=== PATIENT | female | born 1980 | race Caucasian/White ===

== ENCOUNTER 2016-07-06 12:19 | Emergency (ER) | payer MEDICAID ==
[2016-07-06] MEDS ORDERED: ALBUTEROL NEB 2.5 MG/3 ML INH STA (13:39)
[2016-07-06] MEDS ORDERED: DEXAMETHASONE 10 MG/ML VIAL PO STA (13:39)
[2016-07-06] MEDS ORDERED: oxyCOD/ACETAMIN 5 MG/325 MG TABLET PO STA (13:39)
[2016-07-06] MEDS ORDERED: ONDANSETRON ODT 4 MG TABLET TL STA (13:39)
[2016-07-06] MEDS ORDERED: ALBUTEROL NEB 2.5 MG/3 ML INH ONE (13:48)
[2016-07-06] MEDS ORDERED: oxyCOD/ACETAMIN 5 MG/325 MG TABLET PO ONE (13:49)
[2016-07-06] MEDS ORDERED: ONDANSETRON ODT 4 MG TABLET ONE (13:49)
[2016-07-06] MEDS ORDERED: CHERRY SYRUP 10 ML UDC PO ONE (13:49)
[2016-07-06] MEDS ORDERED: DEXAMETHASONE 10 MG/ML VIAL ONE (13:49)
[2016-07-06] MEDS ORDERED: CEPHALEXIN 250 MG CAPSULE PO STA (14:16)
[2016-07-06] MEDS ORDERED: CEPHALEXIN 250 MG CAPSULE PO ONE (14:26)
== END 2016-07-06 14:42 | disposition home or self-care (01) ==
DX: J03.90 Acute tonsillitis, unspecified (principal); J45.909 Unspecified asthma, uncomplicated; F17.200 Nicotine dependence, unspecified, uncomplicated
CPT/HCPCS: 87070; 87275; 87276; 87430; 94640; 99283; A9270; J7613; Q0162

== ENCOUNTER 2016-07-12 16:38 | Emergency (ER) | payer MEDICAID ==
[2016-07-12 16:44] VITALS: BP 140/89
--- NOTE | 2016-07-12 16:55 | ED Physician Documentation ---
History of Present Illness - Stated complaint Stated Complaint: COUGH - Chief complaint Chief Complaint: Resp - History of Present Illness Timing: Other (35-year-old woman with history of asthma and multiple episodes of pneumonia as a child presents with a 12 days of illness which started with URI symptoms and sore throat. She was seen here, strep and flu swabs were negative. She was placed on antibiotics, steroid. She was getting better but got worse again with a more productive cough with green sputum and shortness of breath but no fevers. No possibility of .) Review of Systems Constitutional: reports: Fatigue. denies: Fever, Chills Ears: denies: Loss of hearing, Ear pain Nose: reports: Rhinorrhea / runny nose Throat: reports: Sore throat (improved) Cardiac: denies: Chest pain / pressure, Palpitations, Pedal edema, Calf pain Respiratory: reports: Dyspnea, Cough, Wheezing. denies: Hemoptysis PD PAST MEDICAL HISTORY - Past Medical History Respiratory: Asthma - Past Surgical History Past Surgical History: Yes General: Appendectomy - Present Medications Home Medications: Ambulatory Orders Medication Instructions Recorded Confirmed Albuterol 2.5 mg INH Q4H PRN #30 neb 07/06/16 Albuterol Sulfate [Proair Hfa 2 puffs IH QID #1 hfa.aer.ad 07/06/16 Inhaler] Cephalexin [Keflex] 500 mg PO QID #20 capsule 07/06/16 Dexamethasone [Decadron] 4 mg PO DAILY #5 tablet 07/06/16 Ipratropium [Atrovent] 0.5 mg INH BID #30 neb 07/06/16 Oxycodone HCl/Acetaminophen 1 each PO Q6H PRN #15 tablet 07/06/16 [Percocet 5-325 mg Tablet] diphenhydrAMINE [Benadryl] 07/06/16 guaiFENesin/CODEINE [Robitussin AC] 5 - 10 ml PO Q6H PRN #120 ml 07/12/16 predniSONE [Deltasone] 20 mg PO [id number] #21 tab 07/12/16 - Allergies Allergies/Adverse Reactions: Allergies Allergy/AdvReac Type Severity Reaction Status Date / Time aspirin Allergy Unknown Verified 07/06/16 12:27 Penicillins Allergy Unknown Verified 07/12/16 16:43 - Social History Does the pt smoke?: Yes Smoking Status: Current every day smoker Does the pt have substance abuse?: No PD ED PE NORMAL - Vitals Vital signs reviewed: Yes - General General: Alert and oriented X 3, No acute distress - HEENT HEENT: PERRL, EOMI, Ears normal, Moist mucous membranes, Pharynx benign - Neck Neck: Supple, no meningeal sign, No bony TTP - Cardiac Cardiac: RRR, No murmur - Respiratory Respiratory: No respiratory distress, Other (mild rhonchi throughout, [place] bases) - Abdomen Abdomen: Soft, Non tender - Derm Derm: No rash - Neuro Neuro: Alert and oriented X 3, Normal speech - Psych Psych: Normal mood, Normal affect Results - Vitals Vitals: Vital Signs - 24 hr 07/12/16 16:41 Temperature 36.2 C L Heart Rate 61 Respiratory 16 Rate Blood Pressure 140/89 H O2 Saturation 99 Oxygen O2 Source Room air - Rads (name of study) 2v chest Radiology: EMP read contemporaneously (mild bronchitis) PD MEDICAL DECISION MAKING - ED course ED course: 35-year-old woman with viral bronchitis, has not improved on antibiotics. Added Robitussin and prednisone. She was concerned for pneumonia but there is no evidence of this on x-ray. Departure - Departure Disposition: 01 Home, Self Care Clinical Impression: Bronchitis Condition: Good Record reviewed to determine appropriate education?: Yes Instructions: ED Bronchitis Asthmatic Prescriptions: predniSONE [Deltasone] 20 mg PO [id number] #21 tab guaiFENesin/CODEINE [Robitussin AC] 5 - 10 ml PO Q6H PRN #120 ml PRN Reason: Cough Comments: Call your doctor to arrange a follow up appointment. Make the next available appointment. In the interim return anytime if worse or if new symptoms develop. Your blood pressure was elevated today on check in to the emergency department. This does not mean that you have hypertension, it is a common phenomenon to check into the emergency department and have elevated blood pressure. I recommend that you see your primary care physician within the week to have it rechecked when you're feeling better. Forms: Activity restrictions Discharge Date/Time: 07/12/16 17:58
--- NOTE | 2016-07-12 17:45 | XRAY Preliminary Report ---
Exam: XR Chest 2 View PA/LAT IMPRESSION: Mild bronchial wall thickening which can be seen in bronchitis or reactive airways diseas e. No focal consolidation. [facility] SITE ID: [id number]
--- NOTE | 2016-07-12 17:48 | XRAY Report ---
EXAM: CHEST RADIOGRAPHY EXAM DATE: 07/12/2016 05:28 PM. CLINICAL HISTORY: Cough. COMPARISON: Chest x-ray 11/01/2011. TECHNIQUE: 2 views. FINDINGS: Lungs/Pleura: No pleural effusion or pneumothorax. No focal consolidation. Mild bronchial wall thicke rm. Mediastinum: Heart and mediastinal contours are unremarkable. Other: None. IMPRESSION: Mild bronchial wall thickening which can be seen in bronchitis or reactive airways diseas e. No focal consolidation. [facility] Referring Provider Line: [phone] SITE ID: [id number]
== END 2016-07-12 17:58 | disposition home or self-care (01) ==
LOC: ED 16:38
DX: J40 Bronchitis, not specified as acute or chronic (principal); J45.909 Unspecified asthma, uncomplicated; Z87.01 Personal history of pneumonia (recurrent); F17.200 Nicotine dependence, unspecified, uncomplicated; Z88.0 Allergy status to penicillin; R03.0 Elevated blood-pressure reading, without diagnosis of hypertension
CPT/HCPCS: 71020; 99282; 99283

== ENCOUNTER 2016-07-31 10:34 | Emergency (ER) | payer MEDICAID ==
[2016-07-31] MEDS ORDERED: DEXAMETHASONE 10 MG/ML VIAL IVP STA (12:47)
[2016-07-31] MEDS ORDERED: KETOROLAC 60 MG/2 ML VIAL IVP STA (12:47)
[2016-07-31] MEDS ORDERED: PROCHLORPERAZINE 10 MG/2 ML VIAL IVP STA (12:47)
[2016-07-31] MEDS ORDERED: diphenhydrAMINE INJ 50 MG/ML VIAL IVP STA (12:47)
[2016-07-31] MEDS ORDERED: SODIUM CHLORIDE 0.9% 1,000 ML IV ONE (12:47)
[2016-07-31] MEDS ORDERED: PROCHLORPERAZINE 10 MG/2 ML VIAL ONE (12:49)
[2016-07-31] MEDS ORDERED: DEXAMETHASONE 10 MG/ML VIAL ONE (12:49)
[2016-07-31] MEDS ORDERED: KETOROLAC 30 MG/ML VIAL ONE (12:49)
[2016-07-31] MEDS ORDERED: diphenhydrAMINE INJ 50 MG/ML VIAL ONE (12:49)
== END 2016-07-31 14:14 | disposition home or self-care (01) ==
DX: G43.909 Migraine, unspecified, not intractable, without status migrainosus (principal); J45.909 Unspecified asthma, uncomplicated; F17.200 Nicotine dependence, unspecified, uncomplicated; R03.0 Elevated blood-pressure reading, without diagnosis of hypertension

== ENCOUNTER 2016-09-12 09:00 | Emergency (ER) | payer MEDICAID | END 2016-09-12 10:16 | disposition home or self-care (01) | DX: K04.7 Periapical abscess without sinus (principal); J45.909 Unspecified asthma, uncomplicated; F17.200 Nicotine dependence, unspecified, uncomplicated ==

== ENCOUNTER 2016-12-02 19:11 | Emergency (ER) | payer MEDICAID ==
[2016-12-02] MEDS ORDERED: HYDROcod/ACET 5/325 Prepack 6 PO STA (21:33)
--- NOTE | 2016-12-02 21:35 | ED Physician Documentation ---
History of Present Illness - Stated complaint Stated Complaint: L FOOT PAIN - Chief complaint Chief Complaint: Heent - History obtained from History obtained from: Patient - History of Present Illness Timing: Other (Stubbed L 3rd-5th toes on a door last night, a lot of pain despite tylenol/motrin. No poss pregn.) Review of Systems Constitutional: denies: Fever, Chills Nose: denies: Rhinorrhea / runny nose, Congestion Throat: denies: Sore throat Cardiac: denies: Chest pain / pressure, Palpitations Respiratory: denies: Dyspnea PD PAST MEDICAL HISTORY - Past Medical History Past Medical History: Yes Cardiovascular: None Respiratory: Asthma Neuro: None Endocrine/Autoimmune: None GI: None HEALTH ADVOCATE: None : None HEENT: None Psych: None Musculoskeletal: None Derm: None - Past Surgical History Past Surgical History: Yes General: Appendectomy - Present Medications Home Medications: Ambulatory Orders Medication Instructions Recorded Confirmed Albuterol 2.5 mg INH Q4H PRN #30 neb 07/06/16 08/06/16 Albuterol Sulfate [Proair Hfa 2 puffs IH QID #1 hfa.aer.ad 07/06/16 08/06/16 Inhaler] Ipratropium [Atrovent] 0.5 mg INH BID #30 neb 07/06/16 08/06/16 Azithromycin [Zithromax] 250 mg PO DAILY #6 tablet 08/06/16 Benzonatate [Tessalon] 100 mg PO TID PRN #20 capsule 08/06/16 Ibuprofen [Motrin] 400 mg PO Q6H PRN #30 tablet 08/06/16 guaiFENesin/CODEINE [Robitussin AC] 5 - 10 ml PO Q6H PRN #120 udc 08/06/16 Clindamycin [Cleocin] 300 mg PO Q6H 7 Days 09/12/16 Ibuprofen [Motrin] 400 mg PO Q6H PRN #30 tablet 09/12/16 HYDROcod/ACETAM 5/325 [[place] 5/325] 1 - 2 ea PO Q6H PRN #15 tablet 12/02/16 - Allergies Allergies/Adverse Reactions: Allergies Allergy/AdvReac Type Severity Reaction Status Date / Time Penicillins Allergy Severe Edema Verified 12/02/16 19:23 aspirin Allergy Unknown Verified 12/02/16 19:23 - Social History Does the pt smoke?: Yes Smoking Status: Current every day smoker Does the pt drink ETOH?: No Does the pt have substance abuse?: No - Immunizations Immunizations are current?: Yes - POLST Patient has POLST: No PD ED PE NORMAL - Vitals Vital signs reviewed: Yes - General General: Alert and oriented X 3, No acute distress - Extremities Extremities: Other (Left third fourth and fifth toes are tender proximally with some swelling and bruising.) - Neuro Neuro: Alert and oriented X 3, Normal speech - Psych Psych: Normal mood, Normal affect Results - Vitals Vitals: Vital Signs - 24 hr 12/02/16 19:14 Temperature 36.7 C Heart Rate 99 Respiratory 18 Rate Blood Pressure 143/89 H O2 Saturation 100 Oxygen O2 Source Room air - Rads (name of study) L foot Radiology: EMP read contemporaneously (Proximal fifth phalanx fracture) Departure - Departure Disposition: 01 Home, Self Care Clinical Impression: Toe fracture, left Condition: Good Record reviewed to determine appropriate education?: Yes Instructions: ED Fx Toe Closed Prescriptions: HYDROcod/ACETAM 5/325 [[place] 5/325] 1 - 2 ea PO Q6H PRN #15 tablet PRN Reason: Pain Comments: Recheck with your doctor in 2 weeks, sooner if worse. Your blood pressure was elevated today on check into the emergency department. This does not mean that you have hypertension, it is a common phenomenon to come to the emergency department and have elevated blood pressure. I recommend that she see her primary care physician within the week to have it rechecked when you are feeling better. Do not drink or drive while taking narcotic pain medication. Note that many narcotic pain relievers also contain Tylenol/acetaminophen. Please ensure that your total dose of acetaminophen from all sources does not exceed 3 g (3000 mg) per day. You may get constipated while on this medication. Take a stool softener such as Colace twice a day while you are on it. Also add an [id number]-[id number] laxative such as senna or MiraLAX on any day that you do not have a bowel movement. If you received a narcotic pain medication or sedative while in the emergency department, do not drive for the next 24 hours. Forms: Activity restrictions
[2016-12-02] MEDS ORDERED: HYDROcod/ACET 5/325 Prepack 6 PO ONE (21:37)
[2016-12-02 22:26] VITALS: BP 138/82
--- NOTE | 2016-12-02 22:28 | XRAY Preliminary Report ---
Exam: XR Foot 3 View LT IMPRESSION: 1. No dislocation. 2. Nondisplaced transverse fracture in the proximal portion of the left fifth proximal phalanx. 3. Soft tissue swelling in the left third through fifth toes. [facility] SITE ID: [id number]
--- NOTE | 2016-12-02 22:36 | XRAY Report ---
EXAM: LEFT FOOT RADIOGRAPHY EXAM DATE: 12/02/2016 09:58 PM. CLINICAL HISTORY: Left 3rd, 4th, and 5th toe injury. COMPARISON: None. TECHNIQUE: 3 views. FINDINGS: Bones: Nondisplaced transverse fracture at the base of the left fifth proximal phalanx without signif icant distraction or angulation. Joints: Normal. No subluxations. Soft Tissues: Swelling noted in the left third, fourth and fifth toes. IMPRESSION: 1. No dislocation. 2. Nondisplaced transverse fracture in the proximal portion of the left fifth proximal phalanx. 3. Soft tissue swelling in the left third through fifth toes. [facility] Referring Provider Line: [phone] SITE ID: [id number]
== END 2016-12-02 22:25 | disposition home or self-care (01) ==
LOC: ED 19:11
DX: S92.515A Nondisplaced fracture of proximal phalanx of left lesser toe(s), initial encounter for closed fracture (principal); W22.8XXA Striking against or struck by other objects, initial encounter; J45.909 Unspecified asthma, uncomplicated; F17.200 Nicotine dependence, unspecified, uncomplicated; R03.0 Elevated blood-pressure reading, without diagnosis of hypertension
CPT/HCPCS: 99283

== ENCOUNTER 2016-12-10 14:42 | Outpatient (CLI) | payer MEDICAID | END 2016-12-10 14:43 | disposition home or self-care (01) | DX: M60.9 Myositis, unspecified (principal) ==

== ENCOUNTER 2017-02-22 05:20 | Emergency (ER) | payer MEDICAID ==
[2017-02-22] MEDS ORDERED: IPRATROPIUM/ALBUTEROL 3 ML NEB INH STA (05:36)
[2017-02-22] MEDS ORDERED: ALBUTEROL NEB 2.5 MG/3 ML INH STA ×2 (05:39→06:49)
[2017-02-22] MEDS ORDERED: predniSONE 20 MG TABLET PO STA (05:39)
[2017-02-22] MEDS ORDERED: IPRATROPIUM/ALBUTEROL 3 ML NEB INH ONE (05:43)
[2017-02-22] MEDS ORDERED: predniSONE 20 MG TABLET ONE (05:53)
--- NOTE | 2017-02-22 05:59 | ED Physician Documentation ---
PD HPI URI - Stated complaint Stated Complaint: DIFF BREATHING - Chief complaint Chief Complaint: Resp - History obtained from History obtained from: Patient - History of Present Illness Timing - onset: How many days ago (2) Timing duration: Days (2) Timing details: Gradual onset Pain level max: 0 Pain level now: 0 Associated symptoms: Nasal congestion, Rhinorrhea, Dry cough, Dyspnea (wheezing) . No: Fever Contributing factors: Sick contact Improves by: Rest, MDI/nebulizer Worsened by: Activity, Breathing Similar symptoms before: Diagnosis (asthma, URI) Recently seen: Not recently seen Review of Systems Constitutional: denies: Fever, Chills Nose: reports: Rhinorrhea / runny nose, Congestion Throat: denies: Sore throat Cardiac: denies: Chest pain / pressure Respiratory: reports: Cough (dry), Wheezing. denies: Dyspnea, Hemoptysis GI: denies: Abdominal Pain, Nausea, Vomiting, Diarrhea Skin: denies: Rash Musculoskeletal: denies: Neck pain, Back pain Neurologic: denies: Headache PD PAST MEDICAL HISTORY - Past Medical History Cardiovascular: None Respiratory: Asthma Neuro: None Endocrine/Autoimmune: None GI: None SKATING CARHOP: None : None HEENT: None Psych: None Musculoskeletal: None Derm: None - Past Surgical History Past Surgical History: Yes General: Appendectomy - Present Medications Home Medications: Ambulatory Orders Medication Instructions Recorded Confirmed Albuterol 2.5 mg INH Q4H PRN #30 neb 07/06/16 02/22/17 Albuterol Sulfate [Proair Hfa 2 puffs IH QID #1 hfa.aer.ad 07/06/16 02/22/17 Inhaler] Albuterol 2.5 mg INH Q4H PRN #30 neb 02/22/17 Albuterol Sulf [Ventolin Hfa 1 - 2 puffs INH Q4HR PRN #1 inhaler 02/22/17 Inhaler] Benzonatate [Tessalon Perle] 100 - 200 mg PO TID PRN #30 capsule 02/22/17 Prednisone 40 mg PO DAILY #10 tablet 02/22/17 - Allergies Allergies/Adverse Reactions: Allergies Allergy/AdvReac Type Severity Reaction Status Date / Time Penicillins Allergy Severe Edema Verified 02/22/17 05:39 aspirin Allergy Unknown Verified 02/22/17 05:39 - Social History Does the pt smoke?: Yes Smoking Status: Current some day smoker Does the pt drink ETOH?: No Does the pt have substance abuse?: No - Immunizations Immunizations are current?: Yes - POLST Patient has POLST: No PD ED PE NORMAL - Vitals Vital signs reviewed: Yes - General General: Alert and oriented X 3, No acute distress - HEENT HEENT: Moist mucous membranes - Neck Neck: Supple, no meningeal sign - Cardiac Cardiac: RRR, Strong equal pulses - Respiratory Respiratory: No respiratory distress, Other (wheezing B, decreased breath sounds B) - Abdomen Abdomen: Soft, Non tender, Non distended - Derm Derm: Warm and dry, No rash - Extremities Extremities: No edema, No calf tenderness / cord - Neuro Neuro: Alert and oriented X 3 - Psych Psych: Normal mood, Normal affect Results - Vitals Vitals: Vital Signs - 24 hr 02/22/17 02/22/17 02/22/17 05:28 05:40 05:42 Temperature 36.5 C Heart Rate 102 H 85 85 Respiratory 22 17 17 Rate Blood Pressure 161/91 H 161/91 H O2 Saturation 100 97 02/22/17 02/22/17 02/22/17 05:55 06:07 06:19 Temperature Heart Rate 87 86 97 Respiratory 17 16 24 Rate Blood Pressure 125/82 H 124/82 H O2 Saturation 96 97 02/22/17 02/22/17 02/22/17 06:20 06:40 06:57 Temperature Heart Rate 99 86 82 Respiratory 24 17 20 Rate Blood Pressure 149/98 H O2 Saturation 96 02/22/17 02/22/17 07:11 07:13 Temperature Heart Rate 96 Respiratory 19 19 Rate Blood Pressure 127/86 H O2 Saturation 97 Oxygen O2 Source Room air PD MEDICAL DECISION MAKING - ED course Complexity details: re-evaluated patient, considered differential, d/w patient ED course: Patient is a 36-year-old female who presents to the emergency department with what appears to be a viral URI. No evidence of pneumonia clinically. No fever. No hypoxia. Given steroids and breathing treatments. Aeration in the bilateral lungs greatly improved. Minimal residual wheezing. Will refill her albuterol inhaler, nebulizer solution and placed on steroids as well as Tessalon. She is very well-appearing, nontoxic. Patient counseled regarding signs and symptoms for which I believe and urgent re-evaluation would be necessary. Patient with good understanding of and agreement to plan and is comfortable going home at this time This document was made in part using voice recognition software. While efforts are made to proofread this document, sound alike and grammatical errors may occur. Departure - Departure Disposition: 01 Home, Self Care Clinical Impression: Viral URI, Asthma attack Condition: Good Instructions: ED URI Viral W Wheezing Follow-Up: your,doctor in 1 week [Other] Prescriptions: Albuterol Sulf [Ventolin Hfa Inhaler] 1 - 2 puffs INH Q4HR PRN #1 inhaler PRN Reason: Shortness Of Air/Wheezing Albuterol 2.5 mg INH Q4H PRN #30 neb PRN Reason: Wheezing Prednisone 40 mg PO DAILY #10 tablet Benzonatate [Tessalon Perle] 100 - 200 mg PO TID PRN #30 capsule PRN Reason: Cough Comments: Return if you worsen. This should improve over the next few days.
[2017-02-22] MEDS ORDERED: ALBUTEROL NEB 2.5 MG/3 ML INH ONE ×4 (06:09→13:32)
[2017-02-22] MEDS ORDERED: SODIUM CHLORIDE INHALATION 3 ML NEB ONE (06:09)
[2017-02-22 07:14] VITALS: BP 127/86
== END 2017-02-22 07:42 | disposition home or self-care (01) ==
LOC: ED 05:20
DX: J06.9 Acute upper respiratory infection, unspecified (principal); B97.89 Other viral agents as the cause of diseases classified elsewhere; J45.998 Other asthma; F17.200 Nicotine dependence, unspecified, uncomplicated
CPT/HCPCS: 94640; 99284

== ENCOUNTER 2017-02-22 13:05 | Outpatient (CLI) | payer MEDICAID | END 2017-02-22 13:06 | disposition critical access hospital (66) | LOC: EMS 13:05 | PROVIDERS: ATTEND Surgery | DX: R06.00 Dyspnea, unspecified (principal) | CPT/HCPCS: A0425; A0427 ==

== ENCOUNTER 2017-02-22 13:19 | Inpatient (IN) | payer MEDICAID ==
[2017-02-22] MEDS ORDERED: ALBUTEROL NEB 2.5 MG/3 ML INH STA (13:27)
[2017-02-22] MEDS ORDERED: MAGNESIUM SULFATE 2 GRAM 50 ML IV ONE ×2 (13:28→13:36)
[2017-02-22] MEDS ORDERED: SODIUM CHLORIDE 0.9% 1,000 ML IV ONE (13:28)
--- NOTE | 2017-02-22 13:30 | ED Physician Documentation ---
PD HPI DYSPNEA - Stated complaint Stated Complaint: SOA - Chief complaint Chief Complaint: Resp - History obtained from History obtained from: Patient, EMS - History of Present Illness Timing - onset: Other (36-year-old woman with history of asthma exacerbated by URIs and allergies has had a URI with increasing shortness of breath and cough for several days now but without measured fevers. She was seen early this morning and given nebs and steroids with improvement but got worse shortly after discharge. She is severely short of breath now. She has been hospitalized in the past for her asthma, the last time was in 2011, never intensive care.) - Additional information Additional information: DuoNeb in route without much relief Review of Systems Ten Systems: 10 systems reviewed and negative Constitutional: reports: Fatigue. denies: Fever Eyes: denies: Loss of vision, Decreased vision Nose: reports: Rhinorrhea / runny nose, Congestion Cardiac: denies: Chest pain / pressure, Palpitations, Pedal edema, Calf pain Respiratory: reports: Dyspnea, Cough, Wheezing. denies: Hemoptysis PD PAST MEDICAL HISTORY - Past Medical History Cardiovascular: None Respiratory: Asthma Neuro: None Endocrine/Autoimmune: None GI: None GREASE MONKEY: None : None HEENT: None Psych: None Musculoskeletal: None Derm: None - Past Surgical History Past Surgical History: Yes General: Appendectomy - Present Medications Home Medications: Ambulatory Orders Medication Instructions Recorded Confirmed Albuterol Sulf [Ventolin Hfa 2 puffs INH Q4H PRN 02/22/17 02/22/17 Inhaler] Fluticasone Furoate [Arnuity 1 puffs INH RTDAILY 02/22/17 02/22/17 Ellipta] Levonorgestrel-Ethin Estradiol 1 tab PO DAILY 02/22/17 02/22/17 [Aviane-28 Tablet] - Allergies Allergies/Adverse Reactions: Allergies Allergy/AdvReac Type Severity Reaction Status Date / Time Penicillins Allergy Severe Edema Verified 02/22/17 05:39 aspirin Allergy Unknown Verified 02/22/17 05:39 bee venom protein (honey bee) Allergy Anaphylaxis Verified 02/22/17 13:25 - Social History Does the pt smoke?: Yes Smoking Status: Current some day smoker Does the pt drink ETOH?: No Does the pt have substance abuse?: No - Family History Family history: reports: Non contributory - Immunizations Immunizations are current?: Yes - POLST Patient has POLST: No PD ED PE NORMAL - Vitals Vital signs reviewed: Yes (Hypertensive, tachycardic, tachypneic) - General General: Alert and oriented X 3, Other (Speaking in short sentences, moderately labored) - HEENT HEENT: PERRL, EOMI, Pharynx benign - Neck Neck: Supple, no meningeal sign, No bony TTP - Cardiac Cardiac: RRR, No murmur - Respiratory Respiratory: Other (Tight wheezes throughout without focal findingsTight wheezes throughout without focal findings) - Abdomen Abdomen: Soft, Non tender - Back Back: No CVA TTP, No spinal TTP - Derm Derm: Normal color, Warm and dry - Extremities Extremities: No edema, No calf tenderness / cord - Neuro Neuro: Alert and oriented X 3, Normal speech - Psych Psych: Normal mood, Normal affect Results - Vitals Vitals: Vital Signs - 24 hr 02/22/17 02/22/17 02/22/17 13:21 13:35 13:56 Temperature 36.7 C Heart Rate 129 H 126 H 138 H Respiratory 24 20 33 H Rate Blood Pressure 154/76 H 159/71 H O2 Saturation 97 94 02/22/17 14:11 Temperature Heart Rate 137 H Respiratory 29 H Rate Blood Pressure 161/72 H O2 Saturation 93 Oxygen O2 Source Room air - Labs Labs: Laboratory Tests 02/22/17 02/22/17 02/22/17 13:47 13:47 13:47 WBC 18.8 H RBC 4.58 Hgb 14.0 Hct 42.3 MCV 92.4 MCH 30.5 MCHC 33.0 RDW 14.0 Plt Count 262 MPV 8.6 Neut # 17.4 H Lymph # 0.8 L [place] # 0.4 Eos # 0.0 Baso # 0.1 Absolute Nucleated RBC 0.00 Nucleated RBCs 0.0 Sodium 139 Potassium 3.4 L Chloride 103 Carbon Dioxide 25 Anion Gap 11.0 BUN 8 Creatinine 0.8 Estimated GFR (MDRD) 80 L Glucose 183 H Calcium 9.0 Magnesium Total Bilirubin 0.7 AST 22 ALT 24 Alkaline Phosphatase 78 Total Protein 7.8 Albumin 4.3 Globulin 3.5 Albumin/Globulin Ratio 1.2 Lipase 21 L Serum HCG, Qual NEGATIVE 02/22/17 13:47 WBC RBC Hgb Hct MCV MCH MCHC RDW Plt Count MPV Neut # Lymph # [place] # Eos # Baso # Absolute Nucleated RBC Nucleated RBCs Sodium Potassium Chloride Carbon Dioxide Anion Gap BUN Creatinine Estimated GFR (MDRD) Glucose Calcium Magnesium 1.7 Total Bilirubin AST ALT Alkaline Phosphatase Total Protein Albumin Globulin Albumin/Globulin Ratio Lipase Serum HCG, Qual PD MEDICAL DECISION MAKING - ED course ED course: 36-year-old woman with apparent asthma exacerbation bounces back with the same, she is tachycardic and tachypneic, after the administration of 3 [id number] albuterol as she is persistently wheezy and labored with a lot of coughing and also chest pain and headache from coughing which is treated with morphine. She was redosed with steroids and also given IV magnesium here. Given her persistent respiratory difficulty despite treatment here, the hospitalist was called for admission at 2:21 PM. - Critical Care Time(min): 42 Time Includes: Direct patient care, Review records, Reassess patient, Document care, Coordinate care, Medical consult, Family consult for tx dec Data interpretation: CXR Procedures included in critical care time: Peripheral IV Departure - Departure Disposition: ED Place in Observation Clinical Impression: Status asthmaticus Qualifiers: Asthma severity: moderate persistent Qualified Code(s): J45.42 - Moderate persistent asthma with status asthmaticus Condition: Serious Discharge Date/Time: 02/22/17 15:02
[2017-02-22] MEDS ORDERED: SODIUM CHLORIDE FLUSH 0.9% 10 ML SYRINGE IVP ONE ×2 (13:36→14:29)
[2017-02-22 13:53] LABS: BASOPHILS # (AUTO) 0.1 10^3/uL (0.0-0.1); BASOPHILS % (AUTO) 0.8 %; HCT - HEMATOCRIT 42.3 % (37.0-47.0); LYMPHOCYTES # (AUTO) 0.8 10^3/uL (1.5-3.5); LYMPHOCYTES % (AUTO) 4.4 %; MEAN CORPUSCULAR HEMOGLOBIN 30.5 pg (27.0-31.0); MEAN CORPUSCULAR VOLUME 92.4 fL (81.0-99.0); MEAN PLATELET VOLUME 8.6 fL (7.9-10.8); MONOCYTES # (AUTO) 0.4 10^3/uL (0.0-1.0); NEUTROPHILS # (AUTO) 17.4 10^3/uL (1.5-6.6); NEUTROPHILS % (AUTO) 92.8 %; RED BLOOD COUNT 4.58 10^6/uL (4.20-5.40); UNCORRECTED WHITE BLOOD COUNT 18.8 x10^3/uL; WHITE BLOOD COUNT 18.8 x10^3/uL (4.8-10.8)
[2017-02-22 14:05] LABS: ALBUMIN/GLOBULIN RATIO 1.2 (1.0-2.2); BILIRUBIN,TOTAL 0.7 mg/dL (0.2-1.0); CREATININE 0.8 mg/dL (0.4-1.0); POTASSIUM 3.4 mmol/L (3.5-5.0); TOTAL PROTEIN 7.8 g/dL (6.7-8.2)
[2017-02-22] MEDS ORDERED: MORPHINE 10 MG/ML VIAL IVP STA (14:20)
--- NOTE | 2017-02-22 14:25 | XRAY Preliminary Report ---
Exam: XR Chest 1 View IMPRESSION: 1. Hypoinflation. 2. Mild increased bronchovascular accentuation could be related to bronchitis or reactive airway dise ase but is likely accentuated by the hypoinflation. 3. No focal infiltrate. [facility] SITE ID: [id number]
--- NOTE | 2017-02-22 14:28 | XRAY Report ---
EXAM: CHEST RADIOGRAPHY EXAM DATE: 02/22/2017 01:57 PM. CLINICAL HISTORY: Dyspnea, asthma. COMPARISON: 2 views 07/12/2016. TECHNIQUE: 1 view. FINDINGS: Lungs/Pleura: Bilateral hypoinflation, decreased from the prior exam. Increased bronchovascular yasmin ngs could be related to bronchitis or reactive airway disease but is likely accentuated by hypoinflat ion. No focal consolidation. No pleural effusion or pneumothorax. Mediastinum: Within exam limitations, cardiomediastinal contour is normal. Other: None. IMPRESSION: 1. Hypoinflation. 2. Mild increased bronchovascular accentuation could be related to bronchitis or reactive airway dise ase but is likely accentuated by the hypoinflation. 3. No focal infiltrate. [facility] Referring Provider Line: [phone] SITE ID: [id number]
[2017-02-22] MEDS ORDERED: MORPHINE 10 MG/ML VIAL ONE (14:29)
[2017-02-22] MEDS: MORPHINE 2 MG/ML SYRINGE IVP PRN ×3 (15:46→22:29)
[2017-02-22] MEDS: SODIUM CHLORIDE FLUSH 0.9% 10 ML SYRINGE IVP PRN ×2 (15:47→19:50)
[2017-02-22] MEDS: IPRATROPIUM/ALBUTEROL 3 ML NEB INH SCH ×2 (16:30→20:00)
[2017-02-22] MEDS: SODIUM CHLORIDE 0.9% 1,000 ML IV SCH (16:48)
[2017-02-22] MEDS: ENOXAPARIN 40 MG/0.4 ML SYRINGE SUBQ SCH (17:26)
--- NOTE | 2017-02-22 17:31 | HISTORY & PHYSICAL EXAMINATION ---
DATE OF ADMISSION: 02/22/2017 CHIEF COMPLAINT: Shortness of breath with history of asthma. HISTORY OF PRESENT ILLNESS: The patient is a very pleasant, obese 36-year-old female who presented to the ED today with complaint of shortness of breath with asthma exacerbation and upper respiratory in fection symptoms. The patient states that approximately 3 days ago she started coming down with what she describes as an infection of the upper airway. The patient states that she had a productive cough . She stated she could not breathe, felt like she was having an asthma attack along with upper respir atory infection. The patient went to [facility] for evaluation, was given steroids, DuoNeb treat ments, and then sent home. As the patient was getting her prescriptions filled she again became short of breath with chest pain that radiated across the left side of her chest across to the right, so zita yee came back to the hospital this time to the ER at [facility]. The patient was worked up earlier in the morning for again asthma and upper respiratory infection and was discharged home with medications for asthma exacerbation. The patient got home, continued on nebulizer treatments took a p rescription for Marlon Go had her daughter fill that at the pharmacy and then took the medicati on after about 2 hours of being home. The patient stated that medication was not helping and she was still coughing and every time she was coughing she become more short of breath. At that time, the francis rabago decided to come back to the ER at [facility] and was again evaluated by the ER provider and given D uoNeb treatments and morphine IV for pain. The patient still continued to not improve, so decision wa s made for admission for asthma exacerbation. Upon presentation at bedside after admission, the patie rosita was found to still be having significant inspiratory and expiratory wheezes. She continued to have tight wheezing throughout without any focal findings. She was tachycardic, respirations were tachyca rdic at 24, however, her oxygenation stayed greater than 92% even on room air. With 2 liters of oxyge n supplementation nasal cannula she improved to 97%. The patient stated that she had had some sweatin g over the course of the last 2 or 3 days. She cannot recall having a fever nor had she had chills. S he has significant fatigue, runny nose, congestion. She denied chest pain or pressure. She had some m ild palpitations when she was using any inhalers. Otherwise, she had not had any other palpitations f rom them. She denies any calf pain, pedal edema. She was positive for shortness of breath, cough, and wheezing. She denies any hemoptysis. We will continue with DuoNeb treatments and steroids and furthe r evaluation diagnostics if necessary. The patient was admitted to inpatient stay. ALLERGIES: 1. PENICILLIN. 2. ASPIRIN. 3. BEE VENOM. HOME MEDICATIONS: 1. Albuterol 2.5 mg inhaler every 4 hours as needed. 2. Albuterol sulfate nebs. 3. Tessalon Perles 1-200 mg p.o. t.i.d. as needed. 4. Prednisone 40 mg p.o. daily. PAST MEDICAL HISTORY: 1. Asthma. 2. Obesity. 3. Tobacco abuse. 4. History of pneumonia. 5. Frequent upper respiratory infections. PAST SURGICAL HISTORY: Appendectomy. SOCIAL HISTORY: The patient states that she still is smoking; however, not as much with this exacerba tion. She denies alcohol or illicit drug abuse. FAMILY HISTORY: The patient states that her mom's family had diabetes. Her dad has CAD. Both mom and dad had cancer in the family, including lung cancer. The patient does state that she has been around a coworker recently that was sick with an upper respiratory infection. REVIEW OF SYSTEMS: Ten systems have been reviewed and is negative with the exceptions that were discu ssed in the HPI prior. PHYSICAL EXAMINATION: CONSTITUTIONAL: The patient is alert, in moderate distress. Obese and in a pleasant mood. VITAL SIGNS: Vital signs: Temperature is 36.7, heart rate 129, respirations 24, blood pressure 154/76 , oxygen saturation was 97% on 2 liters. EYES: Pupils equal are round and react to light and accommodation. Conjunctivae and sclerae was nonic teric, not injected. ENT: Nares are patent. No nasal discharge. OROPHARYNX: No masses, exudates or lesions. Mucous membranes were moist. NECK: Supple. No thyromegaly. Trachea is midline. RESPIRATORY: Severe inspiratory and expiratory wheezes noted. The patient has mild nasal flaring with coughing, productive. CARDIOVASCULAR: S1, S2. No murmurs noted. Tachycardic with sinus rhythm. Normal PMI. There is no JVD. GASTROINTESTINAL: Abdomen is soft, nontender. Bowel sounds noted. No guarding or rebound. SKIN: Warm, dry, intact. Normal turgor. No evidence of rash, lesions, or cellulitis. NEUROLOGIC: The patient was alert, GCS 15. Cranial nerves 2 through 7 grossly intact. Sensory is inta ct. MUSCULOSKELETAL/EXTREMITIES: Full range of motion with upper and lower extremities without pedal edema noted. HEMATOLOGIC: No active bleeding. The patient is hemodynamically stable. LYMPHATICS: No cervical, axillary, supraclavicular lymphadenopathy is noted. GENITOURINARY: No CVA tenderness, no bladder distention. PSYCHIATRIC: Behavior is appropriate, oriented x3 and pleasant mood. LABORATORY AND DIAGNOSTIC DATA: I personally reviewed all laboratory and diagnostic data in the medic al records, it is as follows: Potassium 3.4, magnesium 1.7, glucose 183, GFR was 80, lipase 21. Sodiu m 139, chloride 103, BUN 8, creatinine 0.8. WBC is 18.8, neutrophil percent was 17.4 with lymphocyte 0.8 with shift. Hemoglobin is 14. DIAGNOSTICS/IMAGIN. CHEST X-RAY, IMPRESSION shows hypoinflation with mild increased bronchovascular accentuation. This could be related to bronchitis or reactive airway disease, but is likely accentuated by the hypoinfl ation, no focal infiltrates were noted. ASSESSMENT AND PLAN: 1. Acute dyspnea with productive cough secondary to moderate persistent asthma with status asthmaticu s. PLAN: The patient was brought in as inpatient. We will continue with DuoNeb treatments by Respiratory Therapy support with steroids and will check magnesium level. We will give IV magnesium. Continue wi th pain medication, morphine IV. Continue with albuterol and DuoNeb treatments. We will continue Shani desiree Perles for coughing and we will give him guaifenesin. EKG recommended. 2. Acute leukocytosis, unspecified. PLAN: Questionable whether the leukocytosis was brought on by steroid treatments including inhalers a nd IV steroids. She does have a shift so possible that the patient does have underlying infection inc luding an upper respiratory sinus infection with that. We will continue to monitor with CBC daily wit h morning labs. 3. Obesity with BMI greater than 35, with excessive caloric intake. PLAN: The patient will be counseled on weight loss management, daily weight and she will need quitline counselor ing regarding her asthma management. Since she is on steroids this can aggravate weight gain or weigh t loss. While receiving steroids she will be on daily glucose monitoring and sliding scale insulin. 4. Nicotine dependence, cigarettes, uncomplicated. PLAN: The patient continues to smoke. She has been counseled on smoking cessation and provided educat ional material. We will provide nicotine patch topical as needed. 5. Deep venous thrombosis prophylaxis will be with Lovenox and foot pumps. CODE STATUS: THE PATIENT IS A FULL CODE STATUS. RISK ASSESSMENT/DISPOSITION: The patient is high risk for worsening comorbidities. She will require I V medication as at high risk for toxicity, she will need additional diagnostics and Code status was a ddressed at bedside. Time spent with the patient at bedside for assessment and planning was 40 minutes. JOB #: [id number] EXT JOB #:[id number]
[2017-02-22] MEDS: guaiFENesin/CODEINE 5 ML UDC PO PRN ×2 (18:01→23:59)
[2017-02-22] MEDS: SODIUM CHLORIDE FLUSH 0.9% 10 ML SYRINGE IVP SCH (19:01)
[2017-02-22] MEDS: ACETAMINOPHEN 325 MG TABLET PO PRN (19:40)
[2017-02-23] MEDS: IPRATROPIUM/ALBUTEROL 3 ML NEB INH SCH ×5 (02:09→19:09)
[2017-02-23] MEDS: ONDANSETRON ODT 4 MG TABLET TL PRN ×2 (02:15→18:44)
[2017-02-23] MEDS: MORPHINE 2 MG/ML SYRINGE IVP PRN ×3 (02:21→12:46)
[2017-02-23] MEDS: SODIUM CHLORIDE 0.9% 1,000 ML IV SCH ×2 (02:48→12:46)
[2017-02-23] MEDS ORDERED: BENZOCAINE/MENTHOL LOZENGE MM PRN (04:05)
[2017-02-23] MEDS ORDERED: methylPREDNISolone SUCCINATE 40 MG/ML VIAL IVP SCH (04:09)
[2017-02-23] MEDS: SODIUM CHLORIDE FLUSH 0.9% 10 ML SYRINGE IVP SCH ×3 (05:17→18:44)
[2017-02-23] MEDS: guaiFENesin/CODEINE 5 ML UDC PO PRN ×2 (06:57→14:53)
[2017-02-23] MEDS ORDERED: ENOXAPARIN 40 MG/0.4 ML SYRINGE SUBQ ONE (07:40)
--- NOTE | 2017-02-23 07:45 | PROVIDER PROGRESS NOTE ---
Subjective - Prog Note Date Prog Note Date: 02/23/17 Prog Note Time: 07:44 - Subjective Pt reports feeling: No change Current Medications - Current Medications Current Medications: Abnormal Lab Results 02/22/17 02/22/17 02/22/17 13:47 13:47 13:47 WBC 18.8 x10^3/uL H x10^3/uL (4.8-10.8) Neut # 17.4 10^3/uL H 10^3/uL (1.5-6.6) Lymph # 0.8 10^3/uL L 10^3/uL (1.5-3.5) D-Dimer < 200.0 ng/mL L ng/mL (200.0-255.0) Potassium 3.4 mmol/L L mmol/L (3.5-5.0) Estimated GFR (MDRD) 80 L (>89) Glucose 183 mg/dL H mg/dL (70-100) Lipase 21 U/L L U/L (22-51) Objective - Vital Signs/Intake & Output Reviewed Vital Signs: Yes Vital Signs: Vital Signs x48h Temp Pulse Pulse Resp BP Pulse Ox 02/23/17 07:17 87 20 02/23/17 02:10 104 H 18 02/22/17 23:52 37 C 108 H 22 120/72 96 Intake & Output: Intake & Output 02/20/17 02/21/17 02/22/17 02/23/17 23:59 23:59 23:59 23:59 Intake Total 2013 810 Output Total 600 400 Balance 1414 410 - Lab Results Fish Bones: 02/22/17 13:47 02/22/17 13:47 Other Labs: Lab Results x24hrs 02/22/17 Range/Units 16:20 Magnesium 2.3 (1.7-2.8) mg/dL - Diagnostic Imaging Diagnostic Imaging Results: positive: Final report reviewed Assessment/Plan - Problem List (1) Moderate persistent asthma with acute bronchitis and acute exacerbation Impression: ACUTE AND ONGOING. CONTINUE WITH DUONEB TREATMENTS AND RESPIRATORY SUPPORT WITH SUPPLEMENTAL OXYGEN AND STEROIDS IV. MORPHINE AND TYLENOL FOR MILD AND SEVERE PAIN. LEVAQUIN IV 750MG DAILY. CONTINUE TO MONITOR CBC AND ELECTROLYTES WITH DAILY LAB DRAWS (2) Obesity, morbid, BMI 40.0-49.9 Impression: CHRONIC. CONTINUE TO MONITOR WEIGHT CHANGES AND ENCOURAGE LOW FAT LOW CALORIE DIET. PATIENT IS ON CARB CONTROLLED SINCE BLOOD GLUCOSE HAS BEEN HIGH DUE TO STEROID USAGE (3) Nicotine dependence, cigarettes, uncomplicated Impression: CHRONIC. CONTINUE TO MONITOR FOR WITHDRAWAL, NICOTINE PATCH PRN. COUNSELING GIVEN FOR SMOKING CESSATION AND EDUCATION PROVIDED (4) Neutrophilic leukocytosis Impression: ACUTE. CONTINUE TO MONITOR DAILY LAB DRAWS AND LEVAQUIN 750MG IV DAILY.
[2017-02-23] MEDS ORDERED: methylPREDNISolone SUCCINATE 125 MG/2 ML VIAL IVP ONE (08:30)
[2017-02-23] MEDS ORDERED: ENOXAPARIN 100 MG/ML SYRINGE SUBQ SCH (09:00)
[2017-02-23] MEDS ORDERED: ENOXAPARIN 40 MG/0.4 ML SYRINGE SUBQ SCH (09:00)
[2017-02-23 09:03] LABS: BASOPHILS # (AUTO) 0.1 10^3/uL (0.0-0.1); BASOPHILS % (AUTO) 0.4 %; EOSINOPHILS # (AUTO) 0.1 10^3/uL (0.0-0.7); EOSINOPHILS % (AUTO) 0.8 %; HCT - HEMATOCRIT 37.5 % (37.0-47.0); HGB - HEMOGLOBIN 12.3 g/dL (12.0-16.0); LYMPHOCYTES # (AUTO) 1.5 10^3/uL (1.5-3.5); LYMPHOCYTES % (AUTO) 11.7 %; MEAN CORPUSCULAR HEMOGLOBIN 30.7 pg (27.0-31.0); MEAN CORPUSCULAR HGB CONC 32.8 g/dL (32.0-36.0); MEAN CORPUSCULAR VOLUME 93.7 fL (81.0-99.0); MEAN PLATELET VOLUME 8.5 fL (7.9-10.8); MONOCYTES % (AUTO) 7.9 %; NEUTROPHILS # (AUTO) 10.4 10^3/uL (1.5-6.6); NEUTROPHILS % (AUTO) 79.2 %; RED BLOOD COUNT 4.01 10^6/uL (4.20-5.40); RED CELL DISTRIBUTION WIDTH 14.2 % (12.0-15.0); UNCORRECTED WHITE BLOOD COUNT 13.2 x10^3/uL; WHITE BLOOD COUNT 13.2 x10^3/uL (4.8-10.8)
[2017-02-23 09:10] LABS: ALBUMIN/GLOBULIN RATIO 1.1 (1.0-2.2); BILIRUBIN,TOTAL 0.9 mg/dL (0.2-1.0); CALCIUM 8.4 mg/dL (8.5-10.3); CREATININE 0.6 mg/dL (0.4-1.0); MAGNESIUM 2.1 mg/dL (1.7-2.8); POTASSIUM 4.3 mmol/L (3.5-5.0); TOTAL PROTEIN 6.6 g/dL (6.7-8.2)
--- NOTE | 2017-02-23 09:29 | Discharge Plan ---
Discharge Plan Disposition: Home, Self Care Condition: Stable Prescriptions: Ipratropium/Albuterol [Duoneb] 3 ml INH Q4HR #30 neb guaiFENesin/CODEINE [Robitussin AC] 5 ml PO Q6HR PRN #1 bottle PRN Reason: Cough Tramadol HCl [Ultram] 50 mg PO Q8HR #24 tablet Levofloxacin [Levaquin] 750 mg PO DAILY #5 tablet Prednisone 20 mg PO DAILY #7 tablet Albuterol Sulf [Ventolin Hfa Inhaler] 2 puffs INH Q4H PRN #1 inhaler PRN Reason: Shortness Of Air/Wheezing Diet: Cardiac Activity Restrictions: Activity as Tolerated Shower Restrictions: No Driving Restrictions: No Weight Bearing: Full Weight Instruction Topics: Asthma, Asthma Control Triggers Allergens Additional Instructions or Follow Up instructions: CONTINUE TO TAKE ALL HOME MEDICATIONS PRESCRIBED. YOU HAVE BEEN GIVEN A PRESCRIPTION FOR INHALERS AND NEB TREATMENTS. TAKE THEM PRESCRIBED. SEE YOUR PRIMARY CARE PROVIDER WITHIN THE NEXT DAY OR TWO AND WILL NEED REFERRAL TO A CAMPAIGN WORKER FOR WORSENING ASTHMA. TRY TO DRINK MORE WATER AND NO SODAS UNTIL WELL. TRY TO STOP IF POSSIBLE. EAT A LOW FAT AND LOW CALORIE DIET SINCE EXCESSIVE WEIGHT CAN EXACERBATE ASTHMA AND WALKING RETURN TO THE ER IF SYMPTOMS WORSEN OR IF YOU HAVE INCREASED CHEST PAIN OR SHORTNESS OF BREATH. NO SMOKING WHEN YOU ARE SICK AND TRY TO STOP ALL TOGETHER. PHONE NUMBERS AND RESOURCES HAVE BEEN PROVIDED TO YOU TO STOP No Smoking: If you smoke, Please STOP! Call for help. Follow-up with: Sorin Banegas MD [Primary Care Provider] -
[2017-02-23] MEDS: POLYETHYLENE GLYCOL 3350 17 GM PACKET PO SCH (10:07)
[2017-02-23] MEDS: LEVONORGESTREL ETHIN ESTRADIOL PO SCH (10:07)
--- NOTE | 2017-02-23 10:09 | DISCHARGE SUMMARY ---
"Discharge Summary Admit Date: 02/22/17 Discharge Date: 02/23/17 Discharging Provider: DAVID MELO Code Status: Attempt Resuscitation Condition at Discharge: Stable Discharge Disposition: 01 Home, Self Care Discharge Facility Name: HOME - DIAGNOSES Admission Diagnoses: 1. ACUTE DYSPNEA WITH MODERATED INTERMITTENT ASTHMA WITH STATUS ASTHMATICUS 2. MORBID OBESITY WITH BMI>40 3. NICOTINE DEPENDENCE CIGARETTES, UNCOMPLICATED 4. LEUKOCYTOSIS, UNSPECIFIED Discharge Diagnoses with Status of Each Condition: 1. ACUTE DYSPNEA WITH MODERATED INTERMITTENT ASTHMA WITH STATUS ASTHMATICUS 2. LEUKOCYTOSIS, UNSPECIFIED 3. NICOTINE DEPENDENCE CIGARETTES, UNCOMPLICATED 4. MORBID OBESITY WITH BMI>40 - HPI History of Present Illness: Stated complaint Stated Complaint: SOA - Chief complaint Chief Complaint: Resp - History obtained from History obtained from: Patient, EMS - History of Present Illness Timing - onset: Other (36-year-old woman with history of asthma exacerbated by URIs and allergies has had a URI with increasing shortness of breath and cough for several days now but without measured fevers. She was seen early this morning and given nebs and steroids with improvement but got worse shortly after discharge. She is severely short of breath now. She has been hospitalized in the past for her asthma, the last time was in 2011, never intensive care.) - CONSULTS | PROCEDURES Consultations: RESPIRATORY THERAPY Procedures: DUONEB TREATMENTS - HOSPITAL COURSE Hospital Course: Patient is a pleasant 36 year old female who presented to the ER and admitted with shortness of breath, failed outpatient treatment for asthma exacerbation and chest pain. Hospital course: 1. ACUTE DYSPNEA WITH MODERATED INTERMITTENT ASTHMA WITH STATUS ASTHMATICUS Patient received duoneb treatments with RT support. She received steroids IV and then discharged home with prednisone taper. She was instructed on inhaler usage and given prescriptions for neb treatments at home. given tylenol for fever and zofran for nausea. given guafenesin for cough. She was also requesting the need for home oxygen if she qualified. She was given guafenesin for cough as prescription at home 2. MORBID OBESITY WITH BMI>40 counseled on weight loss and exercise. recommended a low fat and low calorie diet. provided education materials. was on a diabetic diet due to the hyperglycemia and on sliding scale insulin as needed 3. NICOTINE DEPENDENCE CIGARETTES, UNCOMPLICATED counseled on smoking cessation and given nicotine patch if needed. she was also given prescription for patch if needed ati home 4. LEUKOCYTOSIS, UNSPECIFIED Given Levaquin IV and discharged home on oral Levaquin 750mg PO x 5 more days DVT prophylaxis was with scd and lovenox.SQ - ALLERGIES Allergies/Adverse Reactions: Allergies Allergy/AdvReac Type Severity Reaction Status Date / Time Penicillins Allergy Severe Edema Verified 02/22/17 05:39 aspirin Allergy Unknown Verified 02/22/17 05:39 bee venom protein (honey bee) Allergy Anaphylaxis Verified 02/22/17 13:25 - MEDICATIONS Home Medications: Ambulatory Orders Medication Instructions Recorded Confirmed Albuterol Sulf [Ventolin Hfa 2 puffs INH Q4H PRN 02/22/17 02/22/17 Inhaler] Fluticasone Furoate [Arnuity 1 puffs INH RTDAILY 02/22/17 02/22/17 Ellipta] Levonorgestrel-Ethin Estradiol 1 tab PO DAILY 02/22/17 02/22/17 [Aviane-28 Tablet] Ipratropium/Albuterol [Duoneb] 3 ml INH Q4HR #30 neb 02/23/17 Levofloxacin [Levaquin] 750 mg PO DAILY #5 tablet 02/23/17 Prednisone 20 mg PO DAILY #7 tablet 02/23/17 guaiFENesin/CODEINE [Robitussin AC] 5 ml PO Q6HR PRN #1 bottle 02/23/17 - PHYSICAL EXAM AT DISCHARGE General Appearance: positive: No acute distress, Alert Eyes Bilateral: positive: Normal inspection, PERRL, EOMI ENT: positive: ENT inspection nml, Pharynx nml, No signs of dehydration Neck: positive: Nml inspection, Thyroid nml, No JVD, Trachea midline Respiratory: positive: Chest non-tender, No respiratory distress, Wheezes ( expiratory) Cardiovascular: positive: Regular rate & rhythm Peripheral Pulses: positive: 2+ Abdomen: positive: Non-tender, No organomegaly, Nml bowel sounds, No distention Back: positive: Nml inspection Skin: positive: Color nml, No rash, Warm, Dry Extremities: positive: Non-tender, Full ROM, Nml appearance, No pedal edema Neurologic/Psychiatric: positive: Oriented x3, CN's nml (2-12), Motor nml, Sensation nml, Mood/affect nml - LABS Result Diagrams: 02/24/17 05:13 02/24/17 05:13 Other Lab Results: Abnormal Lab Results 02/22/17 02/22/17 02/22/17 13:47 13:47 13:47 WBC 18.8 x10^3/uL H x10^3/uL (4.8-10.8) RBC Neut # 17.4 10^3/uL H 10^3/uL (1.5-6.6) Lymph # 0.8 10^3/uL L 10^3/uL (1.5-3.5) D-Dimer < 200.0 ng/mL L ng/mL (200.0-255.0) Potassium 3.4 mmol/L L mmol/L (3.5-5.0) Anion Gap Estimated GFR (MDRD) 80 L (>89) Glucose 183 mg/dL H mg/dL (70-100) Calcium Total Protein Lipase 21 U/L L U/L (22-51) 02/23/17 02/23/17 08:49 08:49 WBC 13.2 x10^3/uL H x10^3/uL (4.8-10.8) RBC 4.01 10^6/uL L 10^6/uL (4.20-5.40) Neut # 10.4 10^3/uL H 10^3/uL (1.5-6.6) Lymph # D-Dimer Potassium Anion Gap 5.0 L (6-13) Estimated GFR (MDRD) Glucose 139 mg/dL H mg/dL (70-100) Calcium 8.4 mg/dL L mg/dL (8.5-10.3) Total Protein 6.6 g/dL L g/dL (6.7-8.2) Lipase - DIAGNOSTIC IMAGING Diagnostic Imaging Results: Final report reviewed - FOLLOW UP Follow Up: PATIENT WAS INSTRUCTED TO FOLLOW UP WITH PRIMARY CARE PROVIDER AND TO SEE HER PULMONARY DOCTOR SOON POSSIBLE AFTER DISCHARGE SHE WAS INSTRUCTED TO TAKE ALL HOME MEDICATIONS. SHE WAS GIVEN PRESCRIPTIONS FOR LEVAQUIN, STEROIDS AND INHALERS. SHE WAS TO FILL THEM AT THE PHARMACY AND VERBALLY UNDERSTOOD. sHE WAS TOLD TO RETURN TO THE ER IF SYMPTOMS WORSENED OR RETURNED WITH CHEST PAIN OR INCREASED SHORTNESS OF BREATH. - TIME SPENT Time Spent in Discharge (Minutes): 45 (for discharge assessment and planning)"
[2017-02-23] MEDS: ENOXAPARIN 40 MG/0.4 ML SYRINGE SUBQ SCH (10:34)
[2017-02-23] MEDS: ACETAMINOPHEN 325 MG TABLET PO PRN (10:35)
--- NOTE | 2017-02-23 15:21 | PROVIDER PROGRESS NOTE ---
Subjective - Prog Note Date Prog Note Date: 02/23/17 Prog Note Time: 15:19 - Subjective Pt reports feeling: Improved Subjective: patient has continued to improve but not ready for discharge today. she had a walking saturation study and was unable to tolerate walking a long distance without becoming short of breath. she has no chest pain but productive cough is improving and she is spitting up frequently. she has no fever or chills but is sweating. she has no diarrhea or constipation. she is positive for nausea and fatigue with weakness and productive cough Current Medications - Current Medications Current Medications: Active Medications Generic Name Dose Route Start Last Admin Trade Name Freq PRN Reason Stop Dose Admin Acetaminophen 650 mg 02/22/17 15:09 02/23/17 10:35 Tylenol PO 650 mg Q4HR PRN Administration Pain 1 to 4 Acetaminophen/Codeine Phosphate 2 tab 02/23/17 15:16 Tylenol #3 PO 02/23/17 15:17 ONCE ONE Albuterol/Ipratropium 3 ml 02/22/17 17:00 02/23/17 15:13 Duoneb INH 3 ml Q4HR POLLO Administration Enoxaparin Sodium 40 mg 02/22/17 17:00 02/23/17 10:34 Lovenox SUBQ 40 mg DAILY POLOL Administration Guaifenesin/Codeine Phosphate 5 ml 02/22/17 16:11 02/23/17 14:53 Robitussin Ac PO 5 ml Q6HR PRN Administration Cough Sodium Chloride 1,000 mls @ 100 mls/hr 02/22/17 16:00 02/23/17 12:46 Normal Saline 0.9% IV 100 mls/hr .Q10H POLLO Administration Levofloxacin 150 mls @ 100 mls/hr 02/22/17 18:00 02/22/17 18:02 Levaquin 750 Mg/150 Ml IV 100 mls/hr Q24H POLLO Administration Methylprednisolone 40 mg 02/23/17 18:00 Solu-Medrol (40mg Vial) IVP TID POLLO Morphine Sulfate 2 mg 02/22/17 15:09 02/23/17 12:46 Morphine IVP 2 mg Q2H PRN Administration Pain 8 to 10 Non-Formulary Medication 1 tab 02/23/17 09:00 02/23/17 10:07 Levonorgestrel-Ethin Estradiol [Aviane-28 Tablet] PO Not Given DAILY POLLO Ondansetron HCl 4 mg 02/22/17 15:09 02/23/17 02:15 Zofran Odt TL 4 mg Q6HR PRN Administration Nausea / Vomiting Polyethylene Glycol 17 gm 02/23/17 09:00 02/23/17 10:07 Miralax PO Not Given DAILY POLLO Sodium Chloride 10 ml 02/22/17 15:09 02/22/17 19:50 Normal Saline Flush 0.9% IVP 10 ml PRN PRN Administration NEEDED PER PROVIDER ORDERS Sodium Chloride 10 ml 02/22/17 22:00 02/23/17 07:48 Normal Saline Flush 0.9% IVP Not Given Q8HR POLLO Throat Lozenges 1 lozenge 02/23/17 04:05 Cepacol MM Q2HR PRN Throat pain Albuterol Sulf [Ventolin Hfa Inhaler] 2 puffs INH Q4H PRN 02/22/17 Fluticasone Furoate [Arnuity Ellipta] 1 puffs INH RTDAILY 02/22/17 Levonorgestrel-Ethin Estradiol [Aviane-28 Tablet] 1 tab PO DAILY 02/22/17 Objective - Vital Signs/Intake & Output Reviewed Vital Signs: Yes Vital Signs: Vital Signs x48h Temp Pulse Pulse Resp BP Pulse Ox 02/23/17 15:16 104 H 18 02/23/17 12:49 110 H 02/23/17 11:22 80 18 02/23/17 08:00 37.0 C 77 20 105/68 97 Intake & Output: Intake & Output 02/20/17 02/21/17 02/22/17 02/23/17 23:59 23:59 23:59 23:59 Intake Total 2013 1932 Output Total 600 400 Balance 1414 1533 - Objective General Appearance: positive: No acute distress, Alert Eyes Bilateral: positive: Normal inspection, PERRL, EOMI ENT: positive: ENT inspection nml, Pharynx nml, No signs of dehydration Neck: positive: Nml inspection, Thyroid nml, No JVD, Trachea midline Respiratory: positive: Chest non-tender, No respiratory distress, Wheezes Cardiovascular: positive: Regular rate & rhythm, No murmur, No gallop, Tachycardia Abdomen: positive: Non-tender, No organomegaly, Nml bowel sounds, No distention Back: positive: Nml inspection Skin: positive: Color nml, No rash, Warm, Dry Extremities: positive: Non-tender, Full ROM, Nml appearance, No pedal edema Neurologic/Psychiatric: positive: Oriented x3, CN's nml (2-12), Motor nml, Sensation nml, Mood/affect nml - Lab Results Fish Bones: 02/23/17 08:49 02/23/17 08:49 Other Labs: Lab Results x24hrs 02/23/17 02/23/17 02/23/17 Range/Units 08:49 08:49 08:49 WBC 13.2 H (4.8-10.8) x10^3/uL RBC 4.01 L (4.20-5.40) 10^6/uL Hgb 12.3 (12.0-16.0) g/dL Hct 37.5 (37.0-47.0) % MCV 93.7 (81.0-99.0) fL MCH 30.7 (27.0-31.0) pg MCHC 32.8 (32.0-36.0) g/dL RDW 14.2 (12.0-15.0) % Plt Count 230 (130-450) 10^3/uL MPV 8.5 (7.9-10.8) fL Neut # 10.4 H (1.5-6.6) 10^3/uL Lymph # 1.5 (1.5-3.5) 10^3/uL [place] # 1.0 (0.0-1.0) 10^3/uL Eos # 0.1 (0.0-0.7) 10^3/uL Baso # 0.1 (0.0-0.1) 10^3/uL Absolute Nucleated RBC 0.00 x10^3/uL Nucleated RBCs 0.0 /100WBC Sodium 138 (135-145) mmol/L Potassium 4.3 (3.5-5.0) mmol/L Chloride 103 (101-111) mmol/L Carbon Dioxide 30 (21-32) mmol/L Anion Gap 5.0 L (6-13) BUN 10 (6-20) mg/dL Creatinine 0.6 (0.4-1.0) mg/dL Estimated GFR (MDRD) 112 (>89) Glucose 139 H (70-100) mg/dL Calcium 8.4 L (8.5-10.3) mg/dL Magnesium 2.1 (1.7-2.8) mg/dL Total Bilirubin 0.9 (0.2-1.0) mg/dL AST 13 (10-42) IU/L ALT 18 (10-60) IU/L Alkaline Phosphatase 60 (42-121) IU/L B-Natriuretic Peptide 38 (5-100) pg/mL Total Protein 6.6 L (6.7-8.2) g/dL Albumin 3.4 (3.2-5.5) g/dL Globulin 3.2 (2.1-4.2) g/dL Albumin/Globulin Ratio 1.1 (1.0-2.2) 02/22/17 Range/Units 16:20 WBC (4.8-10.8) x10^3/uL RBC (4.20-5.40) 10^6/uL Hgb (12.0-16.0) g/dL Hct (37.0-47.0) % MCV (81.0-99.0) fL MCH (27.0-31.0) pg MCHC (32.0-36.0) g/dL RDW (12.0-15.0) % Plt Count (130-450) 10^3/uL MPV (7.9-10.8) fL Neut # (1.5-6.6) 10^3/uL Lymph # (1.5-3.5) 10^3/uL [place] # (0.0-1.0) 10^3/uL Eos # (0.0-0.7) 10^3/uL Baso # (0.0-0.1) 10^3/uL Absolute Nucleated RBC x10^3/uL Nucleated RBCs /100WBC Sodium (135-145) mmol/L Potassium (3.5-5.0) mmol/L Chloride (101-111) mmol/L Carbon Dioxide (21-32) mmol/L Anion Gap (6-13) BUN (6-20) mg/dL Creatinine (0.4-1.0) mg/dL Estimated GFR (MDRD) (>89) Glucose (70-100) mg/dL Calcium (8.5-10.3) mg/dL Magnesium 2.3 (1.7-2.8) mg/dL Total Bilirubin (0.2-1.0) mg/dL AST (10-42) IU/L ALT (10-60) IU/L Alkaline Phosphatase (42-121) IU/L B-Natriuretic Peptide (5-100) pg/mL Total Protein (6.7-8.2) g/dL Albumin (3.2-5.5) g/dL Globulin (2.1-4.2) g/dL Albumin/Globulin Ratio (1.0-2.2) - Other Results/Comments Other Results/Comments: IMPRESSION AND PLAN: 1. ACUTE DYSPNEA WITH MODERATED INTERMITTENT ASTHMA WITH STATUS ASTHMATICUS 2. LEUKOCYTOSIS, UNSPECIFIED 3. NICOTINE DEPENDENCE CIGARETTES, UNCOMPLICATED 4. MORBID OBESITY WITH BMI>40 PLAN: 1. CONTINUE WITH LEVAQUIN IV 750MG AND CBC DAILY 2. CONTINUE WITH RT SUPPORT AND SUPPLEMENTAL OXYGEN AND DUONEB TREATMENTS 3. TYLENOL FOR FEVER AND TYLENOL 3 FOR FEVER AND COUGH, GUAFENESIN FOR COUGH 4. CONTINUE WITH SMOKING CESSATION EDUCATION 5. IVF NS FOR HYDRATION AND MONITOR ELECTROLYTES. 6. DIABETIC DIET DUE TO STEROIDS AND SLIDING SCALE INSULIN 7. DVT PROPHYLAXIS WITH SCD AND LOVENOX
[2017-02-23] MEDS ORDERED: ACETAMINOPHEN/CODEINE 300 MG/30 MG TABLET PO ONE (16:00)
[2017-02-23] MEDS: SODIUM CHLORIDE FLUSH 0.9% 10 ML SYRINGE IVP PRN (16:50)
[2017-02-23] MEDS: methylPREDNISolone SUCCINATE 40 MG/ML VIAL IVP SCH ×2 (18:44→22:21)
[2017-02-24] MEDS: IPRATROPIUM/ALBUTEROL 3 ML NEB INH SCH ×4 (00:10→11:40)
[2017-02-24] MEDS: guaiFENesin/DEXTROMETHORPHAN 10 ML UDC PO PRN ×2 (00:16→07:52)
[2017-02-24] MEDS: MORPHINE 2 MG/ML SYRINGE IVP PRN (00:16)
[2017-02-24] MEDS: SODIUM CHLORIDE 0.9% 1,000 ML IV SCH (00:17)
[2017-02-24 05:56] LABS: BASOPHILS # (AUTO) 0.1 10^3/uL (0.0-0.1); BASOPHILS % (AUTO) 0.4 %; HCT - HEMATOCRIT 38.9 % (37.0-47.0); HGB - HEMOGLOBIN 12.7 g/dL (12.0-16.0); LYMPHOCYTES # (AUTO) 1.1 10^3/uL (1.5-3.5); LYMPHOCYTES % (AUTO) 7.8 %; MEAN CORPUSCULAR HGB CONC 32.8 g/dL (32.0-36.0); MEAN CORPUSCULAR VOLUME 94.8 fL (81.0-99.0); MEAN PLATELET VOLUME 8.8 fL (7.9-10.8); MONOCYTES # (AUTO) 0.4 10^3/uL (0.0-1.0); NEUTROPHILS # (AUTO) 12.4 10^3/uL (1.5-6.6); NEUTROPHILS % (AUTO) 88.8 %; RED CELL DISTRIBUTION WIDTH 14.1 % (12.0-15.0)
[2017-02-24] MEDS: methylPREDNISolone SUCCINATE 40 MG/ML VIAL IVP SCH (06:03)
[2017-02-24 06:09] LABS: ALBUMIN/GLOBULIN RATIO 1.1 (1.0-2.2); BILIRUBIN,TOTAL 0.4 mg/dL (0.2-1.0); CALCIUM 8.8 mg/dL (8.5-10.3); CREATININE 0.5 mg/dL (0.4-1.0); POTASSIUM 3.9 mmol/L (3.5-5.0); TOTAL PROTEIN 6.4 g/dL (6.7-8.2)
[2017-02-24] MEDS: SODIUM CHLORIDE FLUSH 0.9% 10 ML SYRINGE IVP SCH ×2 (06:35→07:19)
[2017-02-24] MEDS: ACETAMINOPHEN 325 MG TABLET PO PRN (07:53)
[2017-02-24 08:26] VITALS: BP 116/82
[2017-02-24] MEDS ORDERED: traMADol 50 MG TABLET PO PRN (08:50)
[2017-02-24] MEDS ORDERED: levoFLOXacin 250 MG TABLET PO SCH (09:00)
[2017-02-24] MEDS ORDERED: predniSONE 20 MG TABLET PO SCH (09:00)
[2017-02-24] MEDS: POLYETHYLENE GLYCOL 3350 17 GM PACKET PO SCH (09:10)
[2017-02-24] MEDS: ENOXAPARIN 40 MG/0.4 ML SYRINGE SUBQ SCH (09:10)
[2017-02-24] MEDS: LEVONORGESTREL ETHIN ESTRADIOL PO SCH (09:19)
== END 2017-02-24 13:08 | disposition home or self-care (01) | DRG 202 ==
LOC: EDUNIT# → ED 13:19 → MS2 14:43
PROVIDERS: ADMIT Nurse Practitioner; ATTEND Nurse Practitioner
DX: J45.42 Moderate persistent asthma with status asthmaticus (principal); Z68.41 Body mass index [BMI] 40.0-44.9, adult; J06.9 Acute upper respiratory infection, unspecified; F17.210 Nicotine dependence, cigarettes, uncomplicated; E66.01 Morbid (severe) obesity due to excess calories; Z87.01 Personal history of pneumonia (recurrent); Z71.6 Tobacco abuse counseling
CPT/HCPCS: 36415; 71010; 80053; 83690; 83735; 83880; 84703; 85025; 85379; 93005; 94640; 94664; 94761; 96361; 96365; 96375; 99283; 99284; 99291

== ENCOUNTER 2017-06-15 00:13 | Emergency (ER) | payer MEDICAID ==
--- NOTE | 2017-06-15 00:53 | XRAY Report ---
EXAM: LEFT HAND RADIOGRAPHY EXAM DATE: 06/15/2017 12:45 AM. CLINICAL HISTORY: Pain. Jammed left mid finger on a wall yesterday @ 1600. COMPARISON: None. TECHNIQUE: 3 views. FINDINGS: Bones: Normal. No fractures or bone lesions. Joints: Normal. No subluxations. Soft Tissues: Normal. No soft tissue swelling. IMPRESSION: Normal hand radiography. [facility] Referring Provider Line: [phone] SITE ID: [id number]
[2017-06-15] MEDS ORDERED: DEXAMETHASONE 10 MG/ML VIAL PO STA (01:04)
--- NOTE | 2017-06-15 01:05 | ED Physician Documentation ---
PD HPI UPPER EXT INJURY - Stated complaint Stated Complaint: L PINKY FINGER INJURY - Chief complaint Chief Complaint: Trauma Ext - History obtained from History obtained from: Patient, Family - History of Present Illness Location: Left, Finger (middle) Type of injury: Blunt / blow Where injury occurred: Other (storage unit) Timing - onset: Enter time (1600), Yesterday Timing - duration: Days (1) Timing - details: Abrupt onset, Still present Improved by: Rest, Immobilization Worsened by: Moving, Palpating Associated symptoms: Swelling, Discolored. 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 She is left-handed and she had to go to work today and as the day progressed her pain worsened and worsened. She has pain that extends up into her forearm with bending of the finger. Review of Systems Constitutional: denies: Fever Respiratory: denies: Cough GI: denies: Vomiting Skin: denies: Rash Musculoskeletal: reports: Extremity pain. 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 : None HEENT: None Psych: None Musculoskeletal: None Derm: None - Past Surgical History Past Surgical History: Yes General: Appendectomy - Present Medications Home Medications: Ambulatory Orders Medication Instructions Recorded Confirmed Fluticasone Furoate [Arnuity 1 puffs INH RTDAILY 02/22/17 06/15/17 Ellipta] Levonorgestrel-Ethin Estradiol 1 tab PO DAILY 02/22/17 06/15/17 [Aviane-28 Tablet] Albuterol Sulf [Ventolin Hfa 2 puffs INH Q4H PRN #1 inhaler 02/24/17 06/15/17 Inhaler] Ipratropium/Albuterol [Duoneb] 3 ml INH Q4HR #30 neb 02/24/17 06/15/17 Levofloxacin [Levaquin] 750 mg PO DAILY #5 tablet 02/24/17 06/15/17 Tramadol HCl [Ultram] 50 mg PO Q8HR #24 tablet 02/24/17 06/15/17 guaiFENesin/CODEINE [Robitussin AC] 5 ml PO Q6HR PRN #1 bottle 02/24/17 06/15/17 - Allergies Allergies/Adverse Reactions: Allergies Allergy/AdvReac Type Severity Reaction Status Date / Time Penicillins Allergy Severe Edema Verified 06/15/17 00:18 aspirin Allergy Unknown Verified 06/15/17 00:18 bee venom protein (honey bee) Allergy Anaphylaxis Verified 06/15/17 00:18 - Social History Does the pt smoke?: Yes Smoking Status: Current every day smoker Does the pt drink ETOH?: No Does the pt have substance abuse?: No - Immunizations Immunizations are current?: Yes - POLST Patient has POLST: No PD ED PE NORMAL - Vitals Vital signs reviewed: Yes (hypertensive) - General General: Alert and oriented X 3, No acute distress, Well developed/nourished - HEENT HEENT: Atraumatic, PERRL - Respiratory Respiratory: No respiratory distress - Derm Derm: Normal color, Warm and dry, No rash - Extremities Extremities: No deformity, No edema, Other (There is bruising to the volar surface of the left middle finger over the PIP. There is reduced ROM associated with pain to any movement of the finger. The distal n/v is intact. ) - Neuro Neuro: Alert and oriented X 3, No motor deficit, No sensory deficit, Normal speech Eye Opening: Spontaneous Motor: Obeys Commands Verbal: Oriented GCS Score: 15 - Psych Psych: Normal mood, Normal affect Results - Vitals Vitals: Vital Signs - 24 hr 06/15/17 00:15 Temperature 36.0 C L Heart Rate 100 Respiratory 18 Rate Blood Pressure 142/79 H O2 Saturation 97 Oxygen O2 Source Room air - Rads (name of study) left fingers Radiology: Prelim report reviewed (Impression: Normal hand radiography.), EMP read indepedently, See rad report PD MEDICAL DECISION MAKING - ED course Complexity details: reviewed old records, reviewed results, re-evaluated patient , considered differential, d/w patient, d/w family ED course: 36-year-old female has jammed her left middle finger. She is left-handed and needs to work. She has no evidence of fracture on x-ray examination she does have a lot of tenderness over the finger and pain radiating up into the forearm with movement of her finger. I suspect she has quite a bit of inflammation along the tendon tract after working today with this injured finger and she is administered dexamethasone 10 mg orally. Her fingers are priya taped. She will be given a note for work for 1 week limited use of the left hand. Departure - Departure Disposition: 01 Home, Self Care Clinical Impression: Sprain of left middle finger Qualifiers: Encounter type: initial encounter Sprain of finger site: interphalangeal joint Qualified Code(s): S63.633A - Sprain of interphalangeal joint of left middle finger, initial encounter Condition: Stable Instructions: ED Sprain Finger Follow-Up: Sorin Banegas MD [Primary Care Provider] - Comments: Today in the Emergency Department your blood pressure was elevated. This can happen from the stress of the visit itself, from a current illness or circumstance or from uncontrolled hypertension. If you take blood pressure medications take your usual mediations, have your blood pressure re-checked in an appropriate setting and follow up any elevation with your primary care doctor. Forms: Activity restrictions
[2017-06-15 01:18] VITALS: BP 136/79
== END 2017-06-15 01:18 | disposition home or self-care (01) ==
LOC: ED 00:13
DX: S63.633A Sprain of interphalangeal joint of left middle finger, initial encounter (principal); W22.8XXA Striking against or struck by other objects, initial encounter; Y92.89 Other specified places as the place of occurrence of the external cause; J45.909 Unspecified asthma, uncomplicated; F17.200 Nicotine dependence, unspecified, uncomplicated
CPT/HCPCS: 99283; 99284

== ENCOUNTER 2017-06-30 20:02 | Outpatient (CLI) | payer MEDICAID | END 2017-06-30 20:03 | disposition critical access hospital (66) | LOC: EMS 20:02 | PROVIDERS: ATTEND Surgery | DX: R06.00 Dyspnea, unspecified (principal); R05 Cough | CPT/HCPCS: A0425; A0427 ==

== ENCOUNTER 2017-06-30 20:20 | Inpatient (IN) | payer MEDICAID ==
[2017-06-30] MEDS ORDERED: predniSONE 20 MG TABLET PO STA (20:47)
[2017-06-30] MEDS ORDERED: IPRATROPIUM/ALBUTEROL 3 ML NEB INH STA (20:47)
[2017-06-30] MEDS ORDERED: ACETAMINOPHEN 500 MG TABLET PO STA (20:49)
--- NOTE | 2017-06-30 21:55 | XRAY Report ---
EXAM: CHEST RADIOGRAPHY EXAM DATE: 06/30/2017 09:41 PM. CLINICAL HISTORY: Fever, cough. COMPARISON: 02/22/2017. TECHNIQUE: 1 view. FINDINGS: Lungs/Pleura: No focal opacities evident. No pleural effusion. No pneumothorax. Mediastinum: Within exam limitations, the cardiomediastinal contour is normal. Other: None. IMPRESSION: No acute cardiopulmonary abnormality. [facility] Referring Provider Line: [phone] SITE ID: [id number]
--- NOTE | 2017-06-30 21:55 | XRAY Preliminary Report ---
Exam: XR CHEST 1 VIEW X-RAY IMPRESSION: No acute cardiopulmonary abnormality. [facility] SITE ID: [id number]
[2017-06-30] MEDS ORDERED: ALBUTEROL NEB 2.5 MG/3 ML INH STA ×2 (22:23→23:30)
[2017-07-01] MEDS ORDERED: ALBUTEROL NEB 2.5 MG/3 ML INH STA ×2 (00:45→02:58)
[2017-07-01] MEDS ORDERED: MAGNESIUM SULFATE 2 GRAM 2 GM/50 ML BAG IV ONE (03:19)
[2017-07-01] MEDS ORDERED: TERBUTALINE 1 MG/ML VIAL SUBQ ONE (03:19)
--- NOTE | 2017-07-01 03:30 | ED Physician Documentation ---
PD HPI DYSPNEA - Stated complaint Stated Complaint: SOA - Chief complaint Chief Complaint: Resp - History obtained from History obtained from: Patient, Family, EMS - History of Present Illness Timing - onset: Yesterday Timing - onset during: Rest Timing - details: Gradual onset, Still present Inciting event(s): URI Improved by: Inhaler/neb Associated symptoms: Wheezing Similar symptoms before: Work up / diagnostics, Treatment Recently seen: Not recently seen - Additional information Additional information: Patient is a 36 year old female with a history of virus induced asthma who is presenting to the emergency department for wheezing and shortness of breath. Patient states that the symptoms have been going on for the last couple of days but it got significantly worse today. patient states that she has been using her inhaler but her nebulizer machine broke. Patient has had similar symptoms in the past and has to be hospitalized but never intubated. Review of Systems Constitutional: reports: Fever, Chills Eyes: denies: Decreased vision, Photophobia Ears: denies: Ear pain Nose: reports: Congestion, Sinus pressure / pain Throat: denies: Sore throat Cardiac: denies: Chest pain / pressure, Palpitations Respiratory: reports: Cough, Wheezing GI: denies: Nausea, Vomiting : denies: Dysuria, Frequency Skin: denies: Rash Musculoskeletal: denies: Extremity pain, Extremity swelling Neurologic: reports: Generalized weakness. 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 HEENT: None Psych: None Musculoskeletal: None Derm: None - Past Surgical History Past Surgical History: Yes General: Appendectomy - Present Medications Home Medications: Ambulatory Orders Medication Instructions Recorded Confirmed Fluticasone Furoate [Arnuity 1 puffs INH RTDAILY 02/22/17 06/15/17 Ellipta] Levonorgestrel-Ethin Estradiol 1 tab PO DAILY 02/22/17 06/15/17 [Aviane-28 Tablet] Albuterol Sulf [Ventolin Hfa 2 puffs INH Q4H PRN #1 inhaler 02/24/17 06/15/17 Inhaler] guaiFENesin/CODEINE [Robitussin AC] 5 ml PO Q6HR PRN #1 bottle 02/24/17 06/15/17 - Allergies Allergies/Adverse Reactions: Allergies Allergy/AdvReac Type Severity Reaction Status Date / Time Penicillins Allergy Severe Edema Verified 06/30/17 20:30 aspirin Allergy Unknown Verified 06/30/17 20:30 bee venom protein (honey bee) Allergy Anaphylaxis Verified 06/30/17 20:30 - Social History Does the pt smoke?: Yes Smoking Status: Current every day smoker Does the pt drink ETOH?: No Does the pt have substance abuse?: No - Immunizations Immunizations are current?: Yes - POLST Patient has POLST: No PD ED PE NORMAL - Vitals Vital signs reviewed: Yes - General General: Alert and oriented X 3 - HEENT HEENT: Atraumatic, PERRL, Moist mucous membranes, Pharynx benign - Neck Neck: Supple, no meningeal sign - Abdomen Abdomen: Soft, Non tender, Non distended - Derm Derm: Normal color - Extremities Extremities: No deformity, No edema - Neuro Neuro: Alert and oriented X 3, No motor deficit, No sensory deficit, Normal speech PD ED PE EXPANDED - HEENT HEENT: Other (no teeth) - Cardiac Cardiac: Tachy - Respiratory Respiratory: Wheezing, Rhonchi, Right upper lobe, Right middle lobe, Right lower lobe, Left upper lobe, Left lower lobe - Derm Derm: Diaphoretic Results - Vitals Vitals: Vital Signs - 24 hr 06/30/17 06/30/17 06/30/17 20:25 20:42 20:50 Temperature 37.9 C H 38.6 C H Heart Rate 115 H 124 H Respiratory 16 20 Rate Blood Pressure 117/74 O2 Saturation 95 06/30/17 06/30/17 06/30/17 21:39 22:30 23:11 Temperature Heart Rate 126 H Respiratory 22 20 18 Rate Blood Pressure O2 Saturation 06/30/17 07/01/17 07/01/17 23:45 00:55 01:48 Temperature 36.6 C Heart Rate 107 H 98 108 H Respiratory 20 20 18 Rate Blood Pressure 113/87 H O2 Saturation 95 07/01/17 07/01/17 07/01/17 02:30 03:15 03:26 Temperature Heart Rate 98 107 H Respiratory 17 20 19 Rate Blood Pressure O2 Saturation 98 Oxygen O2 Source Room air - Labs Labs: Laboratory Tests 06/30/17 21:35 Influenza A (Rapid) Negative Influenza B (Rapid) Negative Influenza Types A,B Ag - - Rads (name of study) chest x-ray Radiology: Final report received (no acute abnormality) PD MEDICAL DECISION MAKING - ED course Complexity details: reviewed old records, reviewed results, re-evaluated patient , considered differential, d/w patient, d/w family, d/w identity management consultant ED course: Patient was seen and examined at bedside. patient was treated with prednisone, additional duonebs and chest x-ray was ordered. Patient had minimal improvement with the duonebs. Patient's chest x-ray was within normal limits. Patient was observed in the emergency department for over 6 hours. during that time patient had approximately 10 nebulizer treatments. Patient had persisent wheezing and was not improving significantly. IV access was gained and patient was started on magnesium and terbutaline. Hospitalist was contacted and the case was discussed with her. Patient was placed in observation for further care. Departure - Departure Disposition: ED Place in Observation Clinical Impression: Asthma attack, Status asthmaticus Condition: Stable
[2017-07-01] MEDS ORDERED: ONDANSETRON 4 MG/2 ML VIAL IVP PRN (03:55)
[2017-07-01 04:11] LABS: BASOPHILS % (AUTO) 1.7 %; HGB - HEMOGLOBIN 14.3 g/dL (12.0-16.0); LYMPHOCYTES % (AUTO) 3.4 %; MEAN CORPUSCULAR HEMOGLOBIN 30.7 pg (27.0-31.0); MEAN CORPUSCULAR HGB CONC 31.3 g/dL (32.0-36.0); MEAN CORPUSCULAR VOLUME 97.9 fL (81.0-99.0); MONOCYTES % (AUTO) 1.4 %; NEUTROPHILS % (AUTO) 93.5 %; PLT - PLATELET COUNT 305 10^3/uL (130-450); RED BLOOD COUNT 4.67 10^6/uL (4.20-5.40); RED CELL DISTRIBUTION WIDTH 14.9 % (12.0-15.0); WHITE BLOOD COUNT 11.7 x10^3/uL (4.8-10.8)
[2017-07-01 04:14] LABS: ABNORMAL LYMPHS % (MANUAL) 0 %; BAND NEUTROPHILS % (MANUAL) 0 %
[2017-07-01 04:15] LABS: ALBUMIN 4.1 g/dL (3.2-5.5); ALBUMIN/GLOBULIN RATIO 1.1 (1.0-2.2); BILIRUBIN,TOTAL 0.5 mg/dL (0.2-1.0); CALCIUM 8.9 mg/dL (8.5-10.3); CREATININE 0.9 mg/dL (0.4-1.0); TOTAL PROTEIN 7.8 g/dL (6.7-8.2)
[2017-07-01] MEDS ORDERED: ALBUTEROL NEB 2.5 MG/3 ML INH PRN (04:16)
[2017-07-01 04:29] LABS: BASOPHILS # (MANUAL) 0.2 10^3/uL (0-0.1); BASOPHILS % (MANUAL) 2 %; DIFFERENTIAL COMMENT MANUAL DIFFERENTIAL; LYMPHOCYTES # (MANUAL) 0.5 10^3/uL (1.5-3.5); LYMPHOCYTES % (MANUAL) 4 %; MONOCYTES # (MANUAL) 0.2 10^3/uL (0.0-1.0); NEUTROPHILS # (MANUAL) 10.8 10^3/uL (1.5-6.6); NEUTROPHILS % (MANUAL) 92 %; PLATELET ESTIMATE, MANUAL NORMAL (130-450,000) (NORMAL); PLATELET MORPHOLOGY NORMAL APPEARANCE (NORMAL); RBC MORPHOLOGY (MULTIPLE) NORMAL APPEARANCE (NORMAL)
--- NOTE | 2017-07-01 04:49 | HISTORY & PHYSICAL EXAMINATION ---
DATE OF SERVICE: 07/01/2017 Physician: Maria E Pride MD DATE OF ADMISSION: 07/01/2017 CHIEF COMPLAINT: Wheezing. HISTORY OF PRESENT ILLNESS: The patient is a 36-year-old, obese, white female with past medical history of asthma and cigarette smoking. She presented to [facility] ER overnight on June 30 through July 01 with a chief complaint of wheezing, cough and posttussive emesis. The patient reported her symptoms started about 24 hours prior to presentation. Initially, she had dry cough and subsequently she developed intractable posttussive emesis. Her symptoms got so bad that she needed to call 911 and that is how she was brought to the ER. She smokes cigarettes and quit about 2 days ago, although recently she had been titrating down. She also reported that her nebulizer machine broke and her symptoms got worse, as she could not use a nebulizer if she needed to. She did not report sputum production. She was not aware of having fever earlier, but when she presented to the ER, her maximum temperature was 38.6 Celsius. Upon presentation to the ER, the patient had a chest x-ray which showed no acute infiltrate. She had a negative influenza swab. She was tachycardic with heart rate around 120 and required supplemental oxygen throughout her ER stay. At some point, she was on a nonrebreather mask and she also had a short period of CPAP use. She received steroids and about 10 nebulizer treatments, and stayed in the ER for several hours; however, she did not improve to the point to get discharged. At the time of this dictation, laboratories are still pending. PAST MEDICAL HISTORY: Obesity; asthma with exacerbation, last admitted in January 2017; pneumonia; cigarette smoking. OUTPATIENT MEDICATIONS Included: 1. Proventil inhaler. 2. Fluticasone. 3. control pill. ALLERGIES 1. PENICILLIN. 2. ASPIRIN. 3. BEE VENOM. 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 She does not report history of being exposed to toxic fumes or any smoke inhalation. She is a cigarette smoker, claimed to quit 2 days ago. FAMILY HISTORY: Positive for diabetes on both sides of the family and coronary artery disease in the father. PRIMARY CARE PHYSICIAN: Sorin Banegas MD ER workup reviewed per electronic medical record. REVIEW OF SYSTEMS: Please see pertinent positives listed above in history of present illness. The patient does not report additional complaints on the 12-point review. PHYSICAL EXAMINATION VITAL SIGNS: Temperature maximum 38.6 Celsius, heart rate between 100 and 120, blood pressure 120/70, oxygen saturation variable during the ER stay, currently 97 percent on 2 liters nasal cannula. GENERAL: The patient is a well-developed, obese female who was wheezing. RESPIRATORY: Increased work of breathing, diffuse expiratory wheezes bilaterally, both posteriorly and anteriorly. Increased expiratory and inspiratory ratio. Oral mucosa moist. CARDIOVASCULAR: S1, S2, tachycardia. I could not hear a murmur in the setting of transmitted airway sounds. ABDOMEN: Obese, benign. Bowel tones hypoactive. LYMPHATIC: No lymphedema. MUSCULOSKELETAL: Obesity. NEUROLOGIC: Alert, oriented, nonfocal. PSYCHIATRIC: Cooperative. SKIN: No jaundice, no pallor. ASSESSMENT AND PLAN: The patient is a 36-year-old female who is getting admitted with asthma exacerbation. In addition, she had fever and most likely she has acute bronchitis and a viral syndrome. She might have an early bacterial infection as well. Her symptoms are worse also because she did not have access to a nebulizer machine. In addition, she is a smoker, which certainly does not help her situation. On admission when I examined her, she had audible wheezes and she did not improve during her ER stay regardless of small volume nebulizers, CPAP use, terbutaline, steroids and magnesium treatment. Based on the significant exacerbation, she will be admitted as inpatient. PLAN AND ORDERS 1. Patient is getting admitted as inpatient. We will continue treatment of asthma exacerbation, including small volume nebulizers, steroid inhaler, Solu- Medrol, proton pump inhibitor and supportive care. We will check sputum culture and will check basic laboratory workup as well. 2. Short course of Zithromax for acute bronchitis. 3. Attestation: I certify that the patient is reasonably expected to be discharged and/or transferred to another hospital within 96 hours. I also certify that the reasonable expectation is that with a significant asthma exacerbation, this patient will need to be in the hospital for more than 24 hours and expected to be here between 48 and 96 hours. 4. DVT prophylaxis with subcutaneous heparin. 5. We will check urine toxicology beside sputum culture. Time spent in the care of this patient was 45 minutes. cc: Sorin Banegas, TD: 07/01/2017 05:48 [email or web address]
[2017-07-01] MEDS: IPRATROPIUM/ALBUTEROL 3 ML NEB INH SCH ×3 (06:00→13:40)
[2017-07-01] MEDS: methylPREDNISolone SUCCINATE 40 MG/ML VIAL IVP SCH ×3 (06:31→22:45)
[2017-07-01] MEDS: guaiFENesin 600 MG TABLET PO SCH ×2 (06:31→11:43)
[2017-07-01] MEDS: SODIUM CHLORIDE FLUSH 0.9% 10 ML SYRINGE IVP SCH ×3 (06:31→22:45)
[2017-07-01] MEDS: PANTOPRAZOLE 40 MG TABLET PO SCH (07:40)
[2017-07-01] MEDS ORDERED: BUDESONIDE 0.5 MG/2 ML NEB INH SCH (10:00)
[2017-07-01] MEDS: AZITHROMYCIN INJ 500 MG in SODIUM CHLORIDE 0.9% 250 ML IV SCH (11:42)
[2017-07-01] MEDS: ENOXAPARIN 40 MG/0.4 ML SYRINGE SUBQ SCH (11:42)
[2017-07-01] MEDS: POLYETHYLENE GLYCOL 3350 17 GM PACKET PO SCH (11:43)
[2017-07-01] MEDS: PATIENT OWN MED PO SCH (11:43)
[2017-07-01] MEDS: SODIUM CHLORIDE FLUSH 0.9% 10 ML SYRINGE IVP PRN (14:06)
[2017-07-01] MEDS: NICOTINE 21 MG PATCH TOP SCH (17:21)
[2017-07-01] MEDS ORDERED: IPRATROPIUM/ALBUTEROL 3 ML NEB INH SCH (18:00)
--- NOTE | 2017-07-01 18:02 | PROVIDER PROGRESS NOTE ---
Subjective - Prog Note Date Prog Note Date: 07/01/17 - Subjective Pt reports feeling: Improved Subjective: pt state she feel better for breathing. No fever, chill, chest pain reported Current Medications - Current Medications Current Medications: Active Medications Acetaminophen (Tylenol) 650 mg PO Q4HR PRN PRN Reason: Pain 1 to 4 Albuterol () 2.5 mg INH RTQ4H PRN PRN Reason: Wheezing Albuterol/Ipratropium (Duoneb) 3 ml INH RTQID [facility] Last Admin: 07/01/17 17:20 Dose: 3 ml Budesonide (Pulmicort) 0.5 mg INH RTBID [facility] Enoxaparin Sodium (Lovenox) 40 mg SUBQ DAILY [facility] Last Admin: 07/01/17 11:42 Dose: 40 mg Guaifenesin (Mucinex) 600 mg PO DAILY [facility] Last Admin: 07/01/17 11:43 Dose: 600 mg Guaifenesin (Robitussin Dm) 10 ml PO Q6HR PRN PRN Reason: Cough Azithromycin 500 mg/ Sodium (Chloride) 250 mls @ 250 mls/hr IV DAILY [facility] Stop: 07/05/17 08:59 Last Infusion: 07/01/17 14:41 Dose: Infused Methylprednisolone (Solu-Medrol (40mg Vial)) 60 mg IVP TID [facility] Last Admin: 07/01/17 14:04 Dose: 60 mg Nicotine (Nicoderm) 1 patch TOP DAILY [facility] Last Admin: 07/01/17 17:21 Dose: 1 patch Ondansetron HCl (Zofran Inj) 4 mg IVP Q6HR PRN PRN Reason: Nausea / Vomiting Pantoprazole Sodium (Protonix) 40 mg PO QDAC [facility] Last Admin: 07/01/17 07:40 Dose: 40 mg Patient Own Medication (Patient Own Medication) 1 each PO DAILY [facility] Last Admin: 07/01/17 11:43 Dose: Not Given Polyethylene Glycol (Miralax) 17 gm PO DAILY [facility] Last Admin: 07/01/17 11:43 Dose: Not Given Sodium Chloride (Normal Saline Flush 0.9%) 10 ml IVP PRN PRN PRN Reason: NEEDED PER PROVIDER ORDERS Last Admin: 07/01/17 14:06 Dose: 20 ml Sodium Chloride (Normal Saline Flush 0.9%) 10 ml IVP Q8HR [facility] Last Admin: 07/01/17 11:51 Dose: 10 ml Zolpidem Tartrate (Ambien) 5 mg PO QPM PRN PRN Reason: Insomnia Fluticasone Furoate [Arnuity Ellipta] 1 puffs INH RTDAILY 02/22/17 Levonorgestrel-Ethin Estradiol [Aviane-28 Tablet] 1 tab PO DAILY 02/22/17 diphenhydrAMINE [Benadryl] 25 mg PO Q4-6H PRN 07/01/17 diphenhydrAMINE [Benadryl] 50 mg PO QPM 07/01/17 Objective - Vital Signs/Intake & Output Reviewed Vital Signs: Yes Vital Signs: Vital Signs x48h Temp Pulse Pulse Resp BP Pulse Ox 07/01/17 17:20 115 H 20 07/01/17 16:09 37.4 C 114 H 16 122/71 94 07/01/17 13:40 113 H 20 07/01/17 11:45 37.1 C 110 H 18 131/73 H 97 Intake & Output: Intake & Output 06/28/17 06/29/17 06/30/17 07/01/17 23:59 23:59 23:59 23:59 Intake Total 620.000 Output Total 350 Balance 270.000 - Objective General Appearance: positive: No acute distress, Alert. negative: Lethargic Eyes Bilateral: positive: Normal inspection, PERRL, No lid inflammation, Conjunctivae nml ENT: positive: ENT inspection nml, Pharynx nml, No signs of dehydration. negative: Purulent nasal drainage, Pharyngeal erythema, Oral lesions Neck: positive: Nml inspection, Thyroid nml, No JVD, Trachea midline. negative : Thyromegaly, Lymphadenopathy (R), Lymphadenopathy (L), Stiff neck, Carotid bruit, Swelling/bruising, Tracheal deviation Respiratory: positive: Chest non-tender, No respiratory distress, Breath sounds nml. negative: Wheezes, Rales, Rhonchi Cardiovascular: positive: Regular rate & rhythm, No murmur, No gallop. negative : Irregularly irregular, Extrasystoles, Tachycardia, Bradycardia, Systolic murmur, Diastolic murmur Peripheral Pulses: 2+ Radial (R), 2+ Radial (L), 2+ Dorsalis pedis (R), 2+ Dorsalis pedis (L) Abdomen: positive: Non-tender, No organomegaly, Nml bowel sounds, No distention. negative: Tenderness, Guarding, Rebound Back: positive: Nml inspection. negative: CVA tenderness (R), CVA tenderness (L ) Skin: positive: Color nml, No rash, Warm, Dry. negative: Cyanosis, Diaphoresis , Pallor Extremities: positive: Non-tender, Full ROM, Nml appearance. negative: Calf tenderness, Joint swelling, Roney's sign/cords Neurologic/Psychiatric: positive: Oriented x3, Motor nml, Sensation nml, Mood/ affect nml. negative: Sensory loss, Facial droop, Slurred/abnml speech, Depressed mood/affect - Lab Results Fish Bones: 07/01/17 03:45 07/01/17 03:45 Assessment/Plan - Problem List (1) Asthma exacerbation Impression: continue solu-metrol D/C Albuterol to Xopenax pulmicort, Duoneb continue O2 supplement PRN consult with RT continue vital monitor (2) Tachycardia Impression: pt has tachycardia at around 110, denies cheat pain, palpitation, asymptomatic check EKG, follow up switch albuterol to Xopenex tele, vital monitor pt (3) Currently smokes tobacco Impression: consult with pt for quitting cigarette smoking. Nicotine Patch (4) Bronchitis Impression: pt has fever at initiate, cough continue Azithyromycin (5) Obesity Impression: consult for loss of weight
[2017-07-01] MEDS: ACETAMINOPHEN 325 MG TABLET PO PRN (19:07)
[2017-07-01] MEDS: guaiFENesin/DEXTROMETHORPHAN 10 ML UDC PO PRN (19:08)
[2017-07-01 19:36] LABS: MUDS CUTOFF CONCENTRATIONS CUTOFF CONC BELOW:
[2017-07-01 19:49] LABS: AMPHETAMINE SCREEN,URINE NEGATIVE (NEGATIVE); BENZODIAZEPINES SCREEN, URINE NEGATIVE (NEGATIVE); COCAINE SCREEN URINE NEGATIVE (NEGATIVE); METHADONE SCREEN, URINE NEGATIVE (NEGATIVE); METHAMPHETAMINES SCREEN, URINE NEGATIVE (NEGATIVE); OPIATE SCREEN, URINE NEGATIVE (NEGATIVE); OXYCODONE SCREEN, URINE NEGATIVE (NEGATIVE); PROPOXYPHENE SCREEN, URINE NEGATIVE (NEGATIVE); TRICYCLIC ANTIDEPRESSANT,URINE NEGATIVE (NEGATIVE)
[2017-07-01] MEDS: LEVALBUTEROL 1.25 MG/3 ML NEB INH SCH (20:38)
[2017-07-01] MEDS: BUDESONIDE 0.5 MG/2 ML NEB INH SCH (20:38)
[2017-07-01] MEDS: ZOLPIDEM 5 MG TABLET PO PRN (23:49)
[2017-07-02 05:41] LABS: BASOPHILS # (AUTO) 0.1 10^3/uL (0.0-0.1); BASOPHILS % (AUTO) 0.3 %; HGB - HEMOGLOBIN 13.5 g/dL (12.0-16.0); LYMPHOCYTES # (AUTO) 1.3 10^3/uL (1.5-3.5); LYMPHOCYTES % (AUTO) 5.9 %; MEAN CORPUSCULAR HEMOGLOBIN 30.2 pg (27.0-31.0); MEAN CORPUSCULAR HGB CONC 31.7 g/dL (32.0-36.0); MEAN CORPUSCULAR VOLUME 95.2 fL (81.0-99.0); MEAN PLATELET VOLUME 8.8 fL (7.9-10.8); MONOCYTES # (AUTO) 0.6 10^3/uL (0.0-1.0); MONOCYTES % (AUTO) 2.6 %; NEUTROPHILS # (AUTO) 19.7 10^3/uL (1.5-6.6); NEUTROPHILS % (AUTO) 91.2 %; PLT - PLATELET COUNT 298 10^3/uL (130-450); RED BLOOD COUNT 4.45 10^6/uL (4.20-5.40); RED CELL DISTRIBUTION WIDTH 14.6 % (12.0-15.0); WHITE BLOOD COUNT 21.6 x10^3/uL (4.8-10.8)
[2017-07-02 05:50] LABS: ALBUMIN 3.5 g/dL (3.2-5.5); BILIRUBIN,TOTAL 0.2 mg/dL (0.2-1.0); CALCIUM 8.7 mg/dL (8.5-10.3); CREATININE 0.6 mg/dL (0.4-1.0); MAGNESIUM 2.2 mg/dL (1.7-2.8)
[2017-07-02 06:10] LABS: PLATELET ESTIMATE, MANUAL NORMAL (130-450,000) (NORMAL); PLATELET MORPHOLOGY NORMAL APPEARANCE (NORMAL); RBC MORPHOLOGY (MULTIPLE) NORMAL APPEARANCE (NORMAL)
[2017-07-02 06:20] LABS: HB2 TOTAL 15.6 g/dL; HEMOGLOBIN A1C 0.77 g/dL; HEMOGLOBIN A1C % 6.7 % (4.6-6.2)
[2017-07-02] MEDS: LEVALBUTEROL 1.25 MG/3 ML NEB INH SCH ×4 (06:25→21:31)
[2017-07-02] MEDS: BUDESONIDE 0.5 MG/2 ML NEB INH SCH ×2 (06:25→21:31)
[2017-07-02] MEDS: methylPREDNISolone SUCCINATE 40 MG/ML VIAL IVP SCH ×3 (06:29→22:04)
[2017-07-02] MEDS: SODIUM CHLORIDE FLUSH 0.9% 10 ML SYRINGE IVP SCH ×3 (06:30→22:04)
[2017-07-02] MEDS: SODIUM CHLORIDE FLUSH 0.9% 10 ML SYRINGE IVP PRN ×2 (06:30→09:40)
[2017-07-02] MEDS: PANTOPRAZOLE 40 MG TABLET PO SCH (06:30)
[2017-07-02] MEDS: AZITHROMYCIN INJ 500 MG in SODIUM CHLORIDE 0.9% 250 ML IV SCH (09:36)
[2017-07-02] MEDS: guaiFENesin 600 MG TABLET PO SCH (09:40)
[2017-07-02] MEDS: ENOXAPARIN 40 MG/0.4 ML SYRINGE SUBQ SCH (09:40)
[2017-07-02] MEDS: NICOTINE 21 MG PATCH TOP SCH (09:40)
[2017-07-02] MEDS: POLYETHYLENE GLYCOL 3350 17 GM PACKET PO SCH (09:41)
[2017-07-02] MEDS: PATIENT OWN MED PO SCH (09:42)
[2017-07-02] MEDS: ACETAMINOPHEN 325 MG TABLET PO PRN (16:13)
--- NOTE | 2017-07-02 20:01 | PROVIDER PROGRESS NOTE ---
Subjective - Prog Note Date Prog Note Date: 07/02/17 Prog Note Time: 09:00 - Subjective Pt reports feeling: Improved Subjective: Yanique admits to a good night's sleep. She denies increased SOB, chest pain, N/V or a new cough. She admits to increased productive cough. Current Medications - Current Medications Current Medications: Active Medications Acetaminophen (Tylenol) 650 mg PO Q4HR PRN PRN Reason: Pain 1 to 4 Last Admin: 07/02/17 16:13 Dose: 650 mg Budesonide (Pulmicort) 0.5 mg INH RTBID [facility] Last Admin: 07/02/17 06:25 Dose: 0.5 mg Enoxaparin Sodium (Lovenox) 40 mg SUBQ DAILY [facility] Last Admin: 07/02/17 09:40 Dose: 40 mg Guaifenesin (Mucinex) 600 mg PO DAILY [facility] Last Admin: 07/02/17 09:40 Dose: 600 mg Guaifenesin (Robitussin Dm) 10 ml PO Q6HR PRN PRN Reason: Cough Last Admin: 07/01/17 19:08 Dose: 10 ml Azithromycin 500 mg/ Sodium (Chloride) 250 mls @ 250 mls/hr IV DAILY [facility] Stop: 07/05/17 08:59 Last Infusion: 07/02/17 10:36 Dose: Infused Levalbuterol HCl (Xopenex) 1.25 mg INH RTQID [facility] Last Admin: 07/02/17 17:00 Dose: 1.25 mg Methylprednisolone (Solu-Medrol (40mg Vial)) 60 mg IVP TID [facility] Last Admin: 07/02/17 14:58 Dose: 60 mg Nicotine (Nicoderm) 1 patch TOP DAILY [facility] Last Admin: 07/02/17 09:40 Dose: 1 patch Ondansetron HCl (Zofran Inj) 4 mg IVP Q6HR PRN PRN Reason: Nausea / Vomiting Pantoprazole Sodium (Protonix) 40 mg PO QDAC [facility] Last Admin: 07/02/17 06:30 Dose: 40 mg Patient Own Medication (Patient Own Medication) 1 each PO DAILY [facility] Last Admin: 07/02/17 09:42 Dose: Not Given Polyethylene Glycol (Miralax) 17 gm PO DAILY [facility] Last Admin: 07/02/17 09:41 Dose: Not Given Sodium Chloride (Normal Saline Flush 0.9%) 10 ml IVP PRN PRN PRN Reason: NEEDED PER PROVIDER ORDERS Last Admin: 07/02/17 09:40 Dose: 10 ml Sodium Chloride (Normal Saline Flush 0.9%) 10 ml IVP Q8HR POLLO Last Admin: 07/02/17 15:00 Dose: 10 ml Zolpidem Tartrate (Ambien) 5 mg PO QPM PRN PRN Reason: Insomnia Last Admin: 07/01/17 23:49 Dose: 5 mg Fluticasone Furoate [Arnuity Ellipta] 1 puffs INH RTDAILY 02/22/17 Levonorgestrel-Ethin Estradiol [Aviane-28 Tablet] 1 tab PO DAILY 02/22/17 diphenhydrAMINE [Benadryl] 25 mg PO Q4-6H PRN 07/01/17 diphenhydrAMINE [Benadryl] 50 mg PO QPM 07/01/17 Objective - Vital Signs/Intake & Output Reviewed Vital Signs: Yes Vital Signs: Vital Signs x48h Temp Pulse Pulse Resp BP BP Pulse Ox 07/02/17 17:00 108 H 15 07/02/17 16:00 37.2 C 105 H 18 118/66 94 07/02/17 13:57 36.9 C 115 H 18 121/79 94 07/02/17 13:20 112 H 18 Intake & Output: Intake & Output 06/29/17 06/30/17 07/01/17 07/02/17 23:59 23:59 23:59 23:59 Intake Total 794.581 5584 Output Total 350 Balance 725.918 1291 - Objective General Appearance: positive: No acute distress, Alert Eyes Bilateral: positive: Normal inspection, PERRL ENT: positive: ENT inspection nml, Pharynx nml, No signs of dehydration Neck: positive: Nml inspection, Thyroid nml, No JVD, Trachea midline, Lymphadenopathy (R), Lymphadenopathy (L) Respiratory: positive: Chest non-tender, No respiratory distress, Wheezes, Other (crackles) Cardiovascular: positive: Regular rate & rhythm (distant), No murmur, No gallop , Decreased pulse(s) Peripheral Pulses: 2+ Radial (R), 2+ Radial (L) Abdomen: positive: Non-tender, Nml bowel sounds, Other (obese, soft.) Back: positive: Nml inspection Skin: positive: Color nml, No rash, Warm, Dry Extremities: positive: Non-tender, Full ROM, Pedal edema, Joint swelling Neurologic/Psychiatric: positive: Oriented x3, CN's nml (2-12), Motor nml, Sensation nml, Mood/affect nml, Depressed mood/affect Reflexes: Bicep (R): 3+, Bicep (L): 3+ - Lab Results Fish Bones: 07/03/17 04:20 07/03/17 04:20 Other Labs: Lab Results x24hrs 07/02/17 07/02/17 07/02/17 Range/Units 04:55 04:55 04:55 WBC 21.6 H (4.8-10.8) x10^3/uL RBC 4.45 (4.20-5.40) 10^6/uL Hgb 13.5 (12.0-16.0) g/dL Hct 42.4 (37.0-47.0) % MCV 95.2 (81.0-99.0) fL MCH 30.2 (27.0-31.0) pg MCHC 31.7 L (32.0-36.0) g/dL RDW 14.6 (12.0-15.0) % Plt Count 298 (130-450) 10^3/uL MPV 8.8 (7.9-10.8) fL Neut # 19.7 H (1.5-6.6) 10^3/uL Lymph # 1.3 L (1.5-3.5) 10^3/uL [place] # 0.6 (0.0-1.0) 10^3/uL Eos # 0.0 (0.0-0.7) 10^3/uL Baso # 0.1 (0.0-0.1) 10^3/uL Absolute Nucleated RBC 0.00 x10^3/uL Nucleated RBC % 0.0 /100WBC Manual Slide Review Indicated Platelet Estimate NORMAL (130-450,000) (NORMAL) Platelet Morphology NORMAL APPEARANCE (NORMAL) RBC Morph Micro Appear NORMAL APPEARANCE (NORMAL) Sodium 138 (135-145) mmol/L Potassium 4.0 (3.5-5.0) mmol/L Chloride 104 (101-111) mmol/L Carbon Dioxide 24 (21-32) mmol/L Anion Gap 10.0 (6-13) BUN 14 (6-20) mg/dL Creatinine 0.6 (0.4-1.0) mg/dL Estimated GFR (MDRD) 112 (>89) Glucose 240 H (70-100) mg/dL Glycated Hemoglobin 6.7 H (4.6-6.2) % Estim Average Glucose 146 H (70-100) Calcium 8.7 (8.5-10.3) mg/dL Magnesium 2.2 (1.7-2.8) mg/dL Total Bilirubin 0.2 (0.2-1.0) mg/dL AST 20 (10-42) IU/L ALT 21 (10-60) IU/L Alkaline Phosphatase 66 (42-121) IU/L Total Protein 7.0 (6.7-8.2) g/dL Albumin 3.5 (3.2-5.5) g/dL Globulin 3.5 (2.1-4.2) g/dL Albumin/Globulin Ratio 1.0 (1.0-2.2) - Diagnostic Imaging Diagnostic Imaging Results: positive: Prelim report reviewed, Final report reviewed Assessment/Plan - Problem List (1) Asthma exacerbation Impression: Patient has a known history of this, with morbid obesity possibly being the largest contributor of exacerbations. Peek flow meter to be completed by RT. Plan: Continue solu-medrol IV, Xopenax nebulizers, pulmicort, O2 supplement PRN , RT, and we will continue to monitor vital signs. (2) Hypoxia Impression: Upon presentation to ED, patient required a non-rebreather mask and CPAP. Patient continue on oxygen, IV steroids and RT. Plan: Spot check pulse ox and continue with current plan. (3) Bronchitis with asthma, acute Impression: At the time of admission, patient was noted to have a fever and cough. Plan: We will continue with IV Azithyromycin and IV steroids that will be changed to PO at the time of discharge. (4) Fever Impression: Upon admission, patient was febrile with a temp max of 37.9 C. She also admits to chills and sweats. Plan: Continue to monitor vital signs and treat for symptoms.
[2017-07-02] MEDS: guaiFENesin/DEXTROMETHORPHAN 10 ML UDC PO PRN (22:03)
[2017-07-02] MEDS: ZOLPIDEM 5 MG TABLET PO PRN (23:55)
[2017-07-03 04:56] LABS: BASOPHILS # (AUTO) 0.1 10^3/uL (0.0-0.1); BASOPHILS % (AUTO) 0.4 %; HGB - HEMOGLOBIN 12.9 g/dL (12.0-16.0); LYMPHOCYTES # (AUTO) 1.6 10^3/uL (1.5-3.5); LYMPHOCYTES % (AUTO) 9.3 %; MEAN CORPUSCULAR HEMOGLOBIN 30.4 pg (27.0-31.0); MEAN CORPUSCULAR HGB CONC 32.2 g/dL (32.0-36.0); MEAN CORPUSCULAR VOLUME 94.4 fL (81.0-99.0); MEAN PLATELET VOLUME 8.6 fL (7.9-10.8); MONOCYTES # (AUTO) 0.7 10^3/uL (0.0-1.0); MONOCYTES % (AUTO) 3.9 %; NEUTROPHILS % (AUTO) 86.4 %; PLT - PLATELET COUNT 276 10^3/uL (130-450); RED BLOOD COUNT 4.23 10^6/uL (4.20-5.40); RED CELL DISTRIBUTION WIDTH 14.2 % (12.0-15.0); WHITE BLOOD COUNT 17.4 x10^3/uL (4.8-10.8)
[2017-07-03 04:58] LABS: ALBUMIN 3.4 g/dL (3.2-5.5); BILIRUBIN,TOTAL 0.4 mg/dL (0.2-1.0); CALCIUM 8.4 mg/dL (8.5-10.3); CREATININE 0.6 mg/dL (0.4-1.0); TOTAL PROTEIN 6.7 g/dL (6.7-8.2)
[2017-07-03] MEDS: SODIUM CHLORIDE FLUSH 0.9% 10 ML SYRINGE IVP SCH (06:11)
[2017-07-03] MEDS: methylPREDNISolone SUCCINATE 40 MG/ML VIAL IVP SCH (06:11)
[2017-07-03] MEDS: PANTOPRAZOLE 40 MG TABLET PO SCH (07:03)
[2017-07-03] MEDS: BUDESONIDE 0.5 MG/2 ML NEB INH SCH (07:42)
[2017-07-03] MEDS: LEVALBUTEROL 1.25 MG/3 ML NEB INH SCH ×2 (07:42→11:58)
[2017-07-03] MEDS: SODIUM CHLORIDE FLUSH 0.9% 10 ML SYRINGE IVP PRN ×2 (08:38→10:39)
[2017-07-03] MEDS: AZITHROMYCIN INJ 500 MG in SODIUM CHLORIDE 0.9% 250 ML IV SCH (08:38)
[2017-07-03] MEDS: guaiFENesin 600 MG TABLET PO SCH (08:39)
[2017-07-03] MEDS: ENOXAPARIN 40 MG/0.4 ML SYRINGE SUBQ SCH (08:39)
[2017-07-03] MEDS: NICOTINE 21 MG PATCH TOP SCH (08:39)
[2017-07-03] MEDS: POLYETHYLENE GLYCOL 3350 17 GM PACKET PO SCH (08:43)
[2017-07-03] MEDS: PATIENT OWN MED PO SCH (08:43)
--- NOTE | 2017-07-03 08:54 | DISCHARGE SUMMARY ---
"Discharge Summary Admit Date: 07/01/17 Discharge Date: 07/03/17 Discharging Provider: STEPHANIE Calderon Primary Care Provider: Sorin Banegas Code Status: Attempt Resuscitation Condition at Discharge: Good Discharge Disposition: 01 Home, Self Care - DIAGNOSES Admission Diagnoses: Unspecified asthma with (acute) exacerbation (J45.901) Hypoxemia (R09.02) Acute bronchitis, unspecified (J20.9) Vomiting, unspecified (R11.10) Fever, unspecified (R50.9) Discharge Diagnoses with Status of Each Condition: Unspecified asthma with (acute) exacerbation (J45.901) chronic, stable and patient was sent on a steroid taper. Hypoxemia (R09.02) resolved. Acute bronchitis, unspecified (J20.9) chronic, stable. Vomiting, unspecified (R11.10) resolved. Fever, unspecified (R50.9) resolved. - HPI History of Present Illness: Yanique Loera is a morbidly obese 36-year old white female with a past medical history of asthma and tobacco dependence. She presented to the ED on with a chief complaint of wheezing, cough and post-tussive emesis. the patient reported her symptoms started about 24 hours prior to presentation. Initially, she had dry cough and subsequently she developed intractable post- tussive emesis. Her symptoms got so bad that she needed to call 911 and was brought to the ED. She is a current every day cigarette smoker, but claims she quit about 2 days ago. She also reports that her nebulizer machine broke and her symptoms got worse, as she could not use a nebulizer if she needed to. She denies sputum production, fever or body aches. Once she was in the ED a chest x -ray revealed no acute infiltrates and a negative influenza swab. She was tachycardic, hypoxic requiring a non-rebreather mask and CPAP use. She received IV steroids and was not showing improvement so was admitted for further treatment of asthma exacerbation. - HOSPITAL COURSE Hospital Course: The following problems/diagnoses were prevalent during this hospital stay: Asthma exacerbation: Patient has a known history of this, with morbid obesity possibly being the largest contributor of exacerbations. Peak flow meter to be completed by RT. Patient continued on solu-medrol IV, Xopenax nebulizers, pulmicort, O2 supplement PRN, RT, and we will continue to monitor vital signs. Hypoxia: Upon presentation to ED, patient required a non-rebreather mask and CPAP. Patient continued on oxygen, IV steroids that were changed to PO and RT support with nebulizer treatments and instruction on the use of peak flow meter , IS. Spot check pulse ox were taken and recorded. Bronchitis with asthma: At the time of admission, patient was noted to have a fever and cough. Patient was prescribed IV Azithyromycin and IV steroids that were changed to PO at the time of discharge. Fever: Upon admission, patient was febrile with a temp max of 37.9 C that normalized after ~36 hours. She also admits to chills and sweats. Patient's vital signs were monitored and she was treated for her symptoms. Disposition: Patient was discharged in stable condition and was accompanied by her sister. She was provided with a work-excuse note. - ALLERGIES Allergies/Adverse Reactions: Allergies Allergy/AdvReac Type Severity Reaction Status Date / Time Penicillins Allergy Severe Edema Verified 06/30/17 20:30 aspirin Allergy Unknown Verified 06/30/17 20:30 bee venom protein (honey bee) Allergy Anaphylaxis Verified 06/30/17 20:30 coconut Allergy Hives Verified 07/03/17 15:01 milk Allergy Cramps Verified 07/03/17 15:02 onion AdvReac Hives Verified 07/03/17 15:02 - MEDICATIONS Home Medications: Ambulatory Orders Medication Instructions Recorded Confirmed Fluticasone Furoate [Arnuity 1 puffs INH RTDAILY 02/22/17 07/01/17 Ellipta] Levonorgestrel-Ethin Estradiol 1 tab PO DAILY 02/22/17 07/01/17 [Aviane-28 Tablet] Albuterol Sulf [Ventolin Hfa 2 puffs INH Q4H PRN #1 inhaler 02/24/17 07/01/17 Inhaler] Azithromycin 500 mg PO DAILY 7 Days #7 tablet 07/03/17 Budesonide 0.25 mg IH BID #60 ampul.neb 07/03/17 Guaifenesin [Mucinex] 600 mg PO BID #60 tab.er.12h 07/03/17 Nebulizer and Compressor [[place] 1 each MC BID #1 each 07/03/17 Choice Whisper Aire Ped] Nebulizer and Compressor [Easy Air 1 each MC DAILY #1 each 07/03/17 Compressor Nebulizer] Nicotine 14 mg Patch [Nicoderm] 1 each TOP Q24H 7 Days #7 patch 07/03/17 Nicotine 7 mg Patch [Nicoderm] 1 each TOP Q24H 7 Days #7 patch 07/03/17 Prednisone 10 mg PO DAILY 6 Days #18 tab.ds.pk 07/03/17 Zolpidem [Ambien] 5 mg PO QPM PRN #30 tablet 07/03/17 Home Medications Other | Comments: Provider [id number] note: Home nebulizer machine was ordered and script sent to [facility] for the administration of Budesinde solution (a corticosteroid) that is to be scheduled BID and is used for the management of moderate asthma. - PHYSICAL EXAM AT DISCHARGE General Appearance: positive: No acute distress, Alert Eyes Bilateral: positive: Normal inspection, PERRL ENT: positive: ENT inspection nml, Pharynx nml, No signs of dehydration Neck: positive: Nml inspection, Thyroid nml, No JVD, Trachea midline Respiratory: positive: Chest non-tender, No respiratory distress, Wheezes, Other (diminished with slight crackles.) Cardiovascular: positive: Regular rate & rhythm, No murmur, No gallop, Decreased pulse(s) Peripheral Pulses: positive: 1+ Abdomen: positive: Non-tender, Nml bowel sounds, Other (obese, soft.) Back: positive: Nml inspection Skin: positive: No rash, Warm, Dry Extremities: positive: Non-tender, Full ROM, Nml appearance Neurologic/Psychiatric: positive: Oriented x3, CN's nml (2-12), Motor nml, Sensation nml, Depressed mood/affect Reflexes: Bicep (R): 3+, Bicep (L): 3+ - LABS Result Diagrams: 07/03/17 04:20 07/03/17 04:20 - DIAGNOSTIC IMAGING Diagnostic Imaging Results: Final report reviewed Diagnostic Imaging Results Comments: Chest x-ray: FINDINGS: Lungs/Pleura: No focal opacities evident. No pleural effusion. No pneumothorax. Mediastinum: Within exam limitations, the cardiomediastinal contour is normal. IMPRESSION: No acute cardiopulmonary abnormality. - FOLLOW UP Follow Up: Disposition: Home, Self Care Condition: Good Prescriptions: Azithromycin 500 mg PO DAILY 7 Days #7 tablet Budesonide 0.25 mg IH BID #60 ampul.neb Guaifenesin [Mucinex] 600 mg PO BID #60 tab.er.12h Nebulizer and Compressor [[place] Choice Whisper Aire Ped] 1 each MC BID #1 each Nebulizer and Compressor [Easy Air Compressor Nebulizer] 1 each MC DAILY #1 each Nicotine 14 mg Patch [Nicoderm] 1 each TOP Q24H 7 Days #7 patch Nicotine 7 mg Patch [Nicoderm] 1 each TOP Q24H 7 Days #7 patch Prednisone 10 mg PO DAILY 6 Days #18 tab.ds.pk Zolpidem [Ambien] 5 mg PO QPM PRN #30 tablet PRN Reason: Insomnia Diet: Diabetic Activity Restrictions: No Restrictions Shower Restrictions: No Driving Restrictions: No Weight Bearing: Full Weight Additional Instructions or Follow Up instructions: You were treated for asthma exacerbation with IV steroids, IV antibiotics and breathing treatments. If you do not have a lip of shank cutter, this is recommended. Some possible asthma triggers may include; inhaled allergens such as dust mites, animal danders, molds, some food allergens, tobacco smoke, wood smoke, strong perfumes or cleaning products. Please take all of your medications as prescribed. A work note is included. See your PCP as a follow up to this stay within one week. - TIME SPENT Time Spent in Discharge (Minutes): 45"
[2017-07-03] MEDS: ACETAMINOPHEN 325 MG TABLET PO PRN (09:59)
[2017-07-03 15:22] VITALS: BP 128/71
== END 2017-07-03 15:30 | disposition home or self-care (01) | DRG 202 ==
LOC: EDUNIT# → ED 20:20 → MS3 07-01 03:55
PROVIDERS: ADMIT Internal Medicine; ATTEND Nurse Practitioner
DX: J45.42 Moderate persistent asthma with status asthmaticus (principal); Z68.41 Body mass index [BMI] 40.0-44.9, adult; J20.9 Acute bronchitis, unspecified; R09.02 Hypoxemia; E66.01 Morbid (severe) obesity due to excess calories; F17.210 Nicotine dependence, cigarettes, uncomplicated; Z87.01 Personal history of pneumonia (recurrent)
CPT/HCPCS: 36415; 71045; 80053; 80306; 83036; 83690; 83735; 84484; 85025; 87070; 87205; 87275; 87276; 87280; 87640; 93005; 94150; 94640; 99284; 99285

== ENCOUNTER 2017-08-01 22:18 | Emergency (ER) | payer MEDICAID ==
[2017-08-01] MEDS ORDERED: LIDOCAINE PATCH 5% TOP STA (22:31)
[2017-08-01] MEDS ORDERED: KETOROLAC 60 MG/2 ML VIAL IM STA (22:31)
--- NOTE | 2017-08-01 22:34 | ED Physician Documentation ---
PD HPI TRUNK INJURY - Stated complaint Stated Complaint: COUGHING/PX RIB CAGE - Chief complaint Chief Complaint: Resp - History obtained from History obtained from: Patient - History of Present Illness Location: Right chest Type of injury: Other (cough) Timing - onset: How many weeks ago (1) Timing - details: Gradual onset, Still present Quality: Pain, Sharp, Aching Improved by: Immobilization Worsened by: Moving, Palpating Associated symtptoms: No: Weakness, Numbness, Discoloration Recently seen: Not recently seen - Additional information Additional information: Patient is a 36 year old female with a history of asthma who is presenting to the emergency department for right sided rib pain. patient states that she has had a cough for a long while and now almost every time she moves she gets sharp right sided rib pain. Patient denies any trauma. Review of Systems Constitutional: denies: Fever, Chills Eyes: reports: Reviewed and negative Ears: reports: Reviewed and negative Nose: reports: Reviewed and negative Throat: reports: Reviewed and negative Cardiac: reports: Chest pain / pressure Respiratory: reports: Cough, Wheezing GI: denies: Nausea, Vomiting : reports: Reviewed and negative Skin: reports: Reviewed and negative. denies: Rash, Lesions, Laceration (s) Musculoskeletal: denies: Neck pain, Back pain, Extremity pain Neurologic: reports: Reviewed and negative Immunocompromised: denies: Immunocompromised PD PAST MEDICAL HISTORY - Past Medical History Cardiovascular: None Respiratory: Asthma, Pneumonia, Shortness of breath Neuro: Headache/migraine Endocrine/Autoimmune: None GI: None SPECIAL EVENTS PLANNER: None : None HEENT: None Psych: None Musculoskeletal: None Derm: None - Past Surgical History Past Surgical History: Yes General: Appendectomy - Present Medications Home Medications: Ambulatory Orders Medication Instructions Recorded Confirmed Fluticasone Furoate [Arnuity 1 puffs INH RTDAILY 02/22/17 07/01/17 Ellipta] Levonorgestrel-Ethin Estradiol 1 tab PO DAILY 02/22/17 07/01/17 [Aviane-28 Tablet] Albuterol Sulf [Ventolin Hfa 2 puffs INH Q4H PRN #1 inhaler 02/24/17 07/01/17 Inhaler] Azithromycin 500 mg PO DAILY 7 Days #7 tablet 07/03/17 Budesonide 0.25 mg IH BID #60 ampul.neb 07/03/17 Guaifenesin [Mucinex] 600 mg PO BID #60 tab.er.12h 07/03/17 Nebulizer and Compressor [[place] 1 each MC BID #1 each 07/03/17 Choice Whisper Aire Ped] Nebulizer and Compressor [Easy Air 1 each MC DAILY #1 each 07/03/17 Compressor Nebulizer] Nicotine 14 mg Patch [Nicoderm] 1 each TOP Q24H 7 Days #7 patch 07/03/17 Nicotine 7 mg Patch [Nicoderm] 1 each TOP Q24H 7 Days #7 patch 07/03/17 Prednisone 10 mg PO DAILY 6 Days #18 tab.ds.pk 07/03/17 Zolpidem [Ambien] 5 mg PO QPM PRN #30 tablet 07/03/17 Lidocaine Patch 5% [Lidoderm Patch] 1 each TOP DAILY #10 patch 08/01/17 - Allergies Allergies/Adverse Reactions: Allergies Allergy/AdvReac Type Severity Reaction Status Date / Time Penicillins Allergy Severe Edema Verified 08/01/17 22:31 aspirin Allergy Unknown Verified 08/01/17 22:31 bee venom protein (honey bee) Allergy Anaphylaxis Verified 08/01/17 22:31 coconut Allergy Hives Verified 08/01/17 22:31 milk Allergy Cramps Verified 08/01/17 22:31 onion AdvReac Hives Verified 08/01/17 22:31 - Social History Does the pt smoke?: Yes Smoking Status: Current every day smoker Does the pt drink ETOH?: No Does the pt have substance abuse?: No - Immunizations Immunizations are current?: Yes - POLST Patient has POLST: No PD ED PE NORMAL - Vitals Vital signs reviewed: Yes - General General: Alert and oriented X 3 - HEENT HEENT: Atraumatic, PERRL - Neck Neck: Supple, no meningeal sign - Cardiac Cardiac: RRR, No murmur - Respiratory Respiratory: No respiratory distress - Abdomen Abdomen: Soft, Non tender, Non distended - Derm Derm: Normal color, Warm and dry - Extremities Extremities: No deformity, No edema - Neuro Neuro: Alert and oriented X 3, No motor deficit, No sensory deficit, Normal speech Eye Opening: Spontaneous Motor: Obeys Commands Verbal: Oriented GCS Score: 15 - Psych Psych: Normal mood PD ED PE EXPANDED - Cardiac Cardiac: Chest wall TTP (tendnerness to palpation of right chest wall) Results - Vitals Vitals: Vital Signs - 24 hr 08/01/17 22:28 Temperature 36.5 C Heart Rate 101 H Respiratory 19 Rate Blood Pressure 152/101 H O2 Saturation 96 Oxygen O2 Source Room air - Rads (name of study) chest, right ribs Radiology: Final report received (no acute fracture or dislocation) PD MEDICAL DECISION MAKING - ED course Complexity details: reviewed old records, reviewed results, re-evaluated patient , considered differential, d/w patient ED course: Patient was seen and examined at bedside. Patient was treated with toradol and lidoderm patch. Imaging was ordered. When patient returned from imaging the results were reviewed. there were no acute fractures or dislocations. Patient required no further work up and was stable for discharge with outpatient follow up. Departure - Departure Disposition: 01 Home, Self Care Clinical Impression: Muscle strain of chest wall Condition: Good Instructions: ED Strain Chest Wall Ch Follow-Up: Soirn Banegas MD [Primary Care Provider] - Within 3 Days Prescriptions: Lidocaine Patch 5% [Lidoderm Patch] 1 each TOP DAILY #10 patch Comments: Your diagnostics today were within normal limits. there is no acute fracture or dislocation. You should continue with the lidoderm patch, ice, motrin or tylenol. You should follow up with your doctor if your symptoms persist. You may return to the emergency department at any time for new, worsening or uncontrollable symptoms.
--- NOTE | 2017-08-01 23:24 | XRAY Preliminary Report ---
Exam: XR RIBS W/PA CHEST RT IMPRESSION: 1. No displaced fracture demonstrated. 2. No acute cardiopulmonary abnormality demonstrated. [facility] SITE ID: [id number]
--- NOTE | 2017-08-01 23:25 | XRAY Report ---
EXAM: CHEST AND RIGHT RIB RADIOGRAPHY EXAM DATE: 08/01/2017 11:02 PM. CLINICAL HISTORY: Right sided rib pain. COMPARISON: None. TECHNIQUE: 1 view of the chest and 4 views of the ribs. FINDINGS: Bones: No acute displaced fracture or bone lesion. Lungs And pleura: No focal opacities. No pneumothorax. No pleural effusions. Mediastinum: Heart and mediastinal contours are unremarkable. Other: None. IMPRESSION: 1. No displaced fracture demonstrated. 2. No acute cardiopulmonary abnormality demonstrated. [facility] Referring Provider Line: [phone] SITE ID: [id number]
[2017-08-01 23:36] VITALS: BP 120/74
== END 2017-08-01 23:35 | disposition home or self-care (01) ==
LOC: ED 22:18
DX: S29.011A Strain of muscle and tendon of front wall of thorax, initial encounter (principal); X50.9XXA Other and unspecified overexertion or strenuous movements or postures, initial encounter; X50.0XXA Overexertion from strenuous movement or load, initial encounter; F17.200 Nicotine dependence, unspecified, uncomplicated
CPT/HCPCS: 71101; 96372; 99283; A9270

== ENCOUNTER 2017-08-13 11:09 | Emergency (ER) | payer MEDICAID ==
[2017-08-13 11:27] VITALS: BP 174/98
[2017-08-13] MEDS ORDERED: HYDROmorphone 1 MG/ML SYRINGE IM STA (12:57)
--- NOTE | 2017-08-13 12:59 | ED Physician Documentation ---
PD HPI CHEST PAIN - Stated complaint Stated Complaint: BACK SPASMS/LEG PX - Chief complaint Chief Complaint: Back Pain - History obtained from History obtained from: Patient - History of Present Illness Timing - onset: Other (She was hospitalized for hypoxemia with asthma in late June for a few days. She was coughing a lot and developed right-sided chest pain worse with coughing and motion. Was seen here couple of weeks ago, rib x- ray was negative. Since that time the pain has moved down a little bit to the lower ribs and around to the front. It is bad with coughing but not with deep breathing and she denies any shortness of breath. She has not had any fevers, urinary complaints, issues with bowel movements, or nausea. Pain is severe despite taking Tylenol and ibuprofen at home. 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 : None HEENT: None Psych: None Musculoskeletal: None Derm: None - Past Surgical History Past Surgical History: Yes General: Appendectomy - Present Medications Home Medications: Ambulatory Orders Medication Instructions Recorded Confirmed Fluticasone Furoate [Arnuity 1 puffs INH RTDAILY 02/22/17 07/01/17 Ellipta] Levonorgestrel-Ethin Estradiol 1 tab PO DAILY 02/22/17 07/01/17 [Aviane-28 Tablet] Albuterol Sulf [Ventolin Hfa 2 puffs INH Q4H PRN #1 inhaler 02/24/17 07/01/17 Inhaler] Azithromycin 500 mg PO DAILY 7 Days #7 tablet 07/03/17 Budesonide 0.25 mg IH BID #60 ampul.neb 07/03/17 Guaifenesin [Mucinex] 600 mg PO BID #60 tab.er.12h 07/03/17 Nebulizer and Compressor [[place] 1 each MC BID #1 each 07/03/17 Choice Whisper Aire Ped] Nebulizer and Compressor [Easy Air 1 each MC DAILY #1 each 07/03/17 Compressor Nebulizer] Nicotine 14 mg Patch [Nicoderm] 1 each TOP Q24H 7 Days #7 patch 07/03/17 Nicotine 7 mg Patch [Nicoderm] 1 each TOP Q24H 7 Days #7 patch 07/03/17 Prednisone 10 mg PO DAILY 6 Days #18 tab.ds.pk 07/03/17 Zolpidem [Ambien] 5 mg PO QPM PRN #30 tablet 07/03/17 Lidocaine Patch 5% [Lidoderm Patch] 1 each TOP DAILY #10 patch 08/01/17 Cyclobenzaprine [Flexeril] 10 mg PO TID PRN #20 tablet 08/13/17 HYDROcod/ACETAM 5/325 [[place] 5/325] 1 - 2 ea PO Q6H PRN #10 tablet 08/13/17 - Allergies Allergies/Adverse Reactions: Allergies Allergy/AdvReac Type Severity Reaction Status Date / Time Penicillins Allergy Severe Edema Verified 08/01/17 22:31 aspirin Allergy Unknown Verified 08/01/17 22:31 bee venom protein (honey bee) Allergy Anaphylaxis Verified 08/01/17 22:31 coconut Allergy Hives Verified 08/01/17 22:31 milk Allergy Cramps Verified 08/01/17 22:31 onion AdvReac Hives Verified 08/01/17 22:31 - Social History Does the pt smoke?: Yes Smoking Status: Current every day smoker Does the pt drink ETOH?: No Does the pt have substance abuse?: No - Immunizations Immunizations are current?: Yes - POLST Patient has POLST: No PD ED PE NORMAL - Vitals Vital signs reviewed: Yes - General General: Alert and oriented X 3 (Tearful and uncomfortable) - HEENT HEENT: PERRL, EOMI - Neck Neck: Supple, no meningeal sign, No bony TTP - Cardiac Cardiac: RRR, No murmur - Respiratory Respiratory: No respiratory distress, Other (Diminished at the right base) - Abdomen Abdomen: Non tender - Back Back: No spinal TTP - Extremities Extremities: No edema, No calf tenderness / cord - Neuro Neuro: Alert and oriented X 3, Normal speech Results - Vitals Vitals: Vital Signs - 24 hr 08/13/17 11:24 Temperature 36.2 C L Heart Rate 102 H Respiratory 20 Rate Blood Pressure 174/98 H O2 Saturation 100 Oxygen O2 Source Room air - Labs Labs: Laboratory Tests 08/13/17 08/13/17 08/13/17 12:20 13:10 13:10 WBC 8.0 RBC 4.57 Hgb 14.4 Hct 42.0 MCV 91.8 MCH 31.4 H MCHC 34.2 RDW 14.1 Plt Count 267 MPV 8.2 Neut # 4.0 Lymph # 2.9 Centre # 0.7 Eos # 0.3 Baso # 0.1 Absolute Nucleated RBC 0.00 Nucleated RBC % 0.1 D-Dimer 205.6 Sodium Potassium Chloride Carbon Dioxide Anion Gap BUN Creatinine Estimated GFR (MDRD) Glucose Calcium Total Bilirubin AST ALT Alkaline Phosphatase Total Protein Albumin Globulin Albumin/Globulin Ratio Lipase Urine Color YELLOW Urine Clarity HAZY Urine pH 5.5 Ur Specific [place] 1.015 Urine Protein NEGATIVE Urine Glucose (UA) 100 H Urine Ketones NEGATIVE Urine Occult Blood NEGATIVE Urine Nitrite NEGATIVE Urine Bilirubin NEGATIVE Urine Urobilinogen 0.2 (NORMAL) Ur Leukocyte Esterase NEGATIVE Urine RBC 0-5 Urine WBC 0-3 Ur Squamous Epith Cells MOD Squamous H Urine Bacteria Moderate H Ur Microscopic Review INDICATED Urine Culture Comments NOT INDICATED Urine HCG, Qual NEGATIVE 08/13/17 13:10 WBC RBC Hgb Hct MCV MCH MCHC RDW Plt Count MPV Neut # Lymph # Centre # Eos # Baso # Absolute Nucleated RBC Nucleated RBC % D-Dimer Sodium 136 Potassium 4.2 Chloride 105 Carbon Dioxide 26 Anion Gap 5.0 L BUN 14 Creatinine 0.6 Estimated GFR (MDRD) 112 Glucose 125 H Calcium 9.2 Total Bilirubin 0.3 AST 17 ALT 24 Alkaline Phosphatase 89 Total Protein 7.8 Albumin 4.3 Globulin 3.5 Albumin/Globulin Ratio 1.2 Lipase 29 Urine Color Urine Clarity Urine pH Ur Specific [place] Urine Protein Urine Glucose (UA) Urine Ketones Urine Occult Blood Urine Nitrite Urine Bilirubin Urine Urobilinogen Ur Leukocyte Esterase Urine RBC Urine WBC Ur Squamous Epith Cells Urine Bacteria Ur Microscopic Review Urine Culture Comments Urine HCG, Qual - Rads (name of study) 2v chest Radiology: EMP read contemporaneously (NAD WNL) PD MEDICAL DECISION MAKING - ED course ED course: 36-year-old woman with what seems like Muscle spasm. Recent hospitalization and underlying illnesses necessitated a workup which was negative for PE, pneumonia. Departure - Departure Disposition: 01 Home, Self Care Clinical Impression: Back pain Qualifiers: Back pain location: thoracic back pain Chronicity: acute Back pain laterality: right Qualified Code(s): M54.6 - Pain in thoracic spine Condition: Good Record reviewed to determine appropriate education?: Yes Instructions: ED Neck Back Pain General Prescriptions: Cyclobenzaprine [Flexeril] 10 mg PO TID PRN #20 tablet PRN Reason: Pain HYDROcod/ACETAM 5/325 [[place] 5/325] 1 - 2 ea PO Q6H PRN #10 tablet PRN Reason: Pain Comments: Call your doctor to arrange a follow-up appointment, make the next available appointment. In the interim, return anytime if worse or if new symptoms develop. Your blood pressure was elevated today on check into the emergency department. This does not mean that you have hypertension, it is a common phenomenon to come to the emergency department and have elevated blood pressure. I recommend that you see your primary care physician within the week to have it rechecked when you are feeling better. Do not drink or drive while taking narcotic pain medication. Note that many narcotic pain relievers also contain Tylenol/acetaminophen. Please ensure that your total dose of acetaminophen from all sources does not exceed 3 g (3000 mg) per day. You may get constipated while on this medication. Take a stool softener such as Colace twice a day while you are on it. Also add an nhpt-mme-cuznyrm laxative such as senna or MiraLAX on any day that you do not have a bowel movement. If you received a narcotic pain medication or sedative while in the emergency department, do not drive for the next 24 hours.
[2017-08-13 13:03] LABS: BILIRUBIN,URINE NEGATIVE (NEGATIVE); GLUCOSE, URINE (UA) 100 mg/dL (NEGATIVE); KETONES,URINE (UA) NEGATIVE (NEGATIVE); LEUKOCYTE ESTERASE, URINE NEGATIVE (NEGATIVE); NITRITE,URINE NEGATIVE (NEGATIVE); OCCULT BLOOD,URINE NEGATIVE (NEGATIVE); PH,URINE 5.5 PH (5.0-7.5); PROTEIN,URINE NEGATIVE (NEGATIVE); UROBILINOGEN,URINE 0.2 (NORMAL) E.U./dL (NORMAL)
[2017-08-13 13:04] LABS: CLARITY,URINE HAZY (CLEAR)
[2017-08-13 13:06] LABS: HCG UR QUAL NEGATIVE
[2017-08-13 13:10] LABS: BACTERIA,URINE Moderate /HPF (None Seen); RBC,URINE 0-5 /HPF (0-5); SQUAMOUS EPITHELIAL CELL,UR MOD Squamous (<= Few)
[2017-08-13 13:15] LABS: BASOPHILS # (AUTO) 0.1 10^3/uL (0.0-0.1); BASOPHILS % (AUTO) 1.5 %; EOSINOPHILS # (AUTO) 0.3 10^3/uL (0.0-0.7); EOSINOPHILS % (AUTO) 3.6 %; HGB - HEMOGLOBIN 14.4 g/dL (12.0-16.0); LYMPHOCYTES # (AUTO) 2.9 10^3/uL (1.5-3.5); LYMPHOCYTES % (AUTO) 35.9 %; MEAN CORPUSCULAR HEMOGLOBIN 31.4 pg (27.0-31.0); MEAN CORPUSCULAR HGB CONC 34.2 g/dL (32.0-36.0); MEAN CORPUSCULAR VOLUME 91.8 fL (81.0-99.0); MEAN PLATELET VOLUME 8.2 fL (7.9-10.8); MONOCYTES # (AUTO) 0.7 10^3/uL (0.0-1.0); MONOCYTES % (AUTO) 9.1 %; NEUTROPHILS % (AUTO) 49.9 %; PLT - PLATELET COUNT 267 10^3/uL (130-450); RED BLOOD COUNT 4.57 10^6/uL (4.20-5.40); RED CELL DISTRIBUTION WIDTH 14.1 % (12.0-15.0)
[2017-08-13 13:28] LABS: ALBUMIN 4.3 g/dL (3.2-5.5); ALBUMIN/GLOBULIN RATIO 1.2 (1.0-2.2); BILIRUBIN,TOTAL 0.3 mg/dL (0.2-1.0); CALCIUM 9.2 mg/dL (8.5-10.3); CREATININE 0.6 mg/dL (0.4-1.0); TOTAL PROTEIN 7.8 g/dL (6.7-8.2)
--- NOTE | 2017-08-13 14:01 | XRAY Report ---
EXAM: CHEST RADIOGRAPHY EXAM DATE: 08/13/2017 01:42 PM. CLINICAL HISTORY: R chest pain. COMPARISON: 08/01/2017. TECHNIQUE: 2 views. FINDINGS: Lungs/Pleura: No focal opacities evident. No pleural effusion. No pneumothorax. Normal volumes. Mediastinum: Heart and mediastinal contours are unremarkable. Other: None. IMPRESSION: Negative chest. [facility] Referring Provider Line: [phone] SITE ID: [id number]
--- NOTE | 2017-08-13 14:01 | XRAY Preliminary Report ---
Exam: XR CHEST 2 VIEW X-RAY IMPRESSION: Negative chest. [facility] SITE ID: [id number]
== END 2017-08-13 14:30 | disposition home or self-care (01) ==
LOC: ED 11:09
DX: M54.6 Pain in thoracic spine (principal); M62.830 Muscle spasm of back; J45.909 Unspecified asthma, uncomplicated; R03.0 Elevated blood-pressure reading, without diagnosis of hypertension; F17.200 Nicotine dependence, unspecified, uncomplicated
CPT/HCPCS: 36415; 71046; 80053; 81001; 81025; 83690; 85025; 85379; 96372; 99283; J1170; 81003; 87086

== ENCOUNTER 2017-11-15 09:26 | Outpatient (CLI) | payer MEDICAID ==
--- NOTE | 2017-11-16 22:34 | MRI Report ---
Procedure Date: 11/15/2017 Accession Number: [id number] / [id number] Procedure: MRI - Knee LT W/O CPT Code: FULL RESULT: EXAM: LEFT KNEE MRI WITHOUT CONTRAST EXAM DATE: 11/15/2017 09:59 AM. CLINICAL HISTORY: Bucket-handle tear of lateral meniscus. COMPARISON: Radiographs 10/17/2017. TECHNIQUE: Multiplanar, multisequence T1-weighted and fluid-sensitive sequences of the knee without contrast. Other: None. FINDINGS: Bones: No fracture or bone lesion. Subtle reactive edema at the medial margin medial femoral condyle and lateral margin proximal tibial metaphysis.. Articular Cartilage: Shallow partial-thickness loss and irregularity at the central aspect medial and lateral compartments. Shallow partial-thickness loss and fissuring/tearing medial patellar facet. Small focus of deep partial-thickness loss and fissuring/tearing medial trochlea. Medial Meniscus: The medial meniscus is intact. Lateral Meniscus: The lateral meniscus is intact. Cruciate Ligaments: The anterior and posterior cruciate ligaments are intact. Collateral Ligaments: Minimal thickening and adjacent edema at the proximal aspect intact superficial band medial collateral ligament. Lateral collateral ligament normal in morphology. Tendons: The quadriceps, patellar, semimembranosus, and popliteus tendons are unremarkable. Musculature: No edema or fatty atrophy. Other: Minimal joint effusion. No popliteal cyst. No loose bodies. The medial and lateral retinacula are intact. Mild subcutaneous edema over the anterior aspect of the knee. Minimal edema in the superolateral aspect Hoffa's fat pad.. IMPRESSION: 1. Mild tricompartmental cartilage loss, grade 3 at the patellofemoral joint. 2. Minimal joint effusion. 3. Likely reactive subtle edema in the superolateral aspect of Hoffa's fat pad. 4. Sequelae of subacute or chronic sprain medial collateral ligament. 5. Cruciate ligaments and menisci are intact. [facility] MUSCULOSKELETAL RADIOLOGY SECTION
== END 2017-11-15 09:27 | disposition home or self-care (01) ==
LOC: DI 09:26
PROVIDERS: ATTEND Orthopaedic Surgery
DX: M23.92 Unspecified internal derangement of left knee (principal); M25.462 Effusion, left knee

== ENCOUNTER 2017-12-04 16:44 | Outpatient (CLI) | payer MEDICAID | END 2017-12-04 16:45 | disposition home or self-care (01) | LOC: LAB.R 16:44 | PROVIDERS: ATTEND Obstetrics & Gynecology | DX: Z11.3 Encounter for screening for infections with a predominantly sexual mode of transmission (principal) | CPT/HCPCS: 87491; 87591 ==

== ENCOUNTER 2018-01-07 21:59 | Emergency (ER) | payer MEDICAID ==
--- NOTE | 2018-01-07 23:05 | ED Physician Documentation ---
PD HPI DYSPNEA - Stated complaint Stated Complaint: SOA/MED REFILL - Chief complaint Chief Complaint: Resp - History obtained from History obtained from: Patient - History of Present Illness Timing - onset: How many days ago (couple days of allergies/wheezing worse. No URI symptoms per se. Uses Albuterol MDI and albuteol or Duoneb nebulizer. Daily inhaled steroid.) Timing - onset during: Light activity Timing - duration: Days Timing - details: Gradual onset, Still present, Waxing and waning Inciting event(s): Out of meds. No: URI (gets these symptoms with allergies.) Improved by: Inhaler/neb (which ran out today) Worsened by: Exertion Associated symptoms: Wheezing. No: Fever, Cough, Hemoptysis, Chest pain / discomfort, Palpitations, Diaphoresis, Bilateral edema, Anxiety Similar symptoms before: Diagnosis (asthma and allergies) Recently seen: Not recently seen Review of Systems Constitutional: denies: Fever, Chills, Myalgias Nose: reports: Congestion, Sinus pressure / pain. 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 : None HEENT: None Psych: None Musculoskeletal: None Derm: None - Past Surgical History Past Surgical History: Yes General: Appendectomy - Present Medications Home Medications: Ambulatory Orders Medication Instructions Recorded Confirmed Fluticasone Furoate [Arnuity 1 puffs INH RTDAILY 02/22/17 07/01/17 Ellipta] Levonorgestrel-Ethin Estradiol 1 tab PO DAILY 02/22/17 07/01/17 [Aviane-28 Tablet] Albuterol Sulf [Ventolin Hfa 2 puffs INH Q4H PRN #1 inhaler 02/24/17 07/01/17 Inhaler] Azithromycin 500 mg PO DAILY 7 Days #7 tablet 07/03/17 Budesonide 0.25 mg IH BID #60 ampul.neb 07/03/17 Guaifenesin [Mucinex] 600 mg PO BID #60 tab.er.12h 07/03/17 Nebulizer and Compressor [[place] 1 each MC BID #1 each 07/03/17 Choice Whisper Aire Ped] Nebulizer and Compressor [Easy Air 1 each MC DAILY #1 each 07/03/17 Compressor Nebulizer] Nicotine 14 mg Patch [Nicoderm] 1 each TOP Q24H 7 Days #7 patch 07/03/17 Nicotine 7 mg Patch [Nicoderm] 1 each TOP Q24H 7 Days #7 patch 07/03/17 Prednisone 10 mg PO DAILY 6 Days #18 tab.ds.pk 07/03/17 Zolpidem [Ambien] 5 mg PO QPM PRN #30 tablet 07/03/17 Lidocaine Patch 5% [Lidoderm Patch] 1 each TOP DAILY #10 patch 08/01/17 Cyclobenzaprine [Flexeril] 10 mg PO TID PRN #20 tablet 08/13/17 HYDROcod/ACETAM 5/325 [[place] 5/325] 1 - 2 ea PO Q6H PRN #10 tablet 08/13/17 Albuterol Sulf [Ventolin Hfa 2 - 3 puffs INH Q4HR PRN #1 inhaler 01/08/18 Inhaler] Dexamethasone [Decadron] 4 mg PO DAILY #5 tablet 01/08/18 Ipratropium/Albuterol [Duoneb] 3 ml INH TID PRN #30 neb 01/08/18 - Allergies Allergies/Adverse Reactions: Allergies Allergy/AdvReac Type Severity Reaction Status Date / Time Penicillins Allergy Severe Edema Verified 01/07/18 23:09 aspirin Allergy Unknown Verified 01/07/18 23:09 bee venom protein (honey bee) Allergy Anaphylaxis Verified 01/07/18 23:09 coconut Allergy Hives Verified 01/07/18 23:09 milk Allergy Cramps Verified 01/07/18 23:09 onion AdvReac Hives Verified 01/07/18 23:09 - Social History Does the pt smoke?: Yes Smoking Status: Current every day smoker Does the pt drink ETOH?: No Does the pt have substance abuse?: No - Immunizations Immunizations are current?: Yes - POLST Patient has POLST: No PD ED PE NORMAL - Vitals Vital signs reviewed: Yes - General General: Alert and oriented X 3, No acute distress, Well developed/nourished - Neck Neck: Supple, no meningeal sign, No adenopathy - Cardiac Cardiac: RRR, No murmur - Respiratory Respiratory: No: Clear bilaterally (no coarse sounds; has expiratory wheezing diffusely. No accessory muscle use. ) Results - Vitals Vitals: Vital Signs - 24 hr 01/07/18 01/07/18 01/07/18 22:02 23:12 23:29 Temperature 35.9 C L 36.4 C L Heart Rate 113 H 98 91 Respiratory 24 18 18 Rate Blood Pressure 139/84 H 125/95 H O2 Saturation 97 96 01/08/18 00:10 Temperature Heart Rate 100 Respiratory 14 Rate Blood Pressure 113/78 O2 Saturation 98 Oxygen O2 Source Room air PD MEDICAL DECISION MAKING - ED course Complexity details: re-evaluated patient (feeling betteer with neb treatment. ) , considered differential, d/w patient - Sepsis Event Vital Signs: Vital Signs - 24 hr 01/07/18 01/07/18 01/07/18 22:02 23:12 23:29 Temperature 35.9 C L 36.4 C L Heart Rate 113 H 98 91 Respiratory 24 18 18 Rate Blood Pressure 139/84 H 125/95 H O2 Saturation 97 96 01/08/18 00:10 Temperature Heart Rate 100 Respiratory 14 Rate Blood Pressure 113/78 O2 Saturation 98 Oxygen O2 Source Room air Departure - Departure Disposition: 01 Home, Self Care Clinical Impression: Asthma Qualifiers: Asthma severity: mild Asthma persistence: intermittent Asthma complication type : with acute exacerbation Qualified Code(s): J45.21 - Mild intermittent asthma with (acute) exacerbation Condition: Stable Record reviewed to determine appropriate education?: Yes Instructions: Asthma Dc Follow-Up: Sorin Banegas MD [Primary Care Provider] - Prescriptions: Albuterol Sulf [Ventolin Hfa Inhaler] 2 - 3 puffs INH Q4HR PRN #1 inhaler PRN Reason: Shortness Of Air/Wheezing Dexamethasone [Decadron] 4 mg PO DAILY #5 tablet Ipratropium/Albuterol [Duoneb] 3 ml INH TID PRN #30 neb PRN Reason: Dyspnea Comments: Decadron steroid daily for 5 more days. Use your albuterol inhaler or DuoNeb nebulizer as needed for wheezing. He is it likely 3-4 times a day for the next few days and then taper to as needed. Recheck if not improving over the next few days. Discharge Date/Time: 01/08/18 00:27
[2018-01-07] MEDS ORDERED: IPRATROPIUM/ALBUTEROL 3 ML NEB INH STA (23:13)
[2018-01-07] MEDS ORDERED: ALBUTEROL NEB 2.5 MG/3 ML INH STA (23:13)
[2018-01-07] MEDS ORDERED: DEXAMETHASONE 10 MG/ML VIAL PO STA (23:13)
[2018-01-07] MEDS ORDERED: ALBUTEROL NEB 2.5 MG/3 ML INH ONE (23:48)
[2018-01-08 00:22] VITALS: BP 113/78
== END 2018-01-08 00:27 | disposition home or self-care (01) ==
LOC: ED 21:59
DX: J45.21 Mild intermittent asthma with (acute) exacerbation (principal); Z79.51 Long term (current) use of inhaled steroids; F17.200 Nicotine dependence, unspecified, uncomplicated
CPT/HCPCS: 94640; 94664; 99283

== ENCOUNTER 2018-02-09 16:59 | Outpatient (CLI) | payer MEDICAID ==
--- NOTE | 2018-02-10 10:29 | Ultrasound Report ---
Reason: IRREGULAR MENSTRUATION,UNSPECIFIED Procedure Date: 02/09/2018 Accession Number: [id number] / [id number] Procedure: US - Pelvic w/Transvaginal CPT Code: FULL RESULT: EXAM: PELVIC ULTRASOUND EXAM DATE: 02/09/2018 06:22 PM. CLINICAL HISTORY: Irregular menstruation, unspecified. LMP 08/02/2017. COMPARISON: None. TECHNIQUE: Realtime transabdominal pelvic scan performed to identify the uterus and adnexa and as an overview of other pelvic structures, followed by transvaginal scan to provide greater detail of the uterus and adnexa, with static image documentation. FINDINGS: The exam reportedly is limited due to the flexion of the uterus and the patient body habitus. Uterus: 7.7 x 2.3 x 2.7 cm, volume 25 cc. Anteflexed position. Grossly normal overall size and echotexture. Masses: None. Endometrium: 2.9 mm. Normal. Cervix: Unremarkable. Ovaries: Not optimally visualized due to patient body habitus. Right Ovary: 1.5 x 1.0 x 1.1 cm, volume 0.9 cc. Grossly normal echotexture and blood flow. Left Ovary: 1.4 x 0.9 x 1.5 cm, volume 1.0 cc. Grossly normal echotexture and blood flow. Free Fluid: None. Other: None. IMPRESSION: No abnormality of the pelvis demonstrated although the exam is limited due to patient body habitus and uterine flexion. [facility]
== END 2018-02-09 17:00 | disposition home or self-care (01) ==
LOC: DI 16:59
PROVIDERS: ATTEND Obstetrics & Gynecology
DX: N92.6 Irregular menstruation, unspecified (principal)
CPT/HCPCS: 76830; 76856

== ENCOUNTER 2018-03-15 09:44 | Emergency (ER) | payer MEDICAID ==
[2018-03-15] MEDS ORDERED: SODIUM CHLORIDE 0.9% 1,000 ML IV ONE (10:40)
[2018-03-15] MEDS ORDERED: KETOROLAC 60 MG/2 ML VIAL IVP STA (10:40)
[2018-03-15] MEDS ORDERED: diphenhydrAMINE INJ 50 MG/ML VIAL IVP STA (10:40)
[2018-03-15] MEDS ORDERED: PROCHLORPERAZINE 10 MG/2 ML VIAL IVP STA (10:40)
--- NOTE | 2018-03-15 10:43 | ED Physician Documentation ---
History of Present Illness - Stated complaint Stated Complaint: MIGRAINE - Chief complaint Chief Complaint: Neuro - Additonal information Additional information: hx from pt 37 female hx migraines to ER with a migraine similar to prior migraines all over severe with aura no CO exposure no trauma no fever Review of Systems Constitutional: denies: Fever Eyes: reports: Photophobia GI: denies: Nausea, Vomiting : denies: Now EGA (denies) Neurologic: reports: Headache. 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 HEENT: None Psych: None Musculoskeletal: None Derm: None - Past Surgical History Past Surgical History: Yes General: Appendectomy - Present Medications Home Medications: Ambulatory Orders Medication Instructions Recorded Confirmed Albuterol Sulf [Ventolin Hfa 2 puffs INH Q4H PRN #1 inhaler 02/24/17 07/01/17 Inhaler] Ipratropium/Albuterol [Duoneb] 3 ml INH TID PRN #30 neb 01/08/18 - Allergies Allergies/Adverse Reactions: Allergies Allergy/AdvReac Type Severity Reaction Status Date / Time Penicillins Allergy Severe Edema Verified 03/15/18 09:53 aspirin Allergy Unknown Verified 03/15/18 09:53 bee venom protein (honey bee) Allergy Anaphylaxis Verified 03/15/18 09:53 coconut Allergy Hives Verified 03/15/18 09:53 milk Allergy Cramps Verified 03/15/18 09:53 onion AdvReac Hives Verified 03/15/18 09:53 - Social History Does the pt smoke?: Yes Smoking Status: Current every day smoker Does the pt drink ETOH?: No Does the pt have substance abuse?: No - Immunizations Immunizations are current?: Yes - POLST Patient has POLST: No PD ED PE NORMAL - Vitals Vital signs reviewed: Yes - General General: Alert and oriented X 3 - HEENT HEENT: PERRL, EOMI, Other (photophibia, globes soft, not injected or hazy) - Cardiac Cardiac: RRR - Respiratory Respiratory: No respiratory distress, Clear bilaterally - Neuro Neuro: Alert and oriented X 3, poiser balance 2-12 intact, No motor deficit, No sensory deficit, Normal speech Eye Opening: Spontaneous Motor: Obeys Commands Verbal: Oriented GCS Score: 15 Results - Vitals Vitals: Vital Signs - 24 hr 03/15/18 09:51 Temperature 36 C L Heart Rate 86 Respiratory 20 Rate Blood Pressure 150/106 H O2 Saturation 97 Oxygen O2 Source Room air PD MEDICAL DECISION MAKING - ED course ED course: pt felt better Departure - Departure Disposition: 01 Home, Self Care Clinical Impression: Migraine Qualifiers: Migraine type: with aura Status migrainosus presence: without status migrainosus Intractability: not intractable Qualified Code(s): G43.109 - Migraine with aura, not intractable, without status migrainosus Condition: Good Instructions: ED Headache Migraine Follow-Up: Sorin Banegas MD [Primary Care Provider] - Comments: Please follow up with your PMD to discuss migraines - some patients benefit from having medication to prevent migraines or medication that they take at the onset of a migraine - also please get your blood pressure rechecked Forms: Activity restrictions
[2018-03-15 12:02] VITALS: BP 136/74
== END 2018-03-15 12:03 | disposition home or self-care (01) ==
LOC: ED 09:44
DX: G43.109 Migraine with aura, not intractable, without status migrainosus (principal); F17.200 Nicotine dependence, unspecified, uncomplicated
CPT/HCPCS: 96361; 96374; 96375; 99283; J1200

== ENCOUNTER 2018-03-24 09:49 | Emergency (ER) | payer MEDICAID ==
[2018-03-24 10:07] VITALS: BP 130/89
--- NOTE | 2018-03-24 10:11 | ED Physician Documentation ---
PD HPI URI - Stated complaint Stated Complaint: THROAT PX/VOMITING - Chief complaint Chief Complaint: Heent - History obtained from History obtained from: Patient - History of Present Illness Timing - onset: Yesterday Timing duration: Days (2) Timing details: Abrupt onset, Still present Associated symptoms: Fever, Sore throat, Swollen nodes. No: Nasal congestion, Dry cough, Productive cough Contributing factors: No: Sick contact, Travel, Immunocompromised Similar symptoms before: Diagnosis (has not had strep for many years.) Recently seen: Not recently seen Review of Systems Constitutional: reports: Fever, Myalgias Nose: denies: Rhinorrhea / runny nose, Congestion Throat: reports: Sore throat, Swollen tonsils Cardiac: denies: Chest pain / pressure Respiratory: denies: Cough GI: denies: Nausea, Vomiting, Diarrhea Skin: denies: Rash PD PAST MEDICAL HISTORY - Past Medical History Cardiovascular: None Respiratory: Asthma, Pneumonia, Shortness of breath Neuro: Migraines Endocrine/Autoimmune: None GI: None MCAT 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: 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 : None HEENT: None Psych: None Musculoskeletal: None Derm: None - Past Surgical History Past Surgical History: Yes General: Appendectomy - Present Medications Home Medications: Ambulatory Orders Medication Instructions Recorded Confirmed Albuterol Sulf [Ventolin Hfa 2 puffs INH Q4H PRN #1 inhaler 02/24/17 03/24/18 Inhaler] Ipratropium/Albuterol [Duoneb] 3 ml INH TID PRN #30 neb 01/08/18 03/24/18 Azithromycin [Zithromax] 250 mg PO DAILY #6 tablet 03/24/18 Dexamethasone [Decadron] 4 mg PO DAILY #5 tablet 03/24/18 HYDROcod/ACETAM 5/325 [[place] 5/325] 1 tab PO Q6H PRN #12 tablet 03/24/18 Lidocaine Viscous 2% [Xylocaine 5 ml PO Q4H PRN #1 bottle 03/24/18 Viscous 2%] traZODone [Desyrel] 50 mg PO HS 03/24/18 03/24/18 - Allergies Allergies/Adverse Reactions: Allergies Allergy/AdvReac Type Severity Reaction Status Date / Time Penicillins Allergy Severe Edema Verified 03/24/18 10:07 aspirin Allergy Unknown Verified 03/24/18 10:07 bee venom protein (honey bee) Allergy Anaphylaxis Verified 03/24/18 10:07 coconut Allergy Hives Verified 03/24/18 10:07 milk Allergy Cramps Verified 03/24/18 10:07 onion AdvReac Hives Verified 03/24/18 10:07 - Social History Does the pt smoke?: Yes Smoking Status: Current every day smoker Does the pt drink ETOH?: No Does the pt have substance abuse?: No - Immunizations Immunizations are current?: Yes - POLST Patient has POLST: No PD ED PE NORMAL - Vitals Vital signs reviewed: Yes - General General: Alert and oriented X 3, Well developed/nourished, Other (appears hurting to swallow. ) - HEENT HEENT: Moist mucous membranes. No: Pharynx benign (enlarged tonsils both sides, with white exudates in crypts. No peritonsillar swelling. Anterior adenopathy noted in neck. ) - Neck Neck: Supple, no meningeal sign - Cardiac Cardiac: RRR (mild tachy), No murmur - Respiratory Respiratory: Clear bilaterally - Abdomen Abdomen: Soft, Non tender - Derm Derm: Normal color, Warm and dry, No rash - Neuro Neuro: Alert and oriented X 3, No motor deficit, Normal speech Results - Vitals Vitals: Vital Signs - 24 hr 03/24/18 03/24/18 10:05 10:19 Temperature 35.6 C L 37.2 C Heart Rate 102 H Respiratory 14 Rate Blood Pressure 130/89 H O2 Saturation 97 Oxygen O2 Source Room air - Labs Labs: Laboratory Tests 03/24/18 10:08 Group A Strep Rapid Negative PD MEDICAL DECISION MAKING - ED course Complexity details: considered differential (looks like bacterial tonsillitis, with 4/4 Centor, so will treat empirically pending cultures.), d/w patient Departure - Departure Disposition: 01 Home, Self Care Clinical Impression: Exudative tonsillitis Condition: Stable Record reviewed to determine appropriate education?: Yes Instructions: ED Strep Pharyngitis Poss Follow-Up: Sorin Banegas MD [Primary Care Provider] - Prescriptions: Azithromycin [Zithromax] 250 mg PO DAILY #6 tablet Dexamethasone [Decadron] 4 mg PO DAILY #5 tablet HYDROcod/ACETAM 5/325 [[place] 5/325] 1 tab PO Q6H PRN #12 tablet PRN Reason: Pain Lidocaine Viscous 2% [Xylocaine Viscous 2%] 5 ml PO Q4H PRN #1 bottle PRN Reason: Pain Comments: Your illness sounds very much like strep tonsillitis with the enlarged and exudative tonsils, swollen lymph nodes and fever. The rapid strep test is negative but the culture will spanish moss picker on the percentage that are missed by the rapid test. I would treat as if this is bacterial initially and we can discontinue the antibiotics after the culture if it is negative. Meanwhile also take the Decadron for inflammation and you can use lidocaine if needed for pain and add pain medicine if needed. Forms: Activity restrictions Discharge Date/Time: 03/24/18 10:48
[2018-03-24] MEDS ORDERED: DEXAMETHASONE 10 MG/ML VIAL PO STA (10:26)
[2018-03-24] MEDS ORDERED: NAPROXEN 250 MG TABLET PO STA (10:26)
[2018-03-24] MEDS ORDERED: HYDROcod/ACETAM 5/325 MG TABLET PO STA (10:26)
[2018-03-24] MEDS ORDERED: ONDANSETRON ODT 4 MG TABLET TL STA (10:31)
== END 2018-03-24 10:48 | disposition home or self-care (01) ==
LOC: ED 09:49
DX: J03.90 Acute tonsillitis, unspecified (principal); F17.200 Nicotine dependence, unspecified, uncomplicated
CPT/HCPCS: 87070; 87077; 87430; 99283; A9270; Q0162

== ENCOUNTER 2018-03-28 00:59 | Outpatient (CLI) | payer MEDICAID | END 2018-03-28 01:00 | disposition critical access hospital (66) | LOC: EMS 00:59 | PROVIDERS: ATTEND Surgery | DX: R06.00 Dyspnea, unspecified (principal); R05 Cough | CPT/HCPCS: A0425; A0427; A0999 ==

== ENCOUNTER 2018-03-28 01:18 | Observation (INO) | payer MEDICAID ==
--- NOTE | 2018-03-28 01:30 | ED Physician Documentation ---
PD HPI DYSPNEA - Stated complaint Stated Complaint: SOA - Chief complaint Chief Complaint: Resp - History obtained from History obtained from: Patient, EMS - History of Present Illness Timing - onset: How many days ago (5) Timing - onset during: Light activity Timing - duration: Days (5) Timing - details: Gradual onset, Still present (Much worse the last day or so.) Inciting event(s): URI (She started with a sore throat that was diagnosed as group C strep throat and she is on Zithromax and Decadron for the last 4 days. She states her throat has improved but she has had a increasing cough and wheezing. She does have history of asthma. She has been using her nebulizer and inhalers at home every hour or 2 for the last day. She called EMS due to difficulty breathing and had a DuoNeb treatment en route which helped a little bit better.). No: Out of meds Improved by: Inhaler/neb Worsened by: Exertion, Coughing Associated symptoms: Fever (subjective), Cough, Wheezing. No: Chest pain / discomfort, Bilateral edema Similar symptoms before: Diagnosis (asthma and pneumonia) Recently seen: Emergency Dept (4 days ago with sore throat and Dx with tonsillitis. She had a negative rapid strep test but subsequent culture showed group C strep. She states her throat was improving on the Zithromax and Decadron. However she had worsening of her asthma and wheezing and is having cough and dyspnea.) Review of Systems Constitutional: reports: Fever, Chills, Myalgias Nose: denies: Rhinorrhea / runny nose, Congestion Throat: reports: Sore throat, Swollen tonsils (improving) Cardiac: denies: Chest pain / pressure, Palpitations Respiratory: reports: Dyspnea, Cough, Wheezing GI: denies: Abdominal Pain, Nausea, Vomiting, Diarrhea Skin: denies: Rash, Lesions Neurologic: reports: Generalized weakness. 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 : None HEENT: None Psych: None Musculoskeletal: None Derm: None - Past Surgical History Past Surgical History: Yes General: Appendectomy - Present Medications Home Medications: Ambulatory Orders Medication Instructions Recorded Confirmed Albuterol Sulf [Ventolin Hfa 2 puffs INH Q4H PRN #1 inhaler 02/24/17 03/24/18 Inhaler] Ipratropium/Albuterol [Duoneb] 3 ml INH TID PRN #30 neb 01/08/18 03/24/18 Azithromycin [Zithromax] 250 mg PO DAILY #6 tablet 03/24/18 Dexamethasone [Decadron] 4 mg PO DAILY #5 tablet 03/24/18 HYDROcod/ACETAM 5/325 [[place] 5/325] 1 tab PO Q6H PRN #12 tablet 03/24/18 Lidocaine Viscous 2% [Xylocaine 5 ml PO Q4H PRN #1 bottle 03/24/18 Viscous 2%] traZODone [Desyrel] 50 mg PO HS 03/24/18 03/24/18 - Allergies Allergies/Adverse Reactions: Allergies Allergy/AdvReac Type Severity Reaction Status Date / Time Penicillins Allergy Severe Edema Verified 03/28/18 01:27 aspirin Allergy Unknown Verified 03/28/18 01:27 bee venom protein (honey bee) Allergy Anaphylaxis Verified 03/28/18 01:27 coconut Allergy Hives Verified 03/28/18 01:27 milk Allergy Cramps Verified 03/28/18 01:27 onion AdvReac Hives Verified 03/28/18 01:27 - Social History Does the pt smoke?: Yes Smoking Status: Current every day smoker Does the pt drink ETOH?: No Does the pt have substance abuse?: No - Immunizations Immunizations are current?: Yes Immunizations: TDAP >10years/unknown - POLST Patient has POLST: No PD ED PE NORMAL - Vitals Vital signs reviewed: Yes - General General: Alert and oriented X 3, Well developed/nourished, Other (able to talk in sentences. Having faster breathing and longer expiratory phase. ) - HEENT HEENT: Ears normal, Pharynx benign (Her throat and tonsils are much improved looking compared to 4 days ago. There is just slight redness in the peritonsillar area. There is no peritonsillar edema.) - Neck Neck: Supple, no meningeal sign, No adenopathy - Cardiac Cardiac: No murmur. No: RRR (regular but tachycardic) - Respiratory Respiratory: No: Clear bilaterally (diffuse wheezing and tight sounds. No coarse sounds. ) - Abdomen Abdomen: Soft, Non tender, Other (obese) - Back Back: No CVA TTP - Derm Derm: Normal color, Warm and dry - Extremities Extremities: No deformity, No tenderness to palpate, Normal ROM s pain, No edema, No calf tenderness / cord - Neuro Neuro: Alert and oriented X 3, No motor deficit, Normal speech Results - Vitals Vitals: Vital Signs - 24 hr 03/28/18 03/28/18 03/28/18 01:25 02:00 02:02 Temperature 37.1 C Heart Rate 134 H 116 H 110 H Respiratory 26 H 28 H 22 Rate Blood Pressure 193/122 H 144/87 H O2 Saturation 97 93 03/28/18 02:43 Temperature Heart Rate Respiratory 24 Rate Blood Pressure 150/86 H O2 Saturation 91 L Oxygen O2 Source Room air - Rads (name of study) chest xray Radiology: Prelim report reviewed, EMP read contemporaneously (haziness left side without effusion. ) PD MEDICAL DECISION MAKING - ED course Complexity details: reviewed old records, reviewed results, re-evaluated patient (She has oxygenation of 91% which is reasonably adequate. However she is still having considerable wheezing. She is not in respiratory distress but is tachypneic. She has had repeated nebulizer treatments at home and by EMS and a couple here. We will give an added dose of steroid. She is currently on the last day dosing of Zithromax and Decadron oral course. She is having the cough wheezing and increasing symptoms despite that. We will give an extra dose of Decadron and also add ceftriaxone antibiotic for apparent pneumonia.), considered differential, d/w patient, d/w ergonomics consultant (Hospitalist) Departure - Departure Disposition: ED Place in Observation Clinical Impression: Exacerbation of allergic asthma Dyspnea Qualifiers: Dyspnea type: shortness of breath Qualified Code(s): R06.02 - Shortness of breath; R06.00 - Dyspnea, unspecified; R06.01 - Orthopnea Pneumonia Qualifiers: Pneumonia type: due to unspecified organism Laterality: left Lung location: unspecified part of lung Qualified Code(s): J18.9 - Pneumonia, unspecified organism Condition: Stable Record reviewed to determine appropriate education?: Yes
[2018-03-28] MEDS ORDERED: DEXAMETHASONE 10 MG/ML VIAL PO STA (01:39)
[2018-03-28] MEDS ORDERED: ALBUTEROL NEB 2.5 MG/3 ML INH STA ×2 (01:39→02:53)
[2018-03-28] MEDS ORDERED: BENZONATATE 100 MG CAPSULE PO STA (01:39)
[2018-03-28] MEDS ORDERED: guaiFENesin/CODEINE 5 ML UDC PO STA (01:39)
--- NOTE | 2018-03-28 02:43 | XRAY Report ---
Reason: cough and wheezing Procedure Date: 03/28/2018 Accession Number: [id number] / [id number] Procedure: XR - Chest 2 View X-Ray CPT Code: 82431 FULL RESULT: EXAM: CHEST RADIOGRAPHY EXAM DATE: 03/28/2018 02:33 AM. CLINICAL HISTORY: Cough and wheezing. COMPARISON: CHEST 2 VIEW 08/13/2017 1:32 PM RIBS W/PA CHEST RT 08/01/2017 10:43 PM CHEST 1 VIEW 06/30/2017 9:32 PM CXR 06/04/2006 11:01 PM. TECHNIQUE: 2 views. FINDINGS: Lungs/Pleura: Small lung volumes. Hazy asymmetric opacities, left worse than right. No pleural effusion seen. No pneumothorax. Mediastinum: Heart and mediastinal contours are unremarkable. Other: None. IMPRESSION: 1. Small lung volumes with hazy asymmetric atelectasis or infiltrate, left worse than right. RADIA
[2018-03-28] MEDS ORDERED: ONDANSETRON 4 MG/2 ML VIAL IVP PRN (02:53)
[2018-03-28] MEDS ORDERED: oxyCODONE 5 MG TABLET PO PRN (02:53)
[2018-03-28] MEDS ORDERED: cefTRIAXone 1 GM in SODIUM CHLORIDE 0.9% MINIBAG 100 ML IV STA (02:54)
[2018-03-28] MEDS ORDERED: SODIUM CHLORIDE 0.9% 1,000 ML IV SCH ×2 (03:00→07:10)
[2018-03-28] MEDS ORDERED: levoFLOXacin 750 MG/150 ML 750 MG/150 ML BAG IV SCH (03:00)
--- NOTE | 2018-03-28 03:07 | HISTORY & PHYSICAL EXAMINATION ---
Chief Complaint - Chief Complaint Chief Complaint: cough, wheezing and sob for days History of Present Illness - Admitted From Admitted From:: ER/Home via EMS - History Obtained From Records Reviewed: [facility] History obtained from: Dr. Ramsey and patient Exam Limitations: none - History of Present Illness HPI Comment/Other: The patient is a morbidly obese white female who has asthma and also history of cigarette smoking. She was admitted to the hospital in June 2017 after failing outpatient management for acute asthma exacerbation. She is been seen in the emergency room July 2017 twice, December once, and this will be the third time in March. With her last visit March 24 she presented with 2 days of fever, sore throat, swollen neck glands. She was afebrile, had a heart rate of 102, and oxygen saturation of 97% on room air. She had enlarged tonsils on both sides with white exudate, no peritonsillar swelling. Anterior adenopathy noted in the neck. She was placed on azithromycin, Decadron 4 mg, [place], and viscous lidocaine. Group A strep screen was negative but she was treated as strep tonsillitis. She now returns with improvement in her throat pain, but her cough and wheezing continue to get worse. She is been using her nebulizers at home every hour for the last 2 days. She finally called EMS tonight because she was so short of breath. The throat culture from March 24 did grow beta hemolytic strep group C that is sensitive to penicillins, cephalosporins, Levaquin and vancomycin. This patient is allergic to penicillin and has failed outpatient management with the azithromycin. Dr. Ramsey again reevaluated her tonight, and she is hypertensive to 193/122, tachycardic to 110, afebrile at 37.1. She received steroids and nebulizers. Her initial respiratory rate was 26-28 and is now down to 24. But her O2 sat is 91%. No chest x-ray was done with her last visit, and today's chest x-ray shows small lung volumes with hazy asymmetric atelectasis or infiltrate, left worse than right. Although labs have been ordered, there are no labs in the EMR at this point in time. She is now placed in observation for asthma exacerbation with possible pneumonia. 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 Looking to get thru donor.) : reports: None HEENT: reports: Other ( canal injury resulted in a symmetrical smile, loss of all teeth) Psych: reports: Obsessive compulsive disorder (and picks at her skin) Musculoskeletal: reports: Osteoarthritis (left knee w medial collaeral instability, tear of meniscus), Other (carpal tunnel syndrome per her symptoms but EMG/NCV negative 11/27/16) Derm: reports: Other (skin scars from skin picking) MRSA Hx?: No Other Past Medical History: Morbid obesity - Past Surgical History General: reports: Appendectomy - Family & Social History Family History Comment/Other: Dad has hx of COPD and heavy smoker, born 1955. Mom is healthy, born 1055. 1 full sibling and 1 half sibling, both healthy. no children Living arrangement: At home Living Situation: With friend(s) Social History Notes: She was born in [facility]. Came up to initially [place], then [place], then [place] with her mom and stepdad. 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 She lives in [place] with one current roommate, and is getting ready to get a second roommate. She also had an adopted sister that was living with her temporarily. But she ran away 10 days ago. She has been smoking since the age of 15. At most she smoked 1/2 packs/day. Currently smoking anywhere from 5 cigarettes to half a pack per day. Has no history of alcohol abuse. Drinks socially. She denies any use of cocaine, heroin, LSD, methamphetamines, cannabis. 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 - Substance History Use: Uses substance without health or social issues: Tobacco Abuse: Recurrent use of substance despite neg consequences: NONE Dependence: Experiences withdrawal or developed tolerances: NONE - POLST Patient has POLST: No POLST Status: Full Code Meds/Allgy - Home Medications Home Medications: Ambulatory Orders Medication Instructions Recorded Confirmed Albuterol Sulf [Ventolin Hfa 2 puffs INH Q4H PRN #1 inhaler 02/24/17 03/24/18 Inhaler] Ipratropium/Albuterol [Duoneb] 3 ml INH TID PRN #30 neb 01/08/18 03/24/18 Azithromycin [Zithromax] 250 mg PO DAILY #6 tablet 03/24/18 Dexamethasone [Decadron] 4 mg PO DAILY #5 tablet 03/24/18 HYDROcod/ACETAM 5/325 [[place] 5/325] 1 tab PO Q6H PRN #12 tablet 03/24/18 Lidocaine Viscous 2% [Xylocaine 5 ml PO Q4H PRN #1 bottle 03/24/18 Viscous 2%] traZODone [Desyrel] 50 mg PO HS 03/24/18 03/24/18 - Allergies Allergies/Adverse Reactions: Allergies Allergy/AdvReac Type Severity Reaction Status Date / Time Penicillins Allergy Severe Edema Verified 03/28/18 01:27 aspirin Allergy Unknown Verified 03/28/18 01:27 bee venom protein (honey bee) Allergy Anaphylaxis Verified 03/28/18 01:27 coconut Allergy Hives Verified 03/28/18 01:27 milk Allergy Cramps Verified 03/28/18 01:27 onion AdvReac Hives Verified 03/28/18 01:27 Review of Systems - Constitutional Constitutional: denies: Fatigue, Fever, Chills, Malaise, Weakness, Poor appetite, Diaphoresis, Night sweats - Eyes Eyes: denies: Pain, Irritation, Amaurosis, Blurred vision - Ears, Nose & Throat Ears, Nose & Throat: reports: Dentures (Both upper and lower from having all of her teeth removed), Sore throat (Resolved in the last 4 days). denies: Ear pain, Nasal obstruction, Nasal congestion - Cardiovascular Cariovascular: reports: Exertional dyspnea, Decr. exercise tolerance. denies: Irregular heart rate, Palpitations, Chest pain, Edema, Syncope - Respiratory Respiratory: reports: Cough, Wheezing, Snoring, SOB with exertion, Pleuritic pain. denies: Sputum production, Hemoptysis, Orthopnea, SOB at rest - Gastrointestinal Gastrointestinal: reports: Diarrhea (She thinks she has irritable bowel syndromeAnd this is a chronic complaint for several years). denies: Abdominal pain, Abdominal distention, Black stools, Bloody stools, Nausea, Vomiting, Coffee grounds emesis, Bloating, Poor appetite - Genitourinary Genitourinary: denies: Dysuria, Frequency, Urgency, Hematuria, Incontinence - Musculoskeletal Musculoskeletal: reports: Muscle pain, Muscle aches, Joint pain. denies: Back pain, Stiffness, Limited range of motion, Muscle weakness, Gout - Integumentary Integumentary: reports: Lesions (On her upper arms along her lateral deltoid area where she picks at her skin) - Neurological Neurological: reports: Headache (From migraines and her last migraine headache was March 15 where she was seen in the emergency room). denies: General we akness, Focal weakness - Psychiatric Psychiatric: reports: Anxiety. denies: Depression, Suicidal - Endocrine Endocrine: denies: Polyuria, Polydypsia - Hematologic/Lymphatic Hematologic/Lymphatic: denies: Anemia, Bruising, Petechiae Prior Level of Functionality: She lives in her own apartment. Has a roommate. 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 Does not use a cane or a walker. She states that she walks 1-3 miles a day which is measured on a phone pedometer Exam - Vital Signs Reviewed Vital Signs: Yes Vital Signs: Vital Signs x48h Temp Pulse Resp BP Pulse Ox 03/28/18 02:43 24 150/86 H 91 L 03/28/18 02:02 110 H 22 03/28/18 02:00 116 H 28 H 144/87 H 93 03/28/18 01:25 37.1 C 134 H 26 H 193/122 H 97 - Physical Exam General Appearance: positive: No acute distress, Alert, Other (Morbidly obese short statured white female who looks stated age, with 1 of her roommates at the bedside/best friend) Eyes Bilateral: positive: PERRL, EOMI ENT: positive: Other (Tonsils are enlarged and slightly red but no exudate today) Neck: positive: Lymphadenopathy (R) (Shotty), Lymphadenopathy (L) (Shotty). negative: No JVD, Stiff neck, Carotid bruit Respiratory: positive: Chest non-tender, No respiratory distress, Wheezes (Bilaterally, loudest in mid lung holden, no use of accessory muscles, no tachypnea), Other (There is no nasal tone of voice, no rhinorrhea or coryza). negative: Rales, Rhonchi Cardiovascular: positive: Regular rate & rhythm, Tachycardia (In the low 100s). negative: Systolic murmur, Gallop/S4, Friction rub Peripheral Pulses: positive: 1+ Abdomen: positive: Non-tender, No organomegaly, Nml bowel sounds, No distention, Other (Severe morbid obesity) Skin: positive: Warm, Dry, Other (Excoriations where she is picked away her skin and also there is several old scars on the lateral deltoid) Extremities: positive: Non-tender, Full ROM, No pedal edema Neurologic/Psychiatric: positive: Oriented x3, CN's nml (2-12), Motor nml, Sensation nml, Mood/affect nml, Facial droop (From previous canal injury) Conclusion/Plan - Problem List (1) Exacerbation of allergic asthma Conclusion/Plan: She presents as a previous history of a pharyngitis that is positive for strep group C. That has improved. And now several days later is having increasing cough, continued wheezing in spite of nebulizer use and steroid use at home. In the emergency room she is afebrile, slightly tachypneic, slightly tachycardic, and slightly hypoxic at 91% on room air. Chest x-ray is equivocal for bilateral hazy infiltrates versus radiology technique in a morbidly obese woman who has quite a bit of fat pad density on both sides of her anterior chest. Plan: Place in observation Prednisone 40 mg p.o. daily for 5 days Treat with Levaquin 750 mg IV daily (has received 1 dose of Rocephin in the ER) Nasal cannula oxygen to maintain O2 sats above 92% DuoNeb 4 times daily Albuterol every 4 hours as needed Strongly encouraged to stop smoking Get CBC and BMP (2) Nicotine dependence, cigarettes, uncomplicated Conclusion/Plan: Strongly encouraged to stop smoking Nicotine patch 7 mg daily as needed (3) Compulsive skin picking Conclusion/Plan: Patient is aware of the habit, is trying to stop. Consider taking SSRI down the road if this does not improve - Lab Results Lab results reviewed: No - Diagnostic Imaging Results Diagnostic Imaging Results: positive: Final report reviewed Diagnostic Imaging Results Comments: Chest x-ray shows hazy bilateral infiltrates or atelectasis Core Measures - Anticipated LOS I expect patient to be DC'd or transferred within 96 hours.: Yes - DVT/VTE - Prophylaxis VTE/DVT Device ordered at admit?: No Not Ordered - Low Risk: Very low risk
[2018-03-28] MEDS ORDERED: MORPHINE 10 MG/ML VIAL IVP STA (03:24)
[2018-03-28] MEDS ORDERED: NICOTINE 7 MG PATCH TOP PRN (04:00)
[2018-03-28 04:24] LABS: BASOPHILS % (AUTO) 0.9 %; EOSINOPHILS % (AUTO) 0.3 %; LYMPHOCYTES % (AUTO) 8.4 %; MEAN CORPUSCULAR HEMOGLOBIN 30.8 pg (27.0-31.0); MEAN CORPUSCULAR HGB CONC 33.5 g/dL (32.0-36.0); MEAN CORPUSCULAR VOLUME 91.8 fL (81.0-99.0); MEAN PLATELET VOLUME 8.6 fL (7.9-10.8); MONOCYTES % (AUTO) 7.1 %; NEUTROPHILS % (AUTO) 83.3 %; PLT - PLATELET COUNT 265 10^3/uL (130-450); RED BLOOD COUNT 4.21 10^6/uL (4.20-5.40); RED CELL DISTRIBUTION WIDTH 14.6 % (12.0-15.0); WHITE BLOOD COUNT 22.2 x10^3/uL (4.8-10.8)
[2018-03-28 04:26] LABS: ABNORMAL LYMPHS % (MANUAL) 0 %
[2018-03-28 04:32] LABS: ALBUMIN 3.7 g/dL (3.2-5.5); ALBUMIN/GLOBULIN RATIO 1.1 (1.0-2.2); BILIRUBIN,TOTAL 0.6 mg/dL (0.2-1.0); CALCIUM 8.7 mg/dL (8.5-10.3); CREATININE 0.7 mg/dL (0.4-1.0); TOTAL PROTEIN 7.1 g/dL (6.7-8.2)
[2018-03-28 04:55] LABS: BAND NEUTROPHILS % (MANUAL) 4 %; DIFFERENTIAL COMMENT MANUAL DIFFERENTIAL; EOSINOPHILS # (MANUAL) 0.4 10^3/uL (0-0.7); LYMPHOCYTES # (MANUAL) 3.3 10^3/uL (1.5-3.5); LYMPHOCYTES % (MANUAL) 15 %; METAMYELOCYTES % (MANUAL) 1 %; MONOCYTES # (MANUAL) 1.6 10^3/uL (0.0-1.0); MYELOCYTES % (MANUAL) 1 %; NEUTROPHILS # (MANUAL) 16.4 10^3/uL (1.5-6.6); NEUTROPHILS % (MANUAL) 70 %; PLATELET ESTIMATE, MANUAL NORMAL (130-450,000) (NORMAL); RBC MORPHOLOGY (MULTIPLE) NORMAL APPEARANCE (NORMAL)
[2018-03-28] MEDS ORDERED: SODIUM CHLORIDE FLUSH 0.9% 10 ML SYRINGE ONE (05:58)
[2018-03-28] MEDS ORDERED: BENZONATATE 100 MG CAPSULE PO PRN (07:09)
[2018-03-28] MEDS: IPRATROPIUM/ALBUTEROL 3 ML NEB INH PRN ×3 (07:17→19:40)
--- NOTE | 2018-03-28 07:19 | PROVIDER PROGRESS NOTE ---
Subjective - Prog Note Date Prog Note Date: 03/28/18 Prog Note Time: 07:15 - Subjective Pt reports feeling: No change Subjective: HPI: The patient is a morbidly obese white female who has asthma and also history of cigarette smoking. She was admitted to the hospital in June 2017 after failing outpatient management for acute asthma exacerbation. She is been seen in the emergency room July 2017 twice, December once, and this will be the third time in March. With her last visit March 24 she presented with 2 days of fever, sore throat, swollen neck glands. She was afebrile, had a heart rate of 102, and oxygen saturation of 97% on room air. She had enlarged tonsils on both sides with white exudate, no peritonsillar swelling. Anterior adenopathy noted in the neck. She was placed on azithromycin, Decadron 4 mg, Gary, and viscous lidocaine. Group A strep screen was negative but she was treated as strep tonsillitis. She now returns with improvement in her throat pain, but her cough and wheezing continue to get worse. She is been using her nebulizers at home every hour for the last 2 days. She finally called EMS tonight because she was so short of breath. The throat culture from March 24 did grow beta hemolytic strep group C that is sensitive to penicillins, cephalosporins, Levaquin and vancomycin. This patient is allergic to penicillin and has failed outpatient management with the azithromycin. Dr. Ramsey again reevaluated her tonight, and she is hypertensive to 193/122, tachycardic to 110, afebrile at 37.1. She received steroids and nebulizers. Her initial respiratory rate was 26-28 and is now down to 24. But her O2 sat is 91%. No chest x-ray was done with her last visit, and today's chest x-ray shows small lung volumes with hazy asymmetric atelectasis or infiltrate, left worse th an right. Although labs have been ordered, there are no labs in the EMR at this point in time. She is now placed in observation for asthma exacerbation with possible pneumonia. Patient denies fever, has a productive cough, SOB, mild plueritic CP, no MP rashes. Denies /GI symptoms. WBC elevated at 22.2, CXR with L-sided pNA receiving levaquin, hyperglycemia noted sec to steroids. Current Medications - Current Medications Current Medications: Allergies Penicillins Allergy (Severe, Verified 03/28/18 01:27) Edema Throat aspirin Allergy (Verified 03/28/18 01:27) Unknown WORRELL and abd bee venom protein (honey bee) Allergy (Verified 03/28/18:) Anaphylaxis coconut Allergy (Verified 03/28/18:) Hives milk Allergy (Verified 03/28/18:27) Cramps does not tolerate whole milk but ok with skim or 2% in small amounts. able to eat foods with milk onion Adverse Reaction (Verified 03/28/18:27) Hives ok to eat cooked onions Active Medications Acetaminophen (Tylenol) 650 mg PO Q4HR PRN PRN Reason: Pain 1 to 4 Hydrocodone Bitart/Acetaminophen (Gary 5/325) 1 tab PO Q6H PRN PRN Reason: PAIN Moderate Albuterol () 2.5 mg INH RTQ4H PRN PRN Reason: Wheezing Albuterol/Ipratropium (Duoneb) 3 ml INH TID PRN PRN Reason: Dyspnea Last Admin: 03/28/18 07:17 Dose: 3 ml Benzonatate (Tessalon) 100 mg PO TID PRN PRN Reason: Cough Budesonide (Pulmicort) 0.5 mg INH RTBID POLLO Diphenhydramine HCl (Benadryl) 50 mg PO QPM [facility] Levofloxacin (Levaquin 750 Mg/150 Ml) 750 mg in 150 mls @ 100 mls/hr IV Q24H [facility] Last Admin: 03/28/18 06:07 Dose: 100 mls/hr Sodium Chloride (Normal Saline 0.9%) 1,000 mls @ 75 mls/hr IV .[id number] [facility] Stop: 03/29/18 09:48 Ibuprofen (Motrin) 600 mg PO Q6H [facility] Montelukast Sodium (Singulair) 10 mg PO QPM [facility] Nicotine (Nicoderm) 1 patch TOP DAILY PRN PRN Reason: Nicotine Craving Ondansetron HCl (Zofran Inj) 4 mg IVP Q6HR PRN PRN Reason: Nausea / Vomiting Ondansetron HCl (Zofran Odt) 4 mg TL Q6HR PRN PRN Reason: Nausea / Vomiting Oxycodone HCl (Roxicodone) 5 mg PO Q4HR PRN PRN Reason: Pain 8-10 Polyethylene Glycol (Miralax) 17 gm PO DAILY POLLO Prednisone (Deltasone) 60 mg PO DAILY POLLO Sodium Chloride (Normal Saline Flush 0.9%) 10 ml IVP PRN PRN PRN Reason: NEEDED PER PROVIDER ORDERS Sodium Chloride (Normal Saline Flush 0.9%) 10 ml IVP 0100,0900,1700 POLLO Trazodone HCl (Desyrel) 50 mg PO HS POLLO traZODone [Desyrel] 50 mg PO HS PRN 03/24/18 Acetaminophen 1,000 mg PO PRN PRN 03/28/18 Ibuprofen 600 mg PO PRN PRN 03/28/18 diphenhydrAMINE [Benadryl] 50 mg PO HS 03/28/18 Objective - Vital Signs/Intake & Output Reviewed Vital Signs: Yes Vital Signs: Vital Signs x48h Temp Pulse Pulse Resp BP BP Pulse Ox 03/28/18 05:04 103 H 24 140/92 H 95 03/28/18 05:00 37.5 C 107 H 24 129/74 96 03/28/18 03:16 118 H 22 03/28/18 02:43 24 150/86 H 91 L 03/28/18 02:02 110 H 22 03/28/18 02:00 116 H 28 H 144/87 H 93 03/28/18 01:25 37.1 C 134 H 26 H 193/122 H 97 Intake & Output: Intake & Output 03/25/18 03/26/18 03/27/18 03/28/18 23:59 23:59 23:59 23:59 Intake Total 101.667 Output Total 450 Balance -348.333 - Objective General Appearance: positive: Mild distress, Anxious, Other (Morbidly obese) Eyes Bilateral: positive: Normal inspection, PERRL, EOMI ENT: positive: Pharyngeal erythema, Dry mucous membranes, Other (Tonsillar edema to left tonsil) Neck: positive: Nml inspection, Thyroid nml, No JVD, Trachea midline, Thyromegaly Respiratory: positive: Chest non-tender, Wheezes (faint scattered), Rhonchi Cardiovascular: positive: Regular rate & rhythm, No murmur, No gallop, Tachycardia. negative: Irregularly irregular, PMI displaced laterally, JVD present, Gallop/S4, Friction rub Abdomen: positive: Non-tender, No organomegaly, Nml bowel sounds, No distention Skin: positive: Color nml, No rash, Warm, Dry Extremities: positive: Non-tender, Full ROM, Nml appearance Neurologic/Psychiatric: positive: Oriented x3, CN's nml (2-12) - Lab Results Fish Bones: 03/28/18 04:05 03/28/18 04:05 Other Labs: Lab Results x24hrs 03/28/18 03/28/18 Range/Units 04:05 04:05 WBC 22.2 H (4.8-10.8) x10^3/uL RBC 4.21 (4.20-5.40) 10^6/uL Hgb 13.0 (12.0-16.0) g/dL Hct 38.7 (37.0-47.0) % MCV 91.8 (81.0-99.0) fL MCH 30.8 (27.0-31.0) pg MCHC 33.5 (32.0-36.0) g/dL RDW 14.6 (12.0-15.0) % Plt Count 265 (130-450) 10^3/uL MPV 8.6 (7.9-10.8) fL Neut # (Auto) Not Reportable Lymph # (Auto) Not Reportable Cedar # (Auto) Not Reportable Eos # (Auto) Not Reportable Baso # (Auto) Not Reportable Absolute Nucleated RBC Not Reportable Total Counted 100 Band Neuts % (Manual) 4 (0 - 10) % Abnorm Lymph % (Manual) 0 % Metamyelocytes % 1 H ( - 0) % Myelocytes % 1 H ( - 0) % Nucleated RBC % Not Reportable Neutrophils # (Manual) 16.4 H (1.5-6.6) 10^3/uL Lymphocytes # (Manual) 3.3 (1.5-3.5) 10^3/uL Monocytes # (Manual) 1.6 H (0.0-1.0) 10^3/uL Eosinophils # (Manual) 0.4 (0-0.7) 10^3/uL Basophils # (Manual) 0.0 (0-0.1) 10^3/uL Differential Comment MANUAL DIFFERENTIAL Platelet Estimate NORMAL (130-450,000) (NORMAL) RBC Morph Micro Appear NORMAL APPEARANCE (NORMAL) Sodium 135 (135-145) mmol/L Potassium 3.6 (3.5-5.0) mmol/L Chloride 98 L (101-111) mmol/L Carbon Dioxide 28 (21-32) mmol/L Anion Gap 9.0 (6-13) BUN 10 (6-20) mg/dL Creatinine 0.7 (0.4-1.0) mg/dL Estimated GFR (MDRD) 93 (>89) Glucose 235 H (70-100) mg/dL Calcium 8.7 (8.5-10.3) mg/dL Total Bilirubin 0.6 (0.2-1.0) mg/dL AST 21 (10-42) IU/L ALT 28 (10-60) IU/L Alkaline Phosphatase 85 (42-121) IU/L Total Protein 7.1 (6.7-8.2) g/dL Albumin 3.7 (3.2-5.5) g/dL Globulin 3.4 (2.1-4.2) g/dL Albumin/Globulin Ratio 1.1 (1.0-2.2) Lipase 17 L (22-51) U/L - Diagnostic Imaging Diagnostic Imaging Results: positive: Final report reviewed - Other Results/Comments Other Results/Comments: CXR shows hazy atelectasis vs infiltrates with low lung volumes L>R. ABX Reporting Has patient been on IV antibiotics over the past 48 hours?: Yes Assessment/Plan - Problem List (1) Pneumonia Impression: Likely as a result from her Acute Tonsillar-pharyngits. Streptococcus G positive in 03/24. CXR shows equivocal for bilateral hazy infiltrates versus radiology technique in a morbidly obese woman who has quite a bit of fat pad density on both sides of her anterior chest. Patients WBC markedly elevated sec to steroid component. Qualifiers: Pneumonia type: due to unspecified organism Laterality: left Lung location: unspecified part of lung Qualified Code(s): J18.9 - Pneumonia, unspecified organism (2) Asthma exacerbation Impression: Patient continues to smoke and increasing the likelihood of asthma exacerabtions as her cilia are parlayzed in her airways with ongoing allergen exposure. Would advise, educate and director counseling bureau on this, increase predinsone to 60 mg po daily for a respiratory burst on a Morbidly Obese patient, add singulair to her regimen, continue with O2tx and wean off oxygen, duonebs, spirometry (atelectasis seen on CXR), Add Pulmicort nebs BID, aggressive pulm toileting, send sputum for Gram stain and culture, consider Nasopharyngeal swab, IV abx, supportive care) Qualifiers: Asthma severity: moderate Asthma persistence: persistent Qualified Code(s): J45.41 - Moderate persistent asthma with (acute) exacerbation (3) Streptococcus G Impression: On Levaquin 750 mg iv daily (4) Leukocytosis Impression: Likely sec to both steroid induced and infectious process. Bandemia also present. Continue with tx for PNA with IV abx. Follow trending. Obtain a LA level. Qualifiers: Leukocytosis type: bandemia Qualified Code(s): D72.825 - Bandemia (5) Hyperglycemia, drug-induced Impression: Secondary to steroids that patient has been on pre-hospital admission with Decadron and now on prednisone 60 mg po daily. Obtain HgbA1C level. May need to change diet to carb control diet. (6) Tonsillitis with exudate Impression: Patient would need to likely have a tonsillectomy to avoid future infections and would be high risk for pyogenic or retropharyngeal abscess. (7) Tachycardia Impression: Variable may also be that she receives Duonebs and albuterol. Would monitor. (8) Currently smokes tobacco Impression: Counseling and education on the complications and health related issues related to continues smoking. On Nicotine replacement tx. Consider adding wellbutrin to decrease cravings. (9) Morbid obesity with BMI of 40.0-44.9, adult Impression: Patient to be educated and counseled on health eating and regular exercise to decrease mortality from CV disease. Component of compressive atelectasis present on CXR. Would query on PCOS. She states she has been taking fertility drugs. No Hcg ordered or done in ED. Serum HCG to follow.
[2018-03-28] MEDS ORDERED: IBUPROFEN 600 MG TABLET PO SCH (08:00)
[2018-03-28] MEDS: POLYETHYLENE GLYCOL 3350 17 GM PACKET PO SCH (08:45)
[2018-03-28] MEDS: predniSONE 20 MG TABLET PO SCH (08:46)
[2018-03-28] MEDS: BENZONATATE 100 MG CAPSULE PO SCH ×3 (08:49→21:34)
[2018-03-28] MEDS: SODIUM CHLORIDE FLUSH 0.9% 10 ML SYRINGE IVP SCH ×3 (08:55→23:56)
[2018-03-28] MEDS: guaiFENesin 600 MG TABLET PO SCH ×2 (09:00→21:34)
[2018-03-28] MEDS ORDERED: predniSONE 20 MG TABLET PO SCH (09:00)
[2018-03-28 11:09] LABS: HCG,QUALITATIVE BLOOD NEGATIVE
[2018-03-28] MEDS: guaiFENesin/CODEINE 5 ML UDC PO PRN ×2 (13:10→19:10)
[2018-03-28] MEDS: ALBUTEROL NEB 2.5 MG/3 ML INH PRN ×3 (14:20→23:09)
[2018-03-28] MEDS: HYDROcod/ACETAM 5/325 MG TABLET PO PRN ×2 (15:44→23:56)
[2018-03-28] MEDS ORDERED: PHENOL THROAT SPRAY 177 ML MM PRN (17:16)
[2018-03-28] MEDS: BENZOCAINE/MENTHOL LOZENGE MM PRN ×2 (17:21→23:56)
[2018-03-28] MEDS: BUDESONIDE 0.5 MG/2 ML NEB INH SCH (19:40)
[2018-03-28] MEDS: traZODone 50 MG TABLET PO SCH (21:34)
[2018-03-28] MEDS: diphenhydrAMINE 25 MG CAPSULE PO SCH (21:34)
[2018-03-28] MEDS: MONTELUKAST 10 MG TABLET PO SCH (21:34)
[2018-03-29] MEDS: guaiFENesin/CODEINE 5 ML UDC PO PRN ×2 (04:53→15:47)
[2018-03-29] MEDS: ONDANSETRON ODT 4 MG TABLET TL PRN ×2 (04:53→15:47)
[2018-03-29] MEDS: ALBUTEROL NEB 2.5 MG/3 ML INH PRN ×2 (05:08→11:42)
[2018-03-29 05:23] LABS: BASOPHILS % (AUTO) 0.8 %; EOSINOPHILS % (AUTO) 0.2 %; HGB - HEMOGLOBIN 13.3 g/dL (12.0-16.0); LYMPHOCYTES % (AUTO) 12.5 %; MEAN CORPUSCULAR HEMOGLOBIN 30.4 pg (27.0-31.0); MEAN CORPUSCULAR HGB CONC 32.7 g/dL (32.0-36.0); MEAN CORPUSCULAR VOLUME 92.9 fL (81.0-99.0); MEAN PLATELET VOLUME 8.3 fL (7.9-10.8); MONOCYTES % (AUTO) 5.6 %; NEUTROPHILS % (AUTO) 80.9 %; PLT - PLATELET COUNT 281 10^3/uL (130-450); RED BLOOD COUNT 4.36 10^6/uL (4.20-5.40); RED CELL DISTRIBUTION WIDTH 14.8 % (12.0-15.0); WHITE BLOOD COUNT 21.9 x10^3/uL (4.8-10.8)
[2018-03-29 05:28] LABS: ABNORMAL LYMPHS % (MANUAL) 0 %
[2018-03-29 05:32] LABS: CALCIUM 9.1 mg/dL (8.5-10.3); CREATININE 0.7 mg/dL (0.4-1.0)
[2018-03-29] MEDS: BENZONATATE 100 MG CAPSULE PO SCH ×3 (05:35→21:21)
[2018-03-29] MEDS: levoFLOXacin 750 MG/150 ML 750 MG/150 ML BAG IV SCH (05:41)
[2018-03-29] MEDS: SODIUM CHLORIDE FLUSH 0.9% 10 ML SYRINGE IVP PRN ×2 (05:41→21:22)
[2018-03-29] MEDS: HYDROcod/ACETAM 5/325 MG TABLET PO PRN (05:50)
[2018-03-29 05:54] LABS: BAND NEUTROPHILS % (MANUAL) 1 %; DIFFERENTIAL COMMENT MANUAL DIFFERENTIAL; LYMPHOCYTES # (MANUAL) 3.9 10^3/uL (1.5-3.5); LYMPHOCYTES % (MANUAL) 18 %; MONOCYTES # (MANUAL) 1.3 10^3/uL (0.0-1.0); NEUTROPHILS # (MANUAL) 16.6 10^3/uL (1.5-6.6); NEUTROPHILS % (MANUAL) 75 %; PLATELET ESTIMATE, MANUAL NORMAL (130-450,000) (NORMAL); RBC MORPHOLOGY (MULTIPLE) NORMAL APPEARANCE (NORMAL)
[2018-03-29] MEDS: BUDESONIDE 0.5 MG/2 ML NEB INH SCH ×2 (07:38→19:36)
[2018-03-29] MEDS: IPRATROPIUM/ALBUTEROL 3 ML NEB INH PRN (07:38)
[2018-03-29] MEDS: POLYETHYLENE GLYCOL 3350 17 GM PACKET PO SCH (08:54)
[2018-03-29] MEDS: guaiFENesin 600 MG TABLET PO SCH ×2 (08:54→21:20)
[2018-03-29] MEDS: predniSONE 20 MG TABLET PO SCH (08:54)
[2018-03-29] MEDS: SODIUM CHLORIDE FLUSH 0.9% 10 ML SYRINGE IVP SCH ×2 (08:55→15:48)
[2018-03-29] MEDS: ACETAMINOPHEN 325 MG TABLET PO PRN ×3 (08:59→21:20)
--- NOTE | 2018-03-29 13:25 | PROVIDER PROGRESS NOTE ---
Subjective - Prog Note Date Prog Note Date: 03/29/18 Prog Note Time: 13:23 - Subjective Pt reports feeling: Improved (Feels improved - but not back at baseline. Has sob within a few hours after completing the breathing treatment) Current Medications - Current Medications Current Medications: Active Medications Generic Name Dose Route Start Last Admin Trade Name Freq PRN Reason Stop Dose Admin Acetaminophen 650 mg 03/28/18 02:53 03/29/18 08:59 Tylenol PO 650 mg Q4HR PRN Administration Pain 1 to 4 Hydrocodone Bitart/Acetaminophen 1 tab 03/28/18 02:58 03/29/18 05:50 Thorndike 5/325 PO 1 tab Q6H PRN Administration PAIN Moderate Albuterol 2.5 mg 03/28/18 02:58 03/29/18 11:42 INH 2.5 mg RTQ4H PRN Administration Wheezing Albuterol/Ipratropium 3 ml 03/29/18 14:00 Duoneb INH TID POLLO Benzonatate 100 mg 03/28/18 09:00 03/29/18 05:35 Tessalon PO 100 mg TID POLLO Administration Budesonide 0.5 mg 03/28/18 19:00 03/29/18 07:38 Pulmicort INH 0.5 mg RTBID POLLO Administration Diphenhydramine HCl 50 mg 03/28/18 21:00 03/28/18 21:34 Benadryl PO Not Given QPM POLLO Guaifenesin 1,200 mg 03/28/18 09:00 03/29/18 08:54 Mucinex PO 1,200 mg BID POLLO Administration Guaifenesin/Codeine Phosphate 5 ml 03/28/18 08:42 03/29/18 04:53 Robitussin Ac PO 5 ml Q6HR PRN Administration Cough Levofloxacin 750 mg in 150 mls @ 100 mls/hr 03/29/18 06:00 03/29/18 07:56 Levaquin 750 Mg/150 Ml IV Infused Q24H POLLO Infusion Methylprednisolone Sodium 100 mls @ 200 mls/hr 03/29/18 14:00 Succinate 125 mg/ Sodium IV 03/30/18 09:29 Chloride BID POLLO Montelukast Sodium 10 mg 03/28/18 21:00 03/28/18 21:34 Singulair PO 10 mg QPM POLLO Administration Nicotine 1 patch 03/28/18 04:00 Nicoderm TOP DAILY PRN Nicotine Craving Ondansetron HCl 4 mg 03/28/18 02:53 03/28/18 20:36 Zofran Inj IVP 4 mg Q6HR PRN Administration Nausea / Vomiting Ondansetron HCl 4 mg 03/28/18 02:53 03/29/18 04:53 Zofran Odt TL 4 mg Q6HR PRN Administration Nausea / Vomiting Oxycodone HCl 5 mg 03/28/18 02:53 Roxicodone PO Q4HR PRN Pain 8-10 Phenol/Menthol 2 sprays 03/28/18 17:16 Chloraseptic MM Q2HR PRN Throat Pain Polyethylene Glycol 17 gm 03/28/18 09:00 03/29/18 08:54 Miralax PO 17 gm DAILY POLLO Administration Prednisone 60 mg 03/28/18 09:00 03/29/18 08:54 Deltasone PO 60 mg DAILY POLLO Administration Sodium Chloride 10 ml 03/28/18 02:53 03/29/18 05:41 Normal Saline Flush 0.9% IVP 10 ml PRN PRN Administration NEEDED PER PROVIDER ORDERS Sodium Chloride 10 ml 03/28/18 09:00 03/29/18 08:55 Normal Saline Flush 0.9% IVP 10 ml 0100,0900,1700 POLLO Administration Throat Lozenges 1 lozenge 03/28/18 17:16 03/28/18 23:56 Cepacol MM 1 lozenge Q2HR PRN Administration Throat pain Trazodone HCl 50 mg 03/28/18 21:00 03/28/18 21:34 Desyrel PO 50 mg HS POLLO Administration traZODone [Desyrel] 100 mg PO HS PRN 03/24/18 Acetaminophen 1,000 mg PO PRN PRN 03/28/18 Ibuprofen 600 mg PO PRN PRN 03/28/18 diphenhydrAMINE [Benadryl] 50 mg PO HS 03/28/18 Objective - Vital Signs/Intake & Output Reviewed Vital Signs: Yes Vital Signs: Vital Signs x48h Temp Pulse Pulse Resp BP Pulse Ox 03/29/18 12:13 36.8 C 81 18 113/74 97 03/29/18 11:42 92 22 03/29/18 07:56 36.8 C 80 18 107/66 98 03/29/18 07:39 81 22 Intake & Output: Intake & Output 03/26/18 03/27/18 03/28/18 03/29/18 23:59 23:59 23:59 23:59 Intake Total 2141.670 990 Output Total 450 Balance 1691.670 990 - Objective General Appearance: positive: No acute distress Eyes Bilateral: positive: Normal inspection, EOMI ENT: positive: Pharynx nml Neck: positive: Nml inspection Respiratory: positive: Wheezes (significant expiratory wheeze bilaterally across the lung holden) Cardiovascular: positive: Regular rate & rhythm, No murmur, No gallop Abdomen: positive: Non-tender, Nml bowel sounds Skin: positive: Color nml Extremities: positive: Non-tender, Nml appearance, No pedal edema Neurologic/Psychiatric: positive: Oriented x3, Motor nml, Mood/affect nml - Lab Results Fish Bones: 03/29/18 05:07 03/29/18 05:07 Other Labs: Lab Results x24hrs 03/29/18 03/29/18 03/28/18 Range/Units 05:07 05:07 10:43 WBC 21.9 H (4.8-10.8) x10^3/uL RBC 4.36 (4.20-5.40) 10^6/uL Hgb 13.3 (12.0-16.0) g/dL Hct 40.5 (37.0-47.0) % MCV 92.9 (81.0-99.0) fL MCH 30.4 (27.0-31.0) pg MCHC 32.7 (32.0-36.0) g/dL RDW 14.8 (12.0-15.0) % Plt Count 281 (130-450) 10^3/uL MPV 8.3 (7.9-10.8) fL Neut # (Auto) Not Reportable Lymph # (Auto) Not Reportable Lamb # (Auto) Not Reportable Eos # (Auto) Not Reportable Baso # (Auto) Not Reportable Absolute Nucleated RBC Not Reportable Total Counted 100 Band Neuts % (Manual) 1 (0 - 10) % Abnorm Lymph % (Manual) 0 % Nucleated RBC % Not Reportable Neutrophils # (Manual) 16.6 H (1.5-6.6) 10^3/uL Lymphocytes # (Manual) 3.9 H (1.5-3.5) 10^3/uL Monocytes # (Manual) 1.3 H (0.0-1.0) 10^3/uL Eosinophils # (Manual) 0.0 (0-0.7) 10^3/uL Basophils # (Manual) 0.0 (0-0.1) 10^3/uL Differential Comment MANUAL DIFFERENTIAL Platelet Estimate NORMAL (130-450,000) (NORMAL) RBC Morph Micro Appear NORMAL APPEARANCE (NORMAL) Sodium 138 (135-145) mmol/L Potassium 4.0 (3.5-5.0) mmol/L Chloride 99 L (101-111) mmol/L Carbon Dioxide 30 (21-32) mmol/L Anion Gap 9.0 (6-13) BUN 23 H (6-20) mg/dL Creatinine 0.7 (0.4-1.0) mg/dL Estimated GFR (MDRD) 93 (>89) Glucose 185 H (70-100) mg/dL Calcium 9.1 (8.5-10.3) mg/dL B-Natriuretic Peptide 39 (5-100) pg/mL - Diagnostic Imaging Diagnostic Imaging Results: positive: Final report reviewed ABX Reporting Has patient been on IV antibiotics over the past 48 hours?: Yes Assessment/Plan - Problem List (1) Exacerbation of allergic asthma Impression: Pt shows hx of moderate to severe persistant asthma, apparently triggered by asthma. She is now on 2L NC and has no home O2 requirement. I believe she would benefit from more aggressive steroid treatment, so will give another 2 doses of IV solu-medrol 125 mg today and one in am tomorrow. Will schedule duo-neb instead of PRN Hopefully can D/C home tomorrow if off O2 She reports motivation to stop smoking - she hasn't smoked in a wheeze and tells me she plans to no longer smoke, which I've congratulated her on and informed her the smoking is the single worst thing to do for asthma. She'll need to d/c home with a daily ICS. I've educated her on the difference between rescue meds and daily meds and pt seems to understand now. She apparently stopped the ICS when refills ran out and did not fu with PCP so just stopped using them. Have encouraged her not to have lapses in fu and why. (2) Morbid obesity with BMI of 40.0-44.9, adult Impression: Likely contributing to the asthma Will encourage patient to initiate a diet and exercise plan when stable (3) Hypoxia Impression: Not present on admission. 2/2 to #1 - cont O2 support and and hope to d/c tomorrow w/ out oxygen
[2018-03-29] MEDS: IPRATROPIUM/ALBUTEROL 3 ML NEB INH SCH ×2 (13:46→19:36)
[2018-03-29] MEDS ORDERED: SODIUM CHLORIDE 0.9% IV SCH (14:00)
[2018-03-29] MEDS ORDERED: METHYLPREDNISOLONE SUCCINATE IV SCH (14:00)
[2018-03-29] MEDS: methylPREDNISolone SUCCINATE 125 MG/2 ML VIAL IVP SCH ×2 (14:41→21:22)
[2018-03-29] MEDS: traZODone 50 MG TABLET PO SCH (21:20)
[2018-03-29] MEDS: MONTELUKAST 10 MG TABLET PO SCH (21:20)
[2018-03-29] MEDS: diphenhydrAMINE 25 MG CAPSULE PO SCH (21:21)
[2018-03-30] MEDS: ALBUTEROL NEB 2.5 MG/3 ML INH PRN (00:57)
[2018-03-30] MEDS: ONDANSETRON ODT 4 MG TABLET TL PRN ×2 (01:53→08:40)
[2018-03-30] MEDS: guaiFENesin/CODEINE 5 ML UDC PO PRN ×2 (01:53→08:41)
[2018-03-30] MEDS: SODIUM CHLORIDE FLUSH 0.9% 10 ML SYRINGE IVP SCH ×2 (01:54→08:42)
[2018-03-30] MEDS: BENZONATATE 100 MG CAPSULE PO SCH ×2 (05:58→13:24)
[2018-03-30] MEDS: HYDROcod/ACETAM 5/325 MG TABLET PO PRN (05:58)
[2018-03-30] MEDS: levoFLOXacin 750 MG/150 ML 750 MG/150 ML BAG IV SCH (05:59)
[2018-03-30] MEDS: SODIUM CHLORIDE FLUSH 0.9% 10 ML SYRINGE IVP PRN (05:59)
[2018-03-30] MEDS: predniSONE 20 MG TABLET PO SCH (08:39)
[2018-03-30] MEDS: guaiFENesin 600 MG TABLET PO SCH (08:40)
[2018-03-30] MEDS: POLYETHYLENE GLYCOL 3350 17 GM PACKET PO SCH (08:40)
[2018-03-30] MEDS: methylPREDNISolone SUCCINATE 125 MG/2 ML VIAL IVP SCH (08:41)
[2018-03-30] MEDS ORDERED: PANTOPRAZOLE 40 MG TABLET PO SCH (11:00)
[2018-03-30] MEDS ORDERED: ACETAMINOPHEN 500 MG TABLET PO PRN (13:15)
[2018-03-30] MEDS: BUDESONIDE 0.5 MG/2 ML NEB INH SCH (13:17)
[2018-03-30] MEDS: IPRATROPIUM/ALBUTEROL 3 ML NEB INH SCH ×2 (13:17→14:26)
--- NOTE | 2018-03-30 13:19 | Discharge Plan ---
Discharge Plan Disposition: 01 Home, Self Care Condition: Good Prescriptions: Albuterol 2.5 mg INH RTQ4H PRN #7 neb PRN Reason: Wheezing Albuterol Sulf [Ventolin Hfa Inhaler] 2 puffs INH Q4H PRN #2 inhaler PRN Reason: Shortness Of Air/Wheezing Benzonatate [Tessalon] 100 mg PO TID 14 Days #30 capsule Levofloxacin [Levaquin] 750 mg PO DAILY 3 Days #3 tablet Montelukast [Singulair] 10 mg PO QPM 30 Days #30 tablet Nicotine 7 mg Patch [Nicoderm] 1 patch TOP DAILY PRN 30 Days #30 patch PRN Reason: Nicotine Craving predniSONE [Deltasone] 60 mg PO DAILY 4 Days #12 tablet Diet: Regular Activity Restrictions: Limited exertion for the next week Shower Restrictions: No Driving Restrictions: No No Smoking: If you smoke, Please STOP! Call for help. Follow-up with: Sorin Banegas MD [Primary Care Provider] - 04/02/18 2:00 am
--- NOTE | 2018-03-30 13:49 | DISCHARGE SUMMARY ---
Discharge Summary Admit Date: 03/28/18 Discharge Date: 03/30/18 Discharging Provider: Dr Anthony Harvey MD Primary Care Provider: Dr Sorin Banegas Code Status: Attempt Resuscitation Discharge Disposition: 01 Home, Self Care - DIAGNOSES Admission Diagnoses: Acute Asthma Exacerbation Hypoxia Acute bronchitis Tobacco Abuse Disorder Discharge Diagnoses with Status of Each Condition: Acute Asthma Exacerbation - Improved Hypoxia - Improved, but still requiring 2L oxygen with exertion Acute bronchitis - Improved Tobacco Abuse Disorder - Improved - pt has elected to quite smoking on this admit - HPI History of Present Illness: Pt presented with 2 days of worsening SOB, wheezing. She has a hx of asthma, and has not been using ICS and has been frequently using rescue MDI and home nebulizer with little improvement. She was seen in ED and shown to have possible PNA vs Bronchitis on CXR. She was admitted on 2L NC and IV steroids, started on IV Levaquin. - HOSPITAL COURSE Hospital Course: Pt was admitted for SOB and wheezing with an increased work of breathing. She was found to be hypoxic and placed on O2 at 2L NC, and had a cxr showing possible PNA vs bronchitis. She was kept on IV steroids o/n, but w/ little improvement was changed back to IV steroids when she didn't improve on day 2 of admit. IV Levaquin was maintained throughout the stay. A significant amount of education was provided regarding her asthma. She had stopped using ICS for some time, when the refills ran out, because she had a hard time getting into her PCP. I helped her understand appropriate use of PRN and daily steroids, and importance of follow up. Also, I've implored her to stop smoking and she feels confident she will not return to smoking. On day 3, her lungs sounded clear and she was on room air at rest, but with exertion she had hypoxia. She had elevated WBC, 2/2 to steroids, but no fevers. She felt better and was felt to be safe to d/c home. She did however require oxygen. Pt was not hypoxic at rest, her O2 sats were 91% on room air. With exertion, she was hypoxic with O2 sats at 85% on room air. After providing 2L NC, these improved to 91%. I am ordering her home O2, room air at rest, and 2 lpm with exertion to treat her asthma and resolving bronchitis. - ALLERGIES Allergies/Adverse Reactions: Allergies Allergy/AdvReac Type Severity Reaction Status Date / Time Penicillins Allergy Severe Edema Verified 03/28/18 01:27 aspirin Allergy Unknown Verified 03/28/18 01:27 bee venom protein (honey bee) Allergy Anaphylaxis Verified 03/28/18 01:27 coconut Allergy Hives Verified 03/28/18 01:27 milk Allergy Cramps Verified 03/28/18 01:27 onion AdvReac Hives Verified 03/28/18 01:27 - MEDICATIONS Home Medications: Ambulatory Orders Medication Instructions Recorded Confirmed traZODone [Desyrel] 100 mg PO HS PRN 03/24/18 03/28/18 Acetaminophen 1,000 mg PO PRN PRN 03/28/18 03/28/18 Ibuprofen 600 mg PO PRN PRN 03/28/18 03/28/18 diphenhydrAMINE [Benadryl] 50 mg PO HS 03/28/18 03/28/18 Acetaminophen [Tylenol] 650 mg PO Q4HR PRN tablet 03/30/18 Albuterol 2.5 mg INH RTQ4H PRN #7 neb 03/30/18 Albuterol Sulf [Ventolin Hfa 2 puffs INH Q4H PRN #2 inhaler 03/30/18 Inhaler] Benzonatate [Tessalon] 100 mg PO TID 14 Days #30 capsule 03/30/18 Levofloxacin [Levaquin] 750 mg PO DAILY 3 Days #3 tablet 03/30/18 Montelukast [Singulair] 10 mg PO QPM 30 Days #30 tablet 03/30/18 Nicotine 7 mg Patch [Nicoderm] 1 patch TOP DAILY PRN 30 Days #30 03/30/18 patch guaiFENesin [Mucinex] 1,200 mg PO BID tablet 03/30/18 guaiFENesin/CODEINE [Robitussin AC] 5 ml PO Q6HR PRN udc 03/30/18 predniSONE [Deltasone] 60 mg PO DAILY 4 Days #12 tablet 03/30/18 - PHYSICAL EXAM AT DISCHARGE General Appearance: positive: No acute distress, Alert Eyes Bilateral: positive: Normal inspection ENT: positive: ENT inspection nml Neck: positive: Nml inspection Respiratory: positive: No respiratory distress, Breath sounds nml Cardiovascular: positive: Regular rate & rhythm, No murmur, No gallop Abdomen: positive: Non-tender, No organomegaly, Nml bowel sounds, No distention Extremities: positive: Non-tender, Full ROM, No pedal edema Neurologic/Psychiatric: positive: Oriented x3, CN's nml (2-12), Motor nml, Sensation nml, Mood/affect nml - LABS Result Diagrams: 03/29/18 05:07 03/29/18 05:07 - FOLLOW UP Follow Up: Follow up with Dr Banegas on Apr 02 @ 2:15 (check in is at 2:00) - TIME SPENT Time Spent in Discharge (Minutes): 45
[2018-03-30 15:45] VITALS: BP 129/76
== END 2018-03-30 16:20 | disposition home or self-care (01) ==
LOC: EDUNIT# → ED 01:18 → MS2 02:53
PROVIDERS: ADMIT Specialist; ATTEND Family Medicine Sports Medicine
DX: J45.41 Moderate persistent asthma with (acute) exacerbation (principal); J20.9 Acute bronchitis, unspecified; F17.210 Nicotine dependence, cigarettes, uncomplicated; Z79.51 Long term (current) use of inhaled steroids; Z79.52 Long term (current) use of systemic steroids; Z99.81 Dependence on supplemental oxygen; E66.01 Morbid (severe) obesity due to excess calories; Z68.41 Body mass index [BMI] 40.0-44.9, adult; F42.4 Excoriation (skin-picking) disorder; R73.9 Hyperglycemia, unspecified; J03.90 Acute tonsillitis, unspecified; Z91.14 Patient's other noncompliance with medication regimen
CPT/HCPCS: 36415; 71046; 80048; 80053; 83605; 83690; 83880; 84703; 85025; 87205; 94640; 94761; 96361; 96365; 96366; 96367; 96375; 96376; 99284; A9270; G0378; J7512; J7626; Q0162

== ENCOUNTER 2018-04-27 19:43 | Outpatient (CLI) | payer MEDICAID ==
--- NOTE | 2018-04-27 22:30 | Ultrasound Report ---
Reason: LOCALIZED EDEMA Procedure Date: 04/27/2018 Accession Number: [id number] / [id number] Procedure: US - Duplex Ext Veins Bilateral CPT Code: FULL RESULT: EXAM: BILATERAL LOWER EXTREMITY VENOUS ULTRASOUND EXAM DATE: 04/27/2018 08:19 PM. CLINICAL HISTORY: LOCALIZED EDEMA. COMPARISON: None. TECHNIQUE: Real-time sonographic vascular imaging was performed by the english division chair through the lower extremities utilizing both color-flow and Doppler spectral analysis. Multiple tax representative static images were saved for review. FINDINGS: Right: Common Femoral Vein (CFV): Normal. CFV-GSV Junction: Normal. Profunda Femoral Vein (PFV): Normal. Femoral Vein (FV) Prox: Normal. Femoral Vein (FV) Mid: Normal. Femoral Vein (FV) Dist: Normal. Popliteal Vein: Normal. Posterior Tibial Veins: Normal. Peroneal Veins: Normal. Left: Common Femoral Vein (CFV): Normal. CFV-GSV Junction: Normal. Profunda Femoral Vein (PFV): Normal. Femoral Vein (FV) Prox: Normal. Femoral Vein (FV) Mid: Normal. Femoral Vein (FV) Dist: Normal. Popliteal Vein: Normal. Posterior Tibial Veins: Normal. Peroneal Veins: Normal. Other: Bilateral posterior tibial and peroneal veins not well seen. IMPRESSION: 1. Suboptimal visualization of bilateral posterior tibial and peroneal veins. 2. Given the limitations, no evidence for deep venous thrombosis. [facility] The call report notification system was initiated by Dr. Lachelle Gibson at 22:27 hrs on 04/27/18. The above findings were discussed with Dr Jaclyn Patel Dr by Dr. Lachelle Gibson at 22:28 hrs on 04/27/18.
--- NOTE | 2018-04-28 11:16 | XRAY Report ---
Reason: Left foot pain Procedure Date: 04/27/2018 Accession Number: [id number] / [id number] Procedure: XR - Foot 2 View LT CPT Code: FULL RESULT: EXAM: LEFT FOOT RADIOGRAPHY EXAM DATE: 04/27/2018 08:02 PM. CLINICAL HISTORY: Left foot pain. COMPARISON: FOOT 3 VIEW LT 12/02/2016 9:38 PM. TECHNIQUE: 3 views. FINDINGS: Bones: Normal. No fractures or bone lesions. Joints: Normal. No subluxations. Soft Tissues: There is apparent soft tissue thickening in the region of the fifth metatarsophalangeal joint with questionable periarticular osteopenia. IMPRESSION: Nonspecific soft tissue thickening and questionable osteopenia in the region of the fifth metatarsophalangeal joint. This should be correlated to physical examination findings suspicious for gout. [facility]
== END 2018-04-27 19:44 | disposition home or self-care (01) ==
LOC: DI 19:43
PROVIDERS: ATTEND Physician Assistant Medical
DX: R60.0 Localized edema (principal); M79.672 Pain in left foot
CPT/HCPCS: 93970

== ENCOUNTER 2018-06-07 19:35 | Outpatient (CLI) | payer MEDICAID | END 2018-06-07 19:36 | disposition critical access hospital (66) | LOC: EMS 19:35 | PROVIDERS: ATTEND Surgery | DX: R07.9 Chest pain, unspecified (principal) | CPT/HCPCS: A0425; A0427; A0999 ==

== ENCOUNTER 2018-06-07 19:57 | Emergency (ER) | payer MEDICAID ==
--- NOTE | 2018-06-07 20:19 | ED Physician Documentation ---
PD HPI CHEST PAIN - Stated complaint Stated Complaint: ARM PAIN/CP - Chief complaint Chief Complaint: Cardiac - History obtained from History obtained from: Patient - History of Present Illness Timing - onset: Today (This is a 37-year-old woman with history of asthma but no other cardiopulmonary disease is been having ongoing problems with the left lower extremity for a couple of months. She actually had a d-dimer per her about a month and a half ago that was negative. Today she was sitting on the couch and felt a burning sensation that went from her left wrist up into her left shoulder and anterior chest associated with clamminess. It is mostly but not completely gone right now. She had some shortness of breath which is now better.) Review of Systems Constitutional: denies: Fever, Chills Throat: denies: Dental pain / toothache, Sore throat Cardiac: reports: Chest pain / pressure. denies: Palpitations Respiratory: reports: Dyspnea. 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 HEENT: Other Psych: Anxiety, Obsessive compulsive disorder Musculoskeletal: Osteoarthritis, Other Derm: Other - Past Surgical History Past Surgical History: Yes General: Appendectomy Neuro: Other - Present Medications Home Medications: Ambulatory Orders Medication Instructions Recorded Confirmed traZODone [Desyrel] 100 mg PO HS PRN 03/24/18 03/28/18 Ibuprofen 600 mg PO PRN PRN 03/28/18 03/28/18 diphenhydrAMINE [Benadryl] 50 mg PO HS 03/28/18 03/28/18 Acetaminophen [Tylenol] 650 mg PO Q4HR PRN tablet 03/30/18 Albuterol 2.5 mg INH RTQ4H PRN #7 neb 03/30/18 Albuterol Sulf [Ventolin Hfa 2 puffs INH Q4H PRN #2 inhaler 03/30/18 Inhaler] Ipratropium/Albuterol [Duoneb] 3 ml INH Q6H 4 Days #20 neb 03/30/18 Nicotine 7 mg Patch [Nicoderm] 1 patch TOP DAILY PRN 30 Days #30 03/30/18 patch - Allergies Allergies/Adverse Reactions: Allergies Allergy/AdvReac Type Severity Reaction Status Date / Time Penicillins Allergy Severe Edema Verified 03/28/18 01:27 aspirin Allergy Unknown Verified 03/28/18 01:27 bee venom protein (honey bee) Allergy Anaphylaxis Verified 03/28/18 01:27 coconut Allergy Hives Verified 03/28/18 01:27 milk Allergy Cramps Verified 03/28/18 01:27 onion AdvReac Hives Verified 03/28/18 01:27 - Social History Does the pt smoke?: Yes Smoking Status: Current every day smoker Does the pt drink ETOH?: No Does the pt have substance abuse?: No - Immunizations Immunizations are current?: Yes Immunizations: TDAP >10years/unknown - POLST Patient has POLST: No POLST Status: Full Code PD ED PE NORMAL - Vitals Vital signs reviewed: Yes - General General: Alert and oriented X 3, No acute distress - HEENT HEENT: PERRL, EOMI - Neck Neck: Supple, no meningeal sign, No bony TTP - Cardiac Cardiac: RRR, No murmur - Respiratory Respiratory: No respiratory distress, Other (Mild expiratory wheezes with good air movement. She feels like she is at her baseline with her asthma currently.) - Abdomen Abdomen: Non tender - Extremities Extremities: No edema, No calf tenderness / cord - Neuro Neuro: Alert and oriented X 3, Normal speech Results - Vitals Vitals: Vital Signs - 24 hr 06/07/18 06/07/18 19:57 20:45 Temperature 36.4 C L Heart Rate 101 H 93 Respiratory 20 20 Rate Blood Pressure 131/77 H 133/80 H O2 Saturation 96 96 Oxygen O2 Source Room air - EKG (time done) 2004 Rate: Rate (enter#) (98) Rhythm: NSR [place]: Normal QRS: Low voltage Ischemia: Normal ST segments Computer interpretation: Agree with computer - Labs Labs: Laboratory Tests 06/07/18 06/07/18 06/07/18 20:37 20:40 20:40 WBC 11.3 H RBC 4.40 Hgb 13.7 Hct 41.2 MCV 93.5 MCH 31.2 H MCHC 33.3 RDW 14.7 Plt Count 291 MPV 8.5 Neut # (Auto) 6.9 H Lymph # (Auto) 3.1 [place] # (Auto) 0.8 Eos # (Auto) 0.4 Baso # (Auto) 0.0 Absolute Nucleated RBC 0.01 Nucleated RBC % 0.1 D-Dimer Sodium 139 Potassium 3.6 Chloride 102 Carbon Dioxide 29 Anion Gap 8.0 BUN 10 Creatinine 0.6 Estimated GFR (MDRD) 111 Glucose 164 H Calcium 8.9 Total Bilirubin < 0.2 L AST 17 ALT 24 Alkaline Phosphatase 92 Troponin I Total Protein 7.2 Albumin 3.8 Globulin 3.4 Albumin/Globulin Ratio 1.1 Lipase 32 Urine Color YELLOW Urine Clarity CLEAR Urine pH 8.0 H Ur Specific [place] 1.020 Urine Protein NEGATIVE Urine Glucose (UA) NEGATIVE Urine Ketones NEGATIVE Urine Occult Blood NEGATIVE Urine Nitrite NEGATIVE Urine Bilirubin NEGATIVE Urine Urobilinogen 0.2 (NORMAL) Ur Leukocyte Esterase NEGATIVE Ur Microscopic Review NOT INDICATED Urine Culture Comments NOT INDICATED Urine HCG, Qual NEGATIVE 06/07/18 06/07/18 20:40 20:40 WBC RBC Hgb Hct MCV MCH MCHC RDW Plt Count MPV Neut # (Auto) Lymph # (Auto) [place] # (Auto) Eos # (Auto) Baso # (Auto) Absolute Nucleated RBC Nucleated RBC % D-Dimer < 200.0 L Sodium Potassium Chloride Carbon Dioxide Anion Gap BUN Creatinine Estimated GFR (MDRD) Glucose Calcium Total Bilirubin AST ALT Alkaline Phosphatase Troponin I < 0.04 Total Protein Albumin Globulin Albumin/Globulin Ratio Lipase Urine Color Urine Clarity Urine pH Ur Specific [place] Urine Protein Urine Glucose (UA) Urine Ketones Urine Occult Blood Urine Nitrite Urine Bilirubin Urine Urobilinogen Ur Leukocyte Esterase Ur Microscopic Review Urine Culture Comments Urine HCG, Qual PD MEDICAL DECISION MAKING - ED course ED course: 37-year-old woman with a chest pain episode that is mostly gone on arrival here with negative diagnostics. She has an S1q3 T3 on her EKG but that is old and a d-dimer is checked along with a troponin both are negative. Advised to follow- up for stress testing and return if pain recurs. Departure - Departure Disposition: 01 Home, Self Care Clinical Impression: Chest pain Qualifiers: Chest pain type: unspecified Qualified Code(s): R07.9 - Chest pain, unspecified Condition: Good Record reviewed to determine appropriate education?: Yes Instructions: ED Chest Pain Atypical Unkn Cause Comments: Talk with Dr. Banegas about a stress test and follow-up, return for new or recurrent symptoms.
[2018-06-07 20:56] LABS: BASOPHILS % (AUTO) 0.4 %; EOSINOPHILS # (AUTO) 0.4 10^3/uL (0.0-0.7); EOSINOPHILS % (AUTO) 3.7 %; HGB - HEMOGLOBIN 13.7 g/dL (12.0-16.0); LYMPHOCYTES # (AUTO) 3.1 10^3/uL (1.5-3.5); LYMPHOCYTES % (AUTO) 27.9 %; MEAN CORPUSCULAR HEMOGLOBIN 31.2 pg (27.0-31.0); MEAN CORPUSCULAR HGB CONC 33.3 g/dL (32.0-36.0); MEAN CORPUSCULAR VOLUME 93.5 fL (81.0-99.0); MEAN PLATELET VOLUME 8.5 fL (7.9-10.8); MONOCYTES # (AUTO) 0.8 10^3/uL (0.0-1.0); NEUTROPHILS # (AUTO) 6.9 10^3/uL (1.5-6.6); PLT - PLATELET COUNT 291 10^3/uL (130-450); RED CELL DISTRIBUTION WIDTH 14.7 % (12.0-15.0); WHITE BLOOD COUNT 11.3 x10^3/uL (4.8-10.8)
[2018-06-07 20:58] LABS: BILIRUBIN,URINE NEGATIVE (NEGATIVE); GLUCOSE, URINE (UA) NEGATIVE (NEGATIVE); KETONES,URINE (UA) NEGATIVE (NEGATIVE); LEUKOCYTE ESTERASE, URINE NEGATIVE (NEGATIVE); NITRITE,URINE NEGATIVE (NEGATIVE); OCCULT BLOOD,URINE NEGATIVE (NEGATIVE); PROTEIN,URINE NEGATIVE (NEGATIVE); UROBILINOGEN,URINE 0.2 (NORMAL) E.U./dL (NORMAL)
[2018-06-07 21:02] LABS: CLARITY,URINE CLEAR (CLEAR)
[2018-06-07 21:03] LABS: HCG UR QUAL NEGATIVE
[2018-06-07 21:11] LABS: ALBUMIN 3.8 g/dL (3.2-5.5); ALBUMIN/GLOBULIN RATIO 1.1 (1.0-2.2); ALKALINE PHOSPHATASE 92 IU/L (42-121); ALT ALANINE AMINOTRANSFERASE 24 IU/L (10-60); AST ASPARTATE AMINOTRANSFERASE 17 IU/L (10-42); BILIRUBIN,TOTAL < 0.2 mg/dL (0.2-1.0); BUN - BLOOD UREA NITROGEN 10 mg/dL (6-20); CALCIUM 8.9 mg/dL (8.5-10.3); CARBON DIOXIDE - CO2 29 mmol/L (21-32); CHLORIDE 102 mmol/L (101-111); CREATININE 0.6 mg/dL (0.4-1.0); GFR - MDRD 111 (>89); GLUCOSE 164 mg/dL (70-100); LIPASE 32 U/L (22-51); SODIUM 139 mmol/L (135-145); TOTAL PROTEIN 7.2 g/dL (6.7-8.2)
--- NOTE | 2018-06-07 21:12 | XRAY Report ---
Reason: chest pain Procedure Date: 06/07/2018 Accession Number: [id number] / [id number] Procedure: XR - Chest 1 View X-Ray CPT Code: 67588 FULL RESULT: EXAM: CHEST RADIOGRAPHY EXAM DATE: 06/07/2018 08:38 PM. CLINICAL HISTORY: Chest pain. COMPARISON: CHEST 2 VIEW 03/28/2018 2:13 AM. TECHNIQUE: 1 view. FINDINGS: Lungs/Pleura: No focal opacities are evident. No pleural effusion or pneumothorax. Mediastinum: Normal cardiomediastinal contour. Other: The bones are unremarkable. IMPRESSION: Normal single view chest. [facility]
[2018-06-07 21:56] VITALS: BP 113/77
== END 2018-06-07 21:57 | disposition home or self-care (01) ==
LOC: EDUNIT# → ED 19:57
DX: F17.200 Nicotine dependence, unspecified, uncomplicated (principal); R07.9 Chest pain, unspecified
CPT/HCPCS: 36415; 71045; 80053; 81001; 81003; 81025; 83690; 84484; 85025; 85379; 87086; 93005; 99283; 99284

== ENCOUNTER 2018-06-11 14:48 | Outpatient (CLI) | payer MEDICAID ==
--- NOTE | 2018-06-11 19:07 | MRI Report ---
Reason: FOOT PAIN,LEFT Procedure Date: 06/11/2018 Accession Number: [id number] / [id number] Procedure: MRI - Foot LT W/O CPT Code: FULL RESULT: EXAM: LEFT MIDFOOT MRI WITHOUT CONTRAST EXAM DATE: 06/11/2018 03:52 PM. CLINICAL HISTORY: Foot pain, left. Location of pain marked with the MRI markers. Left foot pain for 3.5 months. No known injury. COMPARISON: Left foot 2 views 04/27/2018. TECHNIQUE: Multiplanar, multisequence T1-weighted and fluid-sensitive sequences of the midfoot without contrast. Other: None. FINDINGS: Bones: Negative for fracture or osteomyelitis. Articular Cartilage: Unremarkable. Ligaments: The visualized intertarsal, intermetatarsal, and tarsometatarsal ligaments are intact. This includes the Lisfranc ligament. The visualized collateral ligaments are intact. Tendons: Extensor tendon tenosynovitis second, third and fourth digits. Musculature: No edema or fatty atrophy. Other: Small fluid collection first metatarsal phalangeal joint. The visualized portion of the tarsal tunnel is unremarkable. Mild fluid collection intermetatarsal bursa between the first and second metatarsal heads. Extensive edema or cellulitis dorsum forefoot. Flexion or hammertoe second, third and fourth digits. IMPRESSION: 1. Dorsum forefoot extensive edema or cellulitis with no discrete abscess or osteomyelitis identified. 2. Cellulitis or edema dorsal aspect proximal second digit associated with mild extensor tendon tenosynovitis at the level of the skin marker. 3. Mild extensor tendon tenosynovitis third and fourth digits at the level of the distal metatarsals. [facility] MUSCULOSKELETAL RADIOLOGY SECTION
== END 2018-06-11 14:49 | disposition home or self-care (01) ==
LOC: DI 14:48
PROVIDERS: ATTEND Physician Assistant Medical
DX: M65.872 Other synovitis and tenosynovitis, left ankle and foot (principal)

== ENCOUNTER 2018-07-07 00:42 | Outpatient (CLI) | payer MEDICAID | END 2018-07-07 00:43 | disposition critical access hospital (66) | LOC: EMS 00:42 | PROVIDERS: ATTEND Surgery | DX: R06.02 Shortness of breath (principal) | CPT/HCPCS: A0425; A0427 ==

== ENCOUNTER 2018-07-07 01:03 | Observation (INO) | payer MEDICAID ==
[2018-07-07] MEDS ORDERED: DEXAMETHASONE 10 MG/ML VIAL IVP STA (01:17)
[2018-07-07] MEDS ORDERED: IPRATROPIUM/ALBUTEROL 3 ML NEB INH STA ×2 (01:17→03:15)
[2018-07-07] MEDS ORDERED: ALBUTEROL NEB 2.5 MG/3 ML INH STA ×2 (01:17→01:46)
--- NOTE | 2018-07-07 01:20 | ED Physician Documentation ---
PD HPI DYSPNEA - Stated complaint Stated Complaint: SOA - Chief complaint Chief Complaint: Resp - History obtained from History obtained from: Patient - History of Present Illness Timing - onset: Other (Increased shortness of breath over the past several days. Symptoms are worse today) Timing - details: Gradual onset Severity Comments: Severe Inciting event(s): URI, Exposure (ie smoke) Improved by: Inhaler/neb Worsened by: Exertion, Coughing, Allergens, Smoke Associated symptoms: Cough, Wheezing. No: Fever, Palpitations, Diaphoresis, Bilateral edema, Unilateral edema, Anxiety Similar symptoms before: Other (Similar to prior episodes of asthma) Recently seen: Not recently seen Review of Systems Constitutional: reports: Fatigue. 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 HEENT: Other Psych: Anxiety, Obsessive compulsive disorder Musculoskeletal: Osteoarthritis, Other Derm: Other - Past Surgical History Past Surgical History: Yes General: Appendectomy Neuro: Other - Present Medications Home Medications: Ambulatory Orders Medication Instructions Recorded Confirmed traZODone [Desyrel] 100 mg PO HS PRN 03/24/18 03/28/18 Ibuprofen 600 mg PO PRN PRN 03/28/18 03/28/18 diphenhydrAMINE [Benadryl] 50 mg PO HS 03/28/18 03/28/18 Acetaminophen [Tylenol] 650 mg PO Q4HR PRN tablet 03/30/18 Albuterol 2.5 mg INH RTQ4H PRN #7 neb 03/30/18 Albuterol Sulf [Ventolin Hfa 2 puffs INH Q4H PRN #2 inhaler 03/30/18 Inhaler] Ipratropium/Albuterol [Duoneb] 3 ml INH Q6H 4 Days #20 neb 03/30/18 Nicotine 7 mg Patch [Nicoderm] 1 patch TOP DAILY PRN 30 Days #30 03/30/18 patch - Allergies Allergies/Adverse Reactions: Allergies Allergy/AdvReac Type Severity Reaction Status Date / Time Penicillins Allergy Severe Edema Verified 03/28/18 01:27 aspirin Allergy Unknown Verified 03/28/18 01:27 bee venom protein (honey bee) Allergy Anaphylaxis Verified 03/28/18 01:27 coconut Allergy Hives Verified 03/28/18 01:27 milk Allergy Cramps Verified 03/28/18 01:27 onion AdvReac Hives Verified 03/28/18 01:27 - Social History Does the pt smoke?: Yes Smoking Status: Current every day smoker Does the pt drink ETOH?: No Does the pt have substance abuse?: No - Immunizations Immunizations are current?: Yes Immunizations: TDAP >10years/unknown - POLST Patient has POLST: No POLST Status: Full Code PD ED PE NORMAL - General General: Alert and oriented X 3, No acute distress - HEENT HEENT: Atraumatic, PERRL, EOMI, Ears normal - Neck Neck: Supple, no meningeal sign - Cardiac Cardiac: RRR (Tachycardia), Strong equal pulses - Respiratory Respiratory: No: Clear bilaterally (Decreased aeration bilaterally with expiratory wheezing and increased respiratory rate) - Derm Derm: Normal color - Extremities Extremities: No deformity, No edema - Neuro Neuro: Alert and oriented X 3, Normal speech - Psych Psych: Normal mood Results - Vitals Vitals: Vital Signs - 24 hr 07/07/18 07/07/18 07/07/18 01:07 01:33 01:52 Temperature 36.2 C L Heart Rate 114 H 89 90 Respiratory 26 H 18 Rate Blood Pressure 153/114 H O2 Saturation 93 07/07/18 07/07/18 07/07/18 03:27 03:30 03:54 Temperature Heart Rate 124 H 126 H Respiratory 18 24 Rate Blood Pressure 136/81 H O2 Saturation 89 L 91 L 07/07/18 04:23 Temperature Heart Rate Respiratory 18 Rate Blood Pressure O2 Saturation Oxygen O2 Source Room air - Labs Labs: Laboratory Tests 07/07/18 07/07/18 03:31 03:31 WBC 15.4 H RBC 4.41 Hgb 13.4 Hct 40.1 MCV 91.0 MCH 30.5 MCHC 33.5 RDW 14.9 Plt Count 301 MPV 8.3 Neut # (Auto) 13.9 H Lymph # (Auto) 0.9 L [place] # (Auto) 0.4 Eos # (Auto) 0.0 Baso # (Auto) 0.0 Absolute Nucleated RBC 0.01 Nucleated RBC % 0.0 Sodium 136 Potassium 3.4 L Chloride 102 Carbon Dioxide 25 Anion Gap 9.0 BUN 11 Creatinine 0.7 Estimated GFR (MDRD) 93 Glucose 223 H Calcium 9.2 Total Bilirubin 0.6 AST 24 ALT 29 Alkaline Phosphatase 78 Total Protein 7.8 Albumin 4.2 Globulin 3.6 Albumin/Globulin Ratio 1.2 Lipase 25 PD MEDICAL DECISION MAKING - ED course ED course: The patient has had multiple breathing treatments in the emergency department and has had some improvement but still continues to be tachypneic with poor aeration and wheezing. The patient is also 89% on room air. Given the symptoms and limited improvement in the emergency department the patient will require admission to the hospital for ongoing treatment. The plan was discussed with the patient understands and agrees to the plan. The case discussed with the hospitalist who accepts the patient onto his service Departure - Departure Disposition: ED Place in Observation Clinical Impression: Hypoxia Asthma exacerbation Qualifiers: Asthma severity: moderate Asthma persistence: persistent Qualified Code(s): J45.41 - Moderate persistent asthma with (acute) exacerbation
[2018-07-07] MEDS ORDERED: BENZONATATE 100 MG CAPSULE PO STA (03:15)
[2018-07-07] MEDS ORDERED: DOXYCYCLINE 100 MG TABLET PO STA (03:24)
[2018-07-07 03:37] LABS: BASOPHILS % (AUTO) 0.3 %; EOSINOPHILS % (AUTO) 0.3 %; HGB - HEMOGLOBIN 13.4 g/dL (12.0-16.0); LYMPHOCYTES # (AUTO) 0.9 10^3/uL (1.5-3.5); LYMPHOCYTES % (AUTO) 6.1 %; MEAN CORPUSCULAR HEMOGLOBIN 30.5 pg (27.0-31.0); MEAN CORPUSCULAR HGB CONC 33.5 g/dL (32.0-36.0); MEAN PLATELET VOLUME 8.3 fL (7.9-10.8); MONOCYTES # (AUTO) 0.4 10^3/uL (0.0-1.0); MONOCYTES % (AUTO) 2.7 %; NEUTROPHILS # (AUTO) 13.9 10^3/uL (1.5-6.6); NEUTROPHILS % (AUTO) 90.6 %; PLT - PLATELET COUNT 301 10^3/uL (130-450); RED BLOOD COUNT 4.41 10^6/uL (4.20-5.40); RED CELL DISTRIBUTION WIDTH 14.9 % (12.0-15.0); WHITE BLOOD COUNT 15.4 x10^3/uL (4.8-10.8)
[2018-07-07 03:47] LABS: ALBUMIN 4.2 g/dL (3.2-5.5); ALBUMIN/GLOBULIN RATIO 1.2 (1.0-2.2); BILIRUBIN,TOTAL 0.6 mg/dL (0.2-1.0); CALCIUM 9.2 mg/dL (8.5-10.3); CREATININE 0.7 mg/dL (0.4-1.0); TOTAL PROTEIN 7.8 g/dL (6.7-8.2)
--- NOTE | 2018-07-07 04:04 | XRAY Report ---
Reason: soa Procedure Date: 07/07/2018 Accession Number: [id number] / [id number] Procedure: XR - Chest 2 View X-Ray CPT Code: 50012 FULL RESULT: EXAM: CHEST RADIOGRAPHY EXAM DATE: 07/07/2018 03:53 AM. CLINICAL HISTORY: Shortness of breath. COMPARISON: CHEST 1 VIEW 06/07/2018 8:27 PM. TECHNIQUE: 2 views. FINDINGS: Lungs/Pleura: No alveolar consolidation or pleural effusion seen. Mild bronchial wall thickening. No pneumothorax. Mediastinum: Heart and mediastinal contours are unremarkable. Other: None. IMPRESSION: 1. Mild bronchial wall thickening. This can be seen with bronchitis or reactive airways disease. [facility]
--- NOTE | 2018-07-07 05:01 | HISTORY & PHYSICAL EXAMINATION ---
Chief Complaint - Chief Complaint Chief Complaint: dyspnea History of Present Illness - Admitted From Admitted From:: [facility] ED - History Obtained From History obtained from: patient - History of Present Illness HPI Comment/Other: Patient is a 37 y/o female with history of asthma who presented to the ED with a cough and PRATEEK which started in the morning of 07/06/18. It seemed to worsen 2 hours after she got to work. 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 She reports chest and abdominal pain from coughing. She has been coughing so much that she vomited. She was mildly hypoxic with a reading of 89% on r/a in the ED. She reports being clammy and sweaty at home with a low grade temperature of 99F On auscultation there is diminished air movement. She has been admitted three times in the past 15 months with similar presentations with the most recent being in March 2018. 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 All dentition extracted. Uses dentures - Family & Social History Family History Comment/Other: Dad has hx of COPD and heavy smoker, born 1955. Mom is healthy, born 1056. 1 full sibling and 1 half sibling, both healthy. no children Social History Notes: She was born in [facility]. Came up to initially [place], then [place], then [place] with her mom and stepdad. 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 She lives in [place] with one current roommate, and is getting ready to get a second roommate. She also had an adopted sister that was living with her temporarily. But she ran away 10 days ago. She has been smoking since the age of 15. At most she smoked 1/2 packs/day. Currently smoking anywhere from 5 cigarettes to half a pack per day. Has no history of alcohol abuse. Drinks socially. She denies any use of cocaine, heroin, LSD, methamphetamines, cannabis. 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 - Substance History Use: Uses substance without health or social issues: Tobacco Tobacco Details: Cigarettes (smoked 1/2 ppd X 23 years. Quit 1 week ago) - POLST Patient has POLST: No POLST Status: Full Code Meds/Allgy - Home Medications Home Medications: Ambulatory Orders Medication Instructions Recorded Confirmed traZODone [Desyrel] 100 mg PO HS PRN 03/24/18 03/28/18 Ibuprofen 600 mg PO PRN PRN 03/28/18 03/28/18 diphenhydrAMINE [Benadryl] 50 mg PO HS 03/28/18 03/28/18 Acetaminophen [Tylenol] 650 mg PO Q4HR PRN tablet 03/30/18 Albuterol 2.5 mg INH RTQ4H PRN #7 neb 03/30/18 Albuterol Sulf [Ventolin Hfa 2 puffs INH Q4H PRN #2 inhaler 03/30/18 Inhaler] Ipratropium/Albuterol [Duoneb] 3 ml INH Q6H 4 Days #20 neb 03/30/18 Nicotine 7 mg Patch [Nicoderm] 1 patch TOP DAILY PRN 30 Days #30 03/30/18 patch - Allergies Allergies/Adverse Reactions: Allergies Allergy/AdvReac Type Severity Reaction Status Date / Time Penicillins Allergy Severe Edema Verified 03/28/18 01:27 aspirin Allergy Unknown Verified 03/28/18 01:27 bee venom protein (honey bee) Allergy Anaphylaxis Verified 03/28/18 01:27 coconut Allergy Hives Verified 03/28/18 01:27 milk Allergy Cramps Verified 03/28/18 01:27 onion AdvReac Hives Verified 03/28/18 01:27 Review of Systems - Constitutional Constitutional: reports: Fever - Eyes Eyes: denies: Blurred vision, Vision loss, Dipolpia - Ears, Nose & Throat Ears, Nose & Throat: reports: Dentures. denies: Hearing loss, Hearing aids, Nasal discharge - Cardiovascular Cariovascular: denies: Irregular heart rate, Chest pain, Edema - Respiratory Respiratory: reports: Cough, SOB at rest. denies: Sputum production - Gastrointestinal Gastrointestinal: reports: Vomiting. denies: Abdominal pain, Constipation, Diarrhea, Nausea - Genitourinary Genitourinary: denies: Dysuria, Frequency, Urgency, Hematuria - Musculoskeletal Musculoskeletal: denies: Muscle pain, Back pain, Muscle aches, Stiffness - Integumentary Integumentary: denies: Rash, Pruritis, Dryness - Neurological Neurological: denies: General weakness, Headache, Dizziness - Psychiatric Psychiatric: denies: Depression, Anxiety, Suicidal - Endocrine Endocrine: denies: Polyuria, Polydypsia - Hematologic/Lymphatic Hematologic/Lymphatic: denies: Anemia, Bruising, Petechiae Prior Level of Functionality: Patient is independent for activities of independent living. 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 Lives with a roommate Exam - Vital Signs Reviewed Vital Signs: Yes Vital Signs: Vital Signs x48h Temp Pulse Resp BP Pulse Ox 07/07/18 04:23 18 07/07/18 03:54 126 H 24 136/81 H 91 L 07/07/18 03:30 124 H 18 07/07/18 03:27 89 L 07/07/18 01:52 90 18 07/07/18 01:33 89 07/07/18 01:07 36.2 C L 114 H 26 H 153/114 H 93 - Physical Exam General Appearance: positive: Alert, Mild distress Eyes Bilateral: positive: Normal inspection, PERRL, EOMI ENT: positive: ENT inspection nml, No signs of dehydration Neck: positive: Nml inspection, No JVD, Trachea midline Respiratory: positive: Chest non-tender, Wheezes, Other (decreased air movement on auscultation) Cardiovascular: positive: No murmur, Tachycardia Abdomen: positive: Non-tender, Nml bowel sounds, No distention. negative: Guarding, Rebound Skin: positive: Color nml, No rash, Dry Extremities: positive: Non-tender, Nml appearance, No pedal edema Neurologic/Psychiatric: positive: Oriented x3 Sepsis Event Note (H) - Evaluation Current Stage of Sepsis: Sepsis Possible source of Sepsis: positive: Pulmonary - Sepsis Criteria Sepsis Criteria: Recorded Heart Rate greater than 90 bpm, WBC count greater than 12,000 or less than 4000 Conclusion/Plan - Problem List (1) Asthma exacerbation Conclusion/Plan: Likely 2/2 bronchitis Patient given a dose of dexamethasone in the ED. Solumedrol 40mg IV q4hrs prn ordered Breathing treatment, budesonide and levaquin antibiotic ordered Qualifiers: Asthma severity: moderate Asthma persistence: persistent Qualified Code(s): J45.41 - Moderate persistent asthma with (acute) exacerbation (2) Bronchitis Conclusion/Plan: Treatment as above Levaquin 750mg IV daily. IV steroids and breathing treatments ordered (3) Hypokalemia Conclusion/Plan: Will replace and recheck Also check Magnesium level - Lab Results Fish Bones: 07/07/18 03:31 07/07/18 03:31 Core Measures - Anticipated LOS I expect patient to be DC'd or transferred within 96 hours.: Yes - DVT/VTE - Prophylaxis VTE/DVT Device ordered at admit?: Yes VTE/DVT Prophylaxis med ordered at admit?: Yes
[2018-07-07] MEDS: levoFLOXacin 750 MG/150 ML 750 MG/150 ML BAG IV SCH (05:50)
[2018-07-07] MEDS: SODIUM CHLORIDE FLUSH 0.9% 10 ML SYRINGE IVP PRN ×2 (05:51→18:06)
[2018-07-07] MEDS: ACETAMINOPHEN 325 MG TABLET PO PRN ×2 (06:15→11:33)
[2018-07-07] MEDS: methylPREDNISolone SUCCINATE 40 MG/ML VIAL IVP SCH ×3 (06:15→18:06)
[2018-07-07] MEDS: IPRATROPIUM/ALBUTEROL 3 ML NEB INH PRN ×4 (07:22→19:34)
[2018-07-07] MEDS: BUDESONIDE 0.5 MG/2 ML NEB INH SCH ×2 (07:23→19:35)
[2018-07-07] MEDS ORDERED: POTASSIUM CHLORIDE 20 MEQ/15 ML UDC PO SCH (08:00)
[2018-07-07] MEDS: ENOXAPARIN 40 MG/0.4 ML SYRINGE SUBQ SCH (08:27)
[2018-07-07] MEDS: SODIUM CHLORIDE FLUSH 0.9% 10 ML SYRINGE IVP SCH ×3 (08:28→17:03)
[2018-07-07] MEDS: POLYETHYLENE GLYCOL 3350 17 GM PACKET PO SCH (08:33)
[2018-07-07] MEDS ORDERED: guaiFENesin 100 MG/5 ML UDC PO PRN (13:21)
--- NOTE | 2018-07-07 13:52 | PROVIDER PROGRESS NOTE ---
Subjective - Prog Note Date Prog Note Date: 07/07/18 Prog Note Time: 09:00 - Subjective Pt reports feeling: Improved (Patient denies dyspnea while laying down, but with ambulation to the bathroom, reports having 'coughing fits'. On 2L NC. Reports at home she does not take any routine asthma medications, only an inhaler/nebulizer as needed. She states the more weight she loses, the less her asthma is problematic for her.) Current Medications - Current Medications Current Medications: Active Medications Acetaminophen (Tylenol) 650 mg PO Q4HR PRN PRN Reason: Pain 1 to 4 Last Admin: 07/07/18 11:33 Dose: 650 mg Albuterol/Ipratropium (Duoneb) 3 ml INH Q4HR PRN PRN Reason: Wheezing Last Admin: 07/07/18 11:18 Dose: 3 ml Budesonide (Pulmicort) 0.5 mg INH RTBID [facility] Last Admin: 07/07/18 07:23 Dose: 0.5 mg Enoxaparin Sodium (Lovenox) 40 mg SUBQ DAILY [facility] Last Admin: 07/07/18 08:27 Dose: 40 mg Guaifenesin (Robitussin Liquid) 200 mg PO Q4HR PRN PRN Reason: Cough Last Admin: 07/07/18 13:41 Dose: 200 mg Levofloxacin (Levaquin 750 Mg/150 Ml) 750 mg in 150 mls @ 100 mls/hr IV Q24H [facility] Last Infusion: 07/07/18 07:20 Dose: Infused Methylprednisolone (Solu-Medrol (40mg Vial)) 40 mg IVP Q6H [facility] Last Admin: 07/07/18 12:47 Dose: 40 mg Polyethylene Glycol (Miralax) 17 gm PO DAILY [facility] Last Admin: 07/07/18 08:33 Dose: Not Given Sodium Chloride (Normal Saline Flush 0.9%) 10 ml IVP PRN PRN PRN Reason: NEEDED PER PROVIDER ORDERS Last Admin: 07/07/18 05:51 Dose: 10 ml Sodium Chloride (Normal Saline Flush 0.9%) 10 ml IVP 0100,0900,1700 [facility] Last Admin: 07/07/18 12:47 Dose: 10 ml traZODone [Desyrel] 50 mg PO HS PRN 03/24/[address] [Voltaren] 75 mg PO BIDWM 07/07/18 Objective - Vital Signs/Intake & Output Reviewed Vital Signs: Yes Vital Signs: Vital Signs x48h Temp Pulse Pulse Resp BP Pulse Ox 07/07/18 11:31 36.8 C 122 H 18 133/81 H 92 07/07/18 11:18 118 H 121 H 07/07/18 08:00 36.9 C 110 H 20 131/93 H 92 07/07/18 07:38 37.3 C 120 H 22 92 07/07/18 07:36 120 H 22 Intake & Output: Intake & Output 07/04/18 07/05/18 07/06/18 07/07/18 23:59 23:59 23:59 23:59 Intake Total 1100 Output Total 2100 Balance -1000 - Objective General Appearance: positive: No acute distress, Alert Eyes Bilateral: positive: Normal inspection, PERRL, EOMI ENT: positive: ENT inspection nml, Other (Edentulous) Neck: positive: Nml inspection Respiratory: positive: No respiratory distress, Other (Lung sounds clear with expiratory wheezes in LLL.) Cardiovascular: positive: Tachycardia Peripheral Pulses: 2+ Dorsalis pedis (R), 2+ Dorsalis pedis (L) Abdomen: positive: Non-tender, Nml bowel sounds Skin: positive: Warm, Dry Extremities: positive: Non-tender, Nml appearance, No pedal edema Neurologic/Psychiatric: positive: Oriented x3 - Lab Results Fish Bones: 07/07/18 03:31 07/07/18 03:31 Other Labs: Lab Results x24hrs 07/07/18 07/07/18 07/07/18 Range/Units 03:31 03:31 03:31 WBC 15.4 H (4.8-10.8) x10^3/uL RBC 4.41 (4.20-5.40) 10^6/uL Hgb 13.4 (12.0-16.0) g/dL Hct 40.1 (37.0-47.0) % MCV 91.0 (81.0-99.0) fL MCH 30.5 (27.0-31.0) pg MCHC 33.5 (32.0-36.0) g/dL RDW 14.9 (12.0-15.0) % Plt Count 301 (130-450) 10^3/uL MPV 8.3 (7.9-10.8) fL Neut # (Auto) 13.9 H (1.5-6.6) 10^3/uL Lymph # (Auto) 0.9 L (1.5-3.5) 10^3/uL [place] # (Auto) 0.4 (0.0-1.0) 10^3/uL Eos # (Auto) 0.0 (0.0-0.7) 10^3/uL Baso # (Auto) 0.0 (0.0-0.1) 10^3/uL Absolute Nucleated RBC 0.01 x10^3/uL Nucleated RBC % 0.0 /100WBC Sodium 136 (135-145) mmol/L Potassium 3.4 L (3.5-5.0) mmol/L Chloride 102 (101-111) mmol/L Carbon Dioxide 25 (21-32) mmol/L Anion Gap 9.0 (6-13) BUN 11 (6-20) mg/dL Creatinine 0.7 (0.4-1.0) mg/dL Estimated GFR (MDRD) 93 (>89) Glucose 223 H (70-100) mg/dL Calcium 9.2 (8.5-10.3) mg/dL Magnesium 1.8 (1.7-2.8) mg/dL Total Bilirubin 0.6 (0.2-1.0) mg/dL AST 24 (10-42) IU/L ALT 29 (10-60) IU/L Alkaline Phosphatase 78 (42-121) IU/L Total Protein 7.8 (6.7-8.2) g/dL Albumin 4.2 (3.2-5.5) g/dL Globulin 3.6 (2.1-4.2) g/dL Albumin/Globulin Ratio 1.2 (1.0-2.2) Lipase 25 (22-51) U/L ABX Reporting Has patient been on IV antibiotics over the past 48 hours?: Yes Sepsis Event Note (H) - Evaluation Current Stage of Sepsis: Sepsis Possible source of Sepsis: positive: Pulmonary - Sepsis Criteria Sepsis Criteria: Recorded Heart Rate greater than 90 bpm, WBC count greater than 12,000 or less than 4000 Assessment/Plan - Problem List (1) Asthma exacerbation Qualifiers: Asthma severity: moderate Asthma persistence: persistent Qualified Code(s): J45.41 - Moderate persistent asthma with (acute) exacerbation (2) Bronchitis Impression: (1) Bronchitis Conclusion/Plan: Improved. continue levaquin 750mg IV daily. IV steroids and breathing treatments ordered (2) Asthma exacerbation Conclusion/Plan: Likely 2/2 bronchitis Patient given a dose of dexamethasone in the ED. Solumedrol 40mg IV q6hrs ordered. Will transition to PO prednisone tomorrow. Breathing treatment prn, budesonide and levaquin antibiotic ordered. Plan to transition to PO antibiotics tomorrow. Wean down oxygen as able. Follow-up with PCP upon discharge. Qualifiers: Asthma severity: moderate Asthma persistence: persistent Qualified Code(s): J45.41 - Moderate persistent asthma with (acute) exacerbation (3) Hypokalemia Conclusion/Plan: K 3.4, Mg 1.8. K was replaced. Follow-up labs tomorrow.
[2018-07-07] MEDS ORDERED: PHENOL THROAT SPRAY 177 ML MM PRN (16:12)
[2018-07-07] MEDS: BENZOCAINE/MENTHOL LOZENGE MM PRN (16:57)
[2018-07-07] MEDS: HYDROcod/ACETAM 5/325 MG TABLET PO PRN ×2 (16:57→22:57)
[2018-07-08] MEDS: guaiFENesin/DEXTROMETHORPHAN 10 ML UDC PO PRN ×3 (00:42→14:54)
[2018-07-08] MEDS: methylPREDNISolone SUCCINATE 40 MG/ML VIAL IVP SCH ×2 (00:43→06:47)
[2018-07-08] MEDS: SODIUM CHLORIDE FLUSH 0.9% 10 ML SYRINGE IVP SCH ×3 (00:43→17:39)
[2018-07-08] MEDS: IPRATROPIUM/ALBUTEROL 3 ML NEB INH PRN ×5 (00:54→20:32)
[2018-07-08] MEDS: levoFLOXacin 750 MG/150 ML 750 MG/150 ML BAG IV SCH (05:31)
[2018-07-08] MEDS: HYDROcod/ACETAM 5/325 MG TABLET PO PRN ×3 (05:46→17:39)
[2018-07-08] MEDS: BUDESONIDE 0.5 MG/2 ML NEB INH SCH ×2 (05:58→20:32)
[2018-07-08 06:01] LABS: BASOPHILS % (AUTO) 0.1 %; HGB - HEMOGLOBIN 13.4 g/dL (12.0-16.0); LYMPHOCYTES # (AUTO) 1.1 10^3/uL (1.5-3.5); LYMPHOCYTES % (AUTO) 5.5 %; MEAN CORPUSCULAR HEMOGLOBIN 30.2 pg (27.0-31.0); MEAN CORPUSCULAR VOLUME 94.2 fL (81.0-99.0); MEAN PLATELET VOLUME 8.8 fL (7.9-10.8); MONOCYTES # (AUTO) 0.6 10^3/uL (0.0-1.0); NEUTROPHILS # (AUTO) 19.1 10^3/uL (1.5-6.6); NEUTROPHILS % (AUTO) 91.4 %; PLT - PLATELET COUNT 293 10^3/uL (130-450); RED BLOOD COUNT 4.44 10^6/uL (4.20-5.40); WHITE BLOOD COUNT 20.9 x10^3/uL (4.8-10.8)
[2018-07-08 06:10] LABS: CALCIUM 9.4 mg/dL (8.5-10.3); CREATININE 0.6 mg/dL (0.4-1.0)
[2018-07-08] MEDS: SODIUM CHLORIDE FLUSH 0.9% 10 ML SYRINGE IVP PRN (06:56)
[2018-07-08] MEDS: ENOXAPARIN 40 MG/0.4 ML SYRINGE SUBQ SCH (08:46)
[2018-07-08] MEDS: POLYETHYLENE GLYCOL 3350 17 GM PACKET PO SCH (08:46)
[2018-07-08] MEDS: predniSONE 20 MG TABLET PO SCH (10:05)
--- NOTE | 2018-07-08 12:40 | PROVIDER PROGRESS NOTE ---
Subjective - Prog Note Date Prog Note Date: 07/08/18 Prog Note Time: 07:45 - Subjective Subjective: Patient reports improvement in dyspnea from yesterday. Still with continued, although improved, coughing fits after ambulation. She was able to get more sle ep last night. Continues on 2Lpm NC. WBC 20.9 today. She is received IV steroids. She has been afebrile. Reports her sputum production is clear/white and at times yellow-tinged. She has been afebrile. Current Medications - Current Medications Current Medications: Active Medications Acetaminophen (Tylenol) 650 mg PO Q4HR PRN PRN Reason: Pain 1 to 4 Last Admin: 07/07/18 11:33 Dose: 650 mg Hydrocodone Bitart/Acetaminophen ([place] 5/325) 1 tab PO Q6HR PRN PRN Reason: PAIN Last Admin: 07/08/18 05:54 Dose: 1 tab Albuterol/Ipratropium (Duoneb) 3 ml INH Q4HR PRN PRN Reason: Wheezing Last Admin: 07/08/18 10:32 Dose: 3 ml Budesonide (Pulmicort) 0.5 mg INH RTBID [facility] Last Admin: 07/08/18 05:58 Dose: 0.5 mg Enoxaparin Sodium (Lovenox) 40 mg SUBQ DAILY [facility] Last Admin: 07/08/18 08:46 Dose: 40 mg Guaifenesin (Robitussin Dm) 20 ml PO Q6HR PRN PRN Reason: Cough Last Admin: 07/08/18 06:46 Dose: 20 ml Levofloxacin (Levaquin) 750 mg PO DAILY [facility] Phenol/Menthol (Chloraseptic) 2 sprays MM Q2HR PRN PRN Reason: Throat Pain Polyethylene Glycol (Miralax) 17 gm PO DAILY [facility] Last Admin: 07/08/18 08:46 Dose: Not Given Prednisone (Deltasone) 40 mg PO DAILYWM [facility] Last Admin: 07/08/18 10:05 Dose: 40 mg Sodium Chloride (Normal Saline Flush 0.9%) 10 ml IVP PRN PRN PRN Reason: NEEDED PER PROVIDER ORDERS Last Admin: 07/08/18 06:56 Dose: 10 ml Sodium Chloride (Normal Saline Flush 0.9%) 10 ml IVP 0100,0900,1700 [facility] Last Admin: 07/08/18 08:46 Dose: 10 ml Sodium Chloride ([place]) 1 sprays NICHO Q4HR PRN PRN Reason: Nasal Congestion Throat Lozenges (Cepacol) 1 lozenge MM Q2HR PRN PRN Reason: Throat pain Last Admin: 07/07/18 16:57 Dose: 1 lozenge traZODone [Desyrel] 50 mg PO HS PRN 03/24/[address] [Voltaren] 75 mg PO BIDWM 07/07/18 Objective - Vital Signs/Intake & Output Vital Signs: Vital Signs x48h Temp Pulse Pulse Resp BP Pulse Ox 07/08/18 10:32 95 20 07/08/18 09:00 36.6 C 109 H 16 117/70 90 L 07/08/18 05:59 101 H 22 07/08/18 05:00 36.6 C 100 18 141/85 H 94 Intake & Output: Intake & Output 07/05/18 07/06/18 07/07/18 07/08/18 23:59 23:59 23:59 23:59 Intake Total 1837 610 Output Total 4700 2100 Balance -2469 -1252 - Objective General Appearance: positive: No acute distress, Alert Eyes Bilateral: positive: Normal inspection, PERRL, EOMI ENT: positive: ENT inspection nml, Pharynx nml, Other (edentulous) Neck: positive: Nml inspection, Trachea midline Respiratory: positive: Other (Diminished air movement in LLL. No wheezes heard on exam today. All other lung holden clear.) Cardiovascular: positive: Tachycardia Peripheral Pulses: 2+ Dorsalis pedis (R), 2+ Dorsalis pedis (L) Abdomen: positive: Non-tender, No organomegaly, Nml bowel sounds, No distention Skin: positive: Warm, Dry Extremities: positive: Full ROM Neurologic/Psychiatric: positive: Oriented x3, Mood/affect nml - Lab Results Fish Bones: 07/08/18 05:33 07/08/18 05:33 Other Labs: Lab Results x24hrs 07/08/18 07/08/18 Range/Units 05:33 05:33 WBC 20.9 H (4.8-10.8) x10^3/uL RBC 4.44 (4.20-5.40) 10^6/uL Hgb 13.4 (12.0-16.0) g/dL Hct 41.8 (37.0-47.0) % MCV 94.2 (81.0-99.0) fL MCH 30.2 (27.0-31.0) pg MCHC 32.0 (32.0-36.0) g/dL RDW 15.0 (12.0-15.0) % Plt Count 293 (130-450) 10^3/uL MPV 8.8 (7.9-10.8) fL Neut # (Auto) 19.1 H (1.5-6.6) 10^3/uL Lymph # (Auto) 1.1 L (1.5-3.5) 10^3/uL [place] # (Auto) 0.6 (0.0-1.0) 10^3/uL Eos # (Auto) 0.0 (0.0-0.7) 10^3/uL Baso # (Auto) 0.0 (0.0-0.1) 10^3/uL Absolute Nucleated RBC 0.02 x10^3/uL Nucleated RBC % 0.1 /100WBC Sodium 136 (135-145) mmol/L Potassium 4.2 (3.5-5.0) mmol/L Chloride 99 L (101-111) mmol/L Carbon Dioxide 27 (21-32) mmol/L Anion Gap 10.0 (6-13) BUN 13 (6-20) mg/dL Creatinine 0.6 (0.4-1.0) mg/dL Estimated GFR (MDRD) 111 (>89) Glucose 262 H (70-100) mg/dL Calcium 9.4 (8.5-10.3) mg/dL ABX Reporting Has patient been on IV antibiotics over the past 48 hours?: Yes Assessment/Plan - Problem List (1) Bronchitis Impression: Improved. Patient with clear/white to yellow-tinged sputum. Plan: Obtain sputum culture. Transition IV levaquin to PO levaquin. Will complete a 5 day course of antibiotics. (2) Asthma exacerbation Impression: Likely 2/2 bronchitis.Improved. She received a dose of dexamethasone in the ED and continued on IV steroids inpatient. Budesonide was started, as well as duonebs q6hr PRN. Patient reports when she is not ill, her rescue inhaler use is not used on a regular basis. She has a nebulizer at home as well. She remains on 2L NC. Plan: Change steroids to 40 mg PO prednisone daily today. She will be discharged home on with a steroid taper. She will be discharged with budesonide as well, and will follow-up with her PCP within 7-10 days to determine whether or not budesonide needs to be continued. Wean down oxygen, as able. She may need to continue oxygen at home. Will ask RT to complete a desaturation test tomorrow. Qualifiers: Asthma severity: mild Asthma persistence: intermittent Qualified Code(s): J45.21 - Mild intermittent asthma with (acute) exacerbation (3) Leukocytosis Impression: Likely steroid induced. She is afebrile. WBC 20.9 today. Plan: follow-up CBC tomorrow. Qualifiers: Leukocytosis type: bandemia Qualified Code(s): D72.825 - Bandemia (4) Hyperglycemia, drug-induced Impression: Steroid induced. Glucose on [facility] today 262. Patient transitioned to oral steroids today with plan to taper over the next week. Plan: continue to monitor. Follow-up [facility] outpatient.
[2018-07-08] MEDS: BENZOCAINE/MENTHOL LOZENGE MM PRN (20:23)
[2018-07-08] MEDS: SODIUM CHLORIDE 0.65% NASAL SPRAY NAS PRN (20:23)
[2018-07-08] MEDS: ACETAMINOPHEN 325 MG TABLET PO PRN (21:13)
[2018-07-09] MEDS: guaiFENesin/DEXTROMETHORPHAN 10 ML UDC PO PRN (00:25)
[2018-07-09] MEDS: SODIUM CHLORIDE FLUSH 0.9% 10 ML SYRINGE IVP SCH ×2 (00:26→08:14)
[2018-07-09] MEDS: IPRATROPIUM/ALBUTEROL 3 ML NEB INH PRN ×4 (00:50→12:08)
[2018-07-09] MEDS: BENZOCAINE/MENTHOL LOZENGE MM PRN (05:11)
[2018-07-09] MEDS: ACETAMINOPHEN 325 MG TABLET PO PRN (05:11)
[2018-07-09] MEDS: SODIUM CHLORIDE 0.65% NASAL SPRAY NAS PRN (05:14)
[2018-07-09 06:04] LABS: BASOPHILS # (AUTO) 0.1 10^3/uL (0.0-0.1); BASOPHILS % (AUTO) 0.4 %; HGB - HEMOGLOBIN 12.8 g/dL (12.0-16.0); LYMPHOCYTES % (AUTO) 12.1 %; MEAN CORPUSCULAR HEMOGLOBIN 31.1 pg (27.0-31.0); MEAN CORPUSCULAR HGB CONC 33.1 g/dL (32.0-36.0); MEAN CORPUSCULAR VOLUME 93.9 fL (81.0-99.0); MEAN PLATELET VOLUME 8.7 fL (7.9-10.8); MONOCYTES # (AUTO) 0.9 10^3/uL (0.0-1.0); MONOCYTES % (AUTO) 5.6 %; NEUTROPHILS # (AUTO) 13.2 10^3/uL (1.5-6.6); NEUTROPHILS % (AUTO) 81.9 %; PLT - PLATELET COUNT 271 10^3/uL (130-450); RED BLOOD COUNT 4.11 10^6/uL (4.20-5.40); WHITE BLOOD COUNT 16.2 x10^3/uL (4.8-10.8)
[2018-07-09 06:08] LABS: CALCIUM 8.6 mg/dL (8.5-10.3); CREATININE 0.7 mg/dL (0.4-1.0)
[2018-07-09] MEDS: HYDROcod/ACETAM 5/325 MG TABLET PO PRN (08:13)
[2018-07-09] MEDS: predniSONE 20 MG TABLET PO SCH (08:13)
[2018-07-09] MEDS: ENOXAPARIN 40 MG/0.4 ML SYRINGE SUBQ SCH (08:13)
[2018-07-09] MEDS: POLYETHYLENE GLYCOL 3350 17 GM PACKET PO SCH (08:20)
[2018-07-09] MEDS: BUDESONIDE 0.5 MG/2 ML NEB INH SCH (08:30)
[2018-07-09] MEDS ORDERED: levoFLOXacin 250 MG TABLET PO SCH (09:00)
--- NOTE | 2018-07-09 09:19 | DISCHARGE SUMMARY ---
Discharge Summary Admit Date: 07/07/18 Discharge Date: 07/09/18 Discharging Provider: Roxana Siddiqui [facility] Primary Care Provider: Dr. Sorin Banegas Code Status: Attempt Resuscitation Condition at Discharge: Fair Discharge Disposition: 01 Home, Self Care - DIAGNOSES Admission Diagnoses: Asthma exacerbation, acute Bronchitis Hypokalemia Discharge Diagnoses with Status of Each Condition: Asthma exacerbation, acute, improved Bronchitis, improved Hypoxia, stable Leukocytosis, improved Hyperglycemia, drug induced, improved Tachycardia, stable Hypokalemia, resolved - HPI History of Present Illness: As per Dr. Windy Iniguezhotu H&P dated 07/07/2018: 'Patient is a 37 y/o female with history of asthma who presented to the ED with a cough and PRATEEK which started in the morning of 07/06/18. It seemed to worsen 2 hours after she got to work. 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 She reports chest and abdominal pain from coughing. She has been coughing so much that she vomited. She was mildly hypoxic with a reading of 89% on r/a in the ED. She reports being clammy and sweaty at home with a low grade temperature of 99F On auscultation there is diminished air movement. She has been admitted three times in the past 15 months with similar presentations with the most recent being in March 2018.' - HOSPITAL COURSE Hospital Course: Patient was admitted to the hospital with acute asthma exacerbation and bronchitis. She received a dose of dexamethasone in the ED and continued on IV steroids inpatient. Budesonide was started, as well as duonebs q6hr PRN. Patient reports when she is not ill, her rescue inhaler use is not used on a regular basis. She has a nebulizer at home as well. She remains on 2L NC. Patient was hypoxic at rest, with room air O2 sats of 88%. I am ordering home oxygen at 2 lpm continuously. She was changed to oral prednisone on 07/08/2018 and discharged with a steroid taper for the next 7 days after discharge. She was also discharged on budesonide and given new prescriptions for her albuterol inhaler and duonebs. For her bronchitis, she was started on IV levaquin and discharged with oral levaquin to complete a 5 day course of antibiotics. She was asked to follow-up with her PCP within 7-10 days to determine whether or not budesonide needs to be continued. Her WBC peaked at 20.9 on 07/08/2009, likely steroid induced. On the day of discharge, her WBC was 16.2. She remained afebrile. Her glucose was elevated on her BMPs to the 200s, likely steroid induced also. Her hypokalemia resolved with PO potassium chloride. She was intermittently tachycardic to the 110's during her hospitalization. - ALLERGIES Allergies/Adverse Reactions: Allergies Allergy/AdvReac Type Severity Reaction Status Date / Time Penicillins Allergy Severe Edema Verified 03/28/18 01:27 aspirin Allergy Unknown Verified 03/28/18 01:27 bee venom protein (honey bee) Allergy Anaphylaxis Verified 03/28/18 01:27 coconut Allergy Hives Verified 03/28/18 01:27 milk Allergy Cramps Verified 03/28/18 01:27 onion AdvReac Hives Verified 03/28/18 01:27 - MEDICATIONS Home Medications: Ambulatory Orders Medication Instructions Recorded Confirmed traZODone [Desyrel] 50 mg PO HS PRN 03/24/18 07/07/18 Albuterol 2.5 mg INH RTQ4H PRN #7 neb 03/30/18 07/07/[address] [Voltaren] 75 mg PO BIDWM 07/07/18 07/07/18 Acetaminophen [Tylenol] 650 mg PO Q4HR PRN tablet 07/09/18 Albuterol Sulf [Ventolin Hfa 2 puffs INH Q4H PRN #2 inhaler 07/09/18 Inhaler] Budesonide [Pulmicort] 0.5 mg INH RTBID #14 neb 07/09/18 HYDROcod/ACETAM 5/325 [[place] 5/325] 1 tab PO Q6HR PRN #5 tablet 07/09/18 Ipratropium/Albuterol [Duoneb] 3 ml INH Q4HR PRN #15 neb 07/09/18 Lidocaine Patch 5% [Lidoderm Patch] 1 patch TOP DAILY PRN #3 patch 07/09/18 Polyethylene Glycol 3350 [Miralax] 17 gm PO DAILY packet 07/09/18 guaiFENesin/DEXTROMETHORPHAN 20 ml PO Q6HR PRN udc 07/09/18 [Robitussin Dm] levoFLOXacin [Levaquin] 750 mg PO DAILY #3 tablet 07/09/18 predniSONE [Prednisone] 10 mg PO DAILY #20 tablet 07/09/18 - PHYSICAL EXAM AT DISCHARGE General Appearance: positive: No acute distress, Alert, Other (obese female laying in bed on 2L NC) Eyes Bilateral: positive: Normal inspection, PERRL, EOMI ENT: positive: ENT inspection nml, Pharynx nml, Other (edentulous) Neck: positive: Nml inspection, Trachea midline Respiratory: positive: No respiratory distress, Other (scattered rhonchi. No wheezes. Has a productive cough.) Cardiovascular: positive: No murmur, Tachycardia Peripheral Pulses: positive: 2+ Abdomen: positive: Non-tender, Nml bowel sounds Skin: positive: Warm, Dry Extremities: positive: Full ROM Neurologic/Psychiatric: positive: Oriented x3, Motor nml, Sensation nml, Mood/affect nml - LABS Result Diagrams: 07/09/18 05:35 07/09/18 05:35 - DIAGNOSTIC IMAGING Diagnostic Imaging Results: Final report reviewed Diagnostic Imaging Results Comments: CXR 07/07/2018 with mild bronchial wall thickening - FOLLOW UP Follow Up: Follow-up with PCP in 1 week with CBC and BMP and to evaluate respiratory/oxygen status. - TIME SPENT Time Spent in Discharge (Minutes): 45
--- NOTE | 2018-07-09 09:19 | Discharge Plan ---
Discharge Plan Disposition: Home, Self Care Condition: Fair Prescriptions: Ipratropium/Albuterol [Duoneb] 3 ml INH Q4HR PRN #15 neb PRN Reason: Wheezing HYDROcod/ACETAM 5/325 [[place] 5/325] 1 tab PO Q6HR PRN #5 tablet PRN Reason: Pain Albuterol Sulf [Ventolin Hfa Inhaler] 2 puffs INH Q4H PRN #2 inhaler PRN Reason: Shortness Of Air/Wheezing Budesonide [Pulmicort] 0.5 mg INH RTBID #14 neb levoFLOXacin [Levaquin] 750 mg PO DAILY #3 tablet Lidocaine Patch 5% [Lidoderm Patch] 1 patch TOP DAILY PRN #3 patch PRN Reason: Pain predniSONE [Prednisone] 10 mg PO DAILY #20 tablet Diet: Regular Activity Restrictions: No Restrictions Shower Restrictions: No Driving Restrictions: No Weight Bearing: Full Weight Additional Instructions or Follow Up instructions: You were admitted for asthma exacerbation and bronchitis. You were treated with an antibiotic, breathing treatments and steroids. You are discharging with an antibiotic, steroid taper and breathing treatments. Please take these as prescribed. You are being discharged on oxygen. Please follow-up with your primary care provider within 1 weeks time. No Smoking: If you smoke, Please STOP! Call for help. Follow-up with: Sorin Banegas MD [Primary Care Provider] -
[2018-07-09] MEDS ORDERED: LIDOCAINE PATCH 5% TOP PRN (10:31)
[2018-07-09 12:27] VITALS: BP 140/72
== END 2018-07-09 12:40 | disposition home or self-care (01) ==
LOC: EDUNIT# → ED 01:03 → MS2 04:35
PROVIDERS: ADMIT Internal Medicine; ATTEND Nurse Practitioner
DX: J45.901 Unspecified asthma with (acute) exacerbation (principal); J20.9 Acute bronchitis, unspecified; R09.02 Hypoxemia; D72.829 Elevated white blood cell count, unspecified; R73.9 Hyperglycemia, unspecified; T50.905A Adverse effect of unspecified drugs, medicaments and biological substances, initial encounter; R00.0 Tachycardia, unspecified; E87.6 Hypokalemia; F17.210 Nicotine dependence, cigarettes, uncomplicated; F41.9 Anxiety disorder, unspecified; F42.9 Obsessive-compulsive disorder, unspecified; G43.909 Migraine, unspecified, not intractable, without status migrainosus; M19.90 Unspecified osteoarthritis, unspecified site; Z79.1 Long term (current) use of non-steroidal anti-inflammatories (NSAID); Z79.51 Long term (current) use of inhaled steroids
CPT/HCPCS: 36415; 71046; 80048; 80053; 83690; 83735; 85025; 87070; 87205; 94640; 94761; 96365; 96366; 96372; 96375; 96376; 99283; 99284; A9270; G0378; J1650; J7512; J7626; 96374

== ENCOUNTER 2018-07-10 16:54 | Outpatient (CLI) | payer MEDICAID | END 2018-07-10 16:55 | disposition short-term general hospital (02) | LOC: EMS 16:54 | PROVIDERS: ATTEND Surgery | DX: R50.9 Fever, unspecified (principal) | CPT/HCPCS: A0425; A0427; A0999 ==

== ENCOUNTER 2018-07-19 10:48 | Emergency (ER) | payer MEDICAID ==
--- NOTE | 2018-07-19 12:05 | ED Physician Documentation ---
PD HPI HEENT - Stated complaint Stated Complaint: RIGHT EAR ACHE, WEAK - Chief complaint Chief Complaint: Heent - History obtained from History obtained from: Patient - History of Present Illness Timing - onset: How many days ago (has had cough and congestion for several days, and today had right ear pain which worsened through the day, then started to drain some purulent material. Hearing is decreased.) Timing - duration: Days Timing - details: Gradual onset Location: Right ear, Sinuses, Nose Associated symptoms: Fever, Congestion, Cough Similar symptoms before: Has not had sx before Recently seen: Not recently seen Review of Systems Constitutional: reports: Fever Ears: reports: Ear pain Nose: reports: Rhinorrhea / runny nose, Congestion Throat: reports: Sore throat Respiratory: reports: Dyspnea, Cough, Wheezing GI: denies: Nausea, Vomiting, Diarrhea Skin: denies: Rash Neurologic: denies: Altered mental status, Headache PD PAST MEDICAL HISTORY - Past Medical History Past Medical History: Yes Cardiovascular: None Respiratory: Asthma, Other Neuro: Migraines, Other Endocrine/Autoimmune: None GI: Other 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 HEENT: Other Psych: Anxiety, Obsessive compulsive disorder Musculoskeletal: Osteoarthritis, Other Derm: Other - Past Surgical History Past Surgical History: Yes General: Appendectomy Neuro: Other - Present Medications Home Medications: Ambulatory Orders Medication Instructions Recorded Confirmed Albuterol 2.5 mg INH RTQ4H PRN #7 neb 03/30/18 07/19/18 Acetaminophen [Tylenol] 650 mg PO Q4HR PRN tablet 07/09/18 07/19/18 Albuterol Sulf [Ventolin Hfa 2 puffs INH Q4H PRN #2 inhaler 07/09/18 07/19/18 Inhaler] Budesonide [Pulmicort] 0.5 mg INH RTBID #14 neb 07/09/18 07/19/18 HYDROcod/ACETAM 5/325 [[place] 5/325] 1 tab PO Q6HR PRN #5 tablet 07/09/18 07/19/18 Ipratropium/Albuterol [Duoneb] 3 ml INH Q4HR PRN #15 neb 07/09/18 07/19/18 guaiFENesin/DEXTROMETHORPHAN 20 ml PO Q6HR PRN udc 07/09/18 07/19/18 [Robitussin Dm] Cephalexin Suspension [Keflex] 500 mg PO TID #210 ml 07/19/18 metFORMIN [Glucophage] 500 mg PO BID 07/19/18 07/19/18 predniSONE [Prednisone] 40 mg PO DAILY 07/19/18 07/19/18 - Allergies Allergies/Adverse Reactions: Allergies Allergy/AdvReac Type Severity Reaction Status Date / Time Penicillins Allergy Severe Edema Verified 07/19/18 11:00 aspirin Allergy Unknown Verified 07/19/18 11:00 bee venom protein (honey bee) Allergy Anaphylaxis Verified 07/19/18 11:00 coconut Allergy Hives Verified 07/19/18 11:00 milk Allergy Cramps Verified 07/19/18 11:00 onion AdvReac Hives Verified 07/19/18 11:00 - Social History Does the pt smoke?: Yes Smoking Status: Current every day smoker Does the pt drink ETOH?: No Does the pt have substance abuse?: No - Immunizations Immunizations are current?: Yes Immunizations: TDAP >10years/unknown - POLST Patient has POLST: No POLST Status: Full Code PD ED PE NORMAL - Vitals Vital signs reviewed: Yes - General General: Alert and oriented X 3, No acute distress, Well developed/nourished - HEENT HEENT: Pharynx benign. No: Ears normal (left ear okay. right with some fluid in ear canal, the canal is not red. TM with redness and distorted landmarks. I can see small perforation at edge at about 4 o'clock position. ) - Neck Neck: Supple, no meningeal sign, No adenopathy - Cardiac Cardiac: RRR, No murmur - Respiratory Respiratory: No: Clear bilaterally (some hilar wheezing with cough. Cough is hoarse. She has some hoarse voice. ) - Abdomen Abdomen: Soft, Non tender - Derm Derm: Normal color, Warm and dry Results - Vitals Vitals: Oxygen O2 Source Room air - Labs Labs: Laboratory Tests 07/19/18 07/19/18 13:05 13:54 WBC 23.9 H RBC 4.91 Hgb 14.9 Hct 44.5 MCV 90.5 MCH 30.3 MCHC 33.5 RDW 14.5 Plt Count 290 MPV 9.1 Neut # (Auto) 21.8 H Lymph # (Auto) 1.1 L [place] # (Auto) 0.5 Eos # (Auto) 0.1 Baso # (Auto) 0.5 H Absolute Nucleated RBC 0.00 Nucleated RBC % 0.0 Sodium 131 L Potassium 4.1 Chloride 95 L Carbon Dioxide 25 Anion Gap 11.0 BUN 11 Creatinine 0.6 Estimated GFR (MDRD) 111 Glucose 223 H Calcium 9.0 Total Bilirubin 1.6 H AST 17 ALT 50 Alkaline Phosphatase 78 Total Protein 7.4 Albumin 3.9 Globulin 3.5 Albumin/Globulin Ratio 1.1 Lipase 24 PD MEDICAL DECISION MAKING - ED course Complexity details: considered differential, d/w patient Departure - Departure Disposition: Home, Self Care Clinical Impression: Bronchiolitis Otitis media Qualifiers: Otitis media type: suppurative Chronicity: acute Laterality: right Recurrence: non-recurrent Spontaneous tympanic membrane rupture: with spontaneous rupture Qualified Code(s): H66.011 - Acute suppurative otitis media with spontaneous rupture of ear drum, right ear Condition: Stable Record reviewed to determine appropriate education?: Yes Instructions: ED Otitis Media Acute Adult Follow-Up: Sorin Banegas MD [Primary Care Provider] - Prescriptions: Cephalexin Suspension [Keflex] 500 mg PO TID #210 ml Comments: Continue current medications. Add cephalexin antibiotic 3 times a day for a week for the ear infection. Continue your home inhalers and nebulizers for breathing. Tylenol or ibuprofen if needed for pains. Follow-up with your primary care this coming week if not improved. Otherwise follow-up in couple of weeks to ensure the eardrum is healed up okay. Discharge Date/Time: 07/19/18 14:44
[2018-07-19] MEDS: CEPHALEXIN 125 MG/5 ML SYRINGE PO STA (12:43)
[2018-07-19] MEDS: IPRATROPIUM/ALBUTEROL 3 ML NEB INH STA (12:50)
[2018-07-19 13:28] LABS: BASOPHILS # (AUTO) 0.5 10^3/uL (0.0-0.1); BASOPHILS % (AUTO) 2.1 %; EOSINOPHILS # (AUTO) 0.1 10^3/uL (0.0-0.7); EOSINOPHILS % (AUTO) 0.4 %; HGB - HEMOGLOBIN 14.9 g/dL (12.0-16.0); LYMPHOCYTES # (AUTO) 1.1 10^3/uL (1.5-3.5); LYMPHOCYTES % (AUTO) 4.5 %; MEAN CORPUSCULAR HEMOGLOBIN 30.3 pg (27.0-31.0); MEAN CORPUSCULAR HGB CONC 33.5 g/dL (32.0-36.0); MEAN CORPUSCULAR VOLUME 90.5 fL (81.0-99.0); MEAN PLATELET VOLUME 9.1 fL (7.9-10.8); MONOCYTES # (AUTO) 0.5 10^3/uL (0.0-1.0); NEUTROPHILS # (AUTO) 21.8 10^3/uL (1.5-6.6); PLT - PLATELET COUNT 290 10^3/uL (130-450); RED BLOOD COUNT 4.91 10^6/uL (4.20-5.40); RED CELL DISTRIBUTION WIDTH 14.5 % (12.0-15.0); WHITE BLOOD COUNT 23.9 x10^3/uL (4.8-10.8)
[2018-07-19 14:21] LABS: ALBUMIN 3.9 g/dL (3.2-5.5); ALBUMIN/GLOBULIN RATIO 1.1 (1.0-2.2); BILIRUBIN,TOTAL 1.6 mg/dL (0.2-1.0); CREATININE 0.6 mg/dL (0.4-1.0); TOTAL PROTEIN 7.4 g/dL (6.7-8.2)
[2018-07-19 14:36] VITALS: BP 135/90
== END 2018-07-19 14:44 | disposition home or self-care (01) ==
LOC: ED 10:48
DX: J21.9 Acute bronchiolitis, unspecified (principal); H66.011 Acute suppurative otitis media with spontaneous rupture of ear drum, right ear; F17.200 Nicotine dependence, unspecified, uncomplicated
CPT/HCPCS: 36415; 80053; 83690; 85025; 94640; 99283

== ENCOUNTER 2018-07-22 14:04 | Outpatient (CLI) | payer MEDICAID ==
[2018-07-22 19:32] LABS: BASOPHILS # (AUTO) 0.1 10^3/uL (0.0-0.1); BASOPHILS % (AUTO) 0.5 %; EOSINOPHILS # (AUTO) 0.2 10^3/uL (0.0-0.7); EOSINOPHILS % (AUTO) 1.6 %; HGB - HEMOGLOBIN 13.3 g/dL (12.0-16.0); MEAN CORPUSCULAR HEMOGLOBIN 29.9 pg (27.0-31.0); MEAN CORPUSCULAR HGB CONC 31.4 g/dL (32.0-36.0); MEAN CORPUSCULAR VOLUME 95.3 fL (81.0-99.0); MEAN PLATELET VOLUME 9.4 fL (7.9-10.8); MONOCYTES # (AUTO) 1.2 10^3/uL (0.0-1.0); MONOCYTES % (AUTO) 9.1 %; NEUTROPHILS # (AUTO) 8.7 10^3/uL (1.5-6.6); NEUTROPHILS % (AUTO) 65.8 %; PLT - PLATELET COUNT 283 10^3/uL (130-450); RED BLOOD COUNT 4.45 10^6/uL (4.20-5.40); RED CELL DISTRIBUTION WIDTH 14.7 % (12.0-15.0); WHITE BLOOD COUNT 13.2 x10^3/uL (4.8-10.8)
[2018-07-22 19:59] LABS: ALBUMIN 3.6 g/dL (3.2-5.5); ALBUMIN/GLOBULIN RATIO 1.1 (1.0-2.2); BILIRUBIN,TOTAL 0.9 mg/dL (0.2-1.0); CALCIUM 8.7 mg/dL (8.5-10.3); CREATININE 0.6 mg/dL (0.4-1.0); TOTAL PROTEIN 6.8 g/dL (6.7-8.2)
[2018-07-22 20:00] LABS: HB2 TOTAL 14.8 g/dL; HEMOGLOBIN A1C 1.04 g/dL; HEMOGLOBIN A1C % 8.6 % (4.6-6.2)
== END 2018-07-22 14:05 | disposition home or self-care (01) ==
LOC: LAB.WCP 14:04
PROVIDERS: ATTEND Family Medicine
DX: E11.9 Type 2 diabetes mellitus without complications (principal); H66.91 Otitis media, unspecified, right ear
CPT/HCPCS: 36415; 80053; 83036; 85025

== ENCOUNTER 2018-08-02 03:46 | Outpatient (CLI) | payer MEDICAID | END 2018-08-02 03:47 | disposition critical access hospital (66) | LOC: EMS 03:46 | PROVIDERS: ATTEND Surgery | DX: R07.9 Chest pain, unspecified (principal) ==

== ENCOUNTER 2018-08-02 04:05 | Emergency (ER) | payer MEDICAID ==
[2018-08-02 04:14] VITALS: BP 132/78
[2018-08-02] MEDS ORDERED: MAG HYDROX/AL HYDROX/SIMETH 30 ML UDC PO STA ×2 (04:16→04:55)
[2018-08-02] MEDS ORDERED: LIDOCAINE VISCOUS 2% 15 ML UDC MM STA ×2 (04:16→04:54)
--- NOTE | 2018-08-02 04:20 | ED Physician Documentation ---
PD HPI CHEST PAIN - Stated complaint Stated Complaint: CP - Chief complaint Chief Complaint: General - History obtained from History obtained from: Patient, EMS - History of Present Illness Timing - onset: Enter time (299), Today Timing - onset during: Sleep Timing - duration: Hours Timing - details: Abrupt onset, Still present Quality: Pressure, Sharp Location: Substernal Radiation: Neck, Back Improved by: Nothing Associated symptoms: No: Shortness of air, Diaphoresis, Nausea, Vomiting, Feeling faint / dizzy, General Weakness, Palpitations, Cough Similar symptoms before: Diagnosis (reflux) Recently seen: Not recently seen - Additional information Additional information: 37-year-old female with a history of reflux is developed epigastric pain the radiating to her back and neck that started while she was asleep. She tried some Tums did not get any relief of it and when she felt the radiation into her back and neck she became concerned and called 911. Paramedics has brought the patient to the hospital did give her some nitro without relief. Patient has been ill recently. She was admitted here with pneumonia subsequently admitted to [facility] and placed on quarantine for RSV. Following that she had otitis with rupture of her TM. Review of Systems Constitutional: denies: Fever, Chills, Myalgias Eyes: denies: Decreased vision Ears: denies: Ear pain Nose: denies: Rhinorrhea / runny nose, Congestion Throat: denies: Oral lesions / sores, Sore throat Cardiac: reports: Chest pain / pressure. denies: Palpitations Respiratory: denies: Dyspnea, Cough GI: reports: Abdominal Pain. 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 HEENT: Other Psych: Anxiety, Obsessive compulsive disorder Musculoskeletal: Osteoarthritis, Other Derm: Other - Past Surgical History Past Surgical History: Yes General: Appendectomy Neuro: Other - Present Medications Home Medications: Ambulatory Orders Medication Instructions Recorded Confirmed Albuterol 2.5 mg INH RTQ4H PRN #7 neb 03/30/18 07/19/18 Acetaminophen [Tylenol] 650 mg PO Q4HR PRN tablet 07/09/18 07/19/18 Albuterol Sulf [Ventolin Hfa 2 puffs INH Q4H PRN #2 inhaler 07/09/18 07/19/18 Inhaler] Budesonide [Pulmicort] 0.5 mg INH RTBID #14 neb 07/09/18 07/19/18 HYDROcod/ACETAM 5/325 [[place] 5/325] 1 tab PO Q6HR PRN #5 tablet 07/09/18 07/19/18 Ipratropium/Albuterol [Duoneb] 3 ml INH Q4HR PRN #15 neb 07/09/18 07/19/18 guaiFENesin/DEXTROMETHORPHAN 20 ml PO Q6HR PRN udc 07/09/18 07/19/18 [Robitussin Dm] Cephalexin Suspension [Keflex] 500 mg PO TID #210 ml 07/19/18 metFORMIN [Glucophage] 500 mg PO BID 07/19/18 07/19/18 predniSONE [Prednisone] 40 mg PO DAILY 07/19/18 07/19/18 Sucralfate [Carafate] 1 gm PO ACHS #60 tablet 08/02/18 - Allergies Allergies/Adverse Reactions: Allergies Allergy/AdvReac Type Severity Reaction Status Date / Time Penicillins Allergy Severe Edema Verified 07/19/18 11:00 aspirin Allergy Unknown Verified 07/19/18 11:00 bee venom protein (honey bee) Allergy Anaphylaxis Verified 07/19/18 11:00 coconut Allergy Hives Verified 07/19/18 11:00 milk Allergy Cramps Verified 07/19/18 11:00 onion AdvReac Hives Verified 07/19/18 11:00 - Social History Does the pt smoke?: Yes Smoking Status: Current every day smoker Does the pt drink ETOH?: No Does the pt have substance abuse?: No - Immunizations Immunizations are current?: Yes Immunizations: TDAP >10years/unknown - POLST Patient has POLST: No POLST Status: Full Code PD ED PE NORMAL - Vitals Vital signs reviewed: Yes (hypertensive ) - General General: Alert and oriented X 3, No acute distress, Well developed/nourished - HEENT HEENT: Atraumatic, PERRL, EOMI, Other (right TM is red flat and distorted appears to be healing ) - Neck Neck: Supple, no meningeal sign, No bony TTP - Cardiac Cardiac: RRR, No murmur - Respiratory Respiratory: No respiratory distress, Clear bilaterally - Abdomen Abdomen: Soft, Non tender - Back Back: No CVA TTP, No spinal TTP - Derm Derm: Normal color, Warm and dry, No rash - Extremities Extremities: No deformity, No edema - Neuro Neuro: Alert and oriented X 3, 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, No motor deficit, No sensory deficit, Normal speech Eye Opening: Spontaneous Motor: Obeys Commands Verbal: Oriented GCS Score: 15 - Psych Psych: Normal mood, Normal affect Results - Vitals Vitals: Vital Signs - 24 hr 08/02/18 04:07 Temperature 36.3 C L Heart Rate 100 Respiratory 16 Rate Blood Pressure 132/78 H O2 Saturation 98 Oxygen O2 Source Room air - EKG (time done) 0421 Rate: Rate (enter#) (95) Rhythm: NSR QRS: Low voltage Compare to prior EKG: Unchanged from prior EKG (SPT 06-07-18 no changes ) Computer interpretation: Agree with computer - Labs Labs: Laboratory Tests 08/02/18 08/02/18 08/02/18 04:20 04:20 04:20 WBC 9.9 RBC 4.09 L Hgb 12.7 Hct 37.3 MCV 91.1 MCH 31.1 H MCHC 34.1 RDW 14.2 Plt Count 312 MPV 8.8 Neut # (Auto) 5.4 Lymph # (Auto) 3.2 Edwards # (Auto) 0.8 Eos # (Auto) 0.4 Baso # (Auto) 0.1 Absolute Nucleated RBC 0.01 Nucleated RBC % 0.1 Sodium 132 L Potassium 3.5 Chloride 95 L Carbon Dioxide 27 Anion Gap 10.0 BUN 16 Creatinine 0.7 Estimated GFR (MDRD) 93 Glucose 208 H Calcium 9.2 Total Bilirubin 0.5 AST 20 ALT 33 Alkaline Phosphatase 79 Troponin I < 0.04 Total Protein 6.7 Albumin 3.5 Globulin 3.2 Albumin/Globulin Ratio 1.1 Lipase 29 PD MEDICAL DECISION MAKING - ED course Complexity details: reviewed old records, reviewed results, re-evaluated patient, considered differential, d/w patient ED course: 37-year-old female with a history of reflux has developed substernal chest pain radiating up her back and into her neck and this is made some better with the use of viscous lidocaine Mylanta. She is given a second dose of viscous lidocaine Mylanta and Carafate as well as Protonix intravenously. Departure - Departure Disposition: Home, Self Care Clinical Impression: Gastritis Qualifiers: Gastritis type: unspecified gastritis Chronicity: acute Gastritis bleeding: without bleeding Qualified Code(s): K29.00 - Acute gastritis without bleeding Condition: Stable Instructions: ED PUD Vs Gastritis Follow-Up: Sorin Banegas MD [Primary Care Provider] - Prescriptions: Sucralfate [Carafate] 1 gm PO ACHS #60 tablet Comments: Today it appears that the pain you are having in your chest and back is related to an irritation of the lining of your stomach and esophagus and possibly her duodenum. The recommendation is that you take medication to reduce the acid in your stomach such as Pepcid AC or Prilosec. In addition take the Carafate as prescribed and take both of these medicines for at least 10-14 days. Avoid alcohol and ibuprofen.
[2018-08-02] MEDS ORDERED: SUCRALFATE 1 GM/10 ML UDC PO STA (04:55)
[2018-08-02] MEDS ORDERED: PANTOPRAZOLE 40 MG VIAL IVP STA (04:56)
[2018-08-02 05:02] LABS: BASOPHILS # (AUTO) 0.1 10^3/uL (0.0-0.1); EOSINOPHILS # (AUTO) 0.4 10^3/uL (0.0-0.7); EOSINOPHILS % (AUTO) 4.2 %; HGB - HEMOGLOBIN 12.7 g/dL (12.0-16.0); LYMPHOCYTES # (AUTO) 3.2 10^3/uL (1.5-3.5); LYMPHOCYTES % (AUTO) 32.6 %; MEAN CORPUSCULAR HEMOGLOBIN 31.1 pg (27.0-31.0); MEAN CORPUSCULAR HGB CONC 34.1 g/dL (32.0-36.0); MEAN CORPUSCULAR VOLUME 91.1 fL (81.0-99.0); MEAN PLATELET VOLUME 8.8 fL (7.9-10.8); MONOCYTES # (AUTO) 0.8 10^3/uL (0.0-1.0); MONOCYTES % (AUTO) 7.8 %; NEUTROPHILS # (AUTO) 5.4 10^3/uL (1.5-6.6); NEUTROPHILS % (AUTO) 54.4 %; PLT - PLATELET COUNT 312 10^3/uL (130-450); RED BLOOD COUNT 4.09 10^6/uL (4.20-5.40); RED CELL DISTRIBUTION WIDTH 14.2 % (12.0-15.0); WHITE BLOOD COUNT 9.9 x10^3/uL (4.8-10.8)
--- NOTE | 2018-08-02 05:28 | XRAY Report ---
Reason: chest pain Procedure Date: 08/02/2018 Accession Number: [id number] / [id number] Procedure: XR - Chest 1 View X-Ray CPT Code: 11190 FULL RESULT: EXAM: CHEST RADIOGRAPHY EXAM DATE: 08/02/2018 05:19 AM. CLINICAL HISTORY: Chest pain. COMPARISON: CHEST 2 VIEW 07/07/2018 3:39 AM CHEST ANGIO 08/06/2016 9:45 PM. TECHNIQUE: 1 view. FINDINGS: Lungs/Pleura: No focal opacities evident. No pleural effusion. No pneumothorax. Mediastinum: Within exam limitations, the cardiomediastinal contour is normal. Other: Mild right hemidiaphragm elevation. IMPRESSION: Negative single view chest. RADIA
[2018-08-02 05:46] LABS: ALBUMIN 3.5 g/dL (3.2-5.5); ALBUMIN/GLOBULIN RATIO 1.1 (1.0-2.2); BILIRUBIN,TOTAL 0.5 mg/dL (0.2-1.0); CALCIUM 9.2 mg/dL (8.5-10.3); CREATININE 0.7 mg/dL (0.4-1.0); TOTAL PROTEIN 6.7 g/dL (6.7-8.2)
== END 2018-08-02 08:22 | disposition home or self-care (01) ==
LOC: EDUNIT# → ED 04:05
DX: K29.00 Acute gastritis without bleeding (principal); K21.9 Gastro-esophageal reflux disease without esophagitis; R07.89 Other chest pain; M54.2 Cervicalgia; F17.200 Nicotine dependence, unspecified, uncomplicated
CPT/HCPCS: 36415; 71045; 80053; 83690; 84484; 85025; 93005; 96374; 99283; 99284; A9270

== ENCOUNTER 2018-09-15 09:12 | Outpatient (CLI) | payer MEDICAID | END 2018-09-15 09:13 | disposition home or self-care (01) | LOC: SC 09:12 | PROVIDERS: ATTEND Internal Medicine Pulmonary Disease | DX: G47.10 Hypersomnia, unspecified (principal); G47.8 Other sleep disorders; R06.81 Apnea, not elsewhere classified; R06.83 Snoring | CPT/HCPCS: 99203; 99212 ==

== ENCOUNTER 2018-09-24 16:48 | Emergency (ER) | payer MEDICAID ==
--- NOTE | 2018-09-24 17:11 | ED Physician Documentation ---
PD HPI CHEST PAIN - Stated complaint Stated Complaint: CP - Chief complaint Chief Complaint: Cardiac - History obtained from History obtained from: Patient, Friend - History of Present Illness Timing - onset: Yesterday Timing - onset during: Rest Timing - duration: Seconds (3-5) Timing - details: Abrupt onset, Intermittant Pain level max: 7 Pain level now: 0 Quality: Sharp Location: Left chest Radiation: Left upper extremity Improved by: Nothing Worsened by: Other (nothing) Associated symptoms: No: Shortness of air, Diaphoresis, Nausea, Vomiting, Feeling faint / dizzy, General Weakness, Palpitations, Cough Similar symptoms before: Has not had sx before Recently seen: Not recently seen Review of Systems Constitutional: denies: Fever, Chills Throat: denies: Sore throat Cardiac: reports: Palpitations (occasionally feels her heart beating fast.) Respiratory: denies: Cough GI: denies: Abdominal Pain, Nausea, Vomiting, Diarrhea Skin: denies: Rash Musculoskeletal: denies: Neck pain, Back pain Neurologic: denies: Headache PD PAST MEDICAL HISTORY - Past Medical History Cardiovascular: None Respiratory: Asthma, Other Neuro: Migraines, Other Endocrine/Autoimmune: None GI: Other 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 HEENT: Other Psych: Anxiety, Obsessive compulsive disorder Musculoskeletal: Osteoarthritis, Other Derm: Other - Past Surgical History Past Surgical History: Yes General: Appendectomy Neuro: Other - Present Medications Home Medications: Ambulatory Orders Medication Instructions Recorded Confirmed Albuterol 2.5 mg INH RTQ4H PRN #7 neb 03/30/18 07/19/18 Acetaminophen [Tylenol] 650 mg PO Q4HR PRN tablet 07/09/18 07/19/18 Albuterol Sulf [Ventolin Hfa 2 puffs INH Q4H PRN #2 inhaler 07/09/18 07/19/18 Inhaler] Budesonide [Pulmicort] 0.5 mg INH RTBID #14 neb 07/09/18 07/19/18 HYDROcod/ACETAM 5/325 [[place] 5/325] 1 tab PO Q6HR PRN #5 tablet 07/09/18 07/19/18 Ipratropium/Albuterol [Duoneb] 3 ml INH Q4HR PRN #15 neb 07/09/18 07/19/18 guaiFENesin/DEXTROMETHORPHAN 20 ml PO Q6HR PRN udc 07/09/18 07/19/18 [Robitussin Dm] Cephalexin Suspension [Keflex] 500 mg PO TID #210 ml 07/19/18 metFORMIN [Glucophage] 500 mg PO BID 07/19/18 07/19/18 predniSONE [Prednisone] 40 mg PO DAILY 07/19/18 07/19/18 Sucralfate [Carafate] 1 gm PO ACHS #60 tablet 08/02/18 - Allergies Allergies/Adverse Reactions: Allergies Allergy/AdvReac Type Severity Reaction Status Date / Time Penicillins Allergy Severe Edema Verified 09/24/18 17:02 aspirin Allergy Unknown Verified 09/24/18 17:02 bee venom protein (honey bee) Allergy Anaphylaxis Verified 09/24/18 17:02 coconut Allergy Hives Verified 09/24/18 17:02 milk Allergy Cramps Verified 09/24/18 17:02 onion AdvReac Hives Verified 09/24/18 17:02 - Social History Does the pt smoke?: Yes Smoking Status: Current every day smoker Does the pt drink ETOH?: No Does the pt have substance abuse?: No - Immunizations Immunizations are current?: Yes Immunizations: TDAP >10years/unknown - POLST Patient has POLST: No POLST Status: Full Code PD ED PE NORMAL - Vitals Vital signs reviewed: Yes - General General: Alert and oriented X 3, No acute distress, Well developed/nourished - HEENT HEENT: PERRL, Moist mucous membranes - Neck Neck: Supple, no meningeal sign - Cardiac Cardiac: RRR, Strong equal pulses - Respiratory Respiratory: No respiratory distress, Clear bilaterally - Abdomen Abdomen: Soft, Non tender, Non distended - Derm Derm: Warm and dry - Extremities Extremities: No tenderness to palpate, No calf tenderness / cord - Neuro Neuro: Alert and oriented X 3 - Psych Psych: Normal mood, Normal affect Results - Vitals Vitals: Vital Signs - 24 hr 09/24/18 09/24/18 09/24/18 16:57 17:59 18:22 Temperature 35.9 C L Heart Rate 102 H 101 H 99 Respiratory 15 18 18 Rate Blood Pressure 112/75 116/87 H 123/82 H O2 Saturation 100 99 100 Oxygen O2 Source Room air - EKG (time done) 1657 Rate: Rate (enter#) (98) Rhythm: NSR Kell: Normal Intervals: Normal MN QRS: Normal Ischemia: Non specific changes - Labs Labs: Laboratory Tests 09/24/18 09/24/18 09/24/18 17:24 17:24 17:24 WBC 15.7 H RBC 4.63 Hgb 14.0 Hct 42.8 MCV 92.5 MCH 30.3 MCHC 32.8 RDW 14.8 Plt Count 285 MPV 8.3 Neut # (Auto) 11.8 H Lymph # (Auto) 2.6 Bailey # (Auto) 1.0 Eos # (Auto) 0.2 Baso # (Auto) 0.1 Absolute Nucleated RBC 0.00 Nucleated RBC % 0.0 Sodium 137 Potassium 3.7 Chloride 98 L Carbon Dioxide 27 Anion Gap 12.0 BUN 10 Creatinine 0.7 Estimated GFR (MDRD) 93 Glucose 133 H Calcium 9.2 Total Bilirubin 0.4 AST 16 ALT 22 Alkaline Phosphatase 79 Troponin I < 0.04 Total Protein 7.7 Albumin 4.1 Globulin 3.6 Albumin/Globulin Ratio 1.1 Lipase 31 - Rads (name of study) cxr Radiology: Prelim report reviewed, EMP read contemporaneously, See rad report (Normal single view chest. ) PD MEDICAL DECISION MAKING - ED course Complexity details: reviewed results, re-evaluated patient, considered differential (No ST elevation SC, no aortic dissection, no PE, no tension pneumothorax, no aortic aneurysm), d/w patient ED course: Patient with atypical chest pain. No ischemic changes on EKG. Negative troponin. Pain only lasts for a few seconds at a time. Likely this represents premature ventricular contractions, did not occur in the emergency department. No changes on telemetry. We will have her follow-up with her doctor for further care. Patient counseled regarding signs and symptoms for which I believe and urgent re-evaluation would be necessary. Patient with good understanding of and agreement to plan and is comfortable going home at this time This document was made in part using voice recognition software. While efforts are made to proofread this document, sound alike and grammatical errors may occur. Departure - Departure Disposition: Home, Self Care Clinical Impression: Chest pain Qualifiers: Chest pain type: unspecified Qualified Code(s): R07.9 - Chest pain, unspecified Condition: Good Instructions: ED Chest Pain Atypical Unkn Cause Follow-Up: Sorin Banegas MD [Primary Care Provider] - Within 1 week Comments: Return if you worsen. Follow-up with your doctor for further care. Her testing is normal today. Discharge Date/Time: 09/24/18 18:24
[2018-09-24 17:31] LABS: BASOPHILS # (AUTO) 0.1 10^3/uL (0.0-0.1); BASOPHILS % (AUTO) 0.5 %; EOSINOPHILS # (AUTO) 0.2 10^3/uL (0.0-0.7); EOSINOPHILS % (AUTO) 1.3 %; LYMPHOCYTES # (AUTO) 2.6 10^3/uL (1.5-3.5); LYMPHOCYTES % (AUTO) 16.3 %; MEAN CORPUSCULAR HEMOGLOBIN 30.3 pg (27.0-31.0); MEAN CORPUSCULAR HGB CONC 32.8 g/dL (32.0-36.0); MEAN CORPUSCULAR VOLUME 92.5 fL (81.0-99.0); MEAN PLATELET VOLUME 8.3 fL (7.9-10.8); MONOCYTES % (AUTO) 6.6 %; NEUTROPHILS # (AUTO) 11.8 10^3/uL (1.5-6.6); NEUTROPHILS % (AUTO) 75.3 %; PLT - PLATELET COUNT 285 10^3/uL (130-450); RED BLOOD COUNT 4.63 10^6/uL (4.20-5.40); RED CELL DISTRIBUTION WIDTH 14.8 % (12.0-15.0); WHITE BLOOD COUNT 15.7 x10^3/uL (4.8-10.8)
--- NOTE | 2018-09-24 17:38 | XRAY Report ---
Reason: Chest Pain Procedure Date: 09/24/2018 Accession Number: [id number] / [id number] Procedure: XR - Chest 1 View X-Ray CPT Code: 80728 FULL RESULT: EXAM: CHEST RADIOGRAPHY EXAM DATE: 09/24/2018 05:23 PM. CLINICAL HISTORY: Chest pain. COMPARISON: CHEST 1 VIEW 08/02/2018 5:06 AM. TECHNIQUE: 1 view. FINDINGS: Lungs/Pleura: No focal opacities evident. No pleural effusion. No pneumothorax. Mediastinum: Within exam limitations, the cardiomediastinal contour is normal. Other: None. IMPRESSION: Normal single view chest. RADIA
[2018-09-24 17:44] LABS: ALBUMIN 4.1 g/dL (3.2-5.5); ALBUMIN/GLOBULIN RATIO 1.1 (1.0-2.2); BILIRUBIN,TOTAL 0.4 mg/dL (0.2-1.0); CALCIUM 9.2 mg/dL (8.5-10.3); CREATININE 0.7 mg/dL (0.4-1.0); TOTAL PROTEIN 7.7 g/dL (6.7-8.2)
[2018-09-24 18:23] VITALS: BP 123/82
== END 2018-09-24 18:24 | disposition home or self-care (01) ==
LOC: ED 16:48
DX: R07.9 Chest pain, unspecified (principal); F17.200 Nicotine dependence, unspecified, uncomplicated
CPT/HCPCS: 36415; 71045; 80053; 83690; 84484; 85025; 93005; 99283; 99284

== ENCOUNTER 2018-09-28 23:15 | Outpatient (CLI) | payer MEDICAID | END 2018-09-28 23:16 | disposition critical access hospital (66) | LOC: EMS 23:15 | PROVIDERS: ATTEND Surgery | DX: R05 Cough (principal) | CPT/HCPCS: A0425; A0429 ==

== ENCOUNTER 2018-09-28 23:35 | Emergency (ER) | payer MEDICAID ==
[2018-09-28] MEDS ORDERED: ALBUTEROL NEB 2.5 MG/3 ML INH STA (23:41)
[2018-09-28] MEDS ORDERED: predniSONE 20 MG TABLET PO STA (23:42)
--- NOTE | 2018-09-28 23:45 | ED Physician Documentation ---
History of Present Illness - Stated complaint Stated Complaint: COUGH - Chief complaint Chief Complaint: Resp - History obtained from History obtained from: Patient - Additonal information Additional information: Patient is a 38-year-old female with with worsening shortness of breath and cough over the past 1 to 2 days. Patient reports that she uses her inhaler, nebulizers, and steroids at home without much improvement. Prior to the onset of her worsening dry cough, shortness of breath, and wheezing, she experienced a productive cough, subjective fever, chills, and sore throat. Patient also c omplains of tonsillar swelling and exudate. Patient reports previous episodes of pneumonia and asthma exacerbations that required hospitalization, although no previous intubations. Patient denies other improving or worsening factors to her symptoms. 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 HEENT: Other Psych: Anxiety, Obsessive compulsive disorder Musculoskeletal: Osteoarthritis, Other Derm: Other - Past Surgical History Past Surgical History: Yes General: Appendectomy Neuro: Other - Present Medications Home Medications: Ambulatory Orders Medication Instructions Recorded Confirmed RX: Albuterol 2.5 mg INH RTQ4H PRN #7 neb 03/30/18 09/28/18 RX: Acetaminophen [Tylenol] 650 mg PO Q4HR PRN tablet 07/09/18 09/28/18 RX: Albuterol Sulf [Ventolin Hfa 2 puffs INH Q4H PRN #2 inhaler 07/09/18 09/28/18 Inhaler] RX: Ipratropium/Albuterol [Duoneb] 3 ml INH Q4HR PRN #15 neb 07/09/18 07/19/18 predniSONE [Prednisone] 40 mg PO DAILY 07/19/18 09/28/18 RX: Azithromycin 500 mg PO DAILY #4 tablet 09/29/18 RX: Levofloxacin [Levaquin] 750 mg PO DAILY #4 tablet 09/29/18 RX: predniSONE [Prednisone] 60 mg PO DAILY 4 Days #12 tablet 09/29/18 - Allergies Allergies/Adverse Reactions: Allergies Allergy/AdvReac Type Severity Reaction Status Date / Time Penicillins Allergy Severe Edema Verified 09/28/18 23:37 aspirin Allergy Unknown Verified 09/28/18 23:37 bee venom protein (honey bee) Allergy Anaphylaxis Verified 09/28/18 23:37 coconut Allergy Hives Verified 09/28/18 23:37 milk Allergy Cramps Verified 09/28/18 23:37 onion AdvReac Hives Verified 09/28/18 23:37 - Social History Does the pt smoke?: Yes Smoking Status: Current every day smoker Does the pt drink ETOH?: No Does the pt have substance abuse?: No - Immunizations Immunizations are current?: Yes Immunizations: TDAP >10years/unknown - POLST Patient has POLST: No POLST Status: Full Code PD ED PE NORMAL - General General: Alert and oriented X 3, No acute distress, Well developed/nourished, Other (Speaking in full sentences, resting comfortably in bed, dry cough) - HEENT HEENT: Atraumatic, Moist mucous membranes. No: Pharynx benign (Marked swelling, erythema and exudates to tonsils bilaterally without INDI[place] NANNY, uvula deviation or uvulitis) - Cardiac Cardiac: RRR, No murmur - Respiratory Respiratory: No respiratory distress. No: Clear bilaterally (Good air movement thorughout but will occasional expiratory wheeze, most prominent on left) - Abdomen Abdomen: Normal bowel sounds, Soft, Non tender, Non distended - Derm Derm: Normal color, Warm and dry, No rash - Extremities Extremities: No deformity, No tenderness to palpate, No edema - Neuro Neuro: Alert and oriented X 3, No motor deficit, No sensory deficit - Psych Psych: Normal mood, Normal affect Results - Vitals Vitals: Vital Signs - 24 hr 09/28/18 09/29/18 09/29/18 23:38 00:03 00:58 Temperature 36.3 C L Heart Rate 107 H 88 96 Respiratory 18 22 16 Rate Blood Pressure 128/88 H 117/61 O2 Saturation 95 95 Oxygen O2 Source Room air - Labs Labs: Laboratory Tests 09/29/18 23:50 Group A Strep Rapid Negative PD MEDICAL DECISION MAKING - ED course Complexity details: reviewed results, re-evaluated patient, considered differential, d/w patient ED course: Most concerning for asthma exacerbation, pneumonia, viral illness, pharyngitis, tonsillitis given patient's reported symptoms and complaints, history, and physical exam findings. Patient saturating well on room air in no significant respiratory distress. No audible wheezing or stridor and patient speaking in full sentences.Started medications for asthma exacerbation including prednisone and albuterol nebulizers, which significant improved patient's symptoms. Also obtain chest x-ray which indicated likely pneumonia. Patient has had this issue in the past. Physical exam also revealed signs indicative of bacterial tonsillitis. Rapid strep test returned negative however, but given patient's complaints and clinical exam findings, feel appropriate to treat. Discussed with patient findings and recommendations including use of multiple antibiotics, particularly given patient's allergies. Discussed side effects and complications for multiple antibiotics provided first dose in the ED. Also discussed further treatment for asthma, as well as other supportive cares, return precautions, and appropriate follow-up. Otherwise, feel that patient is safe to discharge home. Patient voiced understanding and is comfortable with discharge plan. Departure - Departure Disposition: 01 Home, Self Care Clinical Impression: Acute asthma exacerbation, Pneumonia, Acute bacterial tonsillitis Condition: Good Instructions: ED Reactive Airway Disease, ED Pneumonia Adult, ED Tonsillitis Follow-Up: Sorin Banegas MD [Primary Care Provider] - Within 3 Days Prescriptions: RX: Azithromycin 500 mg PO DAILY #4 tablet RX: Levofloxacin [Levaquin] 750 mg PO DAILY #4 tablet RX: predniSONE [Prednisone] 60 mg PO DAILY 4 Days #12 tablet Comments: Please continue home medications as previously instructed. Please continue to use inhalers and nebulizers as prescribed, as well as steroids as instructed to help relieve asthma exacerbation. Please take antibiotics for both likely strep throat and pneumonia as instructed. Please be aware that these medications may have side effects, particularly when they are combined together. Recommend taking with food to avoid upset stomach. Please follow-up with primary care physician in the next 2 to 3 days and return to ED sooner if expands worsening symptoms or other concerns including difficulty breathing, cough, lightheadedness, chest pain, passing out, diarrhea, etc. Discharge Date/Time: 09/29/18 01:37
--- NOTE | 2018-09-29 00:55 | XRAY Report ---
Reason: cough Procedure Date: 09/29/2018 Accession Number: [id number] / [id number] Procedure: XR - Chest 2 View X-Ray CPT Code: 85225 FULL RESULT: EXAM: CHEST RADIOGRAPHY EXAM DATE: 09/29/2018 12:32 AM. CLINICAL HISTORY: Cough. COMPARISON: CHEST 1 VIEW 09/24/2018 5:10 PM. TECHNIQUE: 2 views. FINDINGS: Lungs/Pleura: Nodular interstitial thickening in the right upper lobe new since the previous exam. There is no confluent lung consolidation. No pleural effusion or pneumothorax. Mediastinum: Heart and mediastinal contours are unremarkable. Other: None. IMPRESSION: Subtle right upper lobe opacities suspicious for acute airspace disease. RADIA
[2018-09-29 00:59] VITALS: BP 117/61
[2018-09-29] MEDS ORDERED: levoFLOXacin 250 MG TABLET PO STA (01:11)
[2018-09-29] MEDS ORDERED: AZITHROMYCIN 250 MG TABLET PO STA (01:12)
== END 2018-09-29 01:37 | disposition home or self-care (01) ==
LOC: EDUNIT# → ED 23:35
DX: J45.901 Unspecified asthma with (acute) exacerbation (principal); J18.9 Pneumonia, unspecified organism; J03.80 Acute tonsillitis due to other specified organisms; B96.89 Other specified bacterial agents as the cause of diseases classified elsewhere; F17.200 Nicotine dependence, unspecified, uncomplicated
CPT/HCPCS: 71046; 87070; 87077; 87430; 94640; 99283; A9270; J7512

== ENCOUNTER 2018-10-08 08:48 | Outpatient (CLI) | payer MEDICAID ==
--- NOTE | 2018-10-08 13:41 | XRAY Report ---
Reason: PNEUMONIA,RIGHT UPPER LOBE Procedure Date: 10/08/2018 Accession Number: [id number] / [id number] Procedure: WCP - Chest 2 View X-Ray CPT Code: 50749 FULL RESULT: EXAM: CHEST RADIOGRAPHY EXAM DATE: 10/08/2018 08:58 AM. CLINICAL HISTORY: Pneumonia, right upper lobe. COMPARISON: CHEST 2 VIEW 09/28/2018 11:58 PM. TECHNIQUE: 2 views. FINDINGS: Lungs/Pleura: No focal opacities evident. No pleural effusion. No pneumothorax. Normal volumes. Mediastinum: Heart and mediastinal contours are unremarkable. Other: None. IMPRESSION: No radiographic right upper lobe pneumonia. RADIA
== END 2018-10-08 08:49 | disposition home or self-care (01) ==
LOC: DI.WCP 08:48
PROVIDERS: ATTEND Family Medicine
DX: J18.9 Pneumonia, unspecified organism (principal)
CPT/HCPCS: 71046

== ENCOUNTER 2018-10-15 20:42 | Emergency (ER) | payer MEDICAID ==
[2018-10-15 21:08] LABS: BILIRUBIN,URINE NEGATIVE (NEGATIVE); GLUCOSE, URINE (UA) >=1000 mg/dL (NEGATIVE); KETONES,URINE (UA) NEGATIVE (NEGATIVE); LEUKOCYTE ESTERASE, URINE NEGATIVE (NEGATIVE); NITRITE,URINE NEGATIVE (NEGATIVE); OCCULT BLOOD,URINE NEGATIVE (NEGATIVE); PH,URINE 7.5 PH (5.0-7.5); PROTEIN,URINE NEGATIVE (NEGATIVE); UROBILINOGEN,URINE 0.2 (NORMAL) E.U./dL (NORMAL)
[2018-10-15 21:10] LABS: CLARITY,URINE CLEAR (CLEAR); HCG UR QUAL NEGATIVE
[2018-10-15] MEDS ORDERED: ALBUTEROL NEB 2.5 MG/3 ML INH STA (21:26)
--- NOTE | 2018-10-15 21:31 | ED Physician Documentation ---
PD HPI DYSPNEA - Stated complaint Stated Complaint: TIGHT CHEST/SOA - Chief complaint Chief Complaint: Resp - History obtained from History obtained from: Patient - History of Present Illness Timing - onset: Yesterday (38-year-old woman with history of asthma presents sick since yesterday with nasal congestion, cough and chest tightness. She feels like something stuck in her lungs. She had some trouble with her nebulizer and replaced it and took a DuoNeb at home with partial relief and also started prednisone at 20 mg p.o. 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 HEENT: Other Psych: Anxiety, Obsessive compulsive disorder Musculoskeletal: Osteoarthritis, Other Derm: Other - Past Surgical History Past Surgical History: Yes General: Appendectomy Neuro: Other - Present Medications Home Medications: Ambulatory Orders Medication Instructions Recorded Confirmed Albuterol 2.5 mg INH RTQ4H PRN #7 neb 03/30/18 09/28/18 Acetaminophen [Tylenol] 650 mg PO Q4HR PRN tablet 07/09/18 09/28/18 Albuterol Sulf [Ventolin Hfa 2 puffs INH Q4H PRN #2 inhaler 07/09/18 09/28/18 Inhaler] Ipratropium/Albuterol [Duoneb] 3 ml INH Q4HR PRN #15 neb 07/09/18 07/19/18 predniSONE [Prednisone] 40 mg PO DAILY 07/19/18 09/28/18 Azithromycin 500 mg PO DAILY #4 tablet 09/29/18 Levofloxacin [Levaquin] 750 mg PO DAILY #4 tablet 09/29/18 predniSONE [Prednisone] 60 mg PO DAILY 4 Days #12 tablet 09/29/18 Albuterol 2.5 mg INH Q4H PRN #30 neb 10/15/18 Benzonatate [Tessalon Perle] 100 - 200 mg PO TID PRN #30 capsule 10/15/18 predniSONE [Deltasone] 20 mg PO [id number] #21 tab 10/15/18 - Allergies Allergies/Adverse Reactions: Allergies Allergy/AdvReac Type Severity Reaction Status Date / Time Penicillins Allergy Severe Edema Verified 09/28/18 23:37 aspirin Allergy Unknown Verified 09/28/18 23:37 bee venom protein (honey bee) Allergy Anaphylaxis Verified 09/28/18 23:37 coconut Allergy Hives Verified 09/28/18 23:37 milk Allergy Cramps Verified 09/28/18 23:37 onion AdvReac Hives Verified 09/28/18 23:37 - Social History Does the pt smoke?: No Smoking Status: Former smoker Does the pt drink ETOH?: No ETOH Use: Liquor Does the pt have substance abuse?: No - Immunizations Immunizations are current?: Yes Immunizations: TDAP >10years/unknown - POLST Patient has POLST: No POLST Status: Full Code PD ED PE NORMAL - Vitals Vital signs reviewed: Yes - General General: Alert and oriented X 3, No acute distress - HEENT HEENT: Pharynx benign - Cardiac Cardiac: RRR, No murmur - Respiratory Respiratory: No respiratory distress, Other (Wheezy and tight throughout with medium air motion) - Abdomen Abdomen: Non tender - Extremities Extremities: No edema, No calf tenderness / cord - Neuro Neuro: Alert and oriented X 3, Normal speech Results - Vitals Vitals: Vital Signs - 24 hr 10/15/18 10/15/18 10/15/18 20:44 21:05 21:40 Temperature 36.4 C L Heart Rate 118 H 112 H 103 H Respiratory 22 23 16 Rate Blood Pressure 148/88 H 155/86 H O2 Saturation 95 95 Oxygen O2 Source Room air - Labs Labs: Laboratory Tests 10/15/18 20:50 Urine Color YELLOW Urine Clarity CLEAR Urine pH 7.5 Ur Specific [place] 1.010 Urine Protein NEGATIVE Urine Glucose (UA) >=1000 H Urine Ketones NEGATIVE Urine Occult Blood NEGATIVE Urine Nitrite NEGATIVE Urine Bilirubin NEGATIVE Urine Urobilinogen 0.2 (NORMAL) Ur Leukocyte Esterase NEGATIVE Ur Microscopic Review NOT INDICATED Urine Culture Comments NOT INDICATED Urine HCG, Qual NEGATIVE - Rads (name of study) 2v chest Radiology: EMP read contemporaneously (NAD) Departure - Departure Disposition: 01 Home, Self Care Clinical Impression: Asthma exacerbation Qualifiers: Asthma severity: moderate Asthma persistence: persistent Qualified Code(s): J45.41 - Moderate persistent asthma with (acute) exacerbation Condition: Good Record reviewed to determine appropriate education?: Yes Instructions: Asthma Dc Prescriptions: Albuterol 2.5 mg INH Q4H PRN #30 neb PRN Reason: Wheezing Benzonatate [Tessalon Perle] 100 - 200 mg PO TID PRN #30 capsule PRN Reason: Cough predniSONE [Deltasone] 20 mg PO [id number] #21 tab Comments: Call your doctor to arrange a follow-up appointment, make the next available appointment. In the interim, return anytime if worse or if new symptoms develop. Your blood pressure was elevated today on check into the emergency department. This does not mean that you have hypertension, it is a common phenomenon to come to the emergency department and have elevated blood pressure. I recommend that you see your primary care physician within the week to have it rechecked when you are feeling better.
--- NOTE | 2018-10-15 21:54 | XRAY Report ---
Reason: dyspnea Procedure Date: 10/15/2018 Accession Number: [id number] / [id number] Procedure: XR - Chest 2 View X-Ray CPT Code: 03451 FULL RESULT: EXAM: CHEST RADIOGRAPHY EXAM DATE: 10/15/2018 09:38 PM. CLINICAL HISTORY: Dyspnea. COMPARISON: CHEST 2 VIEW 10/08/2018 8:43 AM. TECHNIQUE: 2 views. FINDINGS: Lungs/Pleura: No focal opacities evident. No pleural effusion. No pneumothorax. Normal volumes. Mediastinum: Heart and mediastinal contours are normal. Other: None. IMPRESSION: No acute cardiopulmonary abnormality. RADIA
[2018-10-15] MEDS ORDERED: predniSONE 20 MG TABLET PO STA (21:56)
[2018-10-15 21:59] VITALS: BP 142/127
== END 2018-10-15 22:09 | disposition home or self-care (01) ==
LOC: ED 20:42
DX: J45.41 Moderate persistent asthma with (acute) exacerbation (principal); Z87.891 Personal history of nicotine dependence; R03.0 Elevated blood-pressure reading, without diagnosis of hypertension
CPT/HCPCS: 71046; 81003; 81025; 94640; 99283; J7512; 81001; 87086

== ENCOUNTER 2018-12-12 23:42 | Emergency (ER) | payer MEDICAID ==
--- NOTE | 2018-12-13 | ED Physician Documentation ---
PD HPI HEENT - Stated complaint Stated Complaint: WHITE SPOTS/MOUTH - Chief complaint Chief Complaint: Heent - History obtained from History obtained from: Patient - History of Present Illness Timing - onset: Today Timing - duration: Days (1) Timing - details: Gradual onset Pain level now: 7 Location: Right ear, Throat Improves: Nothing Worsens: Swalllowing Associated symptoms: No: Fever, Congestion, Rhinorrhea, Unable to swallow, Swollen nodes, Facial swelling, Cough Similar symptoms before: Diagnosis (Had strep about 3 months ago) Recently seen: Not recently seen - Additional information Additional information: Is a 38-year-old woman who presents with complaints that she woke up this morning with a froggy voice and went to work. By the time she got home she noticed white pockets on her right tonsil. She took 800 mg of ibuprofen around 5 PM but the pain is just getting progressively more severe now radiating into the right ear whenever she swallows. She was treated for strep about 3 months ago had a negative rapid strep but positive culture. Denies fever but she felt warm at work today. No stuffy nose. 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 HEENT: Other Psych: Anxiety, Obsessive compulsive disorder Musculoskeletal: Osteoarthritis, Other Derm: Other - Past Surgical History Past Surgical History: Yes General: Appendectomy Neuro: Other - Present Medications Home Medications: Ambulatory Orders Medication Instructions Recorded Confirmed Albuterol 2.5 mg INH RTQ4H PRN #7 neb 03/30/18 09/28/18 Acetaminophen [Tylenol] 650 mg PO Q4HR PRN tablet 07/09/18 09/28/18 Albuterol Sulf [Ventolin Hfa 2 puffs INH Q4H PRN #2 inhaler 07/09/18 09/28/18 Inhaler] Ipratropium/Albuterol [Duoneb] 3 ml INH Q4HR PRN #15 neb 07/09/18 07/19/18 predniSONE [Prednisone] 40 mg PO DAILY 07/19/18 09/28/18 Azithromycin 500 mg PO DAILY #4 tablet 09/29/18 Levofloxacin [Levaquin] 750 mg PO DAILY #4 tablet 09/29/18 predniSONE [Prednisone] 60 mg PO DAILY 4 Days #12 tablet 09/29/18 Albuterol 2.5 mg INH Q4H PRN #30 neb 10/15/18 Benzonatate [Tessalon Perle] 100 - 200 mg PO TID PRN #30 capsule 10/15/18 predniSONE [Deltasone] 20 mg PO [id number] #21 tab 10/15/18 Azithromycin [Zithromax] 0 mg PO DAILY #6 tablet 12/13/18 - Allergies Allergies/Adverse Reactions: Allergies Allergy/AdvReac Type Severity Reaction Status Date / Time Penicillins Allergy Severe Edema Verified 12/12/18 23:49 aspirin Allergy Unknown Verified 12/12/18 23:49 bee venom protein (honey bee) Allergy Anaphylaxis Verified 12/12/18 23:49 coconut Allergy Hives Verified 12/12/18 23:49 milk Allergy Cramps Verified 12/12/18 23:49 onion AdvReac Hives Verified 12/12/18 23:49 - Social History Does the pt smoke?: No Smoking Status: Never smoker Does the pt drink ETOH?: No Does the pt have substance abuse?: No - Immunizations Immunizations are current?: Yes Immunizations: TDAP >10years/unknown - POLST Patient has POLST: No POLST Status: Full Code PD ED PE NORMAL - Vitals Vital signs reviewed: Yes - General General: Alert and oriented X 3, No acute distress, Well developed/nourished - HEENT HEENT: Atraumatic, PERRL, Moist mucous membranes - Derm Derm: Normal color - Neuro Neuro: Alert and oriented X 3, No motor deficit, No sensory deficit, Normal speech - Psych Psych: Normal mood, Normal affect PD ED PE EXPANDED - HEENT HEENT: Ears normal, Moist mucous membranes, Pharyngeal erythema, Swollen tonsils, Tonsillar exudate. No: Rhinorrhea, Soft palate petecchiae - Neck Neck: No: Adenopathy Results - Vitals Vitals: Vital Signs - 24 hr 12/12/18 23:46 Temperature 36.1 C L Heart Rate 107 H Respiratory 18 Rate Blood Pressure 127/87 H O2 Saturation 94 Oxygen O2 Source Room air - Labs Labs: Laboratory Tests 12/12/18 23:50 Group A Strep Rapid Negative PD MEDICAL DECISION MAKING - ED course Complexity details: reviewed results, d/w patient ED course: Rapid strep screen is negative. Cultures pending. Given the appearance of her throat and recent negative strep but positive culture and a cover her with a Z- [place] due to pen allergy. Departure - Departure Disposition: 01 Home, Self Care Clinical Impression: Tonsillitis with exudate Instructions: ED Pharyngitis Viral Report Pending Follow-Up: Sorin Banegas MD [Primary Care Provider] - Prescriptions: RX: Azithromycin [Zithromax] 0 mg PO DAILY #6 tablet Comments: Take the Zithromax as prescribed. Culture is pending. Salt water gargles and ibuprofen [id number] can help alleviate the pain. Follow-up with your primary care provider if symptoms persist.
[2018-12-13] MEDS ORDERED: AZITHROMYCIN 250 MG TABLET PO STA (00:52)
[2018-12-13 01:06] VITALS: BP 128/85
== END 2018-12-13 01:06 | disposition home or self-care (01) ==
LOC: ED 23:42
DX: J03.90 Acute tonsillitis, unspecified (principal); Z88.0 Allergy status to penicillin
CPT/HCPCS: 87070; 87430; 99283; 99284; A9270

== ENCOUNTER 2019-03-01 19:49 | Emergency (ER) | payer MEDICAID ==
--- NOTE | 2019-03-01 21:39 | XRAY Report ---
Reason: cough Procedure Date: 03/01/2019 Accession Number: [id number] / [id number] Procedure: XR - Chest 2 View X-Ray CPT Code: 06388 FULL RESULT: EXAM: CHEST RADIOGRAPHY EXAM DATE: 03/01/2019 09:21 PM. CLINICAL HISTORY: Cough. COMPARISON: CHEST 2 VIEW 10/15/2018 9:31 PM. TECHNIQUE: 2 views. FINDINGS: Lungs/Pleura: No focal opacities evident. No pleural effusion. No pneumothorax. Decreased volumes. Mediastinum: Heart and mediastinal contours are unremarkable. Other: None. IMPRESSION: Slightly low lung volumes otherwise no acute disease. RADIA
[2019-03-01] MEDS ORDERED: IPRATROPIUM/ALBUTEROL 3 ML NEB INH STA (21:44)
[2019-03-01 22:05] VITALS: BP 120/72
[2019-03-01] MEDS ORDERED: DEXAMETHASONE 10 MG/ML VIAL PO STA (22:11)
[2019-03-01] MEDS ORDERED: CHERRY SYRUP 10 ML UDC PO ONE (22:11)
--- NOTE | 2019-03-01 22:15 | ED Physician Documentation ---
History of Present Illness - Stated complaint Stated Complaint: CHEST TIGHTNESS - Chief complaint Chief Complaint: Resp - History obtained from History obtained from: Patient - History of Present Illness Timing: Today Pain level max: 0 Pain level now: 0 - Additonal information Additional information: Patient with a dry cough since this morning. Difficulty breathing in and out. Does not have the mechanical tube for her nebulizer machine. Took her albuterol without relief. Having wheezing. Concerned that she has pneumonia. No fevers. Positive rhinorrhea and congestion. She is not , breast-feeding or trying to become . 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 HEENT: Other Psych: Anxiety, Obsessive compulsive disorder Musculoskeletal: Osteoarthritis, Other Derm: Other - Past Surgical History Past Surgical History: Yes General: Appendectomy Neuro: Other - Present Medications Home Medications: Ambulatory Orders Medication Instructions Recorded Confirmed Albuterol Sulf [Ventolin Hfa 2 puffs INH Q4H PRN #2 inhaler 07/09/18 03/01/19 Inhaler] Ipratropium/Albuterol [Duoneb] 3 ml INH Q4HR PRN #15 neb 07/09/18 03/01/19 Acetaminophen 2 tab PO Q6HR PRN 03/01/19 03/01/19 Ibuprofen [Motrin] 800 mg PO TID PRN 03/01/19 03/01/19 Trazodone HCl 50 mg PO QPM 03/01/19 03/01/19 predniSONE [Deltasone] 10 mg PO [id number] #42 tab 03/01/19 - Allergies Allergies/Adverse Reactions: Allergies Allergy/AdvReac Type Severity Reaction Status Date / Time Penicillins Allergy Severe Edema Verified 03/01/19 21:36 aspirin Allergy Unknown Verified 03/01/19 21:36 bee venom protein (honey bee) Allergy Anaphylaxis Verified 09/30/19 21:36 coconut Allergy Hives Verified 03/01/19 21:36 milk Allergy Cramps Verified 03/01/19 21:36 onion AdvReac Hives Verified 03/01/19 21:36 - Social History Does the pt smoke?: No Smoking Status: Never smoker Does the pt drink ETOH?: No Does the pt have substance abuse?: No - Immunizations Immunizations are current?: Yes Immunizations: TDAP >10years/unknown - POLST Patient has POLST: No POLST Status: Full Code PD ED PE NORMAL - Vitals Vital signs reviewed: Yes - General General: Alert and oriented X 3, No acute distress, Well developed/nourished - HEENT HEENT: PERRL, Ears normal, Moist mucous membranes, Pharynx benign - Neck Neck: Supple, no meningeal sign, No adenopathy - Cardiac Cardiac: RRR - Respiratory Respiratory: No respiratory distress, Other (wheezing B) - Abdomen Abdomen: Soft, Non tender, Non distended - Derm Derm: Warm and dry, No rash - Extremities Extremities: No calf tenderness / cord - Neuro Neuro: Alert and oriented X 3 - Psych Psych: Normal mood, Normal affect Results - Vitals Vitals: Oxygen O2 Source Room air - EKG (time done) 1953 Rate: Rate (enter#) (91) Rhythm: NSR [place]: Normal Intervals: Normal MT QRS: Normal Ischemia: Normal ST segments - Rads (name of study) cxr Radiology: Prelim report reviewed, EMP read contemporaneously, See rad report (no acute disease) PD MEDICAL DECISION MAKING - ED course Complexity details: reviewed results, re-evaluated patient, considered differential, d/w patient ED course: Patient with an asthma exacerbation. No pneumonia. Will place on a steroid taper. Feels better after nebulizer treatment. Has albuterol at home. No respiratory distress. No hypoxia. Patient counseled regarding signs and symptoms for which I believe and urgent re-evaluation would be necessary. Patient with good understanding of and agreement to plan and is comfortable going home at this time This document was made in part using voice recognition software. While efforts are made to proofread this document, sound alike and grammatical errors may occur. Departure - Departure Disposition: 01 Home, Self Care Clinical Impression: Asthma Qualifiers: Asthma severity: unspecified severity Asthma persistence: unspecified Asthma complication type: with acute exacerbation Qualified Code(s): J45.901 - Unspecified asthma with (acute) exacerbation Condition: Good Instructions: ED Reactive Airway Disease Follow-Up: Sorin Banegas MD [Primary Care Provider] - Within 1 week Prescriptions: predniSONE [Deltasone] 10 mg PO [id number] #42 tab Comments: Return if you worsen. Use the medications as prescribed. continue your inhalers and nebulizers at home Discharge Date/Time: 03/01/19 22:24
== END 2019-03-01 22:24 | disposition home or self-care (01) ==
LOC: ED 19:49
DX: J45.901 Unspecified asthma with (acute) exacerbation (principal)
CPT/HCPCS: 71046; 93005; 94640; 99284; A9270

== ENCOUNTER 2019-03-16 05:33 | Emergency (ER) | payer MEDICAID ==
[2019-03-16] MEDS ORDERED: ALBUTEROL NEB 2.5 MG/3 ML INH STA (06:07)
[2019-03-16] MEDS ORDERED: ONDANSETRON 4 MG/2 ML VIAL IVP STA (06:07)
[2019-03-16] MEDS ORDERED: KETOROLAC 15 MG/ML VIAL IVP STA (06:07)
[2019-03-16] MEDS ORDERED: HYDROmorphone 1 MG/ML CARPUJECT IVP STA ×2 (06:07→07:33)
[2019-03-16] MEDS ORDERED: cefTRIAXone 1 GM VIAL IVP STA (06:09)
[2019-03-16 06:37] LABS: BASOPHILS % (AUTO) 0.5 %; EOSINOPHILS % (AUTO) 0.4 %; HGB - HEMOGLOBIN 15.1 g/dL (12.0-16.0); MEAN CORPUSCULAR HEMOGLOBIN 30.2 pg (27.0-31.0); MEAN CORPUSCULAR HGB CONC 32.3 g/dL (32.0-36.0); MEAN CORPUSCULAR VOLUME 93.4 fL (81.0-99.0); MEAN PLATELET VOLUME 10.4 fL (7.9-10.8); MONOCYTES % (AUTO) 5.7 %; PLT - PLATELET COUNT 280 10^3/uL (130-450); RED CELL DISTRIBUTION WIDTH 14.6 % (12.0-15.0); WHITE BLOOD COUNT 29.6 x10^3/uL (4.8-10.8)
[2019-03-16 06:45] LABS: ABNORMAL LYMPHS % (MANUAL) 0 %; BAND NEUTROPHILS % (MANUAL) 0 %
[2019-03-16 06:56] LABS: DIFFERENTIAL COMMENT MANUAL DIFFERENTIAL; LYMPHOCYTES # (MANUAL) 3.3 10^3/uL (1.5-3.5); LYMPHOCYTES % (MANUAL) 11 %; PLATELET ESTIMATE, MANUAL NORMAL (130-450,000) (NORMAL); PLATELET MORPHOLOGY NORMAL APPEARANCE (NORMAL); RBC MORPHOLOGY (MULTIPLE) NORMAL APPEARANCE (NORMAL)
--- NOTE | 2019-03-16 07:00 | XRAY Report ---
Reason: dyspnea/ cough; right thoracic back pain Procedure Date: 03/16/2019 Accession Number: [id number] / [id number] Procedure: XR - Chest 2 View X-Ray CPT Code: 91449 FULL RESULT: EXAM: CHEST RADIOGRAPHY EXAM DATE: 03/16/2019 06:40 AM. CLINICAL HISTORY: Dyspnea/ cough; right thoracic back pain. COMPARISON: CHEST 2 VIEW 03/01/2019 9:15 PM CHEST ANGIO 08/06/2016 9:45 PM. TECHNIQUE: 2 views. FINDINGS: Lungs/Pleura: Mildly low volumes. No definite pneumonia or edema. No gross pneumothorax or large effusion. Mediastinum: Within exam limitations, cardiomediastinal contour is normal. Other: None. IMPRESSION: Mildly hypoventilatory chest without definite acute process. RADIA
[2019-03-16 07:39] VITALS: BP 105/73
[2019-03-16 07:42] LABS: BILIRUBIN,URINE NEGATIVE (NEGATIVE); GLUCOSE, URINE (UA) NEGATIVE (NEGATIVE); KETONES,URINE (UA) NEGATIVE (NEGATIVE); LEUKOCYTE ESTERASE, URINE NEGATIVE (NEGATIVE); NITRITE,URINE NEGATIVE (NEGATIVE); OCCULT BLOOD,URINE NEGATIVE (NEGATIVE); PH,URINE 6.5 PH (5.0-7.5); PROTEIN,URINE NEGATIVE (NEGATIVE); UROBILINOGEN,URINE 0.2 (NORMAL) E.U./dL (NORMAL)
[2019-03-16 07:44] LABS: CLARITY,URINE CLEAR (CLEAR)
[2019-03-16 07:51] LABS: ALBUMIN 3.6 g/dL (3.2-5.5); BILIRUBIN,TOTAL 0.8 mg/dL (0.2-1.0); CREATININE 0.9 mg/dL (0.4-1.0); TOTAL PROTEIN 7.3 g/dL (6.7-8.2)
--- NOTE | 2019-03-16 08:00 | ED Physician Documentation ---
PD HPI CHEST PAIN - Stated complaint Stated Complaint: BACK PX/COUGHING - Chief complaint Chief Complaint: Back Pain - History obtained from History obtained from: Patient - History of Present Illness Timing - onset: How many weeks ago (She has had some cough and congestion for the last couple weeks associated with some wheezing. Presumed viral and she was treated with a course of prednisone and her usual albuterol. She states she has continued with the coughing and some wheezing though it had improved. She is feeling some sore throat now for a couple of days. Getting up this morning she had an onset of a pain in the right lower back thoracic area at the lower ribs associated with movement and deep breathing. It hurt a lot for coughing as well. She had been some sore there yesterday but considerable pain today.) Timing - onset during: Light activity Timing - duration: Hours (The right posterior lower thoracic pain started just overnight and to this morning. Her cough and wheezing has been for a couple of weeks.) Timing - details: Gradual onset, Still present Quality: Aching, Sharp, Pain Location: Upper back (right lower thoracic area, worse with breathing, cough, and movement to right.) Radiation: No: Jaw, Neck, Abdominal Improved by: Rest Worsened by: Inspiration, Movement Associated symptoms: Shortness of air, Cough. No: Nausea, Feeling faint / di zzy, General Weakness Similar symptoms before: Has not had sx before Recently seen: Emergency Dept Review of Systems Constitutional: reports: Myalgias. 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 HEENT: Other Psych: Anxiety, Obsessive compulsive disorder Musculoskeletal: Osteoarthritis, Other Derm: Other - Past Surgical History Past Surgical History: Yes General: Appendectomy Neuro: Other - Present Medications Home Medications: Ambulatory Orders Medication Instructions Recorded Confirmed Albuterol Sulf [Ventolin Hfa 2 puffs INH Q4H PRN #2 inhaler 07/09/18 03/01/19 Inhaler] Ipratropium/Albuterol [Duoneb] 3 ml INH Q4HR PRN #15 neb 07/09/18 03/01/19 Acetaminophen 2 tab PO Q6HR PRN 03/01/19 03/01/19 Ibuprofen [Motrin] 800 mg PO TID PRN 03/01/19 03/01/19 Trazodone HCl 50 mg PO QPM 03/01/19 03/01/19 predniSONE [Deltasone] 10 mg PO [id number] #42 tab 03/01/19 Azithromycin [Zithromax] 0 mg PO DAILY #6 tablet 03/16/19 Hydrocodone/Acetaminophen [[place] 1 each PO Q6H PRN #20 tablet 03/16/19 5-325 Tablet] Naproxen 375 mg PO BID #20 tablet 03/16/19 dexAMETHasone [Decadron] 4 mg PO DAILY #5 tablet 03/16/19 - Allergies Allergies/Adverse Reactions: Allergies Allergy/AdvReac Type Severity Reaction Status Date / Time Penicillins Allergy Severe Edema Verified 03/16/19 05:42 aspirin Allergy Unknown Verified 03/16/19 05:42 bee venom protein (honey bee) Allergy Anaphylaxis Verified 03/16/19 05:42 coconut Allergy Hives Verified 03/16/19 05:42 milk Allergy Cramps Verified 03/16/19 05:42 onion AdvReac Hives Verified 03/16/19 05:42 - Social History Does the pt smoke?: No Smoking Status: Never smoker Does the pt drink ETOH?: No Does the pt have substance abuse?: No - Immunizations Immunizations are current?: Yes Immunizations: TDAP >10years/unknown - POLST Patient has POLST: No POLST Status: Full Code PD ED PE NORMAL - Vitals Vital signs reviewed: Yes - General General: Alert and oriented X 3, Well developed/nourished, Other (She is markedly uncomfortable and in distress and seems anxious related to the pain with breathing and moving. She is localizing it to the right lower ribs in the back.) - HEENT HEENT: Pharynx benign - Neck Neck: Supple, no meningeal sign, No adenopathy - Cardiac Cardiac: RRR, No murmur - Respiratory Respiratory: No: Clear bilaterally (Diffuse moderate wheezing. There is no coarse sounds. She does have tenderness to palpation in the right lower ribs and muscle area and the mid scapular line. There is no obvious deformity nor crepitance. Upper lumbar area is not tender itself. She has no abdominal tenderness.) - Abdomen Abdomen: Soft, Non tender - Derm Derm: Normal color, Warm and dry - Neuro Neuro: Alert and oriented X 3, No motor deficit, Normal speech Results - Vitals Vitals: Vital Signs - 24 hr 03/16/19 03/16/19 03/16/19 05:40 06:31 06:37 Temperature 37.3 C Heart Rate 135 H 109 H 111 H Respiratory 16 15 28 H Rate Blood Pressure 143/97 H 117/81 H O2 Saturation 96 95 03/16/19 07:37 Temperature 36.4 C L Heart Rate 103 H Respiratory 18 Rate Blood Pressure 105/73 O2 Saturation 94 Oxygen O2 Source Room air Oxygen Flow Rate 2 - Labs Labs: Laboratory Tests 03/16/19 03/16/19 03/16/19 06:16 06:27 07:26 WBC 29.6 H RBC 5.00 Hgb 15.1 Hct 46.7 MCV 93.4 MCH 30.2 MCHC 32.3 RDW 14.6 Plt Count 280 MPV 10.4 Neut # (Auto) Not Reportable Lymph # (Auto) Not Reportable [place] # (Auto) Not Reportable Eos # (Auto) Not Reportable Baso # (Auto) Not Reportable Absolute Nucleated RBC Not Reportable Total Counted 100 Band Neuts % (Manual) 0 Abnorm Lymph % (Manual) 0 Nucleated RBC % Not Reportable Neutrophils # (Manual) 26.3 H Lymphocytes # (Manual) 3.3 Monocytes # (Manual) 0.0 Eosinophils # (Manual) 0.0 Basophils # (Manual) 0.0 Differential Comment MANUAL DIFFERENTIAL WBC Morphology NORMAL APPEARANCE Platelet Estimate NORMAL (130-450,000) Platelet Morphology NORMAL APPEARANCE RBC Morph Micro Appear NORMAL APPEARANCE Sodium Potassium Chloride Carbon Dioxide Anion Gap BUN Creatinine Estimated GFR (MDRD) Glucose Calcium Total Bilirubin AST ALT Alkaline Phosphatase Total Protein Albumin Globulin Albumin/Globulin Ratio Lipase Urine Color YELLOW Urine Clarity CLEAR Urine pH 6.5 Ur Specific [place] 1.015 Urine Protein NEGATIVE Urine Glucose (UA) NEGATIVE Urine Ketones NEGATIVE Urine Occult Blood NEGATIVE Urine Nitrite NEGATIVE Urine Bilirubin NEGATIVE Urine Urobilinogen 0.2 (NORMAL) Ur Leukocyte Esterase NEGATIVE Ur Microscopic Review NOT INDICATED Urine Culture Comments NOT INDICATED Group A Strep Rapid Negative 03/16/19 07:29 WBC RBC Hgb Hct MCV MCH MCHC RDW Plt Count MPV Neut # (Auto) Lymph # (Auto) [place] # (Auto) Eos # (Auto) Baso # (Auto) Absolute Nucleated RBC Total Counted Band Neuts % (Manual) Abnorm Lymph % (Manual) Nucleated RBC % Neutrophils # (Manual) Lymphocytes # (Manual) Monocytes # (Manual) Eosinophils # (Manual) Basophils # (Manual) Differential Comment WBC Morphology Platelet Estimate Platelet Morphology RBC Morph Micro Appear Sodium 138 Potassium 4.0 Chloride 100 L Carbon Dioxide 27 Anion Gap 11.0 BUN 12 Creatinine 0.9 Estimated GFR (MDRD) 69 L Glucose 196 H Calcium 9.0 Total Bilirubin 0.8 AST 28 ALT 26 Alkaline Phosphatase 85 Total Protein 7.3 Albumin 3.6 Globulin 3.7 Albumin/Globulin Ratio 1.0 Lipase 25 Urine Color Urine Clarity Urine pH Ur Specific [place] Urine Protein Urine Glucose (UA) Urine Ketones Urine Occult Blood Urine Nitrite Urine Bilirubin Urine Urobilinogen Ur Leukocyte Esterase Ur Microscopic Review Urine Culture Comments Group A Strep Rapid - Rads (name of study) chest xray Radiology: Prelim report reviewed (No acute abnormalities.), EMP read contemporaneously, See rad report PD MEDICAL DECISION MAKING - ED course Complexity details: reviewed results, re-evaluated patient (She is feeling much better after some anterior inflammatories and pain medicine. She is able to breathe relaxed lately. She had been given a nebulizer for her breathing as well which has improved. Chest x-ray is without any signs of infiltrate or other acute abnormality. Her urine looks normal with any signs of bladder infection. She is feeling improved enough for discharge. She states she has difficulty with capsule medications and liquids. She prefers tablets so she can cut them in pieces. She is allergic to penicillins. As such a will opt for Z ithromax in order to fit the criteria and still appropriate coverage for possible pneumonia and also tonsillitis.), considered differential (She does have a very visible exudative tonsillitis with swelling. I presume this is more likely secondary infection as she had had upper respiratory infection and cough with some wheezing for the last couple of weeks. She is now having pleuritic pain in the right. Will check a chest x-ray to evaluate for pneumonia. She has a low Wells score so no concern for PE. There is no history of heart disease.), d/w patient Departure - Departure Disposition: 01 Home, Self Care Clinical Impression: Exudative tonsillitis, Pleuritic pain Upper respiratory infection Qualifiers: URI type: unspecified URI Qualified Code(s): J06.9 - Acute upper respiratory infection, unspecified Exacerbation of asthma Qualifiers: Asthma severity: moderate Asthma persistence: unspecified Qualified Code(s): J45.901 - Unspecified asthma with (acute) exacerbation Condition: Stable Record reviewed to determine appropriate education?: Yes Instructions: ED Tonsillitis, ED Chest Pain Pleurisy Follow-Up: Sorin Banegas MD [Primary Care Provider] - Prescriptions: Azithromycin [Zithromax] 0 mg PO DAILY #6 tablet dexAMETHasone [Decadron] 4 mg PO DAILY #5 tablet Hydrocodone/Acetaminophen [[place] 5-325 Tablet] 1 each PO Q6H PRN #20 tablet PRN Reason: Pain Naproxen 375 mg PO BID #20 tablet Comments: Your tonsils do appear infected, likely bacterial. The pain in your back sounds like pleurisy or muscular pain, related to the coughing and trouble breathing. Your chest x-ray does not show any pneumonia. Your urine looks clear without any signs of infection or blood to suggest kidney problem. Continue your nebulizer or inhalers 4 times a day for the next week or so and added times if needed. Will prescribe Zithromax for the infection to cover lung as well. Decadron steroid daily for 5 days. Add naproxen twice daily for the next week with food for pain and inflammation as well. To it add hydrocodone every 4 hours if needed for pain. Recheck if not improving well over the next several days and return sooner if worsening.
== END 2019-03-16 08:12 | disposition home or self-care (01) ==
LOC: ED 05:33
DX: J45.901 Unspecified asthma with (acute) exacerbation (principal); J03.90 Acute tonsillitis, unspecified; J06.9 Acute upper respiratory infection, unspecified; R07.81 Pleurodynia; Z88.0 Allergy status to penicillin
CPT/HCPCS: 36415; 71046; 80053; 81003; 83690; 85025; 87070; 87430; 94640; 96374; 96375; 99284; 99285; J1170; 81001; 87086

== ENCOUNTER 2019-05-02 16:43 | Emergency (ER) | payer MEDICAID ==
[2019-05-02 16:53] VITALS: BP 133/96
--- NOTE | 2019-05-02 17:12 | ED Physician Documentation ---
History of Present Illness - Stated complaint Stated Complaint: HEAD INJURY - Chief complaint Chief Complaint: Trauma Hd/Nk - Additonal information Additional information: This is a 38-year-old female who presents with headache and vomiting after head trauma. Patient was reaching for a very heavy plate from a cabinet and it fell onto the left top of her head from a few feet above her head. She has a headache, but did not lose consciousness, she remembers the entire event. She states that she did have multiple episodes of vomiting since then and she cannot keep anything down. She denies any weakness or numbness. She is not on any b lood thinners. 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 HEENT: Other Psych: Anxiety, Obsessive compulsive disorder Musculoskeletal: Osteoarthritis, Other Derm: Other - Past Surgical History Past Surgical History: Yes General: Appendectomy Neuro: Other - Present Medications Home Medications: Ambulatory Orders Medication Instructions Recorded Confirmed Albuterol Sulf [Ventolin Hfa 2 puffs INH Q4H PRN #2 inhaler 07/09/18 03/01/19 Inhaler] Ipratropium/Albuterol [Duoneb] 3 ml INH Q4HR PRN #15 neb 07/09/18 03/01/19 Acetaminophen 2 tab PO Q6HR PRN 03/01/19 03/01/19 Ibuprofen [Motrin] 800 mg PO TID PRN 03/01/19 03/01/19 Trazodone HCl 50 mg PO QPM 03/01/19 03/01/19 predniSONE [Deltasone] 10 mg PO [id number] #42 tab 03/01/19 Azithromycin [Zithromax] 0 mg PO DAILY #6 tablet 03/16/19 Hydrocodone/Acetaminophen [[place] 1 each PO Q6H PRN #20 tablet 03/16/19 5-325 Tablet] Naproxen 375 mg PO BID #20 tablet 03/16/19 dexAMETHasone [Decadron] 4 mg PO DAILY #5 tablet 03/16/19 Ondansetron Odt [Zofran] 4 mg TL Q6H PRN #7 tablet 05/02/19 - Allergies Allergies/Adverse Reactions: Allergies Allergy/AdvReac Type Severity Reaction Status Date / Time Penicillins Allergy Severe Edema Verified 03/16/19 05:42 aspirin Allergy Unknown Verified 03/16/19 05:42 bee venom protein (honey bee) Allergy Anaphylaxis Verified 03/16/19 05:42 coconut Allergy Hives Verified 03/16/19 05:42 milk Allergy Cramps Verified 03/16/19 05:42 onion AdvReac Hives Verified 03/16/19 05:42 - Social History Does the pt smoke?: No Smoking Status: Never smoker Does the pt drink ETOH?: No Does the pt have substance abuse?: No - Immunizations Immunizations are current?: Yes Immunizations: TDAP >10years/unknown - POLST Patient has POLST: No POLST Status: Full Code PD ED PE NORMAL - Vitals Vital signs reviewed: Yes - General General: Alert and oriented X 3, No acute distress - HEENT HEENT: Atraumatic, PERRL, Other (No external signs of trauma, no charlton sign, no ecchymosis around the eyes.) - Neck Neck: Supple, no meningeal sign, No bony TTP, Other (Normal range of motion of neck) - Cardiac Cardiac: No murmur, Other (Regular rate on my exam, regular rhythm) - Respiratory Respiratory: Clear bilaterally - Derm Derm: Warm and dry - Extremities Extremities: No deformity - Neuro Neuro: Alert and oriented X 3, 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 Given she has had multiple episodes of vomiting,CT scan of the head was obtained and shows no acute intracranial abnormality. Patient was given yue e Zofran for nausea as well as Tylenol for pain. On repeat examination she is feeling improved. I reviewed the results of the scan with her and I discussed that she appears to have suffered a concussion. I reviewed concussion care as well as return precautions. I prescribed her a small amount of Zofran and discussed pain control with [id number] medications. Also discussed return precautions and PCP follow-up. Patient agreed this plan was discharged home Departure - Departure Disposition: 01 Home, Self Care Clinical Impression: Concussion Qualifiers: Encounter type: initial encounter Loss of consciousness presence/duration: without LOC Qualified Code(s): S06.0X0A - Concussion without loss of consciousness, initial encounter Condition: Good Instructions: ED Concussion Follow-Up: Sorin Banegas MD [Primary Care Provider] - (In 1-2 weeks) Prescriptions: Ondansetron Odt [Zofran] 4 mg TL Q6H PRN #7 tablet PRN Reason: Nausea / Vomiting Comments: Your CT scan did not show signs of a bleed or fracture, but you likely did suffer a concussion. Please rest for the next 24 hours and avoid overstimulating activity and avoid any further head trauma. You may take Tylenol, ibuprofen for your headache. You may also take Zofran for your nausea/vomiting. If you are having new or worsening symptoms such as severe headache, confusion, weakness or numbness, return to the emergency department. If you have any persistent symptoms after the next week please follow-up with your primary care provider.
[2019-05-02] MEDS ORDERED: ACETAMINOPHEN 325 MG TABLET PO STA (17:26)
[2019-05-02] MEDS ORDERED: ONDANSETRON ODT 4 MG TABLET TL STA (17:26)
--- NOTE | 2019-05-02 18:21 | CT Report ---
Reason: Head injury, vomiting Procedure Date: 05/02/2019 Accession Number: [id number] / [id number] Procedure: CT - HEAD WO CPT Code: Final Report FULL RESULT: EXAM: CT HEAD EXAM DATE: 05/02/2019 05:44 PM. CLINICAL HISTORY: Head injury, vomiting. COMPARISON: None. TECHNIQUE: Multiaxial CT images were obtained from the foramen magnum to the vertex. Reformats: Sagittal and coronal. IV contrast: None. In accordance with CT protocol optimization, one or more of the following dose reduction techniques were utilized for this exam: automated exposure control, adjustment of mA and/or KV based on patient size, or use of iterative reconstructive technique. FINDINGS: Parenchyma: No intraparenchymal hemorrhage. No evidence of mass, midline shift, or CT findings of infarction. Samuel-white differentiation is distinct. Extraaxial Spaces: Normal for age. No subdural or epidural collections identified. Ventricles: Normal in size and position. Sinuses and Orbits: Imaged paranasal sinuses, orbits, and mastoids show no significant abnormality. Bones: No evidence of fracture or calvarial defect. Other: None. IMPRESSION: No acute intracranial CT abnormality. RADIA
[2019-05-02] MEDS ORDERED: BUTALB/ACETAM/CAFF 50/325/40MG TABLET PO STA (18:30)
== END 2019-05-02 18:42 | disposition home or self-care (01) ==
LOC: ED 16:43
DX: S06.0X0A Concussion without loss of consciousness, initial encounter (principal); W20.8XXA Other cause of strike by thrown, projected or falling object, initial encounter; Y93.89 Activity, other specified
CPT/HCPCS: 70450; 99284; A9270; Q0162

== ENCOUNTER 2019-07-12 13:39 | Emergency (ER) | payer MEDICAID ==
[2019-07-12 13:50] VITALS: BP 124/84
== END 2019-07-12 16:40 | disposition left against medical advice (07) ==
LOC: ED 13:39
DX: Z53.21 Procedure and treatment not carried out due to patient leaving prior to being seen by health care provider (principal)

== ENCOUNTER 2019-07-13 13:48 | Emergency (ER) | payer MEDICAID ==
[2019-07-13] MEDS ORDERED: predniSONE 20 MG TABLET PO STA (14:29)
[2019-07-13] MEDS ORDERED: ALBUTEROL NEB 2.5 MG/3 ML INH STA (14:29)
--- NOTE | 2019-07-13 14:33 | ED Physician Documentation ---
History of Present Illness - Stated complaint Stated Complaint: SOA - Chief complaint Chief Complaint: Resp - History obtained from History obtained from: Patient - History of Present Illness Timing: How many days ago Pain level max: 0 Pain level now: 0 - Additonal information Additional information: 38-year-old female presents to the emergency department stating that she has had difficulty breathing for the past 2 days. Had a productive cough yesterday but nonproductive cough today. She states that she is allergic to mold. She used her DuoNeb nebulizer today with little relief. She is out of her albuterol inhaler. No fevers. No abdominal pain. No nausea or vomiting. She states that she still feels like she is wheezing. 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 HEENT: Other Psych: Anxiety, Obsessive compulsive disorder Musculoskeletal: Osteoarthritis, Other Derm: Other - Past Surgical History Past Surgical History: Yes General: Appendectomy Neuro: Other - Present Medications Home Medications: Ambulatory Orders Medication Instructions Recorded Confirmed Albuterol Sulf [Ventolin Hfa 2 puffs INH Q4H PRN #2 inhaler 07/09/18 03/01/19 Inhaler] Ipratropium/Albuterol [Duoneb] 3 ml INH Q4HR PRN #15 neb 07/09/18 03/01/19 Acetaminophen 2 tab PO Q6HR PRN 03/01/19 03/01/19 Ibuprofen [Motrin] 800 mg PO TID PRN 03/01/19 03/01/19 Trazodone HCl 50 mg PO QPM 03/01/19 03/01/19 predniSONE [Deltasone] 10 mg PO [id number] #42 tab 03/01/19 Azithromycin [Zithromax] 0 mg PO DAILY #6 tablet 03/16/19 Hydrocodone/Acetaminophen [[place] 1 each PO Q6H PRN #20 tablet 03/16/19 5-325 Tablet] Naproxen 375 mg PO BID #20 tablet 03/16/19 dexAMETHasone [Decadron] 4 mg PO DAILY #5 tablet 03/16/19 Ondansetron Odt [Zofran] 4 mg TL Q6H PRN #7 tablet 05/02/19 Albuterol Sulf [Ventolin Hfa 1 - 2 puffs INH Q4HR PRN #1 inhaler 07/13/19 Inhaler] predniSONE [Deltasone] 10 mg PO [id number] #42 tab 07/13/19 - Allergies Allergies/Adverse Reactions: Allergies Allergy/AdvReac Type Severity Reaction Status Date / Time Penicillins Allergy Severe Edema Verified 07/13/19 13:51 aspirin Allergy Unknown Verified 07/13/19 13:51 bee venom protein (honey bee) Allergy Anaphylaxis Verified 07/13/19 13:51 coconut Allergy Hives Verified 07/13/19 13:51 milk Allergy Cramps Verified 07/13/19 13:51 onion AdvReac Hives Verified 07/13/19 13:51 - Social History Does the pt smoke?: No Smoking Status: Never smoker Does the pt drink ETOH?: No Does the pt have substance abuse?: No - Immunizations Immunizations are current?: Yes Immunizations: TDAP >10years/unknown - POLST Patient has POLST: No POLST Status: Full Code PD ED PE NORMAL - Vitals Vital signs reviewed: Yes - General General: Alert and oriented X 3, No acute distress - HEENT HEENT: Moist mucous membranes - Neck Neck: Supple, no meningeal sign - Cardiac Cardiac: RRR, Strong equal pulses - Respiratory Respiratory: No respiratory distress, Other (wheezing B) - Abdomen Abdomen: Soft, Non tender, Non distended - Derm Derm: No rash - Extremities Extremities: No edema - Neuro Neuro: Alert and oriented X 3 - Psych Psych: Normal mood, Normal affect Results - Vitals Vitals: Vital Signs - 24 hr 07/13/19 07/13/19 07/13/19 13:51 14:53 15:25 Temperature 36.5 C Heart Rate 105 H 82 109 H Respiratory 14 16 16 Rate Blood Pressure 141/85 H 142/86 H O2 Saturation 95 95 Oxygen O2 Source Room air PD MEDICAL DECISION MAKING - ED course Complexity details: re-evaluated patient, considered differential, d/w patient ED course: Patient feels better after steroids and albuterol treatment. She is well- appearing, nontoxic. Afebrile. No hypoxia. No evidence of pneumonia. Patient counseled regarding signs and symptoms for which I believe and urgent re- evaluation would be necessary. Patient with good understanding of and agreement to plan and is comfortable going home at this time This document was made in part using voice recognition software. While efforts are made to proofread this document, sound alike and grammatical errors may occur. Departure - Departure Disposition: Home, Self Care Clinical Impression: Asthma exacerbation Qualifiers: Asthma severity: unspecified severity Asthma persistence: unspecified Qualified Code(s): J45.901 - Unspecified asthma with (acute) exacerbation Condition: Good Instructions: ED Reactive Airway Disease Follow-Up: Sorin Banegas MD [Primary Care Provider] - Within 1 week Prescriptions: Albuterol Sulf [Ventolin Hfa Inhaler] 1 - 2 puffs INH Q4HR PRN #1 inhaler PRN Reason: Shortness Of Air/Wheezing predniSONE [Deltasone] 10 mg PO [id number] #42 tab Comments: Follow-up with your doctor for further care. Return if you worsen. Discharge Date/Time: 07/13/19 15:26
[2019-07-13 15:26] VITALS: BP 142/86
== END 2019-07-13 15:26 | disposition home or self-care (01) ==
LOC: ED 13:48
DX: J45.901 Unspecified asthma with (acute) exacerbation (principal)
CPT/HCPCS: 94640; 99283; 99284; J7512

== ENCOUNTER 2019-08-14 05:18 | Emergency (ER) | payer MEDICAID ==
[2019-08-14] MEDS ORDERED: IBUPROFEN 800 MG TABLET PO STA (05:32)
[2019-08-14] MEDS ORDERED: DEXAMETHASONE 10 MG/ML VIAL PO STA (05:32)
[2019-08-14] MEDS ORDERED: CHERRY SYRUP 10 ML UDC PO ONE (05:32)
--- NOTE | 2019-08-14 05:32 | ED Physician Documentation ---
History of Present Illness - Stated complaint Stated Complaint: SORE THROAT/WHITE SPOTS/COUGH - Chief complaint Chief Complaint: Heent - History obtained from History obtained from: Patient (The patient is a 38-year-old female who woke up today with a sore throat and she came to the emergency room. She denies any difficulty breathingOr any chest pain or any headache neck pain or rashes.She did not try any treatment prior to arrival.She denies fevers, headache, neck pain, rashes, any travel outside the country in the last 14 days.She denies being immunosuppressed she denies being an insulin-dependent diabetic) Review of Systems Constitutional: reports: Reviewed and negative Eyes: reports: Reviewed and negative Ears: reports: Reviewed and negative Nose: reports: Reviewed and negative Throat: reports: Sore throat Cardiac: reports: Reviewed and negative Respiratory: reports: Reviewed and negative GI: reports: Reviewed and negative : reports: Reviewed and negative Skin: reports: Reviewed and negative Musculoskeletal: reports: Reviewed and negative Neurologic: reports: Reviewed and negative Psychiatric: reports: Reviewed and negative Endocrine: reports: Reviewed and negative Immunocompromised: reports: Reviewed and negative PD PAST MEDICAL HISTORY - Past Medical History Cardiovascular: None Respiratory: Asthma, Pneumonia, Shortness of breath, Sleep apnea, Other Neuro: Migraines, Other Endocrine/Autoimmune: None 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 HEENT: Other Psych: Anxiety, Obsessive compulsive disorder Musculoskeletal: Osteoarthritis, Other Derm: Other - Past Surgical History Past Surgical History: Yes General: Appendectomy Neuro: Other - Present Medications Home Medications: Ambulatory Orders Medication Instructions Recorded Confirmed Ipratropium/Albuterol [Duoneb] 3 ml INH Q4HR PRN #15 neb 07/09/18 08/14/19 Trazodone HCl 50 mg PO QPM 03/01/19 08/14/19 Albuterol Sulf [Ventolin Hfa 1 - 2 puffs INH Q4HR PRN #1 inhaler 07/13/19 Inhaler] - Allergies Allergies/Adverse Reactions: Allergies Allergy/AdvReac Type Severity Reaction Status Date / Time Penicillins Allergy Severe Edema Verified 07/13/19 13:51 aspirin Allergy Unknown Verified 07/13/19 13:51 bee venom protein (honey bee) Allergy Anaphylaxis Verified 07/13/19 13:51 coconut Allergy Hives Verified 07/13/19 13:51 milk Allergy Cramps Verified 07/13/19 13:51 onion AdvReac Hives Verified 07/13/19 13:51 - Social History Does the pt smoke?: No Smoking Status: Never smoker Does the pt drink ETOH?: No Does the pt have substance abuse?: No - Immunizations Immunizations are current?: Yes Immunizations: TDAP >10years/unknown - POLST Patient has POLST: No POLST Status: Full Code PD ED PE NORMAL - Vitals Vital signs reviewed: Yes - General General: Alert and oriented X 3, No acute distress, Well developed/nourished - HEENT HEENT: Atraumatic, PERRL, EOMI, Ears normal, Moist mucous membranes, Dentition benign, Other (Oropharynx is erythematous with exudates bilaterally uvula midline normal voice tolerating her secretions floor the mouth is soft.) - Neck Neck: Supple, no meningeal sign, No adenopathy, No JVD - Cardiac Cardiac: RRR, No murmur, No gallop, Strong equal pulses - Respiratory Respiratory: No respiratory distress, Clear bilaterally - Abdomen Abdomen: Normal bowel sounds, Soft, Non tender, Non distended, No organomegaly - Back Back: No CVA TTP, No spinal TTP - Derm Derm: Normal color, Warm and dry, No rash - Extremities Extremities: No deformity, No tenderness to palpate, Normal ROM s pain, No edema, No calf tenderness / cord - Neuro Neuro: Alert and oriented X 3, 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, No motor deficit, No sensory deficit, Normal speech - Psych Psych: Normal mood, Normal affect Results - Vitals Vitals: Vital Signs - 24 hr 08/14/19 05:20 Temperature 36.9 C Heart Rate 101 H Respiratory 18 Rate Blood Pressure 120/106 H O2 Saturation 99 Oxygen O2 Source Room air - Labs Labs: Laboratory Tests 08/14/19 05:30 Group A Strep Rapid Negative PD MEDICAL DECISION MAKING - ED course Complexity details: considered differential (Strep pharyngitis viral pharyngitis atypical pharyngitisNo signs of peritonsillar abscess or prevertebral abscess or ANUG or Jakub's.) Departure - Departure Disposition: 01 Home, Self Care Clinical Impression: Pharyngitis Qualifiers: Pharyngitis/tonsillitis etiology: unspecified etiology Qualified Code(s): J02.9 - Acute pharyngitis, unspecified Condition: Good Instructions: ED Pharyngitis Viral Follow-Up: Sorin Banegas MD [Primary Care Provider] - 08/14/19
[2019-08-14 05:50] LABS: RAPID STREP SCREEN Negative (Negative)
[2019-08-14 06:14] VITALS: BP 126/72
== END 2019-08-14 06:14 | disposition home or self-care (01) ==
LOC: ED 05:18
DX: J02.9 Acute pharyngitis, unspecified (principal)
CPT/HCPCS: 87070; 87077; 87430; 99283; 99284; A9270

== ENCOUNTER 2019-09-16 08:29 | Emergency (ER) | payer MEDICAID ==
[2019-09-16 08:44] VITALS: BP 141/112
[2019-09-16] MEDS ORDERED: predniSONE 20 MG TABLET PO STA (09:04)
--- NOTE | 2019-09-16 09:12 | ED Physician Documentation ---
History of Present Illness - Stated complaint Stated Complaint: L ELBOW PX - Chief complaint Chief Complaint: Ext Problem - History obtained from History obtained from: Patient - History of Present Illness Timing: How many days ago (3) Pain level max: 8 Pain level now: 8 - Additonal information Additional information: Left elbow pain for the past 3 days. Worse with movement and better with rest. Denies any injury. No swelling. Occasionally has shooting pain from the elbow to the wrist. Took ibuprofen this morning without relief. No redness. No fever. 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 HEENT: Other Psych: Anxiety, Obsessive compulsive disorder Musculoskeletal: Osteoarthritis, Other Derm: Other - Past Surgical History Past Surgical History: Yes General: Appendectomy Neuro: Other - Present Medications Home Medications: Ambulatory Orders Medication Instructions Recorded Confirmed Ipratropium/Albuterol [Duoneb] 3 ml INH Q4HR PRN #15 neb 07/09/18 08/14/19 Trazodone HCl 50 mg PO QPM 03/01/19 08/14/19 Albuterol Sulf [Ventolin Hfa 1 - 2 puffs INH Q4HR PRN #1 inhaler 07/13/19 Inhaler] Hydrocodone/Acetaminophen 1 - 2 each PO Q6H PRN #10 tablet 09/16/19 [Hydrocodon-Acetaminophen 5-325] Meloxicam [Mobic] 15 mg PO DAILY PRN #20 tablet 09/16/19 predniSONE [Deltasone] 10 mg PO [id number] #42 tab 09/16/19 - Allergies Allergies/Adverse Reactions: Allergies Allergy/AdvReac Type Severity Reaction Status Date / Time Penicillins Allergy Severe Edema Verified 09/16/19 08:43 aspirin Allergy Unknown Verified 09/16/19 08:43 bee venom protein (honey bee) Allergy Anaphylaxis Verified 09/16/19 08:43 coconut Allergy Hives Verified 09/16/19 08:43 milk Allergy Cramps Verified 09/16/19 08:43 onion AdvReac Hives Verified 09/16/19 08:43 - Social History Does the pt smoke?: No Smoking Status: Never smoker Does the pt drink ETOH?: No Does the pt have substance abuse?: No - Immunizations Immunizations are current?: Yes Immunizations: TDAP >10years/unknown - POLST Patient has POLST: No POLST Status: Full Code PD ED PE NORMAL - Vitals Vital signs reviewed: Yes - General General: Alert and oriented X 3, No acute distress - HEENT HEENT: Moist mucous membranes - Derm Derm: Warm and dry - Extremities Extremities: Other (Full range of motion of the left elbow, there is pain with range of motion. She is able to fully flex and extend. She is able to pronate and supinate fully. There is no significant swelling. No significant tenderness, though some tenderness near the lateral epicondyle. Neurovascular intact.) - Neuro Neuro: Alert and oriented X 3 Results - Vitals Vitals: Vital Signs - 24 hr 09/16/19 08:40 Temperature 37.0 C Heart Rate 93 Respiratory 20 Rate Blood Pressure 141/112 H O2 Saturation 97 Oxygen O2 Source Room air PD MEDICAL DECISION MAKING - ED course Complexity details: considered differential, d/w patient ED course: Patient with a lateral epicondylitis versus bursitis. Mild in either case. Will place on steroids and anti-inflammatories. We will have her follow-up with her doctor for further care. Patient counseled regarding signs and symptoms for which I believe and urgent re-evaluation would be necessary. Patient with good understanding of and agreement to plan and is comfortable going home at this time This document was made in part using voice recognition software. While efforts are made to proofread this document, sound alike and grammatical errors may occur. Departure - Departure Disposition: 01 Home, Self Care Clinical Impression: Bursitis Qualifiers: Bursitis location: elbow Elbow bursitis location: unspecified Laterality: left Qualified Code(s): M70.32 - Other bursitis of elbow, left elbow Condition: Good Instructions: ED Bursitis Follow-Up: Sorin Banegas MD [Primary Care Provider] - Within 1 week Prescriptions: Hydrocodone/Acetaminophen [Hydrocodon-Acetaminophen 5-325] 1 - 2 each PO Q6H PRN #10 tablet PRN Reason: pain Meloxicam [Mobic] 15 mg PO DAILY PRN #20 tablet PRN Reason: pain predniSONE [Deltasone] 10 mg PO [id number] #42 tab Comments: Use the medications as prescribed. Return if you worsen. This should improve over the next 24 to 48 hours. Do not drink alcohol or drive while on narcotic pain medicine. Note that many narcotic pain relievers also contain tylenol/acetaminophen. Please ensure that your total dose of acetaminophen from all sources does not exceed 3 grams (3000mg) per day. You may constipated on this medication, take a stool softener such as "Colace" twice a day while you are on it. Also recommend a [id number]-[id number] laxative such as senna or MiraLAX any day that you do not have a bowel movement. If you received narcotic pain medication in the emergency department, do not drive or operate machinery for the next 24 hours.
== END 2019-09-16 09:18 | disposition home or self-care (01) ==
LOC: ED 08:29
DX: M70.32 Other bursitis of elbow, left elbow (principal)
CPT/HCPCS: 99283; 99284; J7512

== ENCOUNTER 2019-10-07 14:16 | Emergency (ER) | payer MEDICAID ==
[2019-10-07 14:28] VITALS: BP 142/85
--- NOTE | 2019-10-07 14:37 | ED Physician Documentation ---
PD HPI UPPER EXT INJURY - Stated complaint Stated Complaint: LT ARM/SHOULD PX - Chief complaint Chief Complaint: Ext Problem - History obtained from History obtained from: Patient - History of Present Illness Location: Left, Elbow (Lateral) Type of injury: No: Fall, Twist Timing - onset: How many weeks ago (2) Pain level now: 7 Improved by: Meds (And Vicodin) Worsened by: Moving - Additonal information Additional information: 39-year-old female returns today with continued left lateral elbow pain. She was seen approximately 2 weeks ago in the ER for the same and diagnosed with lateral epicondylitis. She was sent home on tapering dose of steroid, given a prescription for ibuprofen, and Vicodin. She states she takes a Vicodin at night to help her sleep. She has had minimal relief of pain over the past two weeks. States the pain is not worse but is not really getting better she also states that she continues to work and the pain is worse while she is at work. Occasionally has shooting pain from the elbow to the wrist point where performed. She denies any edema erythema or warmth to the left elbow, she denies fevers, chills. She is left-hand dominant. No other concerns today. Review of Systems Ten Systems: 10 systems reviewed and negative Constitutional: reports: Reviewed and negative Eyes: reports: Reviewed and negative Ears: reports: Reviewed and negative Cardiac: reports: Reviewed and negative Respiratory: reports: Reviewed and negative GI: reports: Reviewed and negative Skin: reports: Reviewed and negative Musculoskeletal: reports: Joint pain (Left lateral elbow). 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 HEENT: Other Psych: Anxiety, Obsessive compulsive disorder Musculoskeletal: Osteoarthritis, Other Derm: Other - Past Surgical History Past Surgical History: Yes General: Appendectomy Neuro: Other - Present Medications Home Medications: Ambulatory Orders Medication Instructions Recorded Confirmed Ipratropium/Albuterol [Duoneb] 3 ml INH Q4HR PRN #15 neb 07/09/18 08/14/19 Trazodone HCl 50 mg PO QPM 03/01/19 08/14/19 Albuterol Sulf [Ventolin Hfa 1 - 2 puffs INH Q4HR PRN #1 inhaler 07/13/19 Inhaler] Hydrocodone/Acetaminophen 1 - 2 each PO Q6H PRN #10 tablet 09/16/19 [Hydrocodon-Acetaminophen 5-325] Meloxicam [Mobic] 15 mg PO DAILY PRN #20 tablet 09/16/19 predniSONE [Deltasone] 10 mg PO [id number] #42 tab 09/16/19 Ibuprofen [Motrin] 800 mg PO Q8H PRN #30 tablet 10/07/19 - Allergies Allergies/Adverse Reactions: Allergies Allergy/AdvReac Type Severity Reaction Status Date / Time Penicillins Allergy Severe Edema Verified 09/16/19 08:43 aspirin Allergy Unknown Verified 09/16/19 08:43 bee venom protein (honey bee) Allergy Anaphylaxis Verified 09/16/19 08:43 coconut Allergy Hives Verified 09/16/19 08:43 milk Allergy Cramps Verified 09/16/19 08:43 onion AdvReac Hives Verified 09/16/19 08:43 - Social History Does the pt smoke?: No Smoking Status: Current every day smoker Does the pt drink ETOH?: No Does the pt have substance abuse?: No - Immunizations Immunizations are current?: Yes Immunizations: TDAP >10years/unknown - POLST Patient has POLST: No POLST Status: Full Code PD ED PE NORMAL - General General: Alert and oriented X 3, No acute distress - HEENT HEENT: Atraumatic, Moist mucous membranes - Derm Derm: Normal color, Warm and dry - Extremities Extremities: No edema, Other (Active full range of motion to the left elbow, there is pain more so with extension of the elbow. She is able to fully flex and extend. She is able to supinate and pronate fully, with increased pain on supination. There is no swelling. No erythema. No warmth. Significant tenderness to the left lateral epicondyle.) - Neuro Neuro: Alert and oriented X 3 Results - Vitals Vitals: Vital Signs - 24 hr 10/07/19 14:21 Temperature 36.9 C Heart Rate 94 Respiratory 16 Rate Blood Pressure 142/85 H O2 Saturation 96 Oxygen O2 Source Room air PD MEDICAL DECISION MAKING - ED course Complexity details: reviewed old records, d/w patient ED course: Patient presents with what appears to be continued lateral epicondylitis. Somewhat worsened since last time she was seen. Have encouraged the patient to follow-up with her primary care physician. Have encouraged her to take ibuprofen 1600 mg 3 times a day for the neck 5 to 7 days, drinking plenty clear fluids while doing this. The patient is in agreement with this plan Departure - Departure Disposition: 01 Home, Self Care Clinical Impression: Epicondylitis, lateral, left Condition: Good Instructions: ED Epicondylitis Lateral Elbow Prescriptions: Ibuprofen [Motrin] 800 mg PO Q8H PRN #30 tablet PRN Reason: PAIN &/OR FEVER Comments: Use medications as prescribed. Follow with your primary care provider if not improved within the next 5 to 7 days. He may also take [id number] Tylenol for pain control. As I discussed with you go to 1 of the local pharmacies, and look for a elbow/forearm strap to use for tennis elbow. I provide you with a prescription for ibuprofen andwould like you to take this 3 times a day for the next 5 to 7 days, drinking plenty of water while taking this to keep her kidneys flushed out. Forms: Activity restrictions
== END 2019-10-07 15:13 | disposition home or self-care (01) ==
LOC: ED 14:16
DX: M77.12 Lateral epicondylitis, left elbow (principal); F17.200 Nicotine dependence, unspecified, uncomplicated
CPT/HCPCS: 99282; 99284

== ENCOUNTER 2019-11-14 22:29 | Emergency (ER) | payer MEDICAID ==
[2019-11-14 22:40] VITALS: BP 118/80
--- NOTE | 2019-11-14 22:50 | ED Physician Documentation ---
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 HEENT: Other Psych: Anxiety, Obsessive compulsive disorder Musculoskeletal: Osteoarthritis, Other Derm: Other - Past Surgical History Past Surgical History: Yes General: Appendectomy Neuro: Other - Present Medications Home Medications: Ambulatory Orders Medication Instructions Recorded Confirmed Albuterol Sulf [Ventolin Hfa 1 - 2 puffs INH Q4HR PRN #1 inhaler 07/13/19 11/14/19 Inhaler] - Allergies Allergies/Adverse Reactions: Allergies Allergy/AdvReac Type Severity Reaction Status Date / Time Penicillins Allergy Severe Edema Verified 11/14/19 22:40 aspirin Allergy Unknown Verified 11/14/19 22:40 bee venom protein (honey bee) Allergy Anaphylaxis Verified 11/14/19 22:40 coconut Allergy Hives Verified 11/14/19 22:40 milk Allergy Cramps Verified 11/14/19 22:40 onion AdvReac Hives Verified 11/14/19 22:40 - Social History Does the pt smoke?: No Smoking Status: Current every day smoker Does the pt drink ETOH?: No Does the pt have substance abuse?: No - Immunizations Immunizations are current?: Yes Immunizations: TDAP >10years/unknown - POLST Patient has POLST: No POLST Status: Full Code Results - Vitals Vitals: Vital Signs - 24 hr 11/14/19 22:33 Temperature 35.7 C L Heart Rate 87 Respiratory 18 Rate Blood Pressure 118/80 O2 Saturation 97 Oxygen O2 Source Room air
[2019-11-14] MEDS ORDERED: IBUPROFEN 600 MG TABLET PO STA (23:36)
--- NOTE | 2019-11-15 08:59 | ED Physician Documentation ---
History of Present Illness - Stated complaint Stated Complaint: LT ELBOW PX - Chief complaint Chief Complaint: Ext Problem - History obtained from History obtained from: Patient - History of Present Illness Timing: Other (2 months) Pain level now: 5 Improved by: rest Worsened by: palpation (lateral aspect of left elbow), movement (specifically supination) - Additonal information Additional information: per patient, "same thing I was here for last time". Patient was evaluated 2 months ago in this ED for atraumatic left elbow pain and again last month for same, diagnosed with lateral epicondylitis. She says she purchased an elbow strap as was recommended, did not feel this helped although the pain did gradually subside. 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 Pain is distinctly worse with palpation of lateral aspect and supination. Patient is left hand dominant Review of Systems Skin: denies: Rash Musculoskeletal: reports: Joint pain. 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 HEENT: Other Psych: Anxiety, Obsessive compulsive disorder Musculoskeletal: Osteoarthritis, Other Derm: Other Other Past Medical History: L tennis elbow - Past Surgical History Past Surgical History: Yes General: Appendectomy Neuro: Other HEENT: Other - Present Medications Home Medications: Ambulatory Orders Medication Instructions Recorded Confirmed Albuterol Sulf [Ventolin Hfa 1 - 2 puffs INH Q4HR PRN #1 inhaler 07/13/19 11/14/19 Inhaler] Ibuprofen [Motrin] 600 mg PO Q6H PRN #20 tab 11/14/19 - Allergies Allergies/Adverse Reactions: Allergies Allergy/AdvReac Type Severity Reaction Status Date / Time Penicillins Allergy Severe Edema Verified 11/14/19 22:40 aspirin Allergy Unknown Verified 11/14/19 22:40 bee venom protein (honey bee) Allergy Anaphylaxis Verified 11/14/19 22:40 coconut Allergy Hives Verified 11/14/19 22:40 milk Allergy Cramps Verified 11/14/19 22:40 onion AdvReac Hives Verified 11/14/19 22:40 - Social History Does the pt smoke?: No Smoking Status: Current every day smoker Does the pt drink ETOH?: No Does the pt have substance abuse?: No - Immunizations Immunizations are current?: Yes Immunizations: TDAP >10years/unknown - POLST Patient has POLST: No POLST Status: Full Code PD ED PE NORMAL - Vitals Vital signs reviewed: Yes - General General: Alert and oriented X 3, No acute distress, Well developed/nourished - Derm Derm: Normal color, Warm and dry, No rash - Extremities Extremities: No deformity, No edema PD ED PE EXPANDED - Extremities Extremities: Tenderness (limited to lateral epicondyle (left elbow)), Limited ROM (FROM flexion and extension. supination is limited due to worsening pain with this motion. ) Results - Vitals Vitals: Vital Signs - 24 hr 11/14/19 22:33 Temperature 35.7 C L Heart Rate 87 Respiratory 18 Rate Blood Pressure 118/80 O2 Saturation 97 Oxygen O2 Source Room air PD MEDICAL DECISION MAKING - ED course Complexity details: reviewed old records, considered differential, d/w patient ED course: patient HPI and exam are strongly s/o lateral epicondylitis. Encouraged to seek f/u with PMD. Departure - Departure Disposition: 01 Home, Self Care Clinical Impression: Lateral epicondylitis of elbow Qualifiers: Laterality: left Qualified Code(s): M77.12 - Lateral epicondylitis, left elbow Condition: Good Instructions: ED Epicondylitis Lateral Elbow Prescriptions: Ibuprofen [Motrin] 600 mg PO Q6H PRN #20 tab PRN Reason: Pain Discharge Date/Time: 11/14/19 23:52
== END 2019-11-14 23:52 | disposition home or self-care (01) ==
LOC: ED 22:29
DX: M77.12 Lateral epicondylitis, left elbow (principal)
CPT/HCPCS: 99282; 99283; A9270